=== PATIENT | male | born 1950 | race Caucasian/White ===

== ENCOUNTER → 2017-05-22 | Outpatient (CLI) | payer OTHER, MEDICARE ==
[~2017-05-22] MED LIST: ALBU18002 INH; ATOR-24 PO; DOXY50CA26 PO; ESCI1TAB10 PO; MONT1TAB3 PO; MULT-13 PO; MULT-513 PO; OXYC20TA50 PO; SYMIN160 INH; TADA20TA PO; TRIA3AER NAE; VENL150C56 PO
[2017-05-22 12:24] LABS: BASO % 0.7 %; BASO ABS # 0.04 K/uL (0-0.2); COMPLETE YES; HEMATOCRIT 39.1 % (42-52); IG% 0.2 %; LYMPH % 28.8 %; LYMPH ABS # 1.67 K/uL (1.2-3.4); MEAN CELL VOLUME 81.3 fL (80-100); MEAN CORPUSCULAR HEMOGLOBIN 24.3 pg (25-34); MEAN CORPUSCULAR HGB CONC 29.9 g/dl (32-36); MEAN PLATELET VOLUME 10.2 fL (7.4-10.4); MONO % 9.5 %; NEUT % 56.8 %; PLATELET COUNT 292 K/uL (130-400); RED BLOOD COUNT 4.81 M/uL (4.7-6.1); WHITE BLOOD COUNT 5.79 K/uL (4.8-10.8)
[2017-05-22 13:14] LABS: ALT/SGPT 47 U/L (12-78); AST/SGOT 34 U/L (15-37); BLOOD UREA NITROGEN 14 mg/dl (7-18); BUN/CREATININE RATIO 12.4 (10-20); CALCIUM 8.6 mg/dl (8.5-10.1); CARBON DIOXIDE 28 mmol/L (21-32); CHLORIDE 107 mmol/L (98-107); CHOLESTEROL 206 mg/dl (0-200); GLUCOSE 103 mg/dl (70-99); POTASSIUM 3.9 mmol/L (3.5-5.1); SODIUM 140 mmol/L (136-145)
[2017-05-22 13:37] LABS: ALKALINE PHOSPHATASE 86 U/L (45-117); HDL CHOLESTEROL 51 mg/dl; LDL CHOLESTEROL CALCULATED 109 mg/dl; THYROID STIMULATING HORMONE 0.912 uIu/ml (0.300-4.500); TRIGLYCERIDES 228 mg/dl (0-150); VERY LOW DENSITY LIPOPROT CALC 46 mg/dl
--- NOTE | 2017-06-16 10:36 | CODING QUERY MEDICAL NECESSITY ---
CQSUPPORTING DIAGNOSIS NEEDED A supporting diagnosis is required for the test/procedure performed on this patient in order for us to be reimbursed by the patient's insurance. Please provide a supporting diagnosis for the following test/procedure listed below next to the test name along with your signature. *If there is no additional diagnosis for this patient that would support the following test/procedure please document that below next to the test/procedure. Test(s)/Procedure(s) that require a supporting diagnosis: DOS 05/22/17 PROSTATE SPECIFIC THYROID TEST LIPID TEST Provider Signature: Date: Thank you Lexi Cruz Health Information Management Once completed, please kindly fax back to [phone] For questions please call [phone]
== END | disposition home or self-care (01) ==
LOC: C.LABPBG 10:46
PROVIDERS: ATTEND Internal Medicine
DX: Z72.0 Tobacco use (principal)

== ENCOUNTER → 2017-05-29 | Outpatient (CLI) | payer OTHER, MEDICARE ==
[2017-05-29 17:09] LABS: FERRITIN 7.7 ng/ml (8.0-388.0)
--- NOTE | 2017-06-16 10:45 | CODING QUERY MEDICAL NECESSITY ---
CQSUPPORTING DIAGNOSIS NEEDED A supporting diagnosis is required for the test/procedure performed on this patient in order for us to be reimbursed by the patient's insurance. Please provide a supporting diagnosis for the following test/procedure listed below next to the test name along with your signature. *If there is no additional diagnosis for this patient that would support the following test/procedure please document that below next to the test/procedure. Test(s)/Procedure(s) that require a supporting diagnosis: DOS 05/29/17 VITAMIN B12 TEST FOLIC ACID TEST Provider Signature: Date: Thank you Lexi Cruz Health Information Management Once completed, please kindly fax back to [phone] For questions please call [phone]
== END | disposition home or self-care (01) ==
LOC: C.LABPBG 11:39
PROVIDERS: ATTEND Internal Medicine
DX: D64.9 Anemia, unspecified (principal)

== ENCOUNTER → 2017-06-05 | Day surgery (SDC) | payer OTHER, MEDICARE ==
[2017-06-02 12:40] VITALS: Ht 172.7 cm; Wt 84.1 kg
[~2017-06-05] VITALS: Ht 172.7 cm; Wt 84.1 kg
[~2017-06-05] MED LIST changes: +ALBUTEROL HFA INHALER 8.5 GM INH ONE; -ESCI1TAB10 PO; +FENTANYL CITRATE INJ 50 MCG/1 ML 2 ML VIAL ONE; +LIDOCAINE HCL 2% 2 ML VIAL (20MG/ML) ONE; -MONT1TAB3 PO; -MULT-13 PO; -OXYC20TA50 PO; +PROPOFOL IV EMULSION 10 MG/ML 20 ML VIAL IV ONE; +SODIUM CHLORIDE 0.9% 500ML 500 ML IV ONE; -TADA20TA PO; -TRIA3AER NAE
--- NOTE | 2017-06-05 13:24 | Endo History and Physical ---
History & Physical Date of Service: Jun 05, 2017. Chief Complaint: anemia,diverticulosis Referring Physician: Dr. Pelon Santiago History of Present Illness anemia Past Surgical History Hx Cardiac Surgery: Yes (PERICARDIAL WINDOW SURGERY) Hx Internal Defibrillator: No Hx Pacemaker: No Hx Abdominal Surgery: Yes (HERNIA REPAIR) Hx of Implantable Prosthesis: No Hx Post-Op Nausea and Vomiting: No Hx Cancer Surgery: No Hx Thoracic Surgery: No Hx Orthopedic: Yes (RT TKA) Hx Urinary Tract Surgery: No Family History IBD Social History Smoking Status: Never Smoker Hx Substance Use: No Hx Alcohol Use: Yes (3-4 BEERS/DAY) Allergies Coded Allergies: No Known Allergies (Verified , 06/05/17) Current Medications Reported Home Medications Medications Dose Route/Sig Max Daily Dose Days Date Category Proair Respiclick (Albuterol Sulfate) 108 Mcg/Act Aer 2 Puffs INH Q4H PRN 06/02/17 Reported Doxycycline (Doxycycline (Monohydrate)) 50 Mg Cap 1 Cap PO AFTERNOON 06/02/17 Reported Effexor Extended Rel (Venlafaxine Hcl) 150 Mg Cap 150 Mg PO AFTERNOON 06/02/17 Reported Symbicort 160/4.5 Inhaler (Budesonide/Formoterol Fumarate) Aero 2 Puffs INH BID PRN 05/19/13 Reported Mvi With Minerals (Multivitamins/Minerals) Tab 1 Tab PO AFTERNOON 05/19/13 Reported Lipitor (Atorvastatin Calcium) 40 Mg Tab 40 Mg PO AFTERNOON 04/22/13 Reported Vital Signs Weight (Kilograms): 84.09 Height (Feet): 5 Height (Inches): 8 Date Time Temp Pulse Resp B/P (MAP) Pulse Ox O2 Delivery O2 Flow Rate FiO2 06/05/17 13:14 36.8 72 16 151/87 (108) 98 Room Air Physical Exam AAOx3 Nl s1s2 Lungs CTA Abd soft NT/ND + BS - CCE Assessment and Plan EGD and colonscopy today
--- NOTE | 2017-06-05 15:25 | Discharge Instructions ---
Endoscopy Patient Instructions Date / Procedure(s) Performed Jun 05, 2017. Colonoscopy, EGD Allergy Information Coded Allergies: No Known Allergies (Verified , 06/05/17) Discharge Date / Findings Jun 05, 2017. polyps- colon diverticulosis nl EGD/SB exam- bx Medication Instructions Restart Stopped Medication(s): Reported Home Medications Medications Dose Route/Sig Max Daily Dose Days Date Category Proair Respiclick (Albuterol Sulfate) 108 Mcg/Act Aer 2 Puffs INH Q4H PRN 06/02/17 Reported Doxycycline (Doxycycline (Monohydrate)) 50 Mg Cap 1 Cap PO AFTERNOON 06/02/17 Reported Effexor Extended Rel (Venlafaxine Hcl) 150 Mg Cap 150 Mg PO AFTERNOON 06/02/17 Reported Symbicort 160/4.5 Inhaler (Budesonide/Formoterol Fumarate) Aero 2 Puffs INH BID PRN 05/19/13 Reported Mvi With Minerals (Multivitamins/Minerals) Tab 1 Tab PO AFTERNOON 05/19/13 Reported Lipitor (Atorvastatin Calcium) 40 Mg Tab 40 Mg PO AFTERNOON 04/22/13 Reported Reported Home Medications Medications Dose Route/Sig Max Daily Dose Days Date Category Proair Respiclick (Albuterol Sulfate) 108 Mcg/Act Aer 2 Puffs INH Q4H PRN 06/02/17 Reported Doxycycline (Doxycycline (Monohydrate)) 50 Mg Cap 1 Cap PO AFTERNOON 06/02/17 Reported Effexor Extended Rel (Venlafaxine Hcl) 150 Mg Cap 150 Mg PO AFTERNOON 06/02/17 Reported Symbicort 160/4.5 Inhaler (Budesonide/Formoterol Fumarate) Aero 2 Puffs INH BID PRN 05/19/13 Reported Mvi With Minerals (Multivitamins/Minerals) Tab 1 Tab PO AFTERNOON 05/19/13 Reported Lipitor (Atorvastatin Calcium) 40 Mg Tab 40 Mg PO AFTERNOON 04/22/13 Reported Provider Instructions Activity Restrictions - No exercising or heavy lifting for 24 hours. - Do not drink alcohol the day of the procedure. - Do not drive a car or operate machinery until the day after the procedure. - Do not make any important decisions or sign important papers in 24 hours after the procedure. Following Day: - Return to full activity which may include returning to work/school. Diet Start your diet with liquids and light foods (jello, soup, juice, toast). Then eat your usual diet if not nauseated. Treatment For Common After Affects For mild abdominal pain, bloating, or excessive gas: - Rest - Eat lightly - Lie on right side Follow-Up Information Follow-up with Dr. Pelon Santiago as scheduled Anesthesia Information What You Should Know You have had a procedure that required some medicine to reduce anxiety and discomfort. This treatment is called moderate sedation. After receiving the treatment, you may be sleepy, but you will be able to breathe on your own. The effects of the treatment may last for several hours. Follow these instructions along with Activity/Diet recommendations noted above: * Do NOT do anything where dizziness or clumsiness would be dangerous. * Rest quietly at home today, then you can be up and about tomorrow. * Have a responsible person stay with you the rest of today. * You may have had an I.V. today. If so, you may take the dressing off later today. Recommendations Call your doctor if: * Trouble breathing * Continuous vomiting for more than 24 hours * Temperature above 101 degrees * Severe abdominal pain or bloating * Pain not relieved by pain medicine ordered * There is increased drainage or redness from any incision * A large amount of rectal bleeding greater than 2-3 tablespoons. (If you had a polyp/s removed or have hemorrhoids, a small amount of blood - from the rectum is to be expected.) * You have any unanswered questions or concerns. IN THE EVENT OF A SERIOUS EMERGENCY, GO TO THE NEAREST EMERGENCY ROOM Your discharge instructions were prepared by provider Elio Duffy. Patient Instructions Signature Page Alec Salmeron Patient (or Guardian) Signature/Date: I have read and understand the instructions given to me by my caregivers. Caregiver/RN/Doctor Signature/Date: The above-named patient and/or guardian has received patient instructions on this date. + Original Patient Signature Page (only) stays with chart. Please make copy for patient.
--- NOTE | 2017-06-05 15:30 | GI REPORT ---
Procedure Date: 06/05/2017 2:11 PM Procedure: Colonoscopy Indications: Iron deficiency anemia secondary to chronic blood loss Medicines: Propofol per Anesthesia Complications: No immediate complications. Estimated blood loss: Minimal. Estimated Blood Loss: Estimated blood loss was minimal. Procedure: Pre-Anesthesia Assessment: - Prior to the procedure, a History and Physical was performed, and patient medications and allergies were reviewed. The patient's tolerance of previous anesthesia was also reviewed. The risks and benefits of the procedure and the sedation options and risks were discussed with the patient. All questions were answered, and informed consent was obtained. Prior Anticoagulants: The patient has taken no previous anticoagulant or antiplatelet agents. ASA Grade Assessment: III - A patient with severe systemic disease. After reviewing the risks and benefits, the patient was deemed in satisfactory condition to undergo the procedure. After I obtained informed consent, the scope was passed under direct vision. Throughout the procedure, the patient's blood pressure, pulse, and oxygen saturations were monitored continuously. The scope was introduced through the anus and advanced to the terminal ileum, with identification of the appendiceal orifice and IC valve. The colonoscopy was performed without difficulty. The patient tolerated the procedure well. The quality of the bowel preparation was good. Findings: The perianal and digital rectal examinations were normal. Pertinent negatives include normal sphincter tone, no palpable rectal lesions and no anal lesion or abnormality was detected. Two sessile polyps were found in the rectum. The polyps were 3 mm in size. These polyps were removed with a cold biopsy forceps. Resection and retrieval were complete. Estimated blood loss was minimal. Verification of patient identification for the specimen was done by the physician and carpet cleaning technician using the patient's name and medical record number. Multiple small-mouthed diverticula were found in the sigmoid colon and in the descending colon. The exam was otherwise without abnormality. The terminal ileum appeared normal. Non-bleeding internal hemorrhoids were found during retroflexion. The hemorrhoids were mild. Impression: - Two 3 mm polyps in the rectum, removed with a cold biopsy forceps. Resected and retrieved. - Diverticulosis in the sigmoid colon and in the descending colon. - The examination was otherwise normal. - The examined portion of the ileum was normal. - Non-bleeding internal hemorrhoids. Recommendation: - Discharge patient to home (ambulatory). - Patient has a contact number available for emergencies. The signs and symptoms of potential delayed complications were discussed with the patient. Return to normal activities tomorrow. Written discharge instructions were provided to the patient. - Advance diet as tolerated. - Continue present medications. - Await pathology results. - Repeat colonoscopy for surveillance based on pathology results. - Return to referring physician as previously scheduled. MD Elio Martin MD 06/05/2017 3:29:40 PM This report has been signed electronically. Note Initiated On: 06/05/2017 2:11 PM I attest to the content of the Intraoperative Record and orders documented therein, exceptions below
--- NOTE | 2017-06-05 15:33 | GI REPORT ---
Procedure Date: 06/05/2017 2:12 PM Procedure: Upper GI endoscopy Indications: Iron deficiency anemia secondary to chronic blood loss Medicines: Propofol per Anesthesia Complications: No immediate complications. Estimated blood loss: Minimal. Estimated Blood Loss: Estimated blood loss was minimal. Estimated blood loss was minimal. Procedure: Pre-Anesthesia Assessment: - Prior to the procedure, a History and Physical was performed, and patient medications and allergies were reviewed. The patient's tolerance of previous anesthesia was also reviewed. The risks and benefits of the procedure and the sedation options and risks were discussed with the patient. All questions were answered, and informed consent was obtained. Prior Anticoagulants: The patient has taken no previous anticoagulant or antiplatelet agents. ASA Grade Assessment: III - A patient with severe systemic disease. After reviewing the risks and benefits, the patient was deemed in satisfactory condition to undergo the procedure. After obtaining informed consent, the endoscope was passed under direct vision. Throughout the procedure, the patient's blood pressure, pulse, and oxygen saturations were monitored continuously. The scope was introduced through the mouth, and advanced to the mid-jejunum. The upper GI endoscopy was accomplished without difficulty. The patient tolerated the procedure well. Findings: The examined esophagus was normal. A small hiatus hernia was found. The proximal extent of the gastric folds (end of tubular esophagus) was 38 cm from the incisors. The hiatal narrowing was 40 cm from the incisors. The Z-line was 38 cm from the incisors. The entire examined stomach was normal. The cardia and gastric fundus were normal on retroflexion. The examined duodenum was normal. Biopsies for histology were taken with a cold forceps for evaluation of celiac disease. Estimated blood loss was minimal. Verification of patient identification for the specimen was done by the physician and eeg technician using the patient's name and medical record number. The examined jejunum was normal. Localized mild inflammation characterized by erythema was found in the duodenal bulb. Impression: - Normal esophagus. - Small hiatus hernia. - Normal stomach. - Normal examined duodenum. Biopsied. - Normal examined jejunum. Recommendation: - Discharge patient to home (ambulatory). - Advance diet as tolerated. - Continue present medications. - Return to referring physician as previously scheduled. - Await pathology results. MD Elio Martin MD 06/05/2017 3:32:57 PM This report has been signed electronically. Note Initiated On: 06/05/2017 2:12 PM I attest to the content of the Intraoperative Record and orders documented therein, exceptions below
[2017-06-05 15:48] VITALS: BP 131/86; PULSE 71; O2SAT 95
--- NOTE | 2017-06-05 16:15 | Anesthesiology Progress Note ---
Anesthesia Post Op Note Date & Time Jun 05, 2017 at 16:15 Vital Signs Pain Intensity: 0 Vital Signs Past 12 Hours Date Time Temp Pulse Resp B/P (MAP) Pulse Ox O2 Delivery O2 Flow Rate FiO2 06/05/17 15:48 71 16 131/86 (101) 95 Room Air 06/05/17 15:33 90 16 125/91 (102) 96 Room Air 06/05/17 15:18 90 16 128/89 (102) 95 Room Air 06/05/17 13:14 36.8 72 16 151/87 (108) 98 Room Air Notes Mental Status: alert / awake / arousable, participated in evaluation Pt Amnestic to Procedure: Yes Nausea / Vomiting: adequately controlled Pain: adequately controlled Airway Patency, RR, SpO2: stable & adequate BP & HR: stable & adequate Hydration State: stable & adequate Anesthetic Complications: no major complications apparent
== END | disposition home or self-care (01) ==
LOC: C.GI 12:51
PROVIDERS: ATTEND Internal Medicine Gastroenterology
DX: D50.9 Iron deficiency anemia, unspecified (principal); K44.9 Diaphragmatic hernia without obstruction or gangrene; K62.1 Rectal polyp; K57.30 Diverticulosis of large intestine without perforation or abscess without bleeding; Z96.651 Presence of right artificial knee joint

== ENCOUNTER → 2017-06-22 | Outpatient (CLI) | payer OTHER, MEDICARE ==
[~2017-06-22] MED LIST changes: -ALBUTEROL HFA INHALER 8.5 GM INH ONE; -FENTANYL CITRATE INJ 50 MCG/1 ML 2 ML VIAL ONE; -LIDOCAINE HCL 2% 2 ML VIAL (20MG/ML) ONE; -PROPOFOL IV EMULSION 10 MG/ML 20 ML VIAL IV ONE; -SODIUM CHLORIDE 0.9% 500ML 500 ML IV ONE
[2017-06-22 17:36] LABS: BASO % 0.3 %; BASO ABS # 0.02 K/uL (0-0.2); COMPLETE YES; IG% 0.2 %; LYMPH % 24.2 %; LYMPH ABS # 1.57 K/uL (1.2-3.4); MEAN CELL VOLUME 79.6 fL (80-100); MEAN CORPUSCULAR HEMOGLOBIN 24.3 pg (25-34); MEAN CORPUSCULAR HGB CONC 30.5 g/dl (32-36); MEAN PLATELET VOLUME 10.6 fL (7.4-10.4); MONO % 8.8 %; NEUT % 62.5 %; PLATELET COUNT 252 K/uL (130-400); RED BLOOD COUNT 4.65 M/uL (4.7-6.1); WHITE BLOOD COUNT 6.49 K/uL (4.8-10.8)
== END | disposition home or self-care (01) ==
LOC: C.LABPBG 11:10
PROVIDERS: ATTEND Internal Medicine
DX: D64.9 Anemia, unspecified (principal)

== ENCOUNTER 2022-07-17 17:13 | Inpatient (IN) ==
[2022-07-17] MEDS ORDERED: SODIUM CHLORIDE 0.9% 250 ML IV PRN ×2 (17:40→23:19)
[2022-07-17] MEDS ORDERED: SODIUM CHLORIDE 0.9% 500 ML IV SCH (17:45)
--- NOTE | 2022-07-17 18:05 | Emergency Department Note ---
Impression & Plan Acute lower GI bleeding, Anemia, Elevated troponin I level ED Provider Note NAME: ANDREE DAWN AGE: 72 SEX: M : 1950 ARRIVES VIA: Walk-In INFORMANT: Patient, ED PROVIDER(S): Leo Luu DO CHIEF COMPLAINT: Generalized weakness HPI: The patient is a 72-year-old male who presented to the emergency department for an evaluation of generalized weakness. The patient's been having generalized weakness over the course the last 3 to 4 weeks. He was initially seen by his family doctor and had laboratory studies done. The patient's laboratory studies did not reveal any acute abnormality. He was asked to follow-up as an outpatient. The patient called his family doctor again recently because he was having worsening weakness and noticed some blood per rectum. The patient has a history of diverticulosis on a previous colonoscopy. The patient started noticing worsening bleeding per rectum. He has been noticing that he has been very weak and dizziness upon standing. The patient denies having any chest pain. He does have some shortness of breath with exertion. He denies having any abdominal pain. He denies having lower extremity swelling. He had outpatient labs today and was sent to the emergency department for further evaluation. ROS: See above HPI for pertinent positives & negatives. A total of 10 systems reviewed and were otherwise negative. PAST MEDICAL HISTORY: See Below PAST SURGICAL HISTORY: See Below FAMILY HISTORY: See Below SOCIAL HISTORY: See Below HOME MEDICATIONS: See Below ALLERGIES: See Below VITALS: See Below PHYSICAL EXAMINATION: GENERAL: Patient is awake alert in no acute distress patient is resting comfortably and showing no signs of anxiety EYES: The conjunctivae are clear. The pupils are round and reactive. EARS, NOSE, MOUTH AND THROAT: The nose is without any evidence of any deformity. Mucous membranes are moist. Tongue is midline. NECK: The neck is nontender and supple. RESPIRATORY: Normal respiratory effort is noted there is no evidence of wheezing rhonchi or rales CARDIOVASCULAR: Regular rate and rhythm noted there no murmurs rubs or gallops normal S1 normal S2. GASTROINTESTINAL: The abdomen was soft and nondistended. There is no tenderness guarding or rigidity. Rectal exam revealed gross blood. MUSCULOSKELETAL/EXTREMITIES: There is no evidence of gross deformity full range of motion is noted in the hips and shoulders. SKIN: Skin was warm and dry. Trace pedal edema was noted bilaterally. NEUROLOGIC: Patient is awake alert and oriented x3. MEDICAL DECISION MAKING: The patient is a 72-year-old male who presented to the emergency department for an evaluation of weakness. The patient was complaining of generalized weakness. He went to see his family doctor. He did have some outpatient laboratory studies drawn recently. The patient states he had repeat labs done today because he was still having similar symptoms and started noticing rectal bleeding. The patient was found to have very severe anemia. He was symptomatic with this anemia showing an abnormal EKG as well as a bump in his troponin. I do feel this is likely demand ischemia. I discussed the patient's laboratory and radiographic studies with him. [facility] I did consent the patient for blood transfusion. Transfusion was ordered. The patient was agreeable with the plan. Triage Nursing notes reviewed. Prior medical records reviewed Vital Signs: reviewed and remarkable for no significant abnormalities Differential diagnosis: Infection, dehydration, metabolic abnormality, hypo/hyperglycemia, electrolyte disturbance, anemia, hypoxia, cardiac sources, intracerebral event, toxicologic, neurologic, as well as other pathologies. ER treatment provided: See below Diagnostics interpreted by me: ECG: EKG was obtained in the emergency department. My interpretation is sinus tachycardia 102 bpm. There was no ectopy. Nonspecific ST segment depression was noted. This was compared to a tracing from April 22, 2013. The ST segment abnormalities are new compared to the previous tracing. Cardiac Monitoring: An order was placed for continuous cardiac monitoring. The monitor shows a rate of 78 bpm with sinus rhythm. Laboratory studies: As stated above and show below. Imaging studies: See below Consultation(s): I discussed this case with Dr. Vu who is [facility] ED COURSE: Procedures: none Critical Care: I have personally spent greater than 45 minutes of critical care time in the direct management of this patient. This includes bedside care, interpretation of diagnostic studies, and testing, discussion with consultants, patient, and family members, and other required patient management activities. This 45 minutes is in excess of all separately billable procedures. Past Med/Surg History Medical History (Updated 07/17/22 @ 22:08 by Leo Luu DO) Anxiety Asthma Borderline hypertension Chronic obstructive pulmonary disease Chronic rhinitis Chronic sinusitis Closed head injury Diverticulosis Encounter for pre-operative examination Eyebrow laceration Fall Hyperlipidemia Iron deficiency anemia Macular degeneration of both eyes Mild mitral valve prolapse Mitral valve prolapse Nocturnal hypoxemia Osteoarthritis Primary localized osteoarthrosis of shoulder region Right shoulder injury Sleep apnea Surgical History History of abdominal hernia History of cataract surgery RIGHT History of colonoscopy History of ERCP History of esophagogastroduodenoscopy (EGD) History of tonsillectomy and adenoidectomy Hx of vasectomy S/P pericardial window creation 8 YEARS AGO Total knee replacement status right knee 2016 Family History Brother Pancreatic cancer Myocardial infarction Mother Colostomy in place Stroke Father , AGE 90 MRSA infection Unknown Dyslipidemia Hypertension Denies family history of Ovarian cancer Breast cancer Colorectal cancer Social History Smoking Status: Never smoker Tobacco Type: Smokeless Tobacco (Dip or Chew) Age Started Using Tobacco: 16; Second Hand Exposure: No; Hx Alcohol Use: Yes Alcohol type: beer Hx Substance Use: No Preferred Language: Kiswahili Communication Ability: Effective Hearing Ability: Normal Precision Machinist Required: No Beliefs That Will Affect Care: None marital status: Current Living Situation: Spouse current occupational status: retired Feels Safe at Home: Yes Childhood Exposure to Second-Hand Smoke: Yes caffeine: Yes (coffee) during the past year weight has: remained stable Dental Care, Regularly: Yes Physical Activity Frequency: Does not Exercise Physical Activity Frequency Comment: due to physical condition Seatbelt Use: always Sunscreen Use: No Assistive Devices: Glasses Allergies Allergies Allergy/AdvReac Type Severity Reaction Status Date / Time No Known Allergies Allergy Verified 07/17/22 19:23 Home Meds Home Medications Medication Instructions Recorded Confirmed iron 18 mg tablet 18 mg PO QDL 03/14/19 07/17/22 multivitamin,tx-minerals 1 cap PO QDL 03/14/19 07/17/22 (Multi-Vitamin HP/Minerals capsule) vitamins A,C,T-wder-epmlsv 2,148 1 tab PO QDL 03/14/19 07/17/22 mcg-113 mg-45 mg-17.4 mg tablet (PreserVision AREDS) atorvastatin 40 mg tablet 40 mg PO QDL 07/17/22 07/17/22 venlafaxine 150 mg 150 mg PO QDL 07/17/22 07/17/22 capsule,extended release 24 hr Previous Rx's Medication Instructions Recorded inhalational spacing device #1 ea 06/17/21 (Aerochamber Plus Z Stat spacer) Symbicort 80 mcg-4.5 mcg/actuation 2 puff inhalation BID #10.2 grams 06/24/22 HFA aerosol inhaler (budesonide-formoterol) Results & Data (ED) Vital Signs Vital Signs - 24 hr 07/17/22 17:21 07/17/22 17:38 07/17/22 17:54 Temperature 37.1 C Temperature Source Temporal Artery Scan Pulse Rate 109 H 108 H 95 H Pulse Rate from SpO2 Sensor 96 H Pulse Rhythm Regular Respiratory Rate 18 21 Respiratory Effort / Characteristics Non-Labored Respiratory Depth Normal Blood Pressure 99/60 L 110/67 Blood Pressure Mean 73 81 Blood Pressure Position Pulse Oximetry 98 98 96 Oxygen Delivery Method Room Air Room Air Sepsis Recent Fever Within 48 Hours No Sepsis New/Unexplained Change in Mental Status No Sepsis Action Taken by Nursing No Action Required 07/17/22 18:29 07/17/22 18:00 07/17/22 18:00 Temperature Temperature Source Pulse Rate 95 H 104 H Pulse Rate from SpO2 Sensor 102 H Pulse Rhythm Regular Respiratory Rate 21 21 Respiratory Effort / Characteristics Respiratory Depth Blood Pressure 135/72 Blood Pressure Mean 93 Blood Pressure Position Pulse Oximetry 96 97 Oxygen Delivery Method Room Air Sepsis Recent Fever Within 48 Hours Sepsis New/Unexplained Change in Mental Status Sepsis Action Taken by Nursing 07/17/22 18:30 07/17/22 18:30 07/17/22 19:00 Temperature Temperature Source Pulse Rate 74 75 Pulse Rate from SpO2 Sensor 76 78 Pulse Rhythm Respiratory Rate 23 21 Respiratory Effort / Characteristics Respiratory Depth Blood Pressure 128/72 132/82 Blood Pressure Mean 90 98 Blood Pressure Position Pulse Oximetry 97 98 Oxygen Delivery Method Room Air Sepsis Recent Fever Within 48 Hours Sepsis New/Unexplained Change in Mental Status Sepsis Action Taken by Nursing 07/17/22 19:58 07/17/22 20:20 07/17/22 20:20 Temperature 36.8 C 36.8 C 36.8 C Temperature Source Oral Oral Oral Pulse Rate 76 74 74 Pulse Rate from SpO2 Sensor Pulse Rhythm Respiratory Rate 18 18 18 Respiratory Effort / Characteristics Respiratory Depth Blood Pressure 124/68 116/69 116/69 Blood Pressure Mean 86 84 84 Blood Pressure Position Semi-fowlers Semi-fowlers Pulse Oximetry 98 100 100 Oxygen Delivery Method Sepsis Recent Fever Within 48 Hours Sepsis New/Unexplained Change in Mental Status Sepsis Action Taken by Nursing 07/17/22 20:35 07/17/22 20:53 07/17/22 21:05 Temperature 36.8 C 37.0 C 36.9 C Temperature Source Oral Oral Pulse Rate 71 78 Pulse Rate from SpO2 Sensor Pulse Rhythm Respiratory Rate 18 18 Respiratory Effort / Characteristics Respiratory Depth Blood Pressure 124/75 111/67 Blood Pressure Mean 91 81 Blood Pressure Position Semi-fowlers Semi-fowlers Pulse Oximetry 98 98 Oxygen Delivery Method Sepsis Recent Fever Within 48 Hours Sepsis New/Unexplained Change in Mental Status Sepsis Action Taken by Prison Medications Current Medication List: was personally reviewed by me Laboratory Data Attestation: I reviewed the patient's lab results. Result diagrams: 07/17/22 17:45 07/17/22 17:45 Lab Results 07/17/22 07/17/22 07/17/22 Range/Units 17:45 17:45 17:45 WBC 7.21 (4.8-10.8) K/ul RBC 2.21 L (4.63-6.08) M/uL Hgb 6.2 L* (14.0-18.0) g/dl Hct 19.5 L* (40.1-51.0) % MCV 88.2 (80.0-100.0) fL MCH 28.1 (25.0-34.0) pg MCHC 31.8 L (32.0-36.0) g/dL RDW Std Deviation 53.5 H (36.4-46.3) fL RDW Coeff of Molly 16.8 H (11.5-14.5) % Plt Count 242 (130-400) K/uL MPV 10.6 (9.4-12.4) fL Immature Gran % (Auto) 0.4 % Neut % (Auto) 72.4 % Lymph % (Auto) 17.5 % [place] % (Auto) 7.1 % Eos % (Auto) 2.2 % Baso % (Auto) 0.4 % Neut # (Auto) 5.22 (1.4-6.5) K/uL Lymph # (Auto) 1.26 (1.2-3.4) K/uL [place] # (Auto) 0.51 (0.24-0.82) K/uL Eos # (Auto) 0.16 (0-0.50) K/uL Baso # (Auto) 0.03 (0-0.2) K/uL Immature Gran # (Auto) 0.03 H (0.00-0.02) K/uL Polychromasia 1+ Tear Drop Cells 1+ PT 11.2 (9.0-12.0) Seconds INR 1.1 (0.9-1.1) APTT 21.7 (21.0-31.0) Seconds PTT Ratio 0.8 Sodium (136-145) mmol/L Potassium (3.5-5.1) mmol/L Chloride (98-107) mmol/L Carbon Dioxide (21-32) mmol/L Anion Gap (3-11) BUN (6-23) mg/dl Creatinine (0.6-1.4) mg/dl Est Cr Clr Drug Dosing ml/min Est GFR ( Amer) ml/min Est GFR (Non-Af Amer) ml/min BUN/Creatinine Ratio (10-20) Glucose (70-99(Fasting)) mg/dl Calcium (8.5-10.1) mg/dl Magnesium (1.7-2.4) mg/dl Total Bilirubin (0.2-1.0) mg/dl AST (13-39) U/L ALT (7-52) U/L Alkaline Phosphatase (34-104) U/L Troponin I High Sens (0-20) pg/ml Total Protein (6.0-8.3) gm/dl Albumin (3.4-5.0) gm/dl Globulin (2.5-4.0) gm/dl Albumin/Globulin Ratio (0.9-2) TSH (0.300-4.500) uIu/ml SARS-CoV-2, RNA, NAAT (NEGATIVE) Blood Type A Negative Antibody Screen NEGATIVE Crossmatch See Detail 07/17/22 07/17/22 07/17/22 Range/Units 17:45 17:45 17:54 WBC (4.8-10.8) K/ul RBC (4.63-6.08) M/uL Hgb (14.0-18.0) g/dl Hct (40.1-51.0) % MCV (80.0-100.0) fL MCH (25.0-34.0) pg MCHC (32.0-36.0) g/dL RDW Std Deviation (36.4-46.3) fL RDW Coeff of Molly (11.5-14.5) % Plt Count (130-400) K/uL MPV (9.4-12.4) fL Immature Gran % (Auto) % Neut % (Auto) % Lymph % (Auto) % [place] % (Auto) % Eos % (Auto) % Baso % (Auto) % Neut # (Auto) (1.4-6.5) K/uL Lymph # (Auto) (1.2-3.4) K/uL [place] # (Auto) (0.24-0.82) K/uL Eos # (Auto) (0-0.50) K/uL Baso # (Auto) (0-0.2) K/uL Immature Gran # (Auto) (0.00-0.02) K/uL Polychromasia Tear Drop Cells PT (9.0-12.0) Seconds INR (0.9-1.1) APTT (21.0-31.0) Seconds PTT Ratio Sodium 138 (136-145) mmol/L Potassium 3.4 L (3.5-5.1) mmol/L Chloride 105 (98-107) mmol/L Carbon Dioxide 24 (21-32) mmol/L Anion Gap 9 (3-11) BUN 18 (6-23) mg/dl Creatinine 1.17 (0.6-1.4) mg/dl Est Cr Clr Drug Dosing 58.1 ml/min Est GFR ( Amer) 70.8 ml/min Est GFR (Non-Af Amer) 61.1 ml/min BUN/Creatinine Ratio 15.4 (10-20) Glucose 132 H (70-99(Fasting)) mg/dl Calcium 9.5 (8.5-10.1) mg/dl Magnesium 1.8 (1.7-2.4) mg/dl Total Bilirubin 0.5 (0.2-1.0) mg/dl AST 32 (13-39) U/L ALT 25 (7-52) U/L Alkaline Phosphatase 52 (34-104) U/L Troponin I High Sens 107.8 H* (0-20) pg/ml Total Protein 6.6 (6.0-8.3) gm/dl Albumin 4.3 (3.4-5.0) gm/dl Globulin 2.3 L (2.5-4.0) gm/dl Albumin/Globulin Ratio 1.9 (0.9-2) TSH 1.521 (0.300-4.500) uIu/ml SARS-CoV-2, RNA, NAAT NEGATIVE (NEGATIVE) Blood Type Antibody Screen Crossmatch Administered Medications Discontinued Medications Sodium Chloride (Nss) 500 mls @ 999 mls/hr IV .Q31M THU Stop: 07/17/22 18:15 Last Infusion: 07/17/22 18:33 Dose: 0 mls/hr Documented By: Admin: 07/17/22 18:02 Dose: 999 mls/hr Documented By: ED Imaging Data Radiologist's Impression: Chest X-Ray 07/17/22 17:40 XR chest 1V portable CLINICAL HISTORY: weakness TECHNIQUE: Single frontal radiograph of the chest was obtained. Comparison: Comparison is made to chest radiograph 01/18/2016 FINDINGS: No lines and tubes are seen. Cardiomegaly is noted. The lungs are clear. No evidence of pleural effusion or pneumothorax. IMPRESSION: No acute chest disease. ACT 112: Negative or not required by law. Electronically signed by: Tyson Hoffman M.D. 07/17/2022 6:34 PM Discharge Plan Visit Data Chief Complaint: Rectal Bleed Stated Complaint: REFERRED BY DOCTOR, LIGHTHEATED, LOW BLOOD, ED Provider: Leo Luu Discharge Problem: Acute lower GI bleeding, Anemia, Elevated troponin I level Patient Disposition: Being Evaluated by Hospitalist Forms Stand Alone Forms: My [facility] [employer] Prescriptions Prescriptions: No Action budesonide-formoterol [Symbicort] 80-4.5 mcg/actuation HFA aerosol inhaler 2 puff inhalation BID Qty: 10.2 3RF Rx Instructions: thru aerochamber/ [employer] (DME) Aerochamber Plus Z Stat Spacer See Rx Instructions .ROUTE .MEDSUPPLY Qty: 1 0RF Rx Instructions: As directed iron 18 mg Tablet 18 mg PO QDL Multi-Vitamin HP/Minerals Capsule 1 cap PO QDL PreserVision AREDS 7,160-113-100 [id number] Tablet 1 tab PO QDL atorvastatin 40 mg tablet 40 mg PO QDL venlafaxine 150 mg capsule,extended release 24hr 150 mg PO QDL Referrals Referrals: Pelon Santiago MD [Primary Care Provider] -
[2022-07-17 18:10] LABS: Hematocrit (blood only) 19.5 % (40.1-51.0); Hemoglobin 6.2 g/dl (14.0-18.0); Mean Corpuscular Hemoglobin 28.1 pg (25.0-34.0); Mean Corpuscular Hgb Conc 31.8 g/dL (32.0-36.0); Mean Corpuscular Volume 88.2 fL (80.0-100.0); Mean Platelet Volume 10.6 fL (9.4-12.4); Platelet Count 242 K/uL (130-400); RDW Coefficient of Variation 16.8 % (11.5-14.5); RDW Standard Deviation 53.5 fL (36.4-46.3); Red Blood Count 2.21 M/uL (4.63-6.08); White Blood Count 7.21 K/ul (4.8-10.8)
--- NOTE | 2022-07-17 18:14 | History & Physical Report ---
Date of Service July 17, 2022 Assessment & Plan (1) GIB (gastrointestinal bleeding): Plan: -Patient with a hemoglobin of 6.2 on admission. type and cross pending, Will start with 2 units of PRBCs -Will get an H&H after transfusion. H&H Q6H for the first 24 hours. -Patient complains of symptoms over weeks, unsure if a slow GIB at this time. -Patient denies any recent wt loss or night sweats but has iron deficiency with constipation and has been passing small amounts of stool. Colon cancer should remain on the differential. -Will make patient NPO and GI consulted -CBC, CMP in the AM. (2) Anxiety: Plan: -Continue home meds (3) Chronic obstructive pulmonary disease: Plan: -Continue home Symbicort (4) Hyperlipidemia: Plan: -Continue home statin (5) Troponin level elevated: Plan: -Elevated on time of admission at 107.8. -No CP but has had some exertional SOB. -EKG pending. -Will trend troponin @ 22:00 Plan Fluids: NSS Nutrition: NPO Code status: Conditional code DVT ppx: none GIB Consults: GI Dispo: med/surg with tele Thank you for allowing me to participate in the care of your patient. -Dr. Ivan Bailey PGY1 History of Present Illness Chief Complaint: GIB Primary Care Provider: Pelon Santiago MD Patient is a 72 y/o male with past medical history of HLD, Anxiety, and asthma that presents to the ED with c/o weakness, fatigue, pallor, and rectal bleeding. Patient states that he has been bleeding from his rectum for a couple of weeks. States that it has been bright red and maroon in color. Denies any black stools. States that he has also been having diarrhea and feeling constipated. Also states that his stool has been like "[place] kisses". Patient also states that his stool has been very foul smelling. He denies any CP, ab pain, or pain with a BM. States that he does have exertion SOB that has been going on for a long time. Patient has a h/o diverticulosis on previous colonoscopy. States that he is due for a colonoscopy and was supposed to have one in October. His PCP ordered labs today and instructed him to come to the ED. ED: tachycardic with soft BP 99/60, Hgb 6.2, Hct 19.5, normal PT/INR, unremarkable CMP, ferritin 7.1, HS Troponin 107.8, TSH normal, negative CXR, type and cross pending, will be given 2 units of PRBCs, EKG pending. Allergies Allergy/AdvReac Type Severity Reaction Status Date / Time No Known Allergies Allergy Verified 07/24/22 10:35 Home Medications Medication Instructions Recorded Confirmed Type iron 18 mg tablet 18 mg PO QDL 03/14/19 07/24/22 History multivitamin,tx-minerals 1 cap PO QDL 03/14/19 07/24/22 History (Multi-Vitamin HP/Minerals capsule) vitamins A,C,X-lohz-jrtixp 2,148 1 tab PO QDL 03/14/19 07/24/22 History mcg-113 mg-45 mg-17.4 mg tablet (PreserVision AREDS) inhalational spacing device #1 ea 06/17/21 07/22/22 Rx (Aerochamber Plus Z Stat spacer) Symbicort 80 mcg-4.5 mcg/actuation 2 puff inhalation BID #10.2 grams 06/24/22 07/24/22 Rx HFA aerosol inhaler (budesonide-formoterol) atorvastatin 40 mg tablet 40 mg PO QDL 07/17/22 07/24/22 History venlafaxine 150 mg 150 mg PO QDL 07/17/22 07/24/22 History capsule,extended release 24 hr pantoprazole 40 mg tablet,delayed 40 mg PO BID 10 days #60 tabs 07/19/22 07/24/22 Rx release (Protonix) Past Med/Surg History Medical History (Updated 07/21/22 @ 10:23 by Tatiana Ng RN) Anemia recently in hospital and Dr. Omer aware Anxiety Asthma Borderline hypertension Chronic obstructive pulmonary disease Chronic rhinitis Chronic sinusitis Closed head injury hx of rock hit head and need stitches Diverticulosis Eyebrow laceration repair Fall hx of a long time ago Hyperlipidemia Iron deficiency anemia Macular degeneration of both eyes Mitral valve prolapse folllow with dr oh Osteoarthritis Sleep apnea Surgical History (Updated 07/21/22 @ 10:21 by Tatiana Ng RN) History of abdominal hernia History of cataract surgery RIGHT/left History of colonoscopy History of ERCP History of esophagogastroduodenoscopy (EGD) History of tonsillectomy and adenoidectomy Hx of vasectomy S/P pericardial window creation 8 YEARS AGO Total knee replacement status right knee 2016 Family History Brother Pancreatic cancer Myocardial infarction Mother Colostomy in place Stroke Father , AGE 90 MRSA infection Unknown Dyslipidemia Hypertension Denies family history of Ovarian cancer Breast cancer Colorectal cancer Social History Smoking Status: Former smoker Tobacco Type: Smokeless Tobacco (Dip or Chew) Age Started Using Tobacco: 16; Second Hand Exposure: No; Hx Alcohol Use: Yes Alcohol type: beer Hx Substance Use: No Preferred Language: Romanian Communication Ability: Effective Hearing Ability: Normal Diamond Grinder Required: No Beliefs That Will Affect Care: None marital status: Current Living Situation: Spouse current occupational status: retired Feels Safe at Home: Yes Childhood Exposure to Second-Hand Smoke: Yes caffeine: Yes (coffee) during the past year weight has: remained stable Dental Care, Regularly: Yes Physical Activity Frequency: Does not Exercise Physical Activity Frequency Comment: due to physical condition Seatbelt Use: always Sunscreen Use: No Assistive Devices: None Review of Systems Review of Systems: Constitutional: denies fever, chills, fatigue HEENT: denies congestion, sore throat CV: denies chest pain, palpitations Resp: denies cough +SOB GI: denies abdominal pain, nausea, vomiting, +constipation and diarrhea with hematochezia : denies pain with urination, change in urinary frequency Neuro: denies new numbness, tingling, weakness Physical Exam Physical Exam: Constitutional: well-appearing, no acute distress HEENT: NCAT, no conjunctival injection CV: regular rhythm, no murmur appreciated, extremities well-perfused, no LE edema Resp: CTABL, no wheezes/rales/rhonchi appreciated, no increased work of breathing GI: soft, nondistended, nontender, BS normoactive MSK: no gross deformities appreciated Skin: warm, dry, no rash appreciated Neuro: alert, oriented, no focal neurologic deficit appreciated Results & Data Results & Data ([facility]) Vital Signs (Past 12 Hours) Vital Signs Temp Pulse Resp BP Pulse Ox O2 Del Method 07/17/22 17:54 95 H 21 110/67 96 07/17/22 17:38 108 H 98 Room Air 07/17/22 17:21 37.1 C 109 H 18 99/60 L 98 Room Air Supervising Physician Co-Signing Physician Notes Patient seen and examined at bedside. During face to face encounter, I obtained a history and physical examination. I reviewed above note and agree with it. I discussed plan of care with patient and Dr. Bailey. Patient admitted for GI bleed. will be NPO. will sundar monitor H and H. will transfuse 2 units of PRBC Resident Activity Tracking Resident Involvement: Resident Care Provided Care Provided: Adult Hospital Medicine
[2022-07-17 18:20] LABS: INR 1.1 (0.9-1.1); Partial Thromboplastin Ratio 0.8; Partial Thromboplastin Time 21.7 Seconds (21.0-31.0); Prothrombin Time 11.2 Seconds (9.0-12.0)
[2022-07-17 18:22] LABS: Albumin Globulin Ratio 1.9 (0.9-2); Albumin Level 4.3 gm/dl (3.4-5.0); BUN Creatinine Ratio 15.4 (10-20); Bilirubin,Total 0.5 mg/dl (0.2-1.0); Calcium 9.5 mg/dl (8.5-10.1); Creatinine Clr Calc Pharmacy 58.1 ml/min; Est GFR (African American) 70.8 ml/min; Est GFR (Non-African American) 61.1 ml/min; Globulin 2.3 gm/dl (2.5-4.0); Magnesium 1.8 mg/dl (1.7-2.4); Potassium 3.4 mmol/L (3.5-5.1); Total Protein 6.6 gm/dl (6.0-8.3)
[2022-07-17 18:29] LABS: Basophils # (auto) 0.03 K/uL (0-0.2); Basophils % (auto) 0.4 %; Eosinophils # (auto) 0.16 K/uL (0-0.50); Eosinophils % (auto) 2.2 %; Immature Granulocytes # (auto) 0.03 K/uL (0.00-0.02); Immature Granulocytes % (auto) 0.4 %; Lymphocytes # (auto) 1.26 K/uL (1.2-3.4); Lymphocytes % (auto) 17.5 %; Monocytes # (auto) 0.51 K/uL (0.24-0.82); Monocytes % (auto) 7.1 %; Neutrophils # (auto) 5.22 K/uL (1.4-6.5); Neutrophils % (auto) 72.4 %; Polychromasia 1+; Tear Drop Cells 1+
[2022-07-17 18:32] LABS: Troponin I High Sensitivity 107.8 pg/ml (0-20)
--- NOTE | 2022-07-17 18:35 | XRay Report ---
XR chest 1V portable CLINICAL HISTORY: weakness TECHNIQUE: Single frontal radiograph of the chest was obtained. Comparison: Comparison is made to chest radiograph 01/18/2016 FINDINGS: No lines and tubes are seen. Cardiomegaly is noted. The lungs are clear. No evidence of pleural effus ion or pneumothorax. IMPRESSION: No acute chest disease. ACT 112: Negative or not required by law. Electronically signed by: Tyson Hoffman M.D. 07/17/2022 6:34 PM
[2022-07-17] MEDS ORDERED: BUDESONIDE/FORMOTEROL FUMARATE 80/4.5 60 PUFFS/INHALER INH SCH (23:04)
[2022-07-17] MEDS ORDERED: PNEUMOCOCCAL POLYSACCHARIDES 25 MCG/0.5 ML VIAL/SYR IM ONE (23:36)
[2022-07-17] MEDS ORDERED: INFLUENZA VACCINE HIGH DOSE PF 65+ 0.7 ML SYR IM ONE (23:36)
[2022-07-17] MEDS: FLUTICASONE/VILANTEROL 100/25MCG 14 PUFFS/INHALER INH SCH (23:38)
[2022-07-18 00:17] LABS: Hematocrit (blood only) 20.1 % (40.1-51.0); Hemoglobin 6.6 g/dl (14.0-18.0)
[2022-07-18 03:56] LABS: Basophils # (auto) 0.04 K/uL (0-0.2); Basophils % (auto) 0.6 %; Eosinophils # (auto) 0.21 K/uL (0-0.50); Eosinophils % (auto) 3.3 %; Hematocrit (blood only) 22.3 % (40.1-51.0); Hemoglobin 7.1 g/dl (14.0-18.0); Immature Granulocytes # (auto) 0.02 K/uL (0.00-0.02); Immature Granulocytes % (auto) 0.3 %; Lymphocytes # (auto) 1.33 K/uL (1.2-3.4); Mean Corpuscular Hemoglobin 28.6 pg (25.0-34.0); Mean Corpuscular Hgb Conc 31.8 g/dL (32.0-36.0); Mean Corpuscular Volume 89.9 fL (80.0-100.0); Mean Platelet Volume 9.9 fL (9.4-12.4); Monocytes # (auto) 0.67 K/uL (0.24-0.82); Monocytes % (auto) 10.6 %; Neutrophils # (auto) 4.06 K/uL (1.4-6.5); Neutrophils % (auto) 64.2 %; Platelet Count 196 K/uL (130-400); RDW Coefficient of Variation 15.9 % (11.5-14.5); RDW Standard Deviation 52.6 fL (36.4-46.3); Red Blood Count 2.48 M/uL (4.63-6.08); White Blood Count 6.33 K/ul (4.8-10.8)
[2022-07-18 04:19] LABS: Albumin Globulin Ratio 1.7 (0.9-2); Albumin Level 3.6 gm/dl (3.4-5.0); BUN Creatinine Ratio 16.3 (10-20); Bilirubin,Total 0.5 mg/dl (0.2-1.0); Calcium 8.2 mg/dl (8.5-10.1); Creatinine Clr Calc Pharmacy 65.7 ml/min; Est GFR (African American) 81.6 ml/min; Est GFR (Non-African American) 70.4 ml/min; Globulin 2.1 gm/dl (2.5-4.0); Polychromasia 1+; Potassium 3.7 mmol/L (3.5-5.1); Total Protein 5.7 gm/dl (6.0-8.3)
--- NOTE | 2022-07-18 08:54 | Hospitalist Progress Note ---
Date of Service July 18, 2022 Assessment & Plan (1) GIB (gastrointestinal bleeding): Plan: -Patient with a hemoglobin of 6.2 on admission. Now s/p 3 unit trandsfusion and Hgb 8.5 -Patient complains of symptoms over weeks, and per patient has not had any further GI bleeding noted since admission. - GI evaluated and stated that patient has and endoscopies scheduled on 07/24/22 as an outpatient and if he is still here, they will prep him Thursday for the scopes to be done Thursday. - Continue Clear liquid diet - Continue to monitor H&H - Transfuse as necessary - Continue to monitor stool for evidence of active G bleeding - ok to continue home medications (2) Anxiety: Plan: -Continue home meds (3) Chronic obstructive pulmonary disease: Plan: -Continue home Symbicort (4) Hyperlipidemia: Plan: -Continue home statin (5) Troponin level elevated: Plan: -Elevated on time of admission at 107.8. -No CP but has had some exertional SOB. - EKG Revealed sinus Tachycardia, Possible left atrial enlargement, left ventricular hypertrophy with repolarization abnormality. When compared with EKG 04/22/2013 ventricular rate increased by 42 bpm, nonspecific change in ST segment in inferior leads, ST is not depressed in lateral leads, QT has lengthened. when compared with EKG in 2013. Patient has no CP or SOB and is saturating well on RA and the EKG changes are likely ischemic demand from ABLA and possible GI bleed. Admission and Anticipated Discharge Date Admission Date: July 17, 2022 Subjective Attending : Dr Vu This is a 72 year old male that was admitted with a possible GI bleed. He was complaining of maroon and bright red rectal bleeding and found to have a Hgb of 6.7 ( down from his normal of 12. ) Patient was transfused two units in the ER and Hgb only improved to 7.1 Patient tells me that he has not had any further rectal bleeding since a dmission. He has had a total of 3 units and currently his Hgb is 8.5. GI has evaluated patient and he has endoscopies already scheduled for 07/24/22 as an outpatient. If patient is still in the hospital, GI will plan for the endoscopies on Thursday and will prep patient on Thursday. Review of Systems Review of Systems: ROS negative unless stated in history Physical Exam Physical Exam: Constitutional: w ell-appearing, no acute distress, si tting up in bed HE ENT: NCAT, no conj unctival injection CV: regular rhyth m, no murmur appre ciated, extremitie s well-perfused, n o LE edema Resp: C TA bilaterally, no wheezes/rales/rho nchi appreciated, no increased work of breathing GI: s oft, nondistended, nontender, BS nor moactive MSK: no g ross deformities n oted Skin: warm, d ry, no rash apprec iated Neuro: alert , oriented, no foc al neurologic defi cit appreciated Results & Data Results & Data ([facility]) Vital Signs (Past 12 Hours) Vital Signs Temp Pulse Pulse Resp BP BP Pulse Ox 07/18/22 08:00 07/18/22 08:25 36.5 C 63 18 148/81 H 98 07/18/22 08:11 36.7 C 61 18 158/80 H 94 07/18/22 07:53 36.5 C 79 18 148/70 H 93 07/18/22 07:37 36.7 C 76 18 159/84 H 97 07/18/22 02:33 36.7 C 69 20 150/67 H 95 07/18/22 01:05 36.7 C 72 20 132/79 93 07/17/22 23:05 75 07/18/22 01:02 36.8 C 69 20 152/71 H 96 07/18/22 00:35 36.5 C 88 20 138/65 96 07/18/22 00:20 145/80 H 07/17/22 22:38 36.9 C 70 18 97 07/18/22 00:05 36.5 C 66 18 116/65 97 07/17/22 23:13 07/17/22 23:13 36.6 C 73 18 159/78 H 98 07/17/22 22:43 07/17/22 22:37 36.8 C 74 18 132/83 97 07/17/22 22:05 36.8 C 73 18 139/81 99 07/17/22 21:05 36.9 C 78 18 111/67 98 07/17/22 20:53 37.0 C O2 Del Method O2 Flow Rate 07/18/22 08:00 Room Air 07/18/22 08:25 07/18/22 08:11 0 07/18/22 07:53 0 07/18/22 07:37 Room Air 07/18/22 02:33 07/18/22 01:05 07/17/22 23:05 07/18/22 01:02 07/18/22 00:35 07/18/22 00:20 07/17/22 22:38 07/18/22 00:05 07/17/22 23:13 Room Air 07/17/22 23:13 Room Air 07/17/22 22:43 Room Air 07/17/22 22:37 07/17/22 22:05 07/17/22 21:05 07/17/22 20:53 Laboratory Results Laboratory Results - last 24 hr 07/17/22 07/17/22 07/17/22 17:45 17:45 17:45 WBC 7.21 RBC 2.21 L Hgb 6.2 L* Hct 19.5 L* MCV 88.2 MCH 28.1 MCHC 31.8 L RDW Std Deviation 53.5 H RDW Coeff of Molly 16.8 H Plt Count 242 MPV 10.6 Immature Gran % (Auto) 0.4 Neut % (Auto) 72.4 Lymph % (Auto) 17.5 Davis % (Auto) 7.1 Eos % (Auto) 2.2 Baso % (Auto) 0.4 Neut # (Auto) 5.22 Lymph # (Auto) 1.26 Davis # (Auto) 0.51 Eos # (Auto) 0.16 Baso # (Auto) 0.03 Immature Gran # (Auto) 0.03 H Polychromasia 1+ Tear Drop Cells 1+ PT 11.2 INR 1.1 APTT 21.7 PTT Ratio 0.8 Sodium Potassium Chloride Carbon Dioxide Anion Gap BUN Creatinine Est Cr Clr Drug Dosing Est GFR ( Amer) Est GFR (Non-Af Amer) BUN/Creatinine Ratio Glucose Calcium Magnesium Total Bilirubin AST ALT Alkaline Phosphatase Troponin I High Sens Total Protein Albumin Globulin Albumin/Globulin Ratio TSH Urine Color Urine Appearance Urine pH Ur Specific [place] Urine Protein Urine Glucose (UA) Urine Ketones Urine Blood Urine Nitrite Urine Bilirubin Urine Urobilinogen Ur Leukocyte Esterase SARS-CoV-2, RNA, NAAT Blood Type A Negative Blood Type Recheck Antibody Screen NEGATIVE Crossmatch See Detail 07/17/22 07/17/22 07/17/22 17:45 17:45 17:54 WBC RBC Hgb Hct MCV MCH MCHC RDW Std Deviation RDW Coeff of Molly Plt Count MPV Immature Gran % (Auto) Neut % (Auto) Lymph % (Auto) Davis % (Auto) Eos % (Auto) Baso % (Auto) Neut # (Auto) Lymph # (Auto) Davis # (Auto) Eos # (Auto) Baso # (Auto) Immature Gran # (Auto) Polychromasia Tear Drop Cells PT INR APTT PTT Ratio Sodium 138 Potassium 3.4 L Chloride 105 Carbon Dioxide 24 Anion Gap 9 BUN 18 Creatinine 1.17 Est Cr Clr Drug Dosing 58.1 Est GFR ( Amer) 70.8 Est GFR (Non-Af Amer) 61.1 BUN/Creatinine Ratio 15.4 Glucose 132 H Calcium 9.5 Magnesium 1.8 Total Bilirubin 0.5 AST 32 ALT 25 Alkaline Phosphatase 52 Troponin I High Sens 107.8 H* Total Protein 6.6 Albumin 4.3 Globulin 2.3 L Albumin/Globulin Ratio 1.9 TSH 1.521 Urine Color Urine Appearance Urine pH Ur Specific [place] Urine Protein Urine Glucose (UA) Urine Ketones Urine Blood Urine Nitrite Urine Bilirubin Urine Urobilinogen Ur Leukocyte Esterase SARS-CoV-2, RNA, NAAT NEGATIVE Blood Type Blood Type Recheck Antibody Screen Crossmatch 07/17/22 07/17/22 07/18/22 22:24 23:19 03:32 WBC 6.33 RBC 2.48 L Hgb 6.6 L* 7.1 L Hct 20.1 L* 22.3 L MCV 89.9 MCH 28.6 MCHC 31.8 L RDW Std Deviation 52.6 H RDW Coeff of Molly 15.9 H Plt Count 196 MPV 9.9 Immature Gran % (Auto) 0.3 Neut % (Auto) 64.2 Lymph % (Auto) 21.0 Davis % (Auto) 10.6 Eos % (Auto) 3.3 Baso % (Auto) 0.6 Neut # (Auto) 4.06 Lymph # (Auto) 1.33 Davis # (Auto) 0.67 Eos # (Auto) 0.21 Baso # (Auto) 0.04 Immature Gran # (Auto) 0.02 Polychromasia 1+ Tear Drop Cells PT INR APTT PTT Ratio Sodium Potassium Chloride Carbon Dioxide Anion Gap BUN Creatinine Est Cr Clr Drug Dosing Est GFR ( Amer) Est GFR (Non-Af Amer) BUN/Creatinine Ratio Glucose Calcium Magnesium Total Bilirubin AST ALT Alkaline Phosphatase Troponin I High Sens 103.7 H* Total Protein Albumin Globulin Albumin/Globulin Ratio TSH Urine Color Urine Appearance Urine pH Ur Specific [place] Urine Protein Urine Glucose (UA) Urine Ketones Urine Blood Urine Nitrite Urine Bilirubin Urine Urobilinogen Ur Leukocyte Esterase SARS-CoV-2, RNA, NAAT Blood Type Blood Type Recheck Antibody Screen Crossmatch 07/18/22 07/18/22 07/18/22 03:32 03:32 09:17 WBC RBC Hgb Hct MCV MCH MCHC RDW Std Deviation RDW Coeff of Molly Plt Count MPV Immature Gran % (Auto) Neut % (Auto) Lymph % (Auto) Davis % (Auto) Eos % (Auto) Baso % (Auto) Neut # (Auto) Lymph # (Auto) Davis # (Auto) Eos # (Auto) Baso # (Auto) Immature Gran # (Auto) Polychromasia Tear Drop Cells PT INR APTT PTT Ratio Sodium 138 Potassium 3.7 Chloride 109 H Carbon Dioxide 23 Anion Gap 6 BUN 17 Creatinine 1.04 Est Cr Clr Drug Dosing 65.7 Est GFR ( Amer) 81.6 Est GFR (Non-Af Amer) 70.4 BUN/Creatinine Ratio 16.3 Glucose 99 Calcium 8.2 L Magnesium Total Bilirubin 0.5 AST 27 ALT 21 Alkaline Phosphatase 44 Troponin I High Sens Total Protein 5.7 L Albumin 3.6 Globulin 2.1 L Albumin/Globulin Ratio 1.7 TSH Urine Color Yellow Urine Appearance Clear Urine pH 6.0 Ur Specific [place] 1.013 Urine Protein Negative Urine Glucose (UA) Negative Urine Ketones Negative Urine Blood Negative Urine Nitrite Negative Urine Bilirubin Negative Urine Urobilinogen Negative Ur Leukocyte Esterase Negative SARS-CoV-2, RNA, NAAT Blood Type Blood Type Recheck A Negative Antibody Screen Crossmatch 07/18/22 11:23 WBC RBC Hgb 8.5 L Hct 25.8 L MCV MCH MCHC RDW Std Deviation RDW Coeff of Molly Plt Count MPV Immature Gran % (Auto) Neut % (Auto) Lymph % (Auto) Davis % (Auto) Eos % (Auto) Baso % (Auto) Neut # (Auto) Lymph # (Auto) Davis # (Auto) Eos # (Auto) Baso # (Auto) Immature Gran # (Auto) Polychromasia Tear Drop Cells PT INR APTT PTT Ratio Sodium Potassium Chloride Carbon Dioxide Anion Gap BUN Creatinine Est Cr Clr Drug Dosing Est GFR ( Amer) Est GFR (Non-Af Amer) BUN/Creatinine Ratio Glucose Calcium Magnesium Total Bilirubin AST ALT Alkaline Phosphatase Troponin I High Sens Total Protein Albumin Globulin Albumin/Globulin Ratio TSH Urine Color Urine Appearance Urine pH Ur Specific [place] Urine Protein Urine Glucose (UA) Urine Ketones Urine Blood Urine Nitrite Urine Bilirubin Urine Urobilinogen Ur Leukocyte Esterase SARS-CoV-2, RNA, NAAT Blood Type Blood Type Recheck Antibody Screen Crossmatch PG Care Time/CCT Total # of Minutes Spent Total Time Spent with Patient: Total time spent is greater than 50% in coordination of care (as documented) at patient's floor/unit and/or counseling patient: Coding Level of Care Code 66446 Subseq Hosp Care Lvl 3 Diagnoses GIB (gastrointestinal bleeding) K92.2 Anxiety F41.9 Chronic obstructive pulmonary disease J44.9 Hyperlipidemia E78.5 Troponin level elevated R77.8
[2022-07-18 09:42] LABS: Appearance Urine Clear (Clear); Bilirubin Urine Negative (Negative); Blood Urine Negative (Negative); Color Urine Yellow; Glucose Urine UA Negative (Negative); Ketones Urine Negative (Negative); Leukocyte Esterase Urine Negative (Negative); Nitrite Urine Negative (Negative); Protein Urine Negative (Negative); Specific Gravity Urine 1.013 (1.000-1.030); Urobilinogen Urine Negative (Negative)
--- NOTE | 2022-07-18 09:43 | Gastrointestinal Consultation ---
Date of Consultation July 18, 2022 Assessment & Plan (1) Acute lower GI bleeding: (2) Anemia: (3) Acid reflux: Plan Discussed case with Dr. Omer who advisd on plan. - continue to monitor H/H. transfuse as needed. - start protonix 40mg IV bid. - I discussed with patient that we could pursue an egd/colonoscopy on Thursday to further evaluate the bleeding/anemia. He tells me that he does not wish to have this done as an inpatient but would be agreeable to having done as an outp atient. He tells me he does not plan to stay in the hospital over the weekend because he has to get his to an appointment next week. we will continue to follow and monitor should he change his mind. Supervising Physician Co-Signing Physician Notes I personally evaluated the patient and agree with the findings as documented by Exam: Constitutional: WD/WN, vitals as above General: EOM intact bilaterally Neck: normal visual inspection Respiratory: normal respiratory effort, lungs clear to auscultation Cardiovascular: RRR, no murmur, no edema Gastrointestinal: abdomennormal to inspection, nondistended, soft, nontender, no hepatosplenomegaly Musculoskeletal: no cyanosis, head normal to inspection Skin: no rashes, warm and dry Neurologic: moves all extremities Psychiatric: A and O x3, euthymic affect advance diet to clear liquids tonight, improving. if stable tomorrow can advance diet as tolerated, he is already scheduled for colonoscopy as outpt on 07/24 with me. if he is still inpatient on saturday 07/21 then will plan for egd and colonoscopy that day and would advise colonoscopy prep thursday night with golytely 4 L and clear liquid diet thursday. conitnue ppi bid. History of Present Illness Reason for Consultation: GIB Requesting Physician: Dr. Ivan Bailey Attending Physician: Jonnie Vu History of Present Illness Patient is a 72 year old male with history of hyperlipidemia, anxiety, asthma, aortic stenosis who presented to the ED yesterday with complaints of weakenss, fatigue, pallor, and rectal bleeding that has been ongoing for several weeks. He tells me that when he moves his bowels he will see the blood in the bowl as well as on toilet tissue. he states that it is a bright red blood but that stools can be maroon in color. He admits stools tend to fluctuate from hard to loose but he tells me that he moves his bowels 2-3 times every day. no melena. he tells me he has not had any further bleeding since he has been here. On admission he was found to have a hgb of 6.6. his hgb back in 06/10 was 13.1. he tells me that he has had issues with anemia for years and had his last colonoscopy and egd because of this. per nursing, patient is currently getting his 3rd unit of PRBC. rectal exam in ED revealed gross blood. he does admit to acid reflux. only uses rolaids as an outpatient that does help. no nsaid use. Patient denies any current issues with nausea, vomiting, dysphagia, abdominal pain, rectal pain, unintentional weight loss. Colonoscopy 2017 colon polyps, diverticulosis, and internal hemorrhoids. EGD 2017 small hiatal hernia. Allergies Allergy/AdvReac Type Severity Reaction Status Date / Time No Known Allergies Allergy Verified 07/17/22 19:23 Home Medications Medication Instructions Recorded Confirmed Type iron 18 mg tablet 18 mg PO QDL 03/14/19 07/17/22 History multivitamin,tx-minerals 1 cap PO QDL 03/14/19 07/17/22 History (Multi-Vitamin HP/Minerals capsule) vitamins A,C,I-vrti-wliwat 2,148 1 tab PO QDL 03/14/19 07/17/22 History mcg-113 mg-45 mg-17.4 mg tablet (PreserVision AREDS) inhalational spacing device #1 ea 06/17/21 06/10/22 Rx (Aerochamber Plus Z Stat spacer) Symbicort 80 mcg-4.5 mcg/actuation 2 puff inhalation BID #10.2 grams 06/24/22 07/17/22 Rx HFA aerosol inhaler (budesonide-formoterol) atorvastatin 40 mg tablet 40 mg PO QDL 07/17/22 07/17/22 History venlafaxine 150 mg 150 mg PO QDL 07/17/22 07/17/22 History capsule,extended release 24 hr Patient History Medical History (Updated 07/18/22 @ 09:52 by Avi White PA-C) Anxiety Asthma Borderline hypertension Chronic obstructive pulmonary disease Chronic rhinitis Chronic sinusitis Closed head injury Diverticulosis Encounter for pre-operative examination Eyebrow laceration Fall Hyperlipidemia Iron deficiency anemia Macular degeneration of both eyes Mild mitral valve prolapse Mitral valve prolapse Nocturnal hypoxemia Osteoarthritis Primary localized osteoarthrosis of shoulder region Right shoulder injury Sleep apnea Surgical History History of abdominal hernia History of cataract surgery RIGHT History of colonoscopy History of ERCP History of esophagogastroduodenoscopy (EGD) History of tonsillectomy and adenoidectomy Hx of vasectomy S/P pericardial window creation 8 YEARS AGO Total knee replacement status right knee 2016 Family History Brother Pancreatic cancer Myocardial infarction Mother Colostomy in place Stroke Father , AGE 90 MRSA infection Unknown Dyslipidemia Hypertension Denies family history of Ovarian cancer Breast cancer Colorectal cancer Social History Smoking Status: Former smoker Tobacco Type: Smokeless Tobacco (Dip or Chew) Age Started Using Tobacco: 16; Second Hand Exposure: No; Do You Dip or Chew Tobacco: No; Hx Alcohol Use: Yes Alcohol type: beer Hx Substance Use: No Preferred Language: Somali Communication Ability: Effective Hearing Ability: [place] Wellness Coordinator Required: No Beliefs That Will Affect Care: None marital status: Current Living Situation: Spouse current occupational status: retired Other Information That Helps Us Care for You: No Feels Safe at Home: Yes Safety Concerns: Feels Safe At This Time Childhood Exposure to Second-Hand Smoke: Yes caffeine: Yes (coffee) during the past year weight has: remained stable Dental Care, Regularly: Yes Physical Activity Frequency: Does not Exercise Physical Activity Frequency Comment: due to physical condition Seatbelt Use: always Sunscreen Use: No Assistive Devices: None Review of Systems Review of Systems: All systems reviewed & are unremarkable except as noted in HPI & below Physical Exam Constitutional: WD/WN, vitals as above Respiratory: normal respiratory effort, lungs clear to auscultation Cardiovascular: RRR, no murmur, no edema Gastrointestinal (Abdomen): normal bowel sounds, soft, nontender, no hepatosplenomegaly Skin: no rashes, warm and dry Psychiatric: Orientation: alert and oriented x 3 Affect: euthymic affect Results & Data ([facility]) Vital Signs (Past 12 Hours) Vital Signs Temp Pulse Pulse Resp BP BP Pulse Ox 07/18/22 08:00 07/18/22 08:25 36.5 C 63 18 148/81 H 98 07/18/22 08:11 36.7 C 61 18 158/80 H 94 07/18/22 07:53 36.5 C 79 18 148/70 H 93 07/18/22 07:37 36.7 C 76 18 159/84 H 97 07/18/22 02:33 36.7 C 69 20 150/67 H 95 07/18/22 01:05 36.7 C 72 20 132/79 93 07/17/22 23:05 75 07/18/22 01:02 36.8 C 69 20 152/71 H 96 07/18/22 00:35 36.5 C 88 20 138/65 96 07/18/22 00:20 145/80 H 07/17/22 22:38 36.9 C 70 18 97 07/18/22 00:05 36.5 C 66 18 116/65 97 07/17/22 23:13 07/17/22 23:13 36.6 C 73 18 159/78 H 98 07/17/22 22:43 07/17/22 22:37 36.8 C 74 18 132/83 97 07/17/22 22:05 36.8 C 73 18 139/81 99 O2 Del Method O2 Flow Rate 07/18/22 08:00 Room Air 07/18/22 08:25 07/18/22 08:11 0 07/18/22 07:53 0 07/18/22 07:37 Room Air 07/18/22 02:33 07/18/22 01:05 07/17/22 23:05 07/18/22 01:02 07/18/22 00:35 07/18/22 00:20 07/17/22 22:38 07/18/22 00:05 07/17/22 23:13 Room Air 07/17/22 23:13 Room Air 07/17/22 22:43 Room Air 07/17/22 22:37 07/17/22 22:05 PG Care Time/CCT Total # of Minutes Spent Total Time Spent with Patient: Total time spent is greater than 50% in coordination of care (as documented) at patient's floor/unit and/or counseling patient: Coding Level of Care Code 71287 Initial Inpt Care Lvl 3 Diagnoses Acute lower GI bleeding K92.2 Anemia D64.9 Anemia type: unspecified type Acid reflux K21.9 (1) Anemia Anemia type: unspecified type Qualified Code(s): D64.9 - Anemia, unspecified
[2022-07-18] MEDS: FLUTICASONE/VILANTEROL 100/25MCG 14 PUFFS/INHALER INH SCH (10:19)
[2022-07-18] MEDS: ATORVASTATIN 40 MG TAB PO SCH (10:23)
[2022-07-18] MEDS: VENLAFAXINE HCL XR 150 MG CAPXR PO SCH ×2 (10:23→15:23)
[2022-07-18] MEDS: PANTOprazole 40 MG in SYRINGE 0 ML IV SCH ×2 (10:35→20:20)
--- NOTE | 2022-07-18 10:41 | Electrocardiogram Report ---
Test Reason : Blood Pressure : / mmHG Vent. Rate : 102 BPM Atrial Rate : 102 BPM P-R Int : 158 ms QRS Dur : 100 ms QT Int : 388 ms P-R-T Axes : 053 018 052 degrees QTc Int : 505 ms Sinus tachycardia Possible Left atrial enlargement Left ventricular hypertrophy with repolarization abnormality Abnormal ECG When compared with ECG of 22-APR-2013 10:55, Vent. rate has increased BY 42 BPM Non-specific change in ST segment in Inferior leads ST now depressed in Lateral leads QT has lengthened Confirmed by Toby Nieto ([id number]) on 07/18/2022 10:40:47 AM Referred By: Pelon Santiago Confirmed By:Houston Nieto
[2022-07-18 11:44] LABS: Hematocrit (blood only) 25.8 % (40.1-51.0); Hemoglobin 8.5 g/dl (14.0-18.0)
[2022-07-18] MEDS ORDERED: VENLAFAXINE HCL XR 150 MG CAPXR PO SCH (16:05)
[2022-07-18 16:59] LABS: Hematocrit (blood only) 26.5 % (40.1-51.0); Hemoglobin 8.4 g/dl (14.0-18.0)
[2022-07-19 07:12] LABS: Basophils # (auto) 0.06 K/uL (0-0.2); Basophils % (auto) 0.8 %; Eosinophils # (auto) 0.27 K/uL (0-0.50); Eosinophils % (auto) 3.4 %; Hematocrit (blood only) 29.4 % (40.1-51.0); Hemoglobin 9.4 g/dl (14.0-18.0); Immature Granulocytes # (auto) 0.03 K/uL (0.00-0.02); Immature Granulocytes % (auto) 0.4 %; Lymphocytes % (auto) 16.3 %; Mean Corpuscular Hemoglobin 28.5 pg (25.0-34.0); Mean Corpuscular Volume 89.1 fL (80.0-100.0); Monocytes # (auto) 0.87 K/uL (0.24-0.82); Monocytes % (auto) 10.9 %; Neutrophils # (auto) 5.44 K/uL (1.4-6.5); Neutrophils % (auto) 68.2 %; Platelet Count 196 K/uL (130-400); RDW Coefficient of Variation 15.5 % (11.5-14.5); RDW Standard Deviation 50.5 fL (36.4-46.3); White Blood Count 7.97 K/ul (4.8-10.8)
[2022-07-19 07:41] LABS: Albumin Globulin Ratio 1.9 (0.9-2); Albumin Level 4.1 gm/dl (3.4-5.0); BUN Creatinine Ratio 9.6 (10-20); Bilirubin,Total 0.7 mg/dl (0.2-1.0); Calcium 8.7 mg/dl (8.5-10.1); Creatinine Clr Calc Pharmacy 72.6 ml/min; Est GFR (African American) 92.2 ml/min; Est GFR (Non-African American) 79.6 ml/min; Globulin 2.2 gm/dl (2.5-4.0); Potassium 3.9 mmol/L (3.5-5.1); Total Protein 6.3 gm/dl (6.0-8.3)
--- NOTE | 2022-07-19 07:46 | Hospitalist Progress Note ---
Date of Service July 19, 2022 Assessment & Plan (1) GIB (gastrointestinal bleeding): Plan: -Patient with a hemoglobin of 6.2 on admission. Now s/p 3 unit transfusions and Hgb 9.4 -Patient complains of symptoms over weeks, and per patient has not had any further GI bleeding noted since admission. - GI evaluated and stated that patient has and endoscopies scheduled on 07/24/22 as an outpatient and if he is still here, they will prep him Thursday for the scopes to be done Thursday. - Hgb improving and ok to advance diet today - Continue to monitor H&H - Transfuse as necessary - Continue to monitor stool for evidence of active G bleeding - Continue IV PPI - ok to continue home medications (2) ABLA (acute blood loss anemia): Plan: See above (3) Anxiety: Plan: -Continue home meds (4) Chronic obstructive pulmonary disease: Plan: -Continue home Symbicort (5) Hyperlipidemia: Plan: -Continue home statin (6) Troponin level elevated: Plan: -Elevated on time of admission at 107.8, and then improved the following day to 103.7 -No CP but has had some exertional SOB. - EKG Revealed sinus Tachycardia, Possible left atrial enlargement, left ventricular hypertrophy with repolarization abnormality. When compared with EKG 04/22/2013 ventricular rate increased by 42 bpm, nonspecific change in ST segment in inferior leads, ST is not depressed in lateral leads, QT has lengthened. when compared with EKG in 2013. Patient has no CP or SOB and is saturating well on RA and the EKG changes are likely ischemic demand from ABLA and possible GI bleed. Admission and Anticipated Discharge Date Admission Date: July 17, 2022 Subjective Attending : Dr Vu This is a 72 year old male that was admitted with a possible GI bleed. He was complaining of maroon and bright red rectal bleeding and found to have a Hgb of 6.7 ( down from his normal of 12. ) Patient was transfused two units in the ER and Hgb only improved to 7.1 Patient tells me that he has not had any further rectal bleeding since adm ission. He has had a total of 3 units and currently his Hgb is 9.5 GI has evaluated patient and he has endoscopies already scheduled for 07/24/22 as an outpatient. If patient is still in the hospital, GI will plan for the endoscopies on Thursday and will prep patient on Thursday. Review of Systems Review of Systems: ROS negative unless stated in history Physical Exam Physical Exam: Constitutional: w ell-appearing, no acute distress, si tting up in bed HE ENT: NCAT, no conj unctival injection CV: regular rhyth m, no murmur appre ciated, extremitie s well-perfused, n o LE edema Resp: C TA bilaterally, no wheezes/rales/rho nchi appreciated, no increased work of breathing GI: s oft, nondistended, nontender, BS nor moactive MSK: no g ross deformities n oted Skin: warm, d ry, no rash apprec iated Neuro: alert , oriented, no foc al neurologic defi cit appreciated Results & Data Results & Data ([facility]) Vital Signs (Past 12 Hours) Vital Signs Temp Pulse Pulse Resp BP Pulse Ox O2 Del Method 07/19/22 07:24 36.5 C 62 18 162/86 H 97 Room Air 07/19/22 04:02 36.4 C L 63 18 138/76 96 Room Air 07/18/22 22:18 67 07/18/22 23:35 36.7 C 82 20 160/87 H 97 Room Air PG Care Time/CCT Total # of Minutes Spent Total Time Spent with Patient: Total time spent is greater than 50% in coordination of care (as documented) at patient's floor/unit and/or counseling patient: Coding Diagnoses GIB (gastrointestinal bleeding) K92.2 ABLA (acute blood loss anemia) D62 Anxiety F41.9 Chronic obstructive pulmonary disease J44.9 Hyperlipidemia E78.5 Troponin level elevated R77.8
[2022-07-19] MEDS: ATORVASTATIN 40 MG TAB PO SCH (08:05)
[2022-07-19] MEDS: PANTOprazole 40 MG in SYRINGE 0 ML IV SCH (08:05)
[2022-07-19] MEDS: FLUTICASONE/VILANTEROL 100/25MCG 14 PUFFS/INHALER INH SCH (08:06)
[2022-07-19] MEDS: VENLAFAXINE HCL XR 150 MG CAPXR PO SCH (09:54)
--- NOTE | 2022-07-19 10:54 | Discharge Summary ---
Date of Service July 19, 2022 Admission HPI Per Admitting Provider Patient is a 72 y/o male with past medical history of HLD, Anxiety, and asthma that presents to the ED with c/o weakness, fatigue, pallor, and rectal bleeding. Patient states that he has been bleeding from his rectum for a couple of weeks. States that it has been bright red and maroon in color. Denies any black stools. States that he has also been having diarrhea and feeling constipated. Also states that his stool has been like "Eveline kisses". Patient also states that his stool has been very foul smelling. He denies any CP, abdominal pain, or pain with a BM. States that he does have exertion SOB that has been going on for a long time. Patient has a h/o diverticulosis on previous colonoscopy (2016). States that he is due for a colonoscopy and was supposed to have one in October. His PCP ordered labs and instructed him to come to the ED for a low Hgb. Patient was found to have a low Hgb of 6.6 and was transfused 3 units. His Hgb improved to 9.4 and has remained stable since transfusion and he has had no further rectal bleeding since admission. GI evaluated patient and stated that he has endoscopies scheduled as an outpatient for 07/24/22. GI stated they would do the scopes if he was still here on Thursday. Patient does not wish to stay in the hospital over the weekend and wishes to be discharged home and is willing to have the scopes done as an outpatient on the . Patient tells me that he already has his colon prep at home. Patient has not had any arrhythmias while in the hospital. He has sinus rhythm in 90s with occasional PAC and PVC. Patient states he feels well today and has no CP, Abdominal pain, N/V or any further rectal bleeding. Admission Exam Per Admitting Provider Constitutional: well-appearing, no acute distress, sitting up in bed HEENT: NCAT, no conjunctival injection CV: regular rhyth m, no murmur appreciated, extremities well-perfused, no LE edema Resp: CTA bilaterally, no wheezes/rales/rhonchi appreciated, no increased work of breathing GI: soft, nondistended, nontender, BS normoactive MSK: no gross deformities noted Skin: warm, dry, no rash appreciated Neuro: alert, oriented, no focal neurologic deficit appreciated Principal Diagnosis Acute Blood Loss Anemia with suspected GI bleed Discharge Exam Constitutional: well-appearing, no acute distress, sitting up in bed HEENT: NCAT, no conjunctival injection CV: regular rhythm, no murmur appreciated, extremities well-perfused, no LE edema Resp: CTA bilaterally, no wheezes/rales/rhonchi appreciated, no increased work of breathing GI: soft, nondistended, nontender, BS normoactive MSK: no gross deformities noted Skin: warm, dry, no rash appreciated Neuro: alert, oriented, no focal neurologic deficit appreciated Discharge Data Allergies Allergy/AdvReac Type Severity Reaction Status Date / Time No Known Allergies Allergy Verified 07/24/22 10:35 Consultations 07/17/22 17:53 ED Decision to Admit Stat 07/17/22 23:04 Consult Gastroenterology Routine Procedures Performed Transfusion of 3 units PRBC IV PPI BID Ordered Studies CXR 07/17/22 Hospital Course (1) GIB (gastrointestinal bleeding): -Patient with a hemoglobin of 6.2 on admission. Now s/p 3 unit transfusions and Hgb 9.4 -Patient has not had any further GI bleeding noted since admission. - GI evaluated and stated that patient has and endoscopies scheduled on 07/24/22 as an outpatient and if he is still here, they will prep him Thursday for the scopes to be done Thursday. Patient does not want to stay here until Thursday. - Patient is willing to have the endoscopies as outpatient on 07/24/22 and are already scheduled with GI as outpatient - Hgb improving - Tolerated a normal breakfast and to have lunch later - will change IV PPI to oral at discharge - ok to continue home medications (2) ABLA (acute blood loss anemia): See above (3) Anxiety: -Continue home meds (4) Chronic obstructive pulmonary disease: -Continue home Symbicort (5) Hyperlipidemia: -Continue home statin (6) Troponin level elevated: -Elevated on time of admission at 107.8, and then improved the following day to 103.7 -No CP but has had some exertional SOB. - EKG Revealed sinus Tachycardia, Possible left atrial enlargement, left ventricular hypertrophy with repolarization abnormality. When compared with EKG 04/22/2013 ventricular rate increased by 42 bpm, nonspecific change in ST segment in inferior leads, ST is not depressed in lateral leads, QT has lengthened. when compared with EKG in 2013. Patient has no CP or SOB and is saturating well on RA and the EKG changes are likely ischemic demand from ABLA and possible GI bleed. Total Time Total Time Spent Total Time Spent (In Minutes): 40 Discharge Plan Discharge Items Patient Disposition: Home - Self-Care Reason For Visit: GIB Discharge Diagnosis: Acute Blood Loss Anemia secondary to GI bleed Condition on Discharge: Good Activity: Resume your previous activity Weightbearing: Full weightbearing Non-emergency contact: Primary Care Provider Call non-emergency contact if: you have any medication questions and your symptoms worsen Follow-up/Referrals: Pelon Santiago MD [Primary Care Provider] - 07/28/22 11:00 am Diet: Regular Addtl Attending Provider Instructions: You were admitted with a low blood count and were transfused with blood. Your blood count improved and you had a formed brown bowel movement with no further bleeding in the hospital. GI evaluated you and has a scope already scheduled for you on 07/24/22. If you should have any further bleeding, any pain, chest pain or shortness of breath you should contact your primary care physician Dr Santiago or go to the nearest emergency department. You have an order for a CBC on Thursday and should report to [facility] to have the lab work drawn on Thursday07/21/22. You will be given a Rx for Pantoprazole 40mg one pill 2 x per day. This was started by GI while you were in the hospital. Pending Studies at Discharge: No Stand-Alone Forms: My [facility] Medications and DC Order Prescriptions: New pantoprazole [Protonix] 40 mg tablet,delayed release (DR/EC) 40 mg PO BID 10 Days Qty: 60 0RF Continued budesonide-formoterol [Symbicort] 80-4.5 mcg/actuation HFA aerosol inhaler 2 puff inhalation BID Qty: 10.2 3RF Rx Instructions: thru aerochamber/ [employer] (DME) Aerochamber Plus Z Stat Spacer See Rx Instructions .ROUTE .MEDSUPPLY Qty: 1 0RF Rx Instructions: As directed iron 18 mg Tablet 18 mg PO QDL Multi-Vitamin HP/Minerals Capsule 1 cap PO QDL PreserVision AREDS [id number] Tablet 1 tab PO QDL atorvastatin 40 mg tablet 40 mg PO QDL venlafaxine 150 mg capsule,extended release 24hr 150 mg PO QDL Discharge Orders: Discharge Order (Routine); Ordered 07/19/22 Ordered By: Carmela Schmidt Admission Data Admit Date/Time: 07/17/22 19:08 Attending Provider: Jonnie Vu Admit Provider: Ivan Bailey Primary Care Provider: Pelon Santiago Other Providers: Jonnie Vu ; Guicho Cueto ; Enrike Bear ; Katherine Lewis ; Niki Vernon ; Anais Biggs ; Monique Forman ; Myles Omer ; Nisa Mota ; Babar Ford ; Talon Rai ; Lady Mireles ; Alec Lyn ; Mini Floyd ; Annie Barney ; Shana Chavez ; Geni Buitrago ; Sonny Arrieta ; Avi White ; Sloan Kincaid ; Venessa Novak ; Tamara Collins Jr Other Interventions: Discharge Summary Assessment (RN) Last Done: 07/19/22 12:58 Supervising Physician Co-Signing Physician Notes Patient seen and examined at bedside. During face to face encounter, I obtained a brief history and physical exam. I reviewed above note and agree with it. I discussed hospital stay and discharge plan with patient and MARII Schmidt. Patient was admitted with GI bleed. Bleeding has ceased and patient is planned to have outpatient endoscopies. Coding Level of Care Code D/C DAY MANAGEMENT >30 MINS Diagnoses GIB (gastrointestinal bleeding) K92.2 ABLA (acute blood loss anemia) D62 Anxiety F41.9 Chronic obstructive pulmonary disease J44.9 Hyperlipidemia E78.5 Troponin level elevated R77.8 Time Spent (min) 40
[2022-07-19] MEDS ORDERED: CEROVITE ADV FORMULA TAB PO SCH (11:30)
[2022-07-19] MEDS ORDERED: ATORVASTATIN 40 MG TAB PO SCH (11:30)
--- NOTE | 2022-07-27 20:25 | Billing Data ---
Date of Service July 17, 2022 Coding Level of Care Code 01609 Initial Inpt Care Lvl 3
== END 2022-07-19 13:31 | disposition home or self-care (01) | DRG 378 ==
LOC: ED 17:13 → 2N 19:08
DX: H35.30 Unspecified macular degeneration; J44.9 Chronic obstructive pulmonary disease, unspecified; I24.8 Other forms of acute ischemic heart disease; E78.5 Hyperlipidemia, unspecified; Z87.891 Personal history of nicotine dependence; D50.9 Iron deficiency anemia, unspecified; K21.9 Gastro-esophageal reflux disease without esophagitis; Z79.899 Other long term (current) drug therapy; R19.7 Diarrhea, unspecified; D62 Acute posthemorrhagic anemia; F41.9 Anxiety disorder, unspecified; I95.1 Orthostatic hypotension; Z83.438 Family history of other disorder of lipoprotein metabolism and other lipidemia; K92.1 Melena

== ENCOUNTER 2022-07-29 15:38 | Inpatient (IN) ==
[~2022-07-29 15:38] MED LIST changes: -ALBU18002 INH; -ATOR-24 PO; -DOXY50CA26 PO; +INFLUENZA VACCINE HIGH DOSE PF 65+ 0.7 ML SYR IM ONE; -MULT-513 PO; -SYMIN160 INH; -VENL150C56 PO
[2022-07-29 16:34] LABS: Hematocrit (blood only) 23.2 % (40.1-51.0); Mean Corpuscular Hemoglobin 26.2 pg (25.0-34.0); Mean Corpuscular Hgb Conc 30.2 g/dL (32.0-36.0); Mean Corpuscular Volume 86.9 fL (80.0-100.0); Mean Platelet Volume 10.9 fL (9.4-12.4); Platelet Count 286 K/uL (130-400); RDW Coefficient of Variation 16.9 % (11.5-14.5); RDW Standard Deviation 53.8 fL (36.4-46.3); Red Blood Count 2.67 M/uL (4.63-6.08); White Blood Count 7.41 K/ul (4.8-10.8)
[2022-07-29 16:49] LABS: Partial Thromboplastin Ratio 0.8; Partial Thromboplastin Time 23.1 Seconds (21.0-31.0); Prothrombin Time 10.9 Seconds (9.0-12.0)
[2022-07-29 16:57] LABS: Albumin Globulin Ratio 1.7 (0.9-2); BUN Creatinine Ratio 13.2 (10-20); Bilirubin,Total 0.3 mg/dl (0.2-1.0); Calcium 8.9 mg/dl (8.5-10.1); Creatinine Clr Calc Pharmacy 60.9 ml/min; Globulin 2.3 gm/dl (2.5-4.0); Potassium 4.1 mmol/L (3.5-5.1); Total Protein 6.3 gm/dl (6.0-8.3)
[2022-07-29] MEDS ORDERED: SODIUM CHLORIDE 0.9% 250 ML IV PRN (17:01)
--- NOTE | 2022-07-29 17:26 | History & Physical Report ---
Date of Service July 29, 2022 History of Present Illness Chief Complaint: Rectal Bleeding Primary Care Provider: Pelon Santiago MD Alec is a 72 year old male with a PMH significant for Iron deficiency an emia, asthma, COPD, ERA, hyperlipidemia, HTN, GERD, Aortic stenosis, anxiety, and recent GI bleed who presented to the [facility] ED on 07/29/22 with a chief complaint of rectal bleeding. Per chart review, the patient was just admitted to [facility] from 07/17/22-07/19/22 for hematochezia and was evaluated by GI. The patient remained stable and elected to have an outpatient colonoscopy. He underwent outpatient colonoscopy on 07/24, it revealed revealed a 5mm polyp in the sigmoid colon, 3mm polyp in the ascending colon, non-bleeding internal hemorrhoids, multiple small and large mouthed diverticula in the sigmoid colon, and multiple medium-sized angiectasias with stigmata of recent bleeding in the cecum. The angioectasias were controlled using argon plasma. Today, the patient reported that he had one small bloody bowel movement yesterday, but had a large bloody bowel movement earlier today. He has been experiencing lightheadedness and dizziness during this time. In the ED the patient was found to be afebrile, hemodynamically stable, stable on RA, and tachycardic in the low 100's. Labs were remarkable for a Hgb of 7.0, down from 8.3 on 07/25 and 7.8 on 07/28, stable renal function, stable electrolytes, and LFT's WNL. In the ED the patient was ordered Allergies Allergy/AdvReac Type Severity Reaction Status Date / Time No Known Allergies Allergy Verified 07/29/22 17:27 Home Medications Medication Instructions Recorded Confirmed Type iron 18 mg tablet 18 mg PO QDL 03/14/19 07/24/22 History multivitamin,tx-minerals 1 cap PO QDL 03/14/19 07/24/22 History (Multi-Vitamin HP/Minerals capsule) vitamins A,C,I-usse-tcgkkk 2,148 1 tab PO QDL 03/14/19 07/24/22 History mcg-113 mg-45 mg-17.4 mg tablet (PreserVision AREDS) inhalational spacing device #1 ea 06/17/21 07/22/22 Rx (Aerochamber Plus Z Stat spacer) Symbicort 80 mcg-4.5 mcg/actuation 2 puff inhalation BID #10.2 grams 06/24/22 07/24/22 Rx HFA aerosol inhaler (budesonide-formoterol) atorvastatin 40 mg tablet 40 mg PO QDL 07/17/22 07/24/22 History venlafaxine 150 mg 150 mg PO QDL 07/17/22 07/24/22 History capsule,extended release 24 hr pantoprazole 40 mg tablet,delayed 40 mg PO BID 07/29/22 07/29/22 History release Past Med/Surg History Medical History (Updated 07/21/22 @ 10:23 by Tatiana Ng RN) Anemia recently in hospital and Dr. Omer aware Anxiety Asthma Borderline hypertension Chronic obstructive pulmonary disease Chronic rhinitis Chronic sinusitis Closed head injury hx of rock hit head and need stitches Diverticulosis Eyebrow laceration repair Fall hx of a long time ago Hyperlipidemia Iron deficiency anemia Macular degeneration of both eyes Mitral valve prolapse folllow with dr oh Osteoarthritis Sleep apnea Surgical History (Updated 07/21/22 @ 10:21 by Tatiana Ng RN) History of abdominal hernia History of cataract surgery RIGHT/left History of colonoscopy History of ERCP History of esophagogastroduodenoscopy (EGD) History of tonsillectomy and adenoidectomy Hx of vasectomy S/P pericardial window creation 8 YEARS AGO Total knee replacement status right knee 2016 Family History Brother Pancreatic cancer Myocardial infarction Mother Colostomy in place Stroke Father , AGE 90 MRSA infection Unknown Dyslipidemia Hypertension Denies family history of Ovarian cancer Breast cancer Colorectal cancer Social History Smoking Status: Never smoker Tobacco Type: Smokeless Tobacco (Dip or Chew) Age Started Using Tobacco: 16; Second Hand Exposure: No; Hx Alcohol Use: Yes Alcohol type: beer Hx Substance Use: No Preferred Language: [place] Citizen Communication Ability: Effective Hearing Ability: Normal Manual Writer Required: No Beliefs That Will Affect Care: None marital status: Current Living Situation: Spouse current occupational status: retired Feels Safe at Home: Yes Childhood Exposure to Second-Hand Smoke: Yes caffeine: Yes (coffee) during the past year weight has: remained stable Dental Care, Regularly: Yes Physical Activity Frequency: Does not Exercise Physical Activity Frequency Comment: due to physical condition Seatbelt Use: always Sunscreen Use: No Assistive Devices: None Results & Data Results & Data ([facility]) Vital Signs (Past 12 Hours) Vital Signs Temp Pulse Resp BP Pulse Ox O2 Del Method 07/29/22 16:05 36.7 C 103 H 18 117/63 95 Room Air PG Care Time/CCT Total # of Minutes Spent Total Time Spent with Patient: Total time spent is greater than 50% in coordination of care (as documented) at patient's floor/unit and/or counseling patient: Coding
[2022-07-29] MEDS ORDERED: OPTIRAY 320 500ml IV ONE (18:00)
--- NOTE | 2022-07-29 18:03 | Emergency Department Note ---
History of Present Illness General Chief complaint: Rectal Bleed Stated complaint: RECTAL BLEED,SOB Time Seen by Provider: 07/29/22 17:00 History of Present Illness Provider Complaint: + gross hematochezia Onset (ago): 1 day(s) Pain Consistency: + constant Current Pain Intensity: 0 Relieved By: + none Exacerbated By: + bowel movement Context: + history of GI bleed; no hemorrhoids, no rectal trauma, no alcohol abuse, no known esophageal varices or no anticoagulant use Associated symptoms: no abdominal pain, no nausea, no vomiting, no fever, no chills or no headaches Home Medications Medication Instructions Recorded Confirmed Type iron 18 mg tablet 18 mg PO QDL 03/14/19 07/29/22 History multivitamin,tx-minerals 1 cap PO QDL 03/14/19 07/29/22 History (Multi-Vitamin HP/Minerals capsule) vitamins A,C,M-tyza-wyklzw 2,148 1 tab PO QDL 03/14/19 07/29/22 History mcg-113 mg-45 mg-17.4 mg tablet (PreserVision AREDS) inhalational spacing device #1 ea 06/17/21 07/22/22 Rx (Aerochamber Plus Z Stat spacer) Symbicort 80 mcg-4.5 mcg/actuation 2 puff inhalation BID #10.2 grams 06/24/22 07/29/22 Rx HFA aerosol inhaler (budesonide-formoterol) atorvastatin 40 mg tablet 40 mg PO QDL 07/17/22 07/29/22 History venlafaxine 150 mg 150 mg PO QDL 07/17/22 07/29/22 History capsule,extended release 24 hr pantoprazole 40 mg tablet,delayed 40 mg PO BID 07/29/22 07/29/22 History release Allergies Allergy/AdvReac Type Severity Reaction Status Date / Time No Known Allergies Allergy Verified 07/29/22 17:27 Past Med/Surg History Medical History Anemia recently in hospital and Dr. Omer aware Anxiety Asthma Borderline hypertension Chronic obstructive pulmonary disease Chronic rhinitis Chronic sinusitis Closed head injury hx of rock hit head and need stitches Diverticulosis Eyebrow laceration repair Fall hx of a long time ago Hyperlipidemia Iron deficiency anemia Macular degeneration of both eyes Mitral valve prolapse folllow with dr oh Osteoarthritis Sleep apnea Surgical History History of abdominal hernia History of cataract surgery RIGHT/left History of colonoscopy History of ERCP History of esophagogastroduodenoscopy (EGD) History of tonsillectomy and adenoidectomy Hx of vasectomy S/P pericardial window creation 8 YEARS AGO Total knee replacement status right knee 2016 Family History Brother Pancreatic cancer Myocardial infarction Mother Colostomy in place Stroke Father , AGE 90 MRSA infection Unknown Dyslipidemia Hypertension Denies family history of Ovarian cancer Breast cancer Colorectal cancer Social History Smoking Status: Never smoker Tobacco Type: Smokeless Tobacco (Dip or Chew) Age Started Using Tobacco: 16; Second Hand Exposure: No; Hx Alcohol Use: Yes Alcohol type: beer Hx Substance Use: No Preferred Language: Bruneian Communication Ability: Effective Hearing Ability: Normal Technical Consultant Required: No Beliefs That Will Affect Care: None marital status: Current Living Situation: Spouse current occupational status: retired Feels Safe at Home: Yes Childhood Exposure to Second-Hand Smoke: Yes caffeine: Yes (coffee) during the past year weight has: remained stable Dental Care, Regularly: Yes Physical Activity Frequency: Does not Exercise Physical Activity Frequency Comment: due to physical condition Seatbelt Use: always Sunscreen Use: No Assistive Devices: None Review of Systems A total of 10 systems reviewed and were otherwise negative Physical Exam Vital Signs: Vital Signs - 24 hr 07/29/22 16:05 07/29/22 18:58 07/29/22 19:15 Temperature 36.7 C 37 C 37 C Temperature Source Temporal Artery Sc an Oral Oral Pulse Rate 103 H 73 71 Pulse Rhythm Regular Regular Regular Pulse Strength Normal Normal Respiratory Rate 18 16 15 Respiratory Effort / Characteristics Non-Labored Sponta neous Respiratory Depth Normal Respiratory Patter n Regular Blood Pressure 117/63 150/72 H 132/77 Blood Pressure Theresa n 81 98 95 Blood Pressure Pos ition Sitting Lying Lying Pulse Oximetry 95 98 99 Oxygen Delivery Me thod Room Air Sepsis Recent Feve r Within 48 Hours No Sepsis New/Unexpla ined Change in Men chanelle Status No Sepsis Action Take n by Nursing No Action Required 07/29/22 19:16 07/29/22 19:28 07/29/22 19:16 Temperature 36.9 C 36.9 C Temperature Source Oral Oral Pulse Rate 77 72 Pulse Rhythm Regular Pulse Strength Normal Respiratory Rate 15 15 Respiratory Effort / Characteristics Respiratory Depth Respiratory Patter n Blood Pressure 109/84 140/80 Blood Pressure Theresa n 92 100 Blood Pressure Pos ition Lying Pulse Oximetry 100 98 99 Oxygen Delivery Me thod Room Air Sepsis Recent Feve r Within 48 Hours Sepsis New/Unexpla ined Change in Men chanelle Status Sepsis Action Take n by Nursing Physical Exam: Physical Exam GENERAL: He is oriented to person, place, and time. He appears well-developed and well-nourished. He does not appear distressed. HENT: Exam performed. - Head: Normocephalic and atraumatic. - Right Ear: External ear normal. No mastoid tenderness. - Left Ear: External ear normal. No mastoid tenderness. - Mouth/Throat: The oropharynx is clear and moist. No trismus in the jaw. No dental abscesses or uvula swelling. No oropharyngeal exudate or tonsillar abscesses. EYES: Conjunctivae and EOM are normal. Pupils are equal, round, and reactive to light. Right eye exhibits no discharge. Left eye exhibits no discharge. No scleral icterus. NECK: Normal range of motion. Neck supple. No JVD present. No spinous process tenderness present. No carotid bruit present. No rigidity. No tracheal deviation and normal range of motion present. No Brudzinski's sign and no Kernig's sign noted. CV: Tachycardic rate, regular rhythm, normal heart sounds and intact distal pulses. There is no peripheral edema. Palpable radial pulses bue. PULM/CHEST: Effort normal and breath sounds normal. No respiratory distress. No stridor. He has no wheezes. He has no rales. - Chest Wall: He exhibits no tenderness. ABD: The abdomen is soft. Bowel sounds are normal. He has no distension. No mass is present. There is no tenderness. There is no rebound, no guarding, no Carolina's sign and no tenderness at McBurney's point. Rovsig negative. Rectal: Bright red blood per rectum. MUSC/SKEL: Normal range of motion. There is no peripheral edema, tenderness or deformity. LYMPH: No cervical adenopathy. NEURO: He is alert and oriented to person, place, and time. He has normal strength. No cranial nerve deficit or sensory deficit. Coordination and gait normal. GCS eye subscore is 4. GCS verbal subscore is 5. GCS motor subscore is 6. Cerebellar tests wnl. SKIN: Patient pale. Course Course 1700: The patient was evaluated in room C9. A complete history and physical exam was performed Administered Medications Discontinued Medications Ioversol (Optiray 320 500ml) 124 ml IV ONCE ONE Stop: 07/29/22 18:01 Last Admin: 07/29/22 18: Dose: 124 ml Documented By: POWER Medical Decision Making Laboratory Data Result diagrams: 07/29/22 16:13 07/29/22 16:13 Lab Results 07/29/22 07/29/22 07/29/22 Range/Units 16:13 16:13 16:13 WBC 7.41 (4.8-10.8) K/ul RBC 2.67 L (4.63-6.08) M/uL Hgb 7.0 L (14.0-18.0) g/dl Hct 23.2 L (40.1-51.0) % MCV 86.9 (80.0-100.0) fL MCH 26.2 (25.0-34.0) pg MCHC 30.2 L (32.0-36.0) g/dL RDW Std Deviation 53.8 H (36.4-46.3) fL RDW Coeff of Molly 16.9 H (11.5-14.5) % Plt Count 286 (130-400) K/uL MPV 10.9 (9.4-12.4) fL PT 10.9 (9.0-12.0) Seconds INR 1.0 (0.9-1.1) APTT 23.1 (21.0-31.0) Seconds PTT Ratio 0.8 Sodium (136-145) mmol/L Potassium (3.5-5.1) mmol/L Chloride (98-107) mmol/L Carbon Dioxide (21-32) mmol/L Anion Gap (3-11) BUN (6-23) mg/dl Creatinine (0.6-1.4) mg/dl Est Cr Clr Drug Dosing ml/min Est GFR ( Amer) ml/min Est GFR (Non-Af Amer) ml/min BUN/Creatinine Ratio (10-20) Glucose (70-99(Fasting)) mg/dl Calcium (8.5-10.1) mg/dl Total Bilirubin (0.2-1.0) mg/dl AST (13-39) U/L ALT (7-52) U/L Alkaline Phosphatase (34-104) U/L Total Protein (6.0-8.3) gm/dl Albumin (3.4-5.0) gm/dl Globulin (2.5-4.0) gm/dl Albumin/Globulin Ratio (0.9-2) SARS-CoV-2, RNA, NAAT (NEGATIVE) Blood Type A Negative Antibody Screen NEGATIVE Crossmatch See Detail 07/29/22 07/29/22 Range/Units 16:13 17:30 WBC (4.8-10.8) K/ul RBC (4.63-6.08) M/uL Hgb (14.0-18.0) g/dl Hct (40.1-51.0) % MCV (80.0-100.0) fL MCH (25.0-34.0) pg MCHC (32.0-36.0) g/dL RDW Std Deviation (36.4-46.3) fL RDW Coeff of Molly (11.5-14.5) % Plt Count (130-400) K/uL MPV (9.4-12.4) fL PT (9.0-12.0) Seconds INR (0.9-1.1) APTT (21.0-31.0) Seconds PTT Ratio Sodium 140 (136-145) mmol/L Potassium 4.1 (3.5-5.1) mmol/L Chloride 108 H (98-107) mmol/L Carbon Dioxide 27 (21-32) mmol/L Anion Gap 5 (3-11) BUN 15 (6-23) mg/dl Creatinine 1.14 (0.6-1.4) mg/dl Est Cr Clr Drug Dosing 60.9 ml/min Est GFR ( Amer) 73.0 ml/min Est GFR (Non-Af Amer) 63.0 ml/min BUN/Creatinine Ratio 13.2 (10-20) Glucose 134 H (70-99(Fasting)) mg/dl Calcium 8.9 (8.5-10.1) mg/dl Total Bilirubin 0.3 (0.2-1.0) mg/dl AST 20 (13-39) U/L ALT 18 (7-52) U/L Alkaline Phosphatase 54 (34-104) U/L Total Protein 6.3 (6.0-8.3) gm/dl Albumin 4.0 (3.4-5.0) gm/dl Globulin 2.3 L (2.5-4.0) gm/dl Albumin/Globulin Ratio 1.7 (0.9-2) SARS-CoV-2, RNA, NAAT NEGATIVE (NEGATIVE) Blood Type Antibody Screen Crossmatch MDM Narrative Cardiac monitoring: An order was placed for continuous cardiac monitoring. The monitor shows a rate of 100 with sinus rhythm Patient was seen during a time of extreme volume and extreme acuity in the emergency department. Nursing triage protocols were initiated and labs were drawn by protocol in the triage area. EMR reviewed. Patient had a hemoglobin of 7.8 yesterday and 8.34 days ago. Today in the emergency department his hemoglobin was 7. Patient be transfused 1 unit packed red blood cells and [facility] Garcia will be notified. Impression & Plan Hematochezia, Anemia Critical Care Time Critical Care Time: Yes Total Critical Care Time: 47 I have personally spent greater than 47 minutes of critical care time in the direct management of this patient. This includes bedside care, interpretation of diagnostic studies, and testing, discussion with consultants, patient, and family members, and other required patient management activities. This 47 minutes is in excess of all separately billable procedures. Discharge Plan Visit Data Chief Complaint: Rectal Bleed Stated Complaint: RECTAL BLEED,SOB ED Provider: Pascual Padilla Discharge Problem: Hematochezia, Anemia Patient Disposition: Admitted As Inpatient Forms Stand Alone Forms: My [facility] Prescriptions Prescriptions: No Action budesonide-formoterol [Symbicort] 80-4.5 mcg/actuation HFA aerosol inhaler 2 puff inhalation BID Qty: 10.2 3RF Rx Instructions: thru aerochamber/ [employer] (DME) Aerochamber Plus Z Stat Spacer See Rx Instructions .ROUTE .MEDSUPPLY Qty: 1 0RF Rx Instructions: As directed iron 18 mg Tablet 18 mg PO QDL Multi-Vitamin HP/Minerals Capsule 1 cap PO QDL PreserVision AREDS 7,160-113-100 [id number] Tablet 1 tab PO QDL atorvastatin 40 mg tablet 40 mg PO QDL venlafaxine 150 mg capsule,extended release 24hr 150 mg PO QDL pantoprazole 40 mg tablet,delayed release (DR/EC) 40 mg PO BID Referrals Referrals: Pelon Santiago MD [Primary Care Provider] -
--- NOTE | 2022-07-29 18:08 | History & Physical Report ---
Date of Service July 29, 2022 Assessment & Plan (1) GIB (gastrointestinal bleeding): Plan: Alec is a 72-year-old male with a past medical history of smokeless tobacco use, GI bleed, anemia, iron deficiency, asthma, COPD, hyperlipidemia, sleep apnea who underwent a colonoscopy 07/24/2022 for hematochezia, was found to have a 5 mm polyp/3 mm polyp/nonbleeding hemorrhoids/multiple colonic angioectasias treated with APC who presents with a GI bleed and anemia. Symptomatic anemia 2/2 recurrent lower GI bleed Hemoglobin drop at last 7.9 --> 7.0 Patient is symptomatic, lightheaded, pale, short of breath. Mild tachycardia approximately 100 bpm at assessment Suspect 7.0 underestimates blood loss pending reconstitution given symptoms 1 unit of blood transfusing for symptomatic anemia, 1 unit on hold, hemoglobin trended every 6 hours CTA with reconstruction with no active extra physician/bleeding appreciated GI consulted. CTA as noted. anticipate prep tomorrow for upper/lower endoscopy. Follow overnight and transfuse as needed. N.p.o. overnight pending stability, clears tomorrow. Discussed potential for AVM bleeding. Colonoscopy 07/24/22: 5 mm sigmoid polyp, removed with cold snare. 1 3 mm polyp in ascending colon, removed with cold snare. Nonbleeding internal hemorrhoids. Diverticulosis in the sigmoid colon, descending, and transverse colon. Multiple recently bleeding colonic angioectasias treated with APC, suspect AVMs and diverticulosis as source of GI bleeding. Iron deficiency, with GI bleed as above - Ferritin 7.1 on 07/17/2022. On med review patient has not received any Venofer Defer Venofer today given blood transfusion. If no additional blood required tomorrow would give 300 mg dose daily, and repeat daily up to a max of 1 g. Continue oral iron Aortic sclerosis TTE 11/2019: Normal biventricular systolic function. Moderate concentric LVH. Mild mitral prolapse. Trace aortic regurgitation. EF 65-70%. GERD Continue PPI twice daily. GI bleed suspected lower, unlikely epigastric. GTT deferred Asthma/COPD overlap Continue Symbicort/formulary equivalent Albuterol as needed if wheezing Hyperlipidemia Atorvastatin 40 mg continued, can hold while n.p.o. Anxiety Continue venlafaxine 150 mg p.o., hold while n.p.o. DVT prophylaxis: SCDs, pharmacal prophylaxis deferred in the setting of acute bleeding CODE STATUS: Diet: N.p.o. pending stability, IV FM anticipate bowel prep tomorrow Disposition: PCU (2) Hyperlipidemia: (3) Iron deficiency anemia: (4) Mitral valve prolapse: (5) Sleep apnea: (6) Smokeless tobacco use: (7) Aortic stenosis: (8) Anxiety: (9) Acute lower GI bleeding: (10) Anemia: (11) Acid reflux: History of Present Illness Primary Care Provider: Pelon Santiago MD Alec is a 72-year-old male with a past medical history of smokeless tobacco use, GI bleed, anemia, iron deficiency, asthma, COPD, hyperlipidemia, sleep apnea who underwent a colonoscopy 07/24/2022 for hematochezia, was found to have a 5 mm polyp/3 mm polyp/nonbleeding hemorrhoids/multiple colonic angioectasias treated with APC who presents with a GI bleed and anemia. Alec is seen at the bedside with his . He is in no acute distress, although mildly tachycardic and appears pale. He reports that he had a colonoscopy for bright red blood per rectum on the . He has continued to have small amounts of blood in his stool which did not resolve following his colonoscopy and AVM cautery, however last night rather than just a small flecks of blood he filled the commode with thick blood and also developed lightheadedness, dizziness, and a feeling of faintness. He has not had any chest pain or chest pressure. He endorses shortness of breath at baseline for which he takes an inhaler, does not feel her shortness of breath has changed significantly and has not noticed any wheezing but notes he does become more short of breath and fatigued easily with exertion. He is not on room air. He uses smokeless tobacco, has not had any in a few day and declines nicotine replacement. He is a occasional social drinker with no alcohol use. Denies any recreational drug use. Did take medications this morning, is not on any aspirin or anticoagulant medications. No nausea/vomiting. No melena. Denies abdominal pain/epigastric pain. Medical History: Reviewed Medications: Reviewed Surgical History: Reviewed Allergies: Reviewed Social History: Reviewed, smokeless tobacco use and rare social alcohol use Code Status: Full code Allergies Allergy/AdvReac Type Severity Reaction Status Date / Time No Known Allergies Allergy Verified 07/29/22 17:27 Home Medications Medication Instructions Recorded Confirmed Type iron 18 mg tablet 18 mg PO QDL 03/14/19 07/29/22 History multivitamin,tx-minerals 1 cap PO QDL 03/14/19 07/29/22 History (Multi-Vitamin HP/Minerals capsule) vitamins A,C,Q-crmi-qihnmh 2,148 1 tab PO QDL 03/14/19 07/29/22 History mcg-113 mg-45 mg-17.4 mg tablet (PreserVision AREDS) inhalational spacing device #1 ea 06/17/21 07/22/22 Rx (Aerochamber Plus Z Stat spacer) Symbicort 80 mcg-4.5 mcg/actuation 2 puff inhalation BID #10.2 grams 06/24/22 07/29/22 Rx HFA aerosol inhaler (budesonide-formoterol) atorvastatin 40 mg tablet 40 mg PO QDL 07/17/22 07/29/22 History venlafaxine 150 mg 150 mg PO QDL 07/17/22 07/29/22 History capsule,extended release 24 hr pantoprazole 40 mg tablet,delayed 40 mg PO BID 07/29/22 07/29/22 History release Past Med/Surg History Medical History Anemia recently in hospital and Dr. Omer aware Anxiety Asthma Borderline hypertension Chronic obstructive pulmonary disease Chronic rhinitis Chronic sinusitis Closed head injury hx of rock hit head and need stitches Diverticulosis Eyebrow laceration repair Fall hx of a long time ago Hyperlipidemia Iron deficiency anemia Macular degeneration of both eyes Mitral valve prolapse folllow with dr ho Osteoarthritis Sleep apnea Surgical History History of abdominal hernia History of cataract surgery RIGHT/left History of colonoscopy History of ERCP History of esophagogastroduodenoscopy (EGD) History of tonsillectomy and adenoidectomy Hx of vasectomy S/P pericardial window creation 8 YEARS AGO Total knee replacement status right knee 2016 Family History Brother Pancreatic cancer Myocardial infarction Mother Colostomy in place Stroke Father , AGE 90 MRSA infection Unknown Dyslipidemia Hypertension Denies family history of Ovarian cancer Breast cancer Colorectal cancer Social History Smoking Status: Never smoker Tobacco Type: Smokeless Tobacco (Dip or Chew) Age Started Using Tobacco: 16; Second Hand Exposure: No; Hx Alcohol Use: Yes Alcohol type: beer Hx Substance Use: No Preferred Language: Tamaz[place] Communication Ability: Effective Hearing Ability: Normal Transcribing Operator Head Required: No Beliefs That Will Affect Care: None marital status: Current Living Situation: Spouse current occupational status: retired Feels Safe at Home: Yes Childhood Exposure to Second-Hand Smoke: Yes caffeine: Yes (coffee) during the past year weight has: remained stable Dental Care, Regularly: Yes Physical Activity Frequency: Does not Exercise Physical Activity Frequency Comment: due to physical condition Seatbelt Use: always Sunscreen Use: No Assistive Devices: None Review of Systems Review of Systems: All systems reviewed & are unremarkable except as noted in HPI & below Physical Exam Physical Exam: General: A&Ox3. NAD. Cooperative. HEENT: Atraumatic, normocephalic. Vision and hearing grossly intact. Pallor is present. MM tacky Pulm: CTAB A&P. -wheezes, -rales, -rhonchi. Symmetrical chest rise. No increased work of breathing. No respiratory distress. Cardiac: Regular, tachycardic, systolic murmur. Radial pulses intact and symmetrical. Abdominal: Nontender, nondistended, soft. BS present. Extremities: Warm, dry. Moves all extremities equally. Sensation intact in hands and feet without asymmetry. Results & Data Results & Data ([facility]) Vital Signs (Past 12 Hours) Vital Signs Temp Pulse Resp BP Pulse Ox O2 Del Method 07/29/22 16:05 36.7 C 103 H 18 117/63 95 Room Air PG Care Time/CCT Total # of Minutes Spent Total Time Spent with Patient: Total time spent is greater than 50% in coordination of care (as documented) at patient's floor/unit and/or counseling patient: Coding Level of Care Code 10869 Initial Inpt Care Lvl 3 Diagnoses GIB (gastrointestinal bleeding) K92.2 Hyperlipidemia E78.5 Iron deficiency anemia D50.9 Mitral valve prolapse I34.1 Sleep apnea G47.30 Smokeless tobacco use Z72.0 Aortic stenosis I35.0 Anxiety F41.9 Acute lower GI bleeding K92.2 Anemia D64.9 Anemia type: unspecified type Acid reflux K21.9 (1) Anemia Anemia type: unspecified type Qualified Code(s): D64.9 - Anemia, unspecified
--- NOTE | 2022-07-29 18:49 | CT Scan Report ---
CT angio abdomen pelvis w con CLINICAL HISTORY: GIB, w/ reconstruction if able TECHNIQUE: Multidetector row helical CT of the abdomen and pelvis was performed, following intravenou s administration of iodinated contrast. No oral contrast was administered. Automated dose lowering te chniques and/or adjustment according to patient size were utilized for this exam. Coronal and sagitta l reformations were obtained. MIP and 3D volume rendered reconstructions were obtained. CT DOSE: 681.68 mGy.cm Comparison: None available at the time of this dictation. FINDINGS: Lower chest: Bibasilar atelectasis versus scarring is seen. Liver: Unremarkable. No focal lesions are seen. Gallbladder and biliary tree: No calcified gallstones. Normal caliber wall. No intra- or extrahepatic biliary ductal dilation. Pancreas: Fatty replacement of the pancreas is seen. Spleen: Unremarkable. Adrenals: Unremarkable. Kidneys and ureters: Bilateral renal cysts are seen. Bladder: Diffuse homogeneous wall thickening is seen. Reproductive organs: 11 mm hypodensity is noted in the prostate. Bowel: Diverticulosis is seen without evidence of diverticulitis. The appendix is normal. A hiatal he rnia is seen. Lymph nodes Retroperitoneal: Unremarkable. Pelvic: Unremarkable. Mesenteric: Unremarkable. Peritoneum: Normal. Abdominal wall: Unremarkable. Bones: Degenerative changes in the visualized spine. CT angiogram: The abdominal aortic contours appear intact without evidence of aneurysmal dilatation a nd/or dissection. There is evidence of scattered atherosclerotic calcifications of the abdominal aor ta and its major branches. The origins of the celiac axis, superior mesenteric, inferior mesenteric and bilateral renal arteries are patent. IMPRESSION: 1. No acute abnormalities and in particular no evidence of active extravasation in this patient with history of GI bleed. 2. Irregularity in the prostate, correlation with PSA is recommended. ACT 112: Negative or not required by law. Electronically signed by: Tyson Hoffman M.D. 07/29/2022 6:46 PM
[2022-07-29] MEDS: LACTATED RINGER'S 1,000 ML IV SCH (22:25)
[2022-07-29] MEDS: PANTOprazole 40 MG in SYRINGE 0 ML IV SCH (22:36)
[2022-07-29 23:28] LABS: Hematocrit (blood only) 23.5 % (40.1-51.0); Hemoglobin 7.4 g/dl (14.0-18.0)
[2022-07-30 01:26] LABS: Hematocrit (blood only) 22.1 % (40.1-51.0)
[2022-07-30] MEDS: VENLAFAXINE HCL XR 150 MG CAPXR PO SCH ×2 (02:25→12:23)
[2022-07-30 06:24] LABS: Hematocrit (blood only) 21.9 % (40.1-51.0); Hemoglobin 6.9 g/dl (14.0-18.0); Mean Corpuscular Hemoglobin 26.4 pg (25.0-34.0); Mean Corpuscular Hgb Conc 31.5 g/dL (32.0-36.0); Mean Corpuscular Volume 83.9 fL (80.0-100.0); Mean Platelet Volume 10.5 fL (9.4-12.4); Platelet Count 226 K/uL (130-400); RDW Coefficient of Variation 18.6 % (11.5-14.5); RDW Standard Deviation 56.9 fL (36.4-46.3); Red Blood Count 2.61 M/uL (4.63-6.08); White Blood Count 6.66 K/ul (4.8-10.8)
[2022-07-30 06:25] LABS: Basophils # (auto) 0.06 K/uL (0-0.2); Basophils % (auto) 0.9 %; Eosinophils # (auto) 0.22 K/uL (0-0.50); Eosinophils % (auto) 3.3 %; Hypochromasia Present; Immature Granulocytes # (auto) 0.02 K/uL (0.00-0.02); Immature Granulocytes % (auto) 0.3 %; Lymphocytes # (auto) 1.21 K/uL (1.2-3.4); Lymphocytes % (auto) 18.2 %; Monocytes # (auto) 0.76 K/uL (0.24-0.82); Monocytes % (auto) 11.4 %; Neutrophils # (auto) 4.39 K/uL (1.4-6.5); Neutrophils % (auto) 65.9 %
[2022-07-30 06:35] LABS: BUN Creatinine Ratio 15.1 (10-20); Calcium 8.2 mg/dl (8.5-10.1); Creatinine Clr Calc Pharmacy 64.6 ml/min; Est GFR (African American) 79.7 ml/min; Est GFR (Non-African American) 68.8 ml/min; Potassium 4.1 mmol/L (3.5-5.1)
[2022-07-30] MEDS: LACTATED RINGER'S 1,000 ML IV SCH (08:37)
[2022-07-30] MEDS: PANTOprazole 40 MG in SYRINGE 0 ML IV SCH ×2 (08:38→20:46)
[2022-07-30] MEDS ORDERED: SODIUM CHLORIDE 0.9% 250 ML IV PRN (10:12)
[2022-07-30 10:13] LABS: Hematocrit (blood only) 22.5 % (40.1-51.0); Hemoglobin 6.9 g/dl (14.0-18.0)
--- NOTE | 2022-07-30 11:32 | Gastrointestinal Consultation ---
Date of Consultation July 30, 2022 Assessment & Plan (1) Hematochezia: (2) Acute lower GI bleeding: Plan Patient is a 72 y.o. male admitted with recurrent LGIB and symptomatic anemia with known AVM requiring APC one week ago. -Clear liquid diet. -Golytely bowel prep this evening. -NPO except meds after MN. -Continue Pantoprazole 40 mg BID. -Transfuse to hgb ~8. -EGD/colonoscopy with Dr. Omer tomorrow 07/31/22. -Further reccs pending results of testing. Thank you for allowing us to participate in the care of this patient. If you have any questions or concerns, please do not hesitate to contact me. History of Present Illness Reason for Consultation: Recurrent GIB Requesting Physician: Dr. Rodriguez Attending Physician: Fabien Rodriguez MD History of Present Illness Patient is a 72 y.o. male with a history of aortic stenosis, mitral regurgitation, MVP, asthma, anxiety, COPD, and HLD admitted 07/17/22 with lower GI bleeding. He did undergo a diagnostic colonoscopy by Dr. Omer at that time which revealed colon polyps, hemorrhoids and AVM treated with APC as suspected source of GIB. He was discharged home and per doing well until yesterday. He developed a sudden onset bright red rectal bleeding yesterday with passage of clots. He reports he was also having dizziness upon standing, ARANGO, increased weakness and fatigue. No chest pain or palpitations. He returned to the ER due to these symptoms and was found to be profoundly anemic with H&H of 7.8/25.0. The hemoglobin did drop overnight to 6.9. CTA abdomen unremarkable. He is currently being transfused with 3 units of PRBCs. Has been placed on clear liquid diet and Pantoprazole 40 mg BID. Allergies Allergy/AdvReac Type Severity Reaction Status Date / Time No Known Allergies Allergy Verified 07/29/22 17:27 Home Medications Medication Instructions Recorded Confirmed Type iron 18 mg tablet 18 mg PO QDL 03/14/19 07/29/22 History multivitamin,tx-minerals 1 cap PO QDL 03/14/19 07/29/22 History (Multi-Vitamin HP/Minerals capsule) vitamins A,C,A-skpk-iigvgf 2,148 1 tab PO QDL 03/14/19 07/29/22 History mcg-113 mg-45 mg-17.4 mg tablet (PreserVision AREDS) inhalational spacing device #1 ea 06/17/21 07/22/22 Rx (Aerochamber Plus Z Stat spacer) Symbicort 80 mcg-4.5 mcg/actuation 2 puff inhalation BID #10.2 grams 06/24/22 07/29/22 Rx HFA aerosol inhaler (budesonide-formoterol) atorvastatin 40 mg tablet 40 mg PO QDL 07/17/22 07/29/22 History venlafaxine 150 mg 150 mg PO QDL 07/17/22 07/29/22 History capsule,extended release 24 hr pantoprazole 40 mg tablet,delayed 40 mg PO BID 07/29/22 07/29/22 History release Patient History Medical History Anemia recently in hospital and Dr. Omer aware Anxiety Asthma Borderline hypertension Chronic obstructive pulmonary disease Chronic rhinitis Chronic sinusitis Closed head injury hx of rock hit head and need stitches Diverticulosis Eyebrow laceration repair Fall hx of a long time ago Hyperlipidemia Iron deficiency anemia Macular degeneration of both eyes Mitral valve prolapse folllow with dr oh Osteoarthritis Sleep apnea Surgical History History of abdominal hernia History of cataract surgery RIGHT/left History of colonoscopy History of ERCP History of esophagogastroduodenoscopy (EGD) History of tonsillectomy and adenoidectomy Hx of vasectomy S/P pericardial window creation 8 YEARS AGO Total knee replacement status right knee 2016 Family History Brother Pancreatic cancer Myocardial infarction Mother Colostomy in place Stroke Father , AGE 90 MRSA infection Unknown Dyslipidemia Hypertension Denies family history of Ovarian cancer Breast cancer Colorectal cancer Social History Smoking Status: Never smoker Tobacco Type: Smokeless Tobacco (Dip or Chew) Age Started Using Tobacco: 16; Second Hand Exposure: No; Do You Dip or Chew Tobacco: No; Tobacco Cessation Education Requested by Patient: No Hx Alcohol Use: Yes Alcohol type: beer Hx Substance Use: No Preferred Language: Italian Communication Ability: Effective Hearing Ability: Normal Laborer [place] Required: No Beliefs That Will Affect Care: None marital status: Current Living Situation: Spouse current occupational status: retired Other Information That Helps Us Care for You: No Feels Safe at Home: Yes Safety Concerns: Feels Safe At This Time Childhood Exposure to Second-Hand Smoke: Yes caffeine: Yes (coffee) during the past year weight has: remained stable Dental Care, Regularly: Yes Physical Activity Frequency: Does not Exercise Physical Activity Frequency Comment: due to physical condition Seatbelt Use: always Sunscreen Use: No Assistive Devices: Hearing Aid - Bilateral Review of Systems Constitutional: as per Subjective / HPI Respiratory: as per Subjective / HPI Cardiovascular: as per Subjective / HPI Gastrointestinal: as per Subjective / HPI Physical Exam Constitutional: WD/WN, vitals as above Eyes: EOM intact bilaterally Neck: normal visual inspection Respiratory: normal respiratory effort, lungs clear to auscultation Cardiovascular: Rate/Rhythm: regular rhythm and + tachycardic Gastrointestinal (Abdomen): Inspection/Auscultation: + abdomen distended and + hyperactive bowel sounds Percussion/Palpation: abdomen soft; abdomen nontender Musculoskeletal: Extremities: no lower extremity abnormal to inspection Skin: + pallor warm and dry Psychiatric: A+Ox3, euthymic affect Results & Data ([facility]) Vital Signs (Past 12 Hours) Vital Signs Temp Pulse Pulse Resp BP BP Pulse Ox 07/30/22 11:16 36.9 C 69 18 131/78 97 07/30/22 11:01 36.7 C 74 18 145/81 H 96 07/30/22 10:43 36.6 C 71 18 171/80 H 97 07/30/22 07:41 36.7 C 97 H 19 144/77 H 93 07/30/22 03:41 36.9 C 70 18 119/72 96 07/29/22 23:47 36.8 C 71 18 116/73 98 O2 Del Method 07/30/22 11:16 07/30/22 11:01 07/30/22 10:43 07/30/22 07:41 Room Air 07/30/22 03:41 Room Air 07/29/22 23:47 Room Air Diagnostic Findings Laboratory Results WBC 6.66 K/ul (4.8-10.8) 07/30/22 05:43 RBC 2.61 M/uL (4.63-6.08) L 07/30/22 05:43 Hgb 6.9 g/dl (14.0-18.0) L* 07/30/22 09:18 Hct 22.5 % (40.1-51.0) L 07/30/22 09:18 MCV 83.9 fL (80.0-100.0) 07/30/22 05:43 MCH 26.4 pg (25.0-34.0) 07/30/22 05:43 MCHC 31.5 g/dL (32.0-36.0) L 07/30/22 05:43 RDW Std Deviation 56.9 fL (36.4-46.3) H 07/30/22 05:43 RDW Coeff of Molly 18.6 % (11.5-14.5) H 07/30/22 05:43 Plt Count 226 K/uL (130-400) 07/30/22 05:43 MPV 10.5 fL (9.4-12.4) 07/30/22 05:43 Immature Gran % (Auto) 0.3 % 07/30/22 05:43 Neut % (Auto) 65.9 % 07/30/22 05:43 Lymph % (Auto) 18.2 % 07/30/22 05:43 Reeves % (Auto) 11.4 % 07/30/22 05:43 Eos % (Auto) 3.3 % 07/30/22 05:43 Baso % (Auto) 0.9 % 07/30/22 05:43 Neut # (Auto) 4.39 K/uL (1.4-6.5) 07/30/22 05:43 Lymph # (Auto) 1.21 K/uL (1.2-3.4) 07/30/22 05:43 Reeves # (Auto) 0.76 K/uL (0.24-0.82) 07/30/22 05:43 Eos # (Auto) 0.22 K/uL (0-0.50) 07/30/22 05:43 Baso # (Auto) 0.06 K/uL (0-0.2) 07/30/22 05:43 Immature Gran # (Auto) 0.02 K/uL (0.00-0.02) 07/30/22 05:43 Hypochromasia Present 07/30/22 05:43 PT 10.9 Seconds (9.0-12.0) 07/29/22 16:13 INR 1.0 (0.9-1.1) 07/29/22 16:13 APTT 23.1 Seconds (21.0-31.0) 07/29/22 16:13 PTT Ratio 0.8 07/29/22 16:13 Sodium 139 mmol/L (136-145) 07/30/22 05:43 Potassium 4.1 mmol/L (3.5-5.1) 07/30/22 05:43 Chloride 109 mmol/L (98-107) H 07/30/22 05:43 Carbon Dioxide 26 mmol/L (21-32) 07/30/22 05:43 Anion Gap 4 (3-11) 07/30/22 05:43 BUN 16 mg/dl (6-23) 07/30/22 05:43 Creatinine 1.06 mg/dl (0.6-1.4) 07/30/22 05:43 Est Cr Clr Drug Dosing 64.6 ml/min 07/30/22 05:43 Est GFR ( Amer) 79.7 ml/min 07/30/22 05:43 Est GFR (Non-Af Amer) 68.8 ml/min 07/30/22 05:43 BUN/Creatinine Ratio 15.1 (10-20) 07/30/22 05:43 Glucose 100 mg/dl (70-99(Fasting)) H 07/30/22 05:43 Calcium 8.2 mg/dl (8.5-10.1) L 07/30/22 05:43 Total Bilirubin 0.3 mg/dl (0.2-1.0) 07/29/22 16:13 AST 20 U/L (13-39) 07/29/22 16:13 ALT 18 U/L (7-52) 07/29/22 16:13 Alkaline Phosphatase 54 U/L (34-104) 07/29/22 16:13 Total Protein 6.3 gm/dl (6.0-8.3) 07/29/22 16:13 Albumin 4.0 gm/dl (3.4-5.0) 07/29/22 16:13 Globulin 2.3 gm/dl (2.5-4.0) L 07/29/22 16:13 Albumin/Globulin Ratio 1.7 (0.9-2) 07/29/22 16:13 SARS-CoV-2, RNA, NAAT NEGATIVE (NEGATIVE) 07/29/22 17:30 Blood Type A Negative 07/29/22 16:13 Antibody Screen NEGATIVE 07/29/22 16:13 Crossmatch See Detail 07/29/22 16:13 Impressions Abdomen/Pelvis CTA 07/29/22 17:29 CT angio abdomen pelvis w con CLINICAL HISTORY: GIB, w/ reconstruction if able TECHNIQUE: Multidetector row helical CT of the abdomen and pelvis was performed, following intravenous administration of iodinated contrast. No oral contrast was administered. Automated dose lowering techniques and/or adjustment according to patient size were utilized for this exam. Coronal and sagittal reformations were obtained. MIP and 3D volume rendered reconstructions were obtained. CT DOSE: 681.68 mGy.cm Comparison: None available at the time of this dictation. FINDINGS: Lower chest: Bibasilar atelectasis versus scarring is seen. Liver: Unremarkable. No focal lesions are seen. Gallbladder and biliary tree: No calcified gallstones. Normal caliber wall. No intra- or extrahepatic biliary ductal dilation. Pancreas: Fatty replacement of the pancreas is seen. Spleen: Unremarkable. Adrenals: Unremarkable. Kidneys and ureters: Bilateral renal cysts are seen. Bladder: Diffuse homogeneous wall thickening is seen. Reproductive organs: 11 mm hypodensity is noted in the prostate. Bowel: Diverticulosis is seen without evidence of diverticulitis. The appendix is normal. A hiatal hernia is seen. Lymph nodes Retroperitoneal: Unremarkable. Pelvic: Unremarkable. Mesenteric: Unremarkable. Peritoneum: Normal. Abdominal wall: Unremarkable. Bones: Degenerative changes in the visualized spine. CT angiogram: The abdominal aortic contours appear intact without evidence of aneurysmal dilatation and/or dissection. There is evidence of scattered atherosclerotic calcifications of the abdominal aorta and its major branches. The origins of the celiac axis, superior mesenteric, inferior mesenteric and bilateral renal arteries are patent. IMPRESSION: 1. No acute abnormalities and in particular no evidence of active extravasation in this patient with history of GI bleed. 2. Irregularity in the prostate, correlation with PSA is recommended. ACT 112: Negative or not required by law. Electronically signed by: Tyson Hoffman M.D. 07/29/2022 6:46 PM PG Care Time/CCT Total # of Minutes Spent Total Time Spent with Patient: Total time spent is greater than 50% in coordination of care (as documented) at patient's floor/unit and/or counseling patient: Coding Level of Care Code 60589 Initial Inpt Care Lvl 3 Diagnoses Hematochezia K92.1 Acute lower GI bleeding K92.2
--- NOTE | 2022-07-30 12:43 | Electrocardiogram Report ---
Test Reason : Blood Pressure : / mmHG Vent. Rate : 103 BPM Atrial Rate : 103 BPM P-R Int : 144 ms QRS Dur : 082 ms QT Int : 350 ms P-R-T Axes : 043 026 078 degrees QTc Int : 458 ms Sinus tachycardia Left ventricular hypertrophy with repolarization abnormality Abnormal ECG When compared with ECG of 17-JUL-2022 17:38, No significant change was found Confirmed by Audie Mixon ([id number]) on 07/30/2022 12:43:12 PM Referred By: REFERRED SELF Confirmed By:Audie Mixon
[2022-07-30] MEDS ORDERED: IRON SUCROSE 200 MG in 0.9 % SODIUM CHLORIDE 100 ML IV ONE (13:00)
--- NOTE | 2022-07-30 13:40 | Hospitalist Progress Note ---
Date of Service July 30, 2022 Assessment & Plan (1) Iron deficiency anemia: Plan: Parenteral iron while hospitalized. Oral iron will continue at discharge (2) Mitral valve prolapse: Plan: Aware. Continue current medical management. Not an acute issue (3) Smokeless tobacco use: Plan: Tobacco cessation recommended (4) Aortic stenosis: Plan: Aware. Not an acute issue. Highly unlikely that this is causing any hemolysis (5) Anxiety: Plan: Stable with medication management (6) Acute lower GI bleeding: Plan: Gastroenterology consultation appreciated. He underwent colonoscopy earlier this month with laser treatment of AVMs and polypectomy. He will undergo EGD and colonoscopy again tomorrow, July 31 (7) Acid reflux: Plan: Continue current therapy (8) ABLA (acute blood loss anemia): Plan: We will transfuse as needed to keep hemoglobin greater than 8. Hemoglobin this morning was 6.9. He is receiving 2 units of packed red blood cells today and will follow serial H&H. Plan Anticipate eventual discharge to home when bleeding stops and hemoglobin stabilizes Admission and Anticipated Discharge Date Admission Date: July 29, 2022 Subjective Alert and oriented. Family is at the bedside. Hemoglobin dropped to 6.9 and blood transfusion has been ordered. He has been seen by gastroenterology and he will undergo upper and lower endoscopy again tomorrow, July 31. Previous colonoscopy done on July 24 this year revealed AVMs and he underwent laser treatment at that time. He also underwent polypectomy. Review of Systems Review of Systems: Constitutional-no fever or chills ENT-no blurred vision, no double vision, no epistaxis, no sore throat Respiratory-no cough, no wheezing, no shortness of breath Cardiac-no palpitations, no chest pain, no syncope GI-no nausea, vomiting, diarrhea. Hematochezia noted -no urinary retention, no urinary incontinence, no dysuria, no hematuria Musculoskeletal-no joint pain, no muscle tenderness Skin-no bruising, no rashes, no pruritus. Pallor noted Neuro-no isolated weakness, no paresthesia, no weakness Psych-no depression, no anxiety Physical Exam Physical Exam: General-alert and oriented x3, no fevers, no chills HEENT-head atraumatic and normocephalic, pupils equal and reactive to light, extraocular muscles intact Neck-no lymphadenopathy or thyromegaly, trachea midline Chest-clear to auscultation percussion. No rales wheezing or rhonchi Cardiac-regular rate and rhythm, normal S1 and S2, no murmurs Abdomen-normal bowel sounds, nontender, no hepatosplenomegaly Extremities-no cyanosis, clubbing, or edema Neuro-cranial nerves II through XII intact, motor and sensory function within normal limits, strength symmetrical , no focal deficits Psych-normal affect, normal mood Skinpallor noted Results & Data Results & Data ([facility]) Vital Signs (Past 12 Hours) Vital Signs Temp Pulse Pulse Resp BP BP Pulse Ox 07/30/22 12:46 36.9 C 82 18 158/80 H 97 07/30/22 11:46 36.8 C 87 20 143/78 H 98 07/30/22 11:16 36.9 C 69 18 131/78 97 07/30/22 11:01 36.7 C 74 18 145/81 H 96 07/30/22 10:43 36.6 C 71 18 171/80 H 97 07/30/22 07:41 36.7 C 97 H 19 144/77 H 93 07/30/22 03:41 36.9 C 70 18 119/72 96 O2 Del Method 07/30/22 12:46 07/30/22 11:46 07/30/22 11:16 07/30/22 11:01 07/30/22 10:43 07/30/22 07:41 Room Air 07/30/22 03:41 Room Air Laboratory Results 07/30/22 09:18 07/30/22 05:43 PG Care Time/CCT Total # of Minutes Spent Total Time Spent with Patient: Total time spent is greater than 50% in coordination of care (as documented) at patient's floor/unit and/or counseling patient: Coding Level of Care Code 11778 Subseq Hosp Care Lvl 3 Diagnoses Iron deficiency anemia D50.9 Mitral valve prolapse I34.1 Smokeless tobacco use Z72.0 Aortic stenosis I35.0 Anxiety F41.9 Acute lower GI bleeding K92.2 Acid reflux K21.9 ABLA (acute blood loss anemia) D62
[2022-07-30] MEDS ORDERED: LAVAGE SOLUTION 4000ML PO SCH (18:00)
[2022-07-30 19:26] LABS: Hematocrit (blood only) 28.1 % (40.1-51.0)
[2022-07-30] MEDS: ZOLPIDEM TARTRATE 5 MG TAB PO SCH (21:05)
[2022-07-31 06:07] LABS: Basophils # (auto) 0.04 K/uL (0-0.2); Basophils % (auto) 0.6 %; Eosinophils # (auto) 0.27 K/uL (0-0.50); Eosinophils % (auto) 4.1 %; Hemoglobin 8.5 g/dl (14.0-18.0); Immature Granulocytes # (auto) 0.03 K/uL (0.00-0.02); Immature Granulocytes % (auto) 0.5 %; Lymphocytes # (auto) 0.94 K/uL (1.2-3.4); Lymphocytes % (auto) 14.2 %; Mean Corpuscular Hemoglobin 26.9 pg (25.0-34.0); Mean Corpuscular Hgb Conc 32.7 g/dL (32.0-36.0); Mean Corpuscular Volume 82.3 fL (80.0-100.0); Mean Platelet Volume 10.2 fL (9.4-12.4); Monocytes # (auto) 0.76 K/uL (0.24-0.82); Monocytes % (auto) 11.5 %; Neutrophils # (auto) 4.56 K/uL (1.4-6.5); Neutrophils % (auto) 69.1 %; Platelet Count 230 K/uL (130-400); RDW Coefficient of Variation 17.9 % (11.5-14.5); RDW Standard Deviation 53.9 fL (36.4-46.3); Red Blood Count 3.16 M/uL (4.63-6.08)
[2022-07-31 06:46] LABS: BUN Creatinine Ratio 10.6 (10-20); Calcium 8.4 mg/dl (8.5-10.1); Creatinine Clr Calc Pharmacy 67.1 ml/min; Est GFR (African American) 81.6 ml/min; Est GFR (Non-African American) 70.4 ml/min; Potassium 3.7 mmol/L (3.5-5.1)
[2022-07-31] MEDS: FLUTICASONE/VILANTEROL 100/25MCG 14 PUFFS/INHALER INH SCH (08:35)
[2022-07-31] MEDS: PANTOprazole 40 MG in SYRINGE 0 ML IV SCH ×2 (08:35→20:58)
--- NOTE | 2022-07-31 09:54 | History & Physical Bridge Note ---
Date of Service July 31, 2022 History & Physical Bridge Note I have examined the patient, reviewed the History & Physical and in the interval since the performance of the History & Physical I have noted the following changes of clinical significance: Patient completed 3/4 of Golytely solution. Passing clear stools. No abdominal pain. Endorses some rectal bleeding this morning. Hemoglobin did drop from 9.0 to 8.5. PE:A&Ox3. RRR. Lungs CTA bilaterally. Abdomen distended. Hyperactive bowel sounds. Nontender. A/P: Patient admitted with rectal bleeding and known colonic AVM s/p APC with acute blood loss anemia. -NPO. -Proceed with EGD and colonoscopy by Dr. Omer today. -Continue Pantoprazole 40 mg BID. -Further reccs pending results of testing.
[2022-07-31] MEDS ORDERED: IRON SUCROSE 200 MG in 0.9 % SODIUM CHLORIDE 100 ML IV ONE (10:15)
[2022-07-31] MEDS: SODIUM CHLORIDE 0.9% 1000ML 1,000 ML IV SCH (10:27)
[2022-07-31] MEDS: VENLAFAXINE HCL XR 150 MG CAPXR PO SCH (12:45)
[2022-07-31] MEDS ORDERED: PROPOFOL IV EMULSION 10 MG/ML 20 ML VIAL IV ONE ×2 (13:54→15:28)
[2022-07-31] MEDS ORDERED: LIDOCAINE 2% MPF LOCAL 5 ML VIAL INFIL ONE (13:54)
--- NOTE | 2022-07-31 14:26 | Hospitalist Progress Note ---
Date of Service July 31, 2022 Assessment & Plan (1) Iron deficiency anemia: Plan: Parenteral iron daily for 3 days while hospitalized. Oral iron will continue at discharge (2) Mitral valve prolapse: Plan: Aware. Continue current medical management. Not an acute issue (3) Smokeless tobacco use: Plan: Tobacco cessation recommended (4) Aortic stenosis: Plan: Aware. Not an acute issue. Highly unlikely that this is causing any hemolysis (5) Anxiety: Plan: Stable with medication management (6) Acute lower GI bleeding: Plan: Gastroenterology consultation appreciated. He underwent colonoscopy earlier this month with laser treatment of AVMs and polypectomy. He will undergo EGD and colonoscopy again later today , July 31 (7) Acid reflux: Plan: Continue current therapy (8) ABLA (acute blood loss anemia): Plan: We will transfuse as needed to keep hemoglobin greater than 8. He has required transfusion this admission. Serial lab studies. (9) Insomnia: Plan: Much improved with Ambien 5 mg at bedtime Plan Anticipate eventual discharge to home when bleeding stops and hemoglobin stabilizes Admission and Anticipated Discharge Date Admission Date: July 29, 2022 Subjective The patient slept well with Ambien last night and is somewhat lethargic this morning but oriented. Hemoglobin improved to 9.0 after 2 units of packed red blood cells that is down slightly to 8.5. We will follow. Continue parenteral iron replacement. He will undergo endoscopy later today, July 31 Review of Systems Review of Systems: Constitutional-no fever or chills ENT-no blurred vision, no double vision, no epistaxis, no sore throat Respiratory-no cough, no wheezing, no shortness of breath Cardiac-no palpitations, no chest pain, no syncope GI-no nausea, vomiting, diarrhea. Hematochezia noted -no urinary retention, no urinary incontinence, no dysuria, no hematuria Musculoskeletal-no joint pain, no muscle tenderness Skin-no bruising, no rashes, no pruritus. Pallor noted Neuro-no isolated weakness, no paresthesia, no weakness Psych-no depression, no anxiety Physical Exam Physical Exam: General-alert and oriented x3, no fevers, no chills HEENT-head atraumatic and normocephalic, pupils equal and reactive to light, extraocular muscles intact Neck-no lymphadenopathy or thyromegaly, trachea midline Chest-clear to auscultation percussion. No rales wheezing or rhonchi Cardiac-regular rate and rhythm, normal S1 and S2, no murmurs Abdomen-normal bowel sounds, nontender, no hepatosplenomegaly Extremities-no cyanosis, clubbing, or edema Neuro-cranial nerves II through XII intact, motor and sensory function within normal limits, strength symmetrical , no focal deficits Psych-normal affect, normal mood Skinpallor noted Results & Data Results & Data ([facility]) Vital Signs (Past 12 Hours) Vital Signs Temp Pulse Resp BP Pulse Ox O2 Del Method 07/31/22 14:03 36.9 C 66 16 136/86 96 Room Air 07/31/22 11:38 37.1 C 70 20 179/70 H 97 Room Air 07/31/22 07:35 36.7 C 84 20 161/72 H 94 Room Air Laboratory Results 07/31/22 05:48 07/31/22 05:48 PG Care Time/CCT Total # of Minutes Spent Total Time Spent with Patient: Total time spent is greater than 50% in coordination of care (as documented) at patient's floor/unit and/or counseling patient: Coding Level of Care Code 89610 Subseq Hosp Care Lvl 3 Diagnoses Iron deficiency anemia D50.9 Mitral valve prolapse I34.1 Smokeless tobacco use Z72.0 Aortic stenosis I35.0 Anxiety F41.9 Acute lower GI bleeding K92.2 Acid reflux K21.9 ABLA (acute blood loss anemia) D62 Insomnia G47.00
--- NOTE | 2022-07-31 14:39 | Anesthesiology Consultation ---
Date of Service July 31, 2022 Assessment & Plan (1) Encounter for pre-operative examination: History Surgery Operation Date: 07/31/22 17:00 Proposed Procedures p Colonoscopy EGD Dr. Negra Omer MD Height/Weight Height: 5 ft 8 in Weight: 87.815 kg Allergies Allergy/AdvReac Type Severity Reaction Status Date / Time No Known Allergies Allergy Verified 07/31/22 14:10 Medications Home Medications Medication Instructions Recorded Confirmed Last Taken iron 18 mg tablet 18 mg PO QDL 03/14/19 07/29/22 07/22/22 multivitamin,tx-minerals 1 cap PO QDL 03/14/19 07/29/22 07/22/22 (Multi-Vitamin HP/Minerals capsule) vitamins A,C,S-vkjy-zqoyuw 2,148 1 tab PO QDL 03/14/19 07/29/22 07/22/22 mcg-113 mg-45 mg-17.4 mg tablet (PreserVision AREDS) inhalational spacing device #1 ea 06/17/21 07/22/22 Unknown (Aerochamber Plus Z Stat spacer) Symbicort 80 mcg-4.5 mcg/actuation 2 puff inhalation BID #10.2 grams 06/24/22 07/29/22 07/23/22 HFA aerosol inhaler (budesonide-formoterol) atorvastatin 40 mg tablet 40 mg PO QDL 07/17/22 07/29/22 07/22/22 venlafaxine 150 mg 150 mg PO QDL 07/17/22 07/29/22 07/16/22 capsule,extended release 24 hr pantoprazole 40 mg tablet,delayed 40 mg PO BID 07/29/22 07/29/22 Unknown release Active Medications Generic Name Dose Route Start Last Admin Trade Name Freq PRN Reason Stop Dose Admin Fluticasone/Vilanterol 1 puffs 07/31/22 09:00 07/31/22 08:35 Fluticasone/Vilanterol 100/25mcg 14 Puffs/Inhaler INH 08/30/22 08:59 1 puffs DAILY THU Administration Protocol Pantoprazole Sodium 40 mg/ 10 mls @ 5 mls/min 07/29/22 21:44 07/31/22 08:35 Syringe IV 08/28/22 21:43 5 mls/min BID THU Administration Sodium Chloride 1,000 mls @ 80 mls/hr 07/31/22 10:00 07/31/22 10:27 Nss 1000ml IV 08/30/22 09:59 80 mls/hr .[id number] THU Administration Venlafaxine HCl 150 mg 07/30/22 00:20 07/31/22 12:45 Venlafaxine Hcl Xr 150 Mg Capxr PO 08/29/22 00:19 150 mg QDL THU Administration Zolpidem Tartrate 5 mg 07/30/22 21:00 07/30/22 21:05 Zolpidem Tartrate 5 Mg Tab PO 08/29/22 20:59 5 mg HS THU Administration NPO Date Last Intake of Fluids: 07/30/22 Time Last Intake of Fluids: 19:00 Date Last Intake of Solids: 07/30/22 Time Last Intake of Solids: 19:00 Past Medical History Medical History Anemia recently in hospital and Dr. Omer aware Anxiety Asthma Borderline hypertension Chronic obstructive pulmonary disease Chronic rhinitis Chronic sinusitis Closed head injury hx of rock hit head and need stitches Diverticulosis Eyebrow laceration repair Fall hx of a long time ago Hyperlipidemia Iron deficiency anemia Macular degeneration of both eyes Mitral valve prolapse folllow with dr oh Osteoarthritis Sleep apnea Past Family History Family History Brother Pancreatic cancer Myocardial infarction Mother Colostomy in place Stroke Father , AGE 90 MRSA infection Unknown Dyslipidemia Hypertension Denies family history of Ovarian cancer Breast cancer Colorectal cancer Past Surgical History Surgical History History of abdominal hernia History of cataract surgery RIGHT/left History of colonoscopy History of ERCP History of esophagogastroduodenoscopy (EGD) History of tonsillectomy and adenoidectomy Hx of vasectomy S/P pericardial window creation 8 YEARS AGO Total knee replacement status right knee 2016 Social History Smoking Status: Never smoker tobacco type: e-cigarettes Do You Dip or Chew Tobacco: No Hx Alcohol Use: Yes Alcohol type: beer alcohol intake frequency: a few times a month Hx Substance Use: No substance use type: does not use Physical Exam Vital Signs Last Vital Signs Temp 36.9 C 07/31/22 14:03 Pulse 66 07/31/22 14:03 Resp 16 07/31/22 14:03 BP 136/86 07/31/22 14:03 Pulse Ox 96 07/31/22 14:03 O2 Del Method 07/31/22 14:03 Testing Laboratory Results 07/31/22 05:48 07/31/22 05:48 PT 10.9 Seconds (9.0-12.0) 07/29/22 16:13 INR 1.0 (0.9-1.1) 07/29/22 16:13 APTT 23.1 Seconds (21.0-31.0) 07/29/22 16:13 Blood Type A Negative 07/29/22 16:13 Antibody Screen NEGATIVE 07/29/22 16:13
--- NOTE | 2022-07-31 15:42 | GI REPORT ---
Patient Name: Alec Salmeron Procedure Date: 07/31/2022 2:31 PM Date of : 1950 Admit Type: Inpatient Age: 72 Gender: Male Attending MD: Myles Omer MD, Procedure: Upper GI endoscopy Providers: Myles Omer MD Referring MD: Fabien Rodriguez Indications: Hematochezia Medicines: Monitored Anesthesia Care Complications: No immediate complications. Estimated blood loss: None. Estimated Blood Loss: Estimated blood loss: none. Procedure: Pre-Anesthesia Assessment: - Prior Anticoagulants: The patient has taken no anticoagulant or antiplatelet agents. - ASA Grade Assessment: II - A patient with mild systemic disease. After obtaining informed consent, the endoscope was passed under direct vision. Throughout the procedure, the patient's blood pressure, pulse, and oxygen saturations were monitored continuously. The Colonoscope was introduced through the mouth, and advanced to the second part of duodenum. The upper GI endoscopy was accomplished without difficulty. The patient tolerated the procedure well. Findings: The examined esophagus was normal. The entire examined stomach was normal. The duodenal bulb and second portion of the duodenum were normal. Impression: - Normal esophagus. - Normal stomach. - Normal duodenal bulb and second portion of the duodenum. - No specimens collected. Recommendation: - [facility] patient [facility] care. - Resume previous diet today. Myles Omer MD 07/31/2022 3:42:36 PM This report has been signed electronically. Note Initiated On: 07/31/2022 2:31 PM Number of Addenda: 0 I attest to the content of the Intraoperative Record and orders documented therein, exceptions below {[id number]}
--- NOTE | 2022-07-31 15:45 | GI REPORT ---
Patient Name: Alec Salmeron Procedure Date: 07/31/2022 2:30 PM Date of : 1950 Admit Type: Inpatient Age: 72 Gender: Male Attending MD: Myles Omer MD, Procedure: Colonoscopy Providers: Myles Omer MD Referring MD: Fabien Rodriguez Indications: Hematochezia Medicines: Monitored Anesthesia Care Complications: No immediate complications. Estimated blood loss: None. Estimated Blood Loss: Estimated blood loss: none. Procedure: Pre-Anesthesia Assessment: - Prior Anticoagulants: The patient has taken no anticoagulant or antiplatelet agents. - ASA Grade Assessment: II - A patient with mild systemic disease. After I obtained informed consent, the scope was passed under direct vision. Throughout the procedure, the patient's blood pressure, pulse, and oxygen saturations were monitored continuously. The Colonoscope was introduced through the anus and advanced to the cecum, identified by appendiceal orifice and ileocecal valve. The colonoscopy was performed without difficulty. The patient tolerated the procedure well. The quality of the bowel preparation was adequate to identify polyps greater than 5 mm in size. Findings: Multiple small and large-mouthed diverticula were found in the sigmoid colon and descending colon. Non-bleeding internal hemorrhoids were found. The hemorrhoids were small. A few small localized angioectasias with stigmata of recent bleeding were found in the cecum. Coagulation for hemostasis using argon plasma at 2 liters/minute and 20 garza was successful. To prevent bleeding post-intervention, one hemostatic clip was successfully placed. Clip foot piece assembler: Kriyari. There was no bleeding at the end of the procedure. No active bleeding was noted in the cecum or the rest of the colon. Impression: - Diverticulosis in the sigmoid colon and in the descending colon. - Non-bleeding internal hemorrhoids. - A few recently bleeding colonic angioectasias. Treated with argon plasma coagulation (APC). Clip was placed. Clip foot piece assembler: Kriyari. - No specimens collected. Recommendation: - Return patient to [facility] for [facility] care. - Advance diet as tolerated today. Myles Omer MD 07/31/2022 3:45:15 PM This report has been signed electronically. Note Initiated On: 07/31/2022 2:30 PM Number of Addenda: 0 I attest to the content of the Intraoperative Record and orders documented therein, exceptions below {[id number]}
--- NOTE | 2022-07-31 15:55 | Anesthesiology Progress Note ---
Date of Service July 31, 2022 Anesthesia Post Procedure Vital Signs Vital Signs: Temp Pulse Pulse Pulse Resp BP BP 07/31/22 15:50 65 16 140/77 07/31/22 15:36 36.9 C 86 16 119/93 07/31/22 14:03 36.9 C 66 16 136/86 07/31/22 11:38 37.1 C 70 20 179/70 H 07/31/22 07:35 36.7 C 84 20 161/72 H 07/31/22 02:19 36.6 C 84 18 152/79 H 07/30/22 23:06 36.9 C 73 18 151/68 H 07/30/22 20:16 36.3 C L 68 20 163/94 H 07/30/22 18:23 75 07/30/22 18:22 36.9 C 105 H 20 143/65 H 07/30/22 18:21 36.9 C 72 20 135/64 07/30/22 17:21 36.9 C 75 18 147/68 H 07/30/22 16:21 36.9 C 74 18 145/79 H Pulse Ox O2 Del Method 07/31/22 15:50 94 Room Air 07/31/22 15:36 97 Room Air 07/31/22 14:03 96 Room Air 07/31/22 11:38 97 Room Air 07/31/22 07:35 94 Room Air 07/31/22 02:19 92 Room Air 07/30/22 23:06 92 Room Air 07/30/22 20:16 99 Room Air 07/30/22 18:23 07/30/22 18:22 96 07/30/22 18:21 97 07/30/22 17:21 96 07/30/22 16:21 95 Transfer of Care Handoff Completed per policy Notes Mental Status: alert / awake / arousable and participated in evaluation Patient Amnestic to Procedure: Yes Nausea / Vomiting: adequately controlled Pain: adequately controlled Airway Patency, RR, SpO2: stable & adequate BP & HR: stable & adequate Hydration State: stable & adequate Anesthetic Complications: no major complications apparent and Pt Satisfied with anesthetic care
[2022-07-31 18:07] LABS: Hematocrit (blood only) 28.2 % (40.1-51.0); Hemoglobin 8.9 g/dl (14.0-18.0)
[2022-07-31] MEDS: ZOLPIDEM TARTRATE 5 MG TAB PO SCH (20:57)
[2022-08-01] MEDS: SODIUM CHLORIDE 0.9% 1000ML 1,000 ML IV SCH (05:21)
[2022-08-01 06:30] LABS: Basophils # (auto) 0.05 K/uL (0-0.2); Basophils % (auto) 0.8 %; Eosinophils # (auto) 0.33 K/uL (0-0.50); Hematocrit (blood only) 27.4 % (40.1-51.0); Hemoglobin 8.9 g/dl (14.0-18.0); Immature Granulocytes # (auto) 0.02 K/uL (0.00-0.02); Immature Granulocytes % (auto) 0.3 %; Lymphocytes # (auto) 0.93 K/uL (1.2-3.4); Lymphocytes % (auto) 14.2 %; Mean Corpuscular Hemoglobin 27.2 pg (25.0-34.0); Mean Corpuscular Hgb Conc 32.5 g/dL (32.0-36.0); Mean Corpuscular Volume 83.8 fL (80.0-100.0); Mean Platelet Volume 10.5 fL (9.4-12.4); Monocytes # (auto) 0.82 K/uL (0.24-0.82); Monocytes % (auto) 12.5 %; Neutrophils # (auto) 4.41 K/uL (1.4-6.5); Neutrophils % (auto) 67.2 %; Platelet Count 242 K/uL (130-400); RDW Coefficient of Variation 18.2 % (11.5-14.5); RDW Standard Deviation 55.4 fL (36.4-46.3); Red Blood Count 3.27 M/uL (4.63-6.08); White Blood Count 6.56 K/ul (4.8-10.8)
[2022-08-01 06:45] LABS: BUN Creatinine Ratio 7.8 (10-20); Calcium 8.4 mg/dl (8.5-10.1); Creatinine Clr Calc Pharmacy 67.1 ml/min; Est GFR (African American) 83.5 ml/min; Est GFR (Non-African American) 72.1 ml/min; Potassium 3.6 mmol/L (3.5-5.1)
[2022-08-01] MEDS: PANTOprazole 40 MG in SYRINGE 0 ML IV SCH (08:55)
[2022-08-01] MEDS: FLUTICASONE/VILANTEROL 100/25MCG 14 PUFFS/INHALER INH SCH (08:55)
[2022-08-01] MEDS ORDERED: IRON SUCROSE 200 MG in 0.9 % SODIUM CHLORIDE 100 ML IV ONE (09:00)
--- NOTE | 2022-08-01 09:14 | Cardiology Consultation ---
Date of Consultation August 01, 2022 Assessment & Plan (1) Aortic valve sclerosis: (2) Mitral regurgitation: Plan 1. Aortic sclerosis: He continues to have aortic sclerosis without stenosis. We will need to watch this over the long run but it is unlikely to change rapidly. Echocardiograms every several years would probably be sufficient. 2. Mitral regurgitation: He has moderate mitral regurgitation, the degree is not much different than several years ago. He does not have symptoms related to it. There is no indication for further evaluation or treatment at this time. This should also be followed with echocardiograms, perhaps every several years. History of Present Illness Reason for Consultation: Valvular heart disease Attending Physician: Fabien Rodriguez MD History of Present Illness This is a 72-year-old male with a history of hypertension, tobacco use, obstructive sleep apnea and valvular heart disease. By echocardiography November 23, 2019 he had normal biventricular systolic function with moderate concentric left ventricular hypertrophy, trace aortic regurgitation and mild mitral valve prolapse with moderate mitral regurgitation. Normal estimated right heart pressures and mild left atrial dilatation. I believe this is the last echocardiogram that he has had prior to this visit. He also has a history of GI bleed with iron deficiency anemia and is being evaluated by GI for that. We are consulted for evaluation of his valvular heart disease. He does not complain of any cardiovascular symptoms. He has no dyspnea on exertion, orthopnea or PND, no peripheral edema and no palpitations, lightheadedness or dizziness. No exertional chest discomfort. Allergies Allergy/AdvReac Type Severity Reaction Status Date / Time No Known Allergies Allergy Verified 07/31/22 14:10 Home Medications Medication Instructions Recorded Confirmed Type multivitamin,tx-minerals 1 cap PO QDL 03/14/19 07/29/22 History (Multi-Vitamin HP/Minerals capsule) vitamins A,C,G-knsx-reskci 2,148 1 tab PO QDL 03/14/19 07/29/22 History mcg-113 mg-45 mg-17.4 mg tablet (PreserVision AREDS) inhalational spacing device #1 ea 06/17/21 07/22/22 Rx (Aerochamber Plus Z Stat spacer) Symbicort 80 mcg-4.5 mcg/actuation 2 puff inhalation BID #10.2 grams 06/24/22 07/29/22 Rx HFA aerosol inhaler (budesonide-formoterol) atorvastatin 40 mg tablet 40 mg PO QDL 07/17/22 07/29/22 History venlafaxine 150 mg 150 mg PO QDL 07/17/22 07/29/22 History capsule,extended release 24 hr pantoprazole 40 mg tablet,delayed 40 mg PO BID 07/29/22 07/29/22 History release ferrous sulfate 325 mg (65 mg 325 mg PO BID #60 tabs 08/01/22 Rx iron) tablet,delayed release Patient History Medical History Anemia recently in hospital and Dr. Omer aware Anxiety Asthma Borderline hypertension Chronic obstructive pulmonary disease Chronic rhinitis Chronic sinusitis Closed head injury hx of rock hit head and need stitches Diverticulosis Eyebrow laceration repair Fall hx of a long time ago Hyperlipidemia Iron deficiency anemia Macular degeneration of both eyes Mitral valve prolapse folllow with dr oh Osteoarthritis Sleep apnea Surgical History History of abdominal hernia History of cataract surgery RIGHT/left History of colonoscopy History of ERCP History of esophagogastroduodenoscopy (EGD) History of tonsillectomy and adenoidectomy Hx of vasectomy S/P pericardial window creation 8 YEARS AGO Total knee replacement status right knee 2016 Family History Brother Pancreatic cancer Myocardial infarction Mother Colostomy in place Stroke Father , AGE 90 MRSA infection Unknown Dyslipidemia Hypertension Denies family history of Ovarian cancer Breast cancer Colorectal cancer Social History Smoking Status: Never smoker Tobacco Type: Smokeless Tobacco (Dip or Chew) Age Started Using Tobacco: 16; Second Hand Exposure: No; Hx Alcohol Use: Yes Alcohol type: beer Hx Substance Use: No Preferred Language: Belarusian Communication Ability: Effective Hearing Ability: Normal Florist Designer Required: No Beliefs That Will Affect Care: None marital status: Current Living Situation: Spouse current occupational status: retired Feels Safe at Home: Yes Childhood Exposure to Second-Hand Smoke: Yes caffeine: Yes (coffee) during the past year weight has: remained stable Dental Care, Regularly: Yes Physical Activity Frequency: Does not Exercise Physical Activity Frequency Comment: due to physical condition Seatbelt Use: always Sunscreen Use: No Assistive Devices: Cane and CPAP Review of Systems Review of Systems: All systems reviewed & are unremarkable except as noted in HPI & below Physical Exam Physical Exam: Constitutional: Alert, cooperative and in no distress. HEENT: Unremarkable Neck: No jugular venous distention, carotid pulses are normal and equal bilaterally without bruits. Pulmonary: Clear to auscultation bilaterally. Cardiac: Regular rhythm with no murmur, gallop or rub. Abdomen: Soft, nontender with normal bowel sounds. Extremities: No edema. Distal pulses intact. Neurologic: No focal findings. Gait is steady. Skin: No rash, ecchymoses or petechiae. Results & Data ([facility]) Vital Signs (Past 12 Hours) Vital Signs Temp Pulse Pulse Resp BP Pulse Ox O2 Del Method 08/01/22 03:41 36.8 C 90 18 158/75 H 92 Room Air 08/01/22 00:04 77 07/31/22 23:07 36.8 C 90 16 131/79 93 Room Air Laboratory Results CBC 07/31/22 08/01/22 Range/Units 17:51 05:39 WBC 6.56 (4.8-10.8) K/ul RBC 3.27 L (4.63-6.08) M/uL Hgb 8.9 L 8.9 L (14.0-18.0) g/dl Hct 28.2 L 27.4 L (40.1-51.0) % Plt Count 242 (130-400) K/uL Neut # (Auto) 4.41 (1.4-6.5) K/uL Lymph # (Auto) 0.93 L (1.2-3.4) K/uL [place] # (Auto) 0.82 (0.24-0.82) K/uL Eos # (Auto) 0.33 (0-0.50) K/uL Baso # (Auto) 0.05 (0-0.2) K/uL Comprehensive Metabolic Panel 08/01/22 Range/Units 05:39 Sodium 140 (136-145) mmol/L Potassium 3.6 (3.5-5.1) mmol/L Chloride 110 H (98-107) mmol/L Carbon Dioxide 24 (21-32) mmol/L BUN 8 (6-23) mg/dl Creatinine 1.02 (0.6-1.4) mg/dl Glucose 91 (70-99(Fasting)) mg/dl Calcium 8.4 L (8.5-10.1) mg/dl Intake and Output 07/31/22 08/01/22 08/01/22 22:59 06:59 14:59 Intake Total 1050 / 1560 400 / 1560 Output Total 950 / 950 Balance 1050 / 610 -550 / 610 Intake: IV 1000 / 1110 Sodium Chloride 0.9% 1000ML 1, 1000 / 1000 000 ml @ 80 mls/hr IV .[id number] Rx#:[id number] Oral 50 / 450 400 / 450 Output: Urine 950 / 950 # Bowel Movements 0 / 0 Other: Weight 84.187 kg Weight Measurement Method Standing Scale Diagnostic Findings An echocardiogram today based on my review (it is not formally read as yet) shows aortic sclerosis without stenosis and some mitral regurgitation, good left ventricular function. PG Care Time/CCT Total # of Minutes Spent Total Time Spent with Patient: Total time spent is greater than 50% in coordination of care (as documented) at patient's floor/unit and/or counseling patient: Coding Level of Care Code 76120 Initial Inpt Care Lvl 3 Diagnoses Aortic valve sclerosis I35.8 Mitral regurgitation I34.0
--- NOTE | 2022-08-01 11:49 | Discharge Summary ---
Date of Service August 01, 2022 Admission HPI Per Admitting Provider Alec is a 72-year-old male with a past medical history of smokeless tobacco use, GI bleed, anemia, iron deficiency, asthma, COPD, hyperlipidemia, sleep apnea who underwent a colonoscopy 07/24/2022 for hematochezia, was found to have a 5 mm polyp/3 mm polyp/nonbleeding hemorrhoids/multiple colonic angioectasias treated with APC who presents with a GI bleed and anemia. Alec is seen at the bedside with his . He is in no acute distress, although mildly tachycardic and appears pale. He reports that he had a colonoscopy for bright red blood per rectum on the . He has continued to have small amounts of blood in his stool which did not resolve following his colonoscopy and AVM cautery, however last night rather than just a small flecks of blood he filled the commode with thick blood and also developed lightheadedness, dizziness, and a feeling of faintness. He has not had any chest pain or chest pressure. He endorses shortness of breath at baseline for which he takes an inhaler, does not feel her shortness of breath has changed significantly and has not noticed any wheezing but notes he does become more short of breath and fatigued easily with exertion. He is not on room air. He uses smokeless tobacco, has not had any in a few day and declines nicotine replacement. He is a occasional social drinker with no alcohol use. Denies any recreational drug use. Did take medications this morning, is not on any aspirin or anticoagulant medications. No nausea/vomiting. No melena. Denies abdominal pain/epigastric pain. Medical History: Reviewed Medications: Reviewed Surgical History: Reviewed Allergies: Reviewed Social History: Reviewed, smokeless tobacco use and rare social alcohol use Code Status: Full code Principal Diagnosis Recurrent lower GI bleeding, angiodysplasia of the right colon, acute blood loss anemia, iron deficiency anemia, insomnia Discharge Exam General-alert and oriented x3, no fevers, no chills HEENT-head atraumatic and normocephalic, pupils equal and reactive to light, extraocular muscles intact Neck-no lymphadenopathy or thyromegaly, trachea midline Chest-clear to auscultation percussion. No rales wheezing or rhonchi Cardiac-regular rate and rhythm, normal S1 and S2, no murmurs Abdomen-normal bowel sounds, nontender, no hepatosplenomegaly Extremities-no cyanosis, clubbing, or edema Neuro-cranial nerves II through XII intact, motor and sensory function within normal limits, strength symmetrical , no focal deficits Psych-normal affect, normal mood Skinpallor noted Discharge Data Allergies Allergy/AdvReac Type Severity Reaction Status Date / Time No Known Allergies Allergy Verified 07/31/22 14:10 Consultations 07/29/22 17:16 ED Decision to Admit Stat 07/30/22 09:50 Consult Gastroenterology Routine 07/31/22 16:23 Consult Cardiology Stat Procedures Performed Operation Date: 07/31/22 17:00 Actual Procedures s Esophagogastroduodenoscopy - Myles Omer MD p Colonoscopy Hemostasis - Myles Omer MD Ordered Studies 07/29/22 17:29 CTA abdomen pelvis w con [CT angio abdomen pelvis w con] Stat Hospital Course (1) Iron deficiency anemia: Parenteral iron daily for 3 days while hospitalized. Oral iron will continue at discharge (2) Mitral valve prolapse: Aware. Continue current medical management. Not an acute issue (3) Smokeless tobacco use: Tobacco cessation recommended (4) Aortic stenosis: Aware. Not an acute issue. Highly unlikely that this is causing any hemolysis (5) Anxiety: Stable with medication management (6) Acute lower GI bleeding: Gastroenterology consultation appreciated. He underwent colonoscopy earlier this month with laser treatment of AVMs and polypectomy. He underwent EGD and colonoscopy again on July 31. EGD was normal. Colonoscopy revealed angiodysplasia in the cecal area which was lasered treated and clipped. Hemoglobin is now stable. He is not having any more lower GI bleeding. Diet has been advanced. (7) Acid reflux: Continue current therapy (8) ABLA (acute blood loss anemia): Will transfuse as needed to keep hemoglobin greater than 8. He has required transfusion this admission. Serial lab studies. Hemoglobin is now stable (9) Insomnia: Much improved with Ambien 5 mg at bedtime. He states he will not need Ambien at home Plan Discharge to home today, August 01 Total Time Total Time Spent Total Time Spent (In Minutes): 35 minutes Discharge Plan Discharge Items Patient Disposition: Home - Self-Care Reason For Visit: SX ANEMIA 2/2 ACUTE GIB, TACHYCARDIA Discharge Diagnosis: Recurrent lower GI bleeding, acute blood loss anemia, iron deficiency, insomnia, angiodysplasia of the cecum Activity: Resume your previous activity Non-emergency contact: Primary Care Provider Call non-emergency contact if: you have any medication questions and your symptoms worsen Follow-up/Referrals: Pelon Santiago MD [Primary Care Provider] - Diet: Heart Healthy Addtl Attending Provider Instructions: All medications remain the same. Take oral iron supplements, ferrous sulfate 325 mg twice a day Pending Studies at Discharge: No Stand-Alone Forms: [facility], Smoking Cessation Medications and DC Order Prescriptions: New ferrous sulfate 325 mg (65 mg iron) tablet,delayed release (DR/EC) 325 mg PO BID Qty: 60 0RF Continued budesonide-formoterol [Symbicort] 80-4.5 mcg/actuation HFA aerosol inhaler 2 puff inhalation BID Qty: 10.2 3RF Rx Instructions: thru aerochamber/ [employer] (DME) Aerochamber Plus Z Stat Spacer See Rx Instructions .ROUTE .MEDSUPPLY Qty: 1 0RF Rx Instructions: As directed Multi-Vitamin HP/Minerals Capsule 1 cap PO QDL PreserVision AREDS 7,160-113-100 [id number] Tablet 1 tab PO QDL atorvastatin 40 mg tablet 40 mg PO QDL venlafaxine 150 mg capsule,extended release 24hr 150 mg PO QDL pantoprazole 40 mg tablet,delayed release (DR/EC) 40 mg PO BID Discontinued iron 18 mg Tablet 18 mg PO QDL Discharge Orders: Discharge Order (Routine); Ordered 08/01/22 Ordered By: Fabien Rodriguez Admission Data Admit Date/Time: 07/29/22 19:01 Attending Provider: Fabien Rordiguez Admit Provider: Pelon Villalta Primary Care Provider: Pelon Santiago Other Providers: Pelon Villalta ; Guicho Cueto ; Enrike Bear ; Katherine Lewis ; Niki Vernon ; Anais Biggs ; Monique Forman ; Myles Omer ; Nisa Mota ; Babar Ford ; Talon Rai ; Lady Mireles ; Alec Lyn ; Mini Floyd ; Annie Barney ; Shana Chavez ; Geni Buitrago ; Sonny Arrieta ; Avi White ; Sloan Kincaid ; Venessa Novak ; Tamara Collins Jr ; Leo Bashir Other Interventions: Discharge Summary Assessment (RN) Last Done: 07/31/22 15:50 Coding Level of Care Code D/C DAY MANAGEMENT >30 MINS Diagnoses Iron deficiency anemia D50.9 Mitral valve prolapse I34.1 Smokeless tobacco use Z72.0 Aortic stenosis I35.0 Anxiety F41.9 Acute lower GI bleeding K92.2 Acid reflux K21.9 ABLA (acute blood loss anemia) D62 Insomnia G47.00
[2022-08-01] MEDS: VENLAFAXINE HCL XR 150 MG CAPXR PO SCH (12:36)
== END 2022-08-01 17:55 | disposition home or self-care (01) | DRG 378 ==
LOC: ED 15:38 → SUATTDRO 19:01 → 4W 19:01
DX: G47.00 Insomnia, unspecified; Z79.51 Long term (current) use of inhaled steroids; E78.5 Hyperlipidemia, unspecified; K57.31 Diverticulosis of large intestine without perforation or abscess with bleeding; K21.9 Gastro-esophageal reflux disease without esophagitis; Z20.822 Contact with and (suspected) exposure to COVID-19; K64.9 Unspecified hemorrhoids; Z79.899 Other long term (current) drug therapy; K55.21 Angiodysplasia of colon with hemorrhage; Z72.0 Tobacco use; J44.9 Chronic obstructive pulmonary disease, unspecified; D50.9 Iron deficiency anemia, unspecified; D62 Acute posthemorrhagic anemia; G47.30 Sleep apnea, unspecified; F41.9 Anxiety disorder, unspecified; Z23 Encounter for immunization; Z86.010 Personal history of colon polyps; I08.0 Rheumatic disorders of both mitral and aortic valves

== ENCOUNTER 2022-11-04 15:27 | Inpatient (IN) ==
[2022-11-04 16:18] LABS: Hematocrit (blood only) 23.9 % (42.0-52.0); Hemoglobin 6.9 g/dl (14.0-18.0); Mean Corpuscular Hemoglobin 23.2 pg (25.0-34.0); Mean Corpuscular Hgb Conc 28.9 g/dL (32.0-36.0); Mean Corpuscular Volume 80.5 fL (80.0-100.0); Mean Platelet Volume 10.5 fL (9.4-12.4); Platelet Count 256 K/uL (130-400); RDW Coefficient of Variation 21.7 % (11.5-14.5); RDW Standard Deviation 62.3 fL (36.4-46.3); Red Blood Count 2.97 M/uL (4.70-6.10); White Blood Count 8.19 K/ul (4.8-10.8)
[2022-11-04 16:26] LABS: Albumin Globulin Ratio 1.7 (0.9-2); Albumin Level 4.1 gm/dl (3.4-5.0); BUN Creatinine Ratio 18.3 (10-20); Bilirubin,Total 0.3 mg/dl (0.2-1.0); Calcium 9.2 mg/dl (8.5-10.1); Creatinine Clr Calc Pharmacy 54.5 ml/min; Est GFR (African American) 77.1 ml/min; Est GFR (Non-African American) 66.5 ml/min; Globulin 2.4 gm/dl (2.5-4.0); Potassium 3.8 mmol/L (3.5-5.1); Total Protein 6.5 gm/dl (6.0-8.3)
[2022-11-04 16:32] LABS: Troponin I High Sensitivity 35.8 pg/ml (0-20)
[2022-11-04 16:48] LABS: Anisocytosis Present; Basophils # (auto) 0.05 K/uL (0-0.2); Basophils % (auto) 0.6 %; Eosinophils % (auto) 2.4 %; Hypochromasia Present; Immature Granulocytes # (auto) 0.02 K/uL (0.01-0.20); Immature Granulocytes % (auto) 0.2 %; Lymphocytes # (auto) 1.35 K/uL (1.2-3.4); Lymphocytes % (auto) 16.5 %; Monocytes # (auto) 0.85 K/uL (0.11-0.59); Monocytes % (auto) 10.4 %; Neutrophils # (auto) 5.72 K/uL (1.40-6.50); Neutrophils % (auto) 69.9 %; Polychromasia 1+
[2022-11-04] MEDS ORDERED: SODIUM CHLORIDE 0.9% 250 ML IV PRN (16:51)
--- NOTE | 2022-11-04 16:56 | Emergency Department Note ---
Impression & Plan Acute lower gastrointestinal bleeding, Anemia ED Provider Note INFORMANT: Patient ED PROVIDER(S): Sarath Blakely DO CHIEF COMPLAINT: Lower GI bleed PLAN: Disposition: Home Outpatient prescription management: none Discussion with: I spoke with the hospitalist, who will see the patient for admission/observation and further evaluation and consultation. MEDICAL DECISION MAKING: This is a 72-year-old male who presents to the ED with a chief complaint of rectal bleeding. The patient states that he went to [facility] recently and swallowed a video pill showing that he had an active lower intestinal bleed in the lower quadrant on the right. The patient had blood work this morning showing his hemoglobin was 6.9. He was sent to the ED for admission and further evaluation by Dr. Omer's office. He states that he has some weakness and shortness of breath with exertion. The patient has no other specific complaints at this time. The patient's exam was unremarkable. His vital signs are stable. His hemoglobin this evening is also 6.9. Baseline hemoglobin is around 9 or 10. The patient's chemistry panel did not show any electrolyte abnormality or kidney dysfunction. The patient was typed and crossed for 2 units. An order for transfusion of 1 unit has been made. The patient did sign a consent form for blood transfusion. He will be seen by the hospitalist who I spoke with. Triage Nursing notes reviewed. Vital Signs: reviewed Prior /Outside records reviewed: none Differential diagnosis: Lower GI bleed, anemia, weakness, other. Diagnostics, as interpreted by me: 12 lead ECG: Normal sinus rhythm 76. No ST elevation. No PVCs. Normal QTc. Cardiac Monitoring ordered: none Medical decision rules: none Imaging studies: none Procedures: none. Critical care: I have personally spent 30 minutes of critical care time in the direct management of this patient. This includes bedside care, interpretation of diagnostic studies, and testing, discussion with consultants, patient, and family members, and other required patient management activities. This 30 mi nutes is in excess of all separately billable procedures. HPI: See MDM above. PAST MEDICAL HISTORY: See Below PAST SURGICAL HISTORY: See Below SOCIAL HISTORY: See Below HOME MEDICATIONS: See Below ALLERGIES: See Below VITALS: See Below PHYSICAL EXAMINATION: See MDM for positive findings otherwise unremarkable. CONSTITUTIONAL/VITAL SIGNS: Reviewed GENERAL:done as appropriate INTEGUMENTARY: done as appropriate HEAD: done as appropriate EYES: done as appropriate RESPIRATORY: done as appropriate CARDIOVASCULAR:done as appropriate GI/ABDOMEN:done as appropriate EXTREMITIES: done as appropriate NEUROLOGICAL: done as appropriate PSYCHIATRIC:done as appropriate MUSCULOSKELETAL:done as appropriate TRIAGE NURSING DOCUMENTATION REVIEWED. Past Med/Surg History Medical History Anemia recently in hospital and Dr. Omer aware Anxiety Asthma Borderline hypertension Chronic obstructive pulmonary disease Chronic rhinitis Chronic sinusitis Closed head injury hx of rock hit head and need stitches Diverticulosis Elevated troponin I level Eyebrow laceration repair Fall hx of a long time ago Hyperlipidemia Iron deficiency anemia Macular degeneration of both eyes Mitral valve prolapse folllow with dr oh Osteoarthritis Sleep apnea Troponin level elevated Surgical History History of abdominal hernia History of cataract surgery RIGHT/left History of colonoscopy History of ERCP History of esophagogastroduodenoscopy (EGD) History of tonsillectomy and adenoidectomy Hx of vasectomy S/P pericardial window creation 8 YEARS AGO Total knee replacement status right knee 2016 Family History Brother Pancreatic cancer Myocardial infarction Mother Colostomy in place Stroke Father , AGE 90 MRSA infection Unknown Dyslipidemia Hypertension Denies family history of Ovarian cancer Breast cancer Colorectal cancer Social History Smoking Status: Former smoker Tobacco Type: Cigarettes Age Started Using Tobacco: 16; Second Hand Exposure: No; Hx Alcohol Use: Yes Alcohol type: beer Hx Substance Use: No Preferred Language: Sami Communication Ability: Effective Hearing Ability: Normal Hog Buyer Required: No Beliefs That Will Affect Care: None marital status: Current Living Situation: Spouse current occupational status: retired Feels Safe at Home: Yes Childhood Exposure to Second-Hand Smoke: Yes caffeine: Yes (coffee) during the past year weight has: remained stable Dental Care, Regularly: Yes Physical Activity Frequency: Does not Exercise Physical Activity Frequency Comment: due to physical condition Seatbelt Use: always Sunscreen Use: No Assistive Devices: Cane and CPAP Allergies Allergies Allergy/AdvReac Type Severity Reaction Status Date / Time No Known Allergies Allergy Verified 11/04/22 16:21 Home Meds Home Medications Medication Instructions Recorded Confirmed multivitamin,tx-minerals 1 cap PO QDL 03/14/19 11/04/22 (Multi-Vitamin HP/Minerals capsule) vitamins A,C,Q-fhbi-viilww 2,148 1 tab PO QDL 03/14/19 11/04/22 mcg-113 mg-45 mg-17.4 mg tablet (PreserVision AREDS) atorvastatin 40 mg tablet 40 mg PO QDL 07/17/22 11/04/22 venlafaxine 150 mg 150 mg PO QDL 07/17/22 11/04/22 capsule,extended release 24 hr ferrous sulfate 325 mg (65 mg 325 mg PO QDL 11/04/22 11/04/22 iron) tablet,delayed release Previous Rx's Medication Instructions Recorded inhalational spacing device #1 ea 06/17/21 (Aerochamber Plus Z Stat spacer) Symbicort 80 mcg-4.5 mcg/actuation 2 puff inhalation BID #10.2 grams 06/24/22 HFA aerosol inhaler (budesonide-formoterol) Results & Data (ED) Vital Signs Vital Signs - 24 hr 11/04/22 15:30 11/04/22 15:51 11/04/22 15:45 Temperature 36.6 C Temperature Source Temporal Artery Scan Pulse Rate 76 73 73 Respiratory Rate 18 20 Respiratory Effort / Characteristics Non-Labored Spontaneous Respiratory Depth Normal Respiratory Pattern Regular Blood Pressure 149/71 H Blood Pressure Mean 97 Blood Pressure Position Sitting Pulse Oximetry 98 96 Oxygen Delivery Method Room Air Room Air Sepsis Recent Fever Within 48 Hours No Sepsis New/Unexplained Change in Mental Status N/A Sepsis Action Taken by Nursing No Action Required Laboratory Data 11/04/22 15:42 11/04/22 15:42 Lab Results 11/04/22 11/04/22 11/04/22 Range/Units 15:42 15:42 15:42 WBC 8.19 (4.8-10.8) K/ul RBC 2.97 L (4.70-6.10) M/uL Hgb 6.9 L* (14.0-18.0) g/dl Hct 23.9 L (42.0-52.0) % MCV 80.5 (80.0-100.0) fL MCH 23.2 L (25.0-34.0) pg MCHC 28.9 L (32.0-36.0) g/dL RDW Std Deviation 62.3 H (36.4-46.3) fL RDW Coeff of Molly 21.7 H (11.5-14.5) % Plt Count 256 (130-400) K/uL MPV 10.5 (9.4-12.4) fL Immature Gran % (Auto) 0.2 % Neut % (Auto) 69.9 % Lymph % (Auto) 16.5 % Crosby % (Auto) 10.4 % Eos % (Auto) 2.4 % Baso % (Auto) 0.6 % Neut # (Auto) 5.72 (1.40-6.50) K/uL Lymph # (Auto) 1.35 (1.2-3.4) K/uL Crosby # (Auto) 0.85 H (0.11-0.59) K/uL Eos # (Auto) 0.20 (0-0.50) K/uL Baso # (Auto) 0.05 (0-0.2) K/uL Immature Gran # (Auto) 0.02 (0.01-0.20) K/uL Polychromasia 1+ Hypochromasia Present Anisocytosis Present Sodium 140 (136-145) mmol/L Potassium 3.8 (3.5-5.1) mmol/L Chloride 108 H (98-107) mmol/L Carbon Dioxide 28 (21-32) mmol/L Anion Gap 4 (3-11) BUN 20 (6-23) mg/dl Creatinine 1.09 (0.6-1.4) mg/dl Est Cr Clr Drug Dosing 54.5 ml/min Est GFR ( Amer) 77.1 ml/min Est GFR (Non-Af Amer) 66.5 ml/min BUN/Creatinine Ratio 18.3 (10-20) Glucose 107 H (70-99(Fasting)) mg/dl Calcium 9.2 (8.5-10.1) mg/dl Total Bilirubin 0.3 (0.2-1.0) mg/dl AST 17 (13-39) U/L ALT 12 (7-52) U/L Alkaline Phosphatase 69 (34-104) U/L Troponin I High Sens 35.8 H (0-20) pg/ml Total Protein 6.5 (6.0-8.3) gm/dl Albumin 4.1 (3.4-5.0) gm/dl Globulin 2.4 L (2.5-4.0) gm/dl Albumin/Globulin Ratio 1.7 (0.9-2) Lipase 29 (11-82) U/L Blood Type A Negative Antibody Screen NEGATIVE Discharge Plan Visit Data Chief Complaint: Chest Pain Stated Complaint: REF BY DOC, CHEST PAIN ED Provider: Sarath Blakely Discharge Problem: Acute lower gastrointestinal bleeding, Anemia Patient Disposition: Admitted As Inpatient Forms Stand Alone Forms: [facility], Virtual Emergency Department, Important Visit Information Prescriptions Prescriptions: No Action budesonide-formoterol [Symbicort] 80-4.5 mcg/actuation HFA aerosol inhaler 2 puff inhalation BID Qty: 10.2 3RF Rx Instructions: thru aerochamber/ [employer] (DME) Aerochamber Plus Z Stat Spacer See Rx Instructions .ROUTE .MEDSUPPLY Qty: 1 0RF Rx Instructions: As directed Multi-Vitamin HP/Minerals Capsule 1 cap PO QDL PreserVision AREDS 7,160-113-100 [id number] Tablet 1 tab PO QDL atorvastatin 40 mg tablet 40 mg PO QDL venlafaxine 150 mg capsule,extended release 24hr 150 mg PO QDL ferrous sulfate 325 mg (65 mg iron) tablet,delayed release (DR/EC) 325 mg PO QDL Referrals Referrals: Pelon Santiago MD [Primary Care Provider] -
--- NOTE | 2022-11-04 17:06 | History & Physical Report ---
Date of Service November 04, 2022 Assessment & Plan (1) Acute lower gastrointestinal bleeding: Plan: History of multiple GI bleeds in the past, most recently in July 2022 during which she had colonoscopy with laser treatment of AVMs and polypectomy, as well as cecal angiodysplasia that was laser treated and clipped. Patient underwent video capsule endoscopy, and was contacted by GI office today to make him aware that he is having lower GI bleeding according to the study. Lab work was ordered which showed a hemoglobin of 6.9, and patient was advised to come to the ER for further evaluation. Gastroenterology consulted and appreciate recommendations, case discussed with Dr. Bear. MiraLAX prep overnight and n.p.o. after prep, for colonoscopy tomorrow. Telemetry for cardiac monitoring in the setting of acute GI bleed. (2) ABLA (acute blood loss anemia): Plan: Hemoglobin 6.9 on outpatient labs, confirmed today in the ER. Has a history of iron deficiency anemia and last admission received Venofer IV x3 days, and has been on iron supplements since that time. MCV of 80.5 today. Patient will receive 1 unit of packed red blood cells for now with repeat hemoglobin following, as well as repeat hemoglobin in the morning. Care of acute lower GI bleeding as described above. (3) Chronic obstructive pulmonary disease: Plan: Former smoker, history of COPD per chart review, as well as pneumoconiosis, follows with [facility]. Patient is not on oxygen at home and is not requiring oxygen at time of admission. Continue home Symbicort. Patient is not endorsing shortness of breath and is saturating normally on room air. (4) Pneumoconiosis: Plan: See above Plan Holding DVT chemoprophylaxis in the setting of acute lower GI bleeding. Clear liquid diet for now for colonoscopy prep, n.p.o. thereafter. Telemetry for cardiac monitoring in the setting of acute anemia requiring transfusion. Patient is full code. History of Present Illness Chief Complaint: Hemoglobin 6.9, lower GI bleeding Primary Care Provider: Pelon Santiago MD 72-year-old male past medical history significant for previous lower GI bleed most recently in July, followed by [facility] presented to the ER at the advisement of the outpatient gastroenterology office due to lower GI bleeding noted on video capsule endoscopy, with outpatient labs showing a hemoglobin of 6.9. Patient himself notes that he has been feeling more weak and tired lately, will intermittently have some chest discomfort and shortness of breath, but never lasts for more than a few minutes. In the ER patient was noted to be hemodynamically stable with a heart rate of 73 , saturating well on room air. Repeat CBC showed hemoglobin of 6.9 with MCV of 80.5, CMP normal, high-sensitivity troponin of 35.8, COVID-negative. Hospitalist service was consulted for acute blood loss anemia with acute lower GI bleed. Allergies Allergy/AdvReac Type Severity Reaction Status Date / Time No Known Allergies Allergy Verified 11/04/22 16:21 Home Medications Medication Instructions Recorded Confirmed Type multivitamin,tx-minerals 1 cap PO QDL 03/14/19 11/04/22 History (Multi-Vitamin HP/Minerals capsule) vitamins A,C,V-pvob-brdcio 2,148 1 tab PO QDL 03/14/19 11/04/22 History mcg-113 mg-45 mg-17.4 mg tablet (PreserVision AREDS) inhalational spacing device #1 ea 06/17/21 09/12/22 Rx (Aerochamber Plus Z Stat spacer) Symbicort 80 mcg-4.5 mcg/actuation 2 puff inhalation BID #10.2 grams 06/24/22 11/04/22 Rx HFA aerosol inhaler (budesonide-formoterol) atorvastatin 40 mg tablet 40 mg PO QDL 07/17/22 11/04/22 History venlafaxine 150 mg 150 mg PO QDL 07/17/22 11/04/22 History capsule,extended release 24 hr ferrous sulfate 325 mg (65 mg 325 mg PO QDL 11/04/22 11/04/22 History iron) tablet,delayed release Past Med/Surg History Medical History Anemia recently in hospital and Dr. Omer aware Anxiety Asthma Borderline hypertension Chronic obstructive pulmonary disease Chronic rhinitis Chronic sinusitis Closed head injury hx of rock hit head and need stitches Diverticulosis Elevated troponin I level Eyebrow laceration repair Fall hx of a long time ago Hyperlipidemia Iron deficiency anemia Macular degeneration of both eyes Mitral valve prolapse folllow with dr oh Osteoarthritis Sleep apnea Troponin level elevated Surgical History History of abdominal hernia History of cataract surgery RIGHT/left History of colonoscopy History of ERCP History of esophagogastroduodenoscopy (EGD) History of tonsillectomy and adenoidectomy Hx of vasectomy S/P pericardial window creation 8 YEARS AGO Total knee replacement status right knee 2016 Family History Brother Pancreatic cancer Myocardial infarction Mother Colostomy in place Stroke Father , AGE 90 MRSA infection Unknown Dyslipidemia Hypertension Denies family history of Ovarian cancer Breast cancer Colorectal cancer Social History Smoking Status: Former smoker Tobacco Type: Cigarettes Age Started Using Tobacco: 16; Second Hand Exposure: No; Hx Alcohol Use: Yes Alcohol type: beer Hx Substance Use: No Preferred Language: Romanian Communication Ability: Effective Hearing Ability: Normal Senior Developer Required: No Beliefs That Will Affect Care: None marital status: Current Living Situation: Spouse current occupational status: retired Feels Safe at Home: Yes Childhood Exposure to Second-Hand Smoke: Yes caffeine: Yes (coffee) during the past year weight has: remained stable Dental Care, Regularly: Yes Physical Activity Frequency: Does not Exercise Physical Activity Frequency Comment: due to physical condition Seatbelt Use: always Sunscreen Use: No Assistive Devices: Cane and CPAP Review of Systems Review of Systems: All systems reviewed & are unremarkable except as noted in HPI & below Physical Exam Constitutional: WD/WN, vitals as above Respiratory: normal respiratory effort, lungs clear to auscultation Cardiovascular: RRR, no murmur, no edema Gastrointestinal (Abdomen): normal bowel sounds, soft, nontender, no hepatosplenomegaly Skin: no rashes, warm and dry Psychiatric: A+Ox3, euthymic affect Results & Data Results & Data ([facility]) Vital Signs (Past 12 Hours) Vital Signs Temp Pulse Resp BP Pulse Ox O2 Del Method 11/04/22 15:45 73 20 96 Room Air 11/04/22 15:51 73 11/04/22 15:30 36.6 C 76 18 149/71 H 98 Room Air PG Care Time/CCT Total # of Minutes Spent Total Time Spent with Patient: Total time spent is greater than 50% in coordination of care (as documented) at patient's floor/unit and/or counseling patient: Coding Level of Care Code 57194 INT INP/OBS CARE MIN Diagnoses Acute lower gastrointestinal bleeding K92.2 ABLA (acute blood loss anemia) D62 Chronic obstructive pulmonary disease J44.9 Pneumoconiosis J64
--- NOTE | 2022-11-04 17:13 | Electrocardiogram Report ---
Test Reason : Blood Pressure : / mmHG Vent. Rate : 076 BPM Atrial Rate : 076 BPM P-R Int : 158 ms QRS Dur : 096 ms QT Int : 386 ms P-R-T Axes : 036 026 042 degrees QTc Int : 434 ms Sinus rhythm with marked sinus arrhythmia Left ventricular hypertrophy with repolarization abnormality Abnormal ECG When compared with ECG of 29-JUL-2022 16:16, No significant change was found Confirmed by Toby Nieto ([id number]) on 11/04/2022 5:13:14 PM Referred By: Confirmed By:Houston Nieto
[2022-11-04] MEDS: POLYETHYLENE (MIRALAX) 17 GM PACK PO SCH (19:07)
[2022-11-05 00:32] LABS: Hematocrit (blood only) 25.1 % (42.0-52.0); Hemoglobin 7.6 g/dl (14.0-18.0)
[2022-11-05] MEDS: POLYETHYLENE (MIRALAX) 17 GM PACK PO SCH (03:07)
[2022-11-05 06:34] LABS: Basophils # (auto) 0.06 K/uL (0-0.2); Basophils % (auto) 0.7 %; Eosinophils # (auto) 0.38 K/uL (0-0.50); Eosinophils % (auto) 4.6 %; Hematocrit (blood only) 27.6 % (42.0-52.0); Hemoglobin 8.4 g/dl (14.0-18.0); Immature Granulocytes # (auto) 0.05 K/uL (0.01-0.20); Immature Granulocytes % (auto) 0.6 %; Lymphocytes # (auto) 1.29 K/uL (1.2-3.4); Lymphocytes % (auto) 15.6 %; Mean Corpuscular Hemoglobin 24.4 pg (25.0-34.0); Mean Corpuscular Hgb Conc 30.4 g/dL (32.0-36.0); Mean Corpuscular Volume 80.2 fL (80.0-100.0); Mean Platelet Volume 10.4 fL (9.4-12.4); Monocytes # (auto) 0.94 K/uL (0.11-0.59); Monocytes % (auto) 11.3 %; Neutrophils # (auto) 5.57 K/uL (1.40-6.50); Neutrophils % (auto) 67.2 %; Platelet Count 253 K/uL (130-400); RDW Coefficient of Variation 21.8 % (11.5-14.5); RDW Standard Deviation 61.6 fL (36.4-46.3); Red Blood Count 3.44 M/uL (4.70-6.10); White Blood Count 8.29 K/ul (4.8-10.8)
[2022-11-05 06:50] LABS: Albumin Globulin Ratio 1.6 (0.9-2); Albumin Level 4.1 gm/dl (3.4-5.0); Bilirubin,Total 0.7 mg/dl (0.2-1.0); Creatinine Clr Calc Pharmacy 72.3 ml/min; Est GFR (African American) 93.4 ml/min; Est GFR (Non-African American) 80.6 ml/min; Globulin 2.5 gm/dl (2.5-4.0); Total Protein 6.6 gm/dl (6.0-8.3)
[2022-11-05 06:54] LABS: Anisocytosis Present; Hypochromasia Present; Polychromasia 1+
[2022-11-05] MEDS: FLUTICASONE/VILANTEROL 100/25MCG 14 PUFFS/INHALER INH SCH (08:05)
[2022-11-05] MEDS: SODIUM CHLORIDE 0.9% 1000ML 1,000 ML IV SCH ×2 (08:36→22:30)
[2022-11-05 09:11] LABS: Ferritin 10.3 ng/ml (8-388)
--- NOTE | 2022-11-05 10:12 | Gastrointestinal Consultation ---
Date of Consultation November 05, 2022 Assessment & Plan (1) Anemia: H/H lower than baseline at 6.9/23.9 with VCE findings of right sided colon AVMs. Patient has received 2 units PRBCs and current H/H is 8.4/27.6. He has completed a bowel prep and has been NPO. -Keep NPO -Proceed with colonoscopy today (11/05/22) Supervising Physician Co-Signing Physician Notes Agree with MARTINA Smith as above Abd: Soft, NT, ND, +BS Continue current therapy and supportive care Proceed with colonoscopy now History of Present Illness Reason for Consultation: BRBPR Attending Physician: Fabien Rodriguez MD History of Present Illness Patient is a 72 yo male with PMH AVMs, Aortic stenosis, tobacco use, mitral regurgitation, anemia, GERD, HTN, JAVI, anxiety, COPD, HLD, OA, & ERA. He has a PMH significant for lower GI bleeding and had a colonoscopy in July 2022 that indicated diverticulosis, hemorrhoids, & AVMs in the right colon that were treated with APC. He recently underwent a video capsule endoscopy at [facility] that indicated multiple AVMs in the cecum & ascending colon. Dr. Omer had checked this patient's H/H has an outpatient and the patient was referred to the ED when his hemoglobin was noted to be 6.9. He notes feeling weaker lately, havi ng darker stools, and experiencing chest pain & ARANGO. He was transfused 2 units of PRBCs and H/H this AM is now 8.4/27.6. He has completed a bowel prep overnight and notes clear stools. He notes some dark stool overnight. He denies abdominal pain at present. His BUN/Cr are within normal limits. No recent GI imaging with exception of VCE. He denies any acute complaints today and is ready to proceed with a colonoscopy today. He is NPO. He denies pertinent family history. Allergies Allergy/AdvReac Type Severity Reaction Status Date / Time No Known Allergies Allergy Verified 11/04/22 16:21 Home Medications Medication Instructions Recorded Confirmed Type multivitamin,tx-minerals 1 cap PO QDL 03/14/19 11/04/22 History (Multi-Vitamin HP/Minerals capsule) vitamins A,C,M-brfg-btmhrb 2,148 1 tab PO QDL 03/14/19 11/04/22 History mcg-113 mg-45 mg-17.4 mg tablet (PreserVision AREDS) inhalational spacing device #1 ea 06/17/21 09/12/22 Rx (Aerochamber Plus Z Stat spacer) Symbicort 80 mcg-4.5 mcg/actuation 2 puff inhalation BID #10.2 grams 06/24/22 11/04/22 Rx HFA aerosol inhaler (budesonide-formoterol) atorvastatin 40 mg tablet 40 mg PO QDL 07/17/22 11/04/22 History venlafaxine 150 mg 150 mg PO QDL 07/17/22 11/04/22 History capsule,extended release 24 hr ferrous sulfate 325 mg (65 mg 325 mg PO QDL 11/04/22 11/04/22 History iron) tablet,delayed release Patient History Medical History Anemia recently in hospital and Dr. Omer aware Anxiety Asthma Borderline hypertension Chronic obstructive pulmonary disease Chronic rhinitis Chronic sinusitis Closed head injury hx of rock hit head and need stitches Diverticulosis Elevated troponin I level Eyebrow laceration repair Fall hx of a long time ago Hyperlipidemia Iron deficiency anemia Macular degeneration of both eyes Mitral valve prolapse folllow with dr oh Osteoarthritis Sleep apnea Troponin level elevated Surgical History History of abdominal hernia History of cataract surgery RIGHT/left History of colonoscopy History of ERCP History of esophagogastroduodenoscopy (EGD) History of tonsillectomy and adenoidectomy Hx of vasectomy S/P pericardial window creation 8 YEARS AGO Total knee replacement status right knee 2016 Family History Brother Pancreatic cancer Myocardial infarction Mother Colostomy in place Stroke Father , AGE 90 MRSA infection Unknown Dyslipidemia Hypertension Denies family history of Ovarian cancer Breast cancer Colorectal cancer Social History Smoking Status: Never smoker Tobacco Type: Cigarettes Age Started Using Tobacco: 16; Second Hand Exposure: No; Hx Alcohol Use: No Hx Substance Use: No Preferred Language: Danish Communication Ability: Effective Hearing Ability: Normal Cradle Placer Required: No Beliefs That Will Affect Care: None marital status: Current Living Situation: Spouse current occupational status: retired Other Information That Helps Us Care for You: No Feels Safe at Home: Yes Safety Concerns: Feels Safe At This Time Childhood Exposure to Second-Hand Smoke: Yes caffeine: Yes (coffee) during the past year weight has: remained stable Dental Care, Regularly: Yes Physical Activity Frequency: Does not Exercise Physical Activity Frequency Comment: due to physical condition Seatbelt Use: always Sunscreen Use: No Assistive Devices: Cane Review of Systems Constitutional: no fever and no chills Respiratory: no cough and no dyspnea Cardiovascular: no chest pain Gastrointestinal: + melena; no abdominal pain and no change in bowel habits Musculoskeletal: no problem reported Neurologic: no problem reported Physical Exam Constitutional: well developed Respiratory: normal respiratory effort Cardiovascular: Rate/Rhythm: regular rate Gastrointestinal (Abdomen): normal bowel sounds, soft, nontender, no hepatosplenomegaly Musculoskeletal: Head/Neck/Chest: normocephalic Psychiatric: Orientation: alert and oriented x 3 Results & Data ([facility]) Vital Signs (Past 12 Hours) Vital Signs Temp Pulse Pulse Resp BP BP Pulse Ox 11/05/22 07:52 93 H 11/05/22 07:01 36.8 C 76 19 152/91 H 97 11/05/22 03:11 36.6 C 90 18 154/79 H 97 11/04/22 22:51 36.7 C 65 18 146/78 H 98 11/04/22 22:25 36.6 C 66 16 150/77 H 99 O2 Del Method 11/05/22 07:52 11/05/22 07:01 Room Air 11/05/22 03:11 Room Air 11/04/22 22:51 Room Air 11/04/22 22:25 PG Care Time/CCT Total # of Minutes Spent Total Time Spent with Patient: Total time spent is greater than 50% in coordination of care (as documented) at patient's floor/unit and/or counseling patient: Coding Level of Care Code INP/OBS CONSULT LVL 4, 60 MIN Diagnoses Anemia D64.9
[2022-11-05] MEDS ORDERED: IRON SUCROSE 200 MG in 0.9 % SODIUM CHLORIDE 100 ML IV ONE (13:00)
--- NOTE | 2022-11-05 14:17 | Hospitalist Progress Note ---
Date of Service November 05, 2022 Assessment & Plan (1) Acute lower gastrointestinal bleeding: Plan: History of multiple GI bleeds in the past, most recently in July 2022 during which she had colonoscopy with laser treatment of AVMs and polypectomy, as well as cecal angiodysplasia that was laser treated and clipped. Patient underwent video capsule endoscopy, and was contacted by GI office the day of admission to make him aware that he is having lower GI bleeding according to the study. Lab work was ordered which showed a hemoglobin of 6.9, and patient was advised to come to the ER for further evaluation. Gastroenterology consulted and appreciate recommendations. Colonoscopy planned for later today, November 05. (2) ABLA (acute blood loss anemia): Plan: Improved after transfusion. No overt hematochezia. Serial labs ordered. (3) Chronic obstructive pulmonary disease: Plan: Former smoke. Currently stable COPD. Continue current treatment plan. (4) Pneumoconiosis: Plan: history of. Stable (5) Iron deficiency: Plan: Parenteral iron replacement ordered, day 1 of 3. Continue oral iron supplementation at discharge Plan Anticipate eventual discharge to home once stable. Admission and Anticipated Discharge Date Admission Date: November 04, 2022 Subjective Alert and oriented. No acute distress. Iron levels are low again and supplemental parenteral iron ordered. GI consultation noted. He will undergo colonoscopy later today, November 05. Hemoglobin improved to 8.4 after transfusion. Serial labs ordered Review of Systems Review of Systems: Constitutional-no fever or chills ENT-no blurred vision, no double vision, no epistaxis, no sore throat Respiratory-no cough, no wheezing, no shortness of breath Cardiac-no palpitations, no chest pain, no syncope GI-no nausea, vomiting, diarrhea, melena, hematochezia -no urinary retention, no urinary incontinence, no dysuria, no hematuria Musculoskeletal-no joint pain, no muscle tenderness Skin-no bruising, no rashes, no pruritus Neuro-no isolated weakness, no paresthesia, no weakness Psych-no depression, no anxiety Physical Exam Physical Exam: General-alert and oriented x3, no fevers, no chills HEENT-head atraumatic and normocephalic, pupils equal and reactive to light, extraocular muscles intact Neck-no lymphadenopathy or thyromegaly, trachea midline Chest-clear to auscultation percussion. No rales wheezing or rhonchi Cardiac-regular rate and rhythm, normal S1 and S2 Abdomen-normal bowel sounds, nontender, no hepatosplenomegaly Extremities-no cyanosis, clubbing, or edema Neuro-cranial nerves II through XII intact, motor and sensory function within normal limits, strength symmetrical, no focal deficits Psych-normal affect, normal mood Results & Data Results & Data ([facility]) Vital Signs (Past 12 Hours) Vital Signs Temp Pulse Pulse Resp BP Pulse Ox O2 Del Method 11/05/22 11:09 36.2 C L 70 19 147/80 H 99 Room Air 11/05/22 07:52 93 H 11/05/22 07:01 36.8 C 76 19 152/91 H 97 Room Air 11/05/22 03:11 36.6 C 90 18 154/79 H 97 Room Air Laboratory Results 11/05/22 06:04 11/05/22 06:04 PG Care Time/CCT Total # of Minutes Spent Total Time Spent with Patient: Total time spent is greater than 50% in coordination of care (as documented) at patient's floor/unit and/or counseling patient: Coding Level of Care Code 99331 SUB INP/OBS CARE 3/50MIN Diagnoses Acute lower gastrointestinal bleeding K92.2 ABLA (acute blood loss anemia) D62 Chronic obstructive pulmonary disease J44.9 Pneumoconiosis J64 Iron deficiency E61.1
[2022-11-05] MEDS ORDERED: MIDAZOLAM HCL 1 MG/ML 2ML VIAL ONE (15:11)
[2022-11-05] MEDS ORDERED: fentaNYL citrate 100 MCG/2 ML VIAL ONE (15:11)
[2022-11-05] MEDS ORDERED: PROPOFOL IV EMULSION 10 MG/ML 20 ML VIAL IV ONE (15:11)
--- NOTE | 2022-11-05 15:12 | Anesthesiology Consultation ---
Date of Service November 05, 2022 Assessment & Plan Chart Review Chart Review: Acceptable Risk for Surgery Consults Requested none ASA ASA3 Proposed Anesthesia Anesthesia Type: MAC Risk / Benefits Reviewed With: PT / POA / Parent / Guardian, Accepts Plan and Informed Consent Obtained History Surgery Operation Date: 11/04/22 16:30 Proposed Procedures p Colonoscopy Dr. Chema Rodríguez Case, DO Operation Date: 11/05/22 16:45 Proposed Procedures p Colonoscopy Dr. Chema Rodríguez Case, DO Height/Weight Height: 5 ft 7 in Weight: 84.3 kg Allergies Allergy/AdvReac Type Severity Reaction Status Date / Time No Known Allergies Allergy Verified 11/04/22 16:21 Medications Home Medications Medication Instructions Recorded Confirmed Last Taken multivitamin,tx-minerals 1 cap PO QDL 03/14/19 11/04/22 11/04/22 (Multi-Vitamin HP/Minerals capsule) vitamins A,C,Q-tunm-ukcaai 2,148 1 tab PO QDL 03/14/19 11/04/22 11/04/22 mcg-113 mg-45 mg-17.4 mg tablet (PreserVision AREDS) inhalational spacing device #1 ea 06/17/21 09/12/22 Unknown (Aerochamber Plus Z Stat spacer) Symbicort 80 mcg-4.5 mcg/actuation 2 puff inhalation BID #10.2 grams 06/24/22 11/04/22 11/04/22 08:00 HFA aerosol inhaler (budesonide-formoterol) atorvastatin 40 mg tablet 40 mg PO QDL 07/17/22 11/04/22 11/04/22 venlafaxine 150 mg 150 mg PO QDL 07/17/22 11/04/22 11/04/22 capsule,extended release 24 hr ferrous sulfate 325 mg (65 mg 325 mg PO QDL 11/04/22 11/04/22 11/04/22 iron) tablet,delayed release Active Medications Generic Name Dose Route Start Last Admin Trade Name Freq PRN Reason Stop Dose Admin Fluticasone/Vilanterol 1 puffs 11/05/22 09:00 11/05/22 08:05 Fluticasone/Vilanterol 100/25mcg 14 Puffs/Inhaler INH 12/05/22 08:59 1 puffs DAILY THU Administration Sodium Chloride 1,000 mls @ 80 mls/hr 11/05/22 08:30 11/05/22 08:36 Nss 1000ml IV 12/05/22 08:29 80 mls/hr .[id number] THU Administration NPO Date Last Intake of Fluids: 11/05/22 Time Last Intake of Fluids: 05:00 Date Last Intake of Solids: 11/04/22 Time Last Intake of Solids: 17:30 Past Medical History Medical History Anemia recently in hospital and Dr. Omer aware Anxiety Asthma Borderline hypertension Chronic obstructive pulmonary disease Chronic rhinitis Chronic sinusitis Closed head injury hx of rock hit head and need stitches Diverticulosis Elevated troponin I level Eyebrow laceration repair Fall hx of a long time ago Hyperlipidemia Iron deficiency anemia Macular degeneration of both eyes Mitral valve prolapse folllow with dr oh Osteoarthritis Sleep apnea Troponin level elevated Exercise / Class Metabolic Activity II 4-5 Yardwork/Stairs/Walk up hill Past Family History Family History Brother Pancreatic cancer Myocardial infarction Mother Colostomy in place Stroke Father , AGE 90 MRSA infection Unknown Dyslipidemia Hypertension Denies family history of Ovarian cancer Breast cancer Colorectal cancer Past Surgical History Surgical History History of abdominal hernia History of cataract surgery RIGHT/left History of colonoscopy History of ERCP History of esophagogastroduodenoscopy (EGD) History of tonsillectomy and adenoidectomy Hx of vasectomy S/P pericardial window creation 8 YEARS AGO Total knee replacement status right knee 2016 Past Anesthesia History No Hx of Anesthesia Complications History of PONV No Hx of PONV Social History Smoking Status: Never smoker tobacco type: e-cigarettes Hx Alcohol Use: No Alcohol type: beer alcohol intake frequency: a few times a month Hx Substance Use: No substance use type: does not use Physical Exam Vital Signs Last Vital Signs Temp 36.9 C 11/05/22 14:53 Pulse 67 11/05/22 14:53 Resp 16 11/05/22 14:53 BP 141/82 H 11/05/22 14:53 Pulse Ox 97 11/05/22 14:53 O2 Del Method Room Air 02/22/23 14:53 ENMT Mouth: + poor dentition and + chipped teeth Mallampati Class: II Respiratory Auscultation: lungs clear to auscultation bilaterally Cardiovascular Rate/Rhythm: regular rate and regular rhythm Testing Laboratory Results 11/05/22 06:04 11/05/22 06:04 Blood Type A Negative 11/04/22 15:42 Antibody Screen NEGATIVE 11/04/22 15:42
[2022-11-05] MEDS ORDERED: EPINEPHrine INJ 1 MG/ML AMP ONE (15:39)
--- NOTE | 2022-11-05 16:25 | GI REPORT ---
Patient Name: Alec Salmeron Procedure Date: 11/05/2022 2:52 PM Date of : 1950 Admit Type: Inpatient Age: 72 Gender: Male Attending MD: Enrike Bear DO, Procedure: Colonoscopy Providers: Enrike Bear DO Referring MD: Fabien Rodriguez Indications: Hematochezia, Abnormal video capsule endoscopy Medicines: Monitored Anesthesia Care Complications: No immediate complications. Estimated Blood Loss: Estimated blood loss: none. Procedure: Pre-Anesthesia Assessment: - Prior to the procedure, a History and Physical was performed, and patient medications and allergies were reviewed. The patient's tolerance of previous anesthesia was also reviewed. The risks and benefits of the procedure and the sedation options and risks were discussed with the patient. All questions were answered, and informed consent was obtained. Prior Anticoagulants: The patient has taken no anticoagulant or antiplatelet agents. ASA Grade Assessment: III - A patient with severe systemic disease. After reviewing the risks and benefits, the patient was deemed in satisfactory condition to undergo the procedure. After I obtained informed consent, the scope was passed under direct vision. Throughout the procedure, the patient's blood pressure, pulse, and oxygen saturations were monitored continuously. The scope was introduced through the anus and advanced to the cecum, identified by appendiceal orifice and ileocecal valve. The colonoscopy was performed without difficulty. The patient tolerated the procedure well. The quality of the bowel preparation was good. The terminal ileum, ileocecal valve, appendiceal orifice, and rectum were photographed. Findings: The perianal and digital rectal examinations were normal. A single small angioectasia with bleeding was found in the cecum. Area was unsuccessfully injected with 8 mL of a 0.1 mg/mL solution of epinephrine for hemostasis. Fulguration to ablate the lesion by bipolar probe was unsuccessful. To stop active bleeding, one hemostatic clip was successfully placed (MR conditional). Clip cloth beamer: Instant AV. There was no bleeding at the end of the procedure. Multiple small-mouthed diverticula were found in the sigmoid colon. Non-bleeding internal hemorrhoids were found during retroflexion. The hemorrhoids were small. Impression: - A single bleeding colonic angioectasia. Treatment not successful. Treatment not successful. Treated with bipolar cautery. Clip (MR conditional) was placed. Clip cloth beamer: Instant AV. - Diverticulosis in the sigmoid colon. - Non-bleeding internal hemorrhoids. - No specimens collected. Recommendation: - Return patient to [facility] for [facility] care. - Clear liquid diet. - Continue present medications. Enrike Bear, DO 11/05/2022 4:24:56 PM This report has been signed electronically. Note Initiated On: 11/05/2022 2:52 PM Number of Addenda: 0 I attest to the content of the Intraoperative Record and orders documented therein, exceptions below {[id number]}
[2022-11-05 17:39] LABS: Hematocrit (blood only) 28.2 % (42.0-52.0); Hemoglobin 8.4 g/dl (14.0-18.0)
[2022-11-05] MEDS ORDERED: MELATONIN 3 MG TAB PO PRN (20:21)
[2022-11-06 07:27] LABS: Basophils # (auto) 0.04 K/uL (0-0.2); Basophils % (auto) 0.4 %; Hematocrit (blood only) 28.1 % (42.0-52.0); Hemoglobin 8.4 g/dl (14.0-18.0); Immature Granulocytes # (auto) 0.05 K/uL (0.01-0.20); Immature Granulocytes % (auto) 0.5 %; Lymphocytes # (auto) 1.12 K/uL (1.2-3.4); Lymphocytes % (auto) 11.4 %; Mean Corpuscular Hemoglobin 24.2 pg (25.0-34.0); Mean Corpuscular Hgb Conc 29.9 g/dL (32.0-36.0); Mean Platelet Volume 10.4 fL (9.4-12.4); Monocytes # (auto) 0.83 K/uL (0.11-0.59); Monocytes % (auto) 8.4 %; Neutrophils % (auto) 77.3 %; Platelet Count 242 K/uL (130-400); RDW Coefficient of Variation 22.5 % (11.5-14.5); RDW Standard Deviation 64.9 fL (36.4-46.3); Red Blood Count 3.47 M/uL (4.70-6.10); White Blood Count 9.84 K/ul (4.8-10.8)
[2022-11-06 07:49] LABS: BUN Creatinine Ratio 9.7 (10-20); Calcium 8.8 mg/dl (8.5-10.1); Creatinine Clr Calc Pharmacy 72.6 ml/min; Est GFR (African American) 93.4 ml/min; Est GFR (Non-African American) 80.6 ml/min; Potassium 3.7 mmol/L (3.5-5.1)
[2022-11-06 08:05] LABS: Anisocytosis Present; Polychromasia 1+
[2022-11-06] MEDS: FLUTICASONE/VILANTEROL 100/25MCG 14 PUFFS/INHALER INH SCH (08:20)
[2022-11-06] MEDS ORDERED: IRON SUCROSE 200 MG in 0.9 % SODIUM CHLORIDE 100 ML IV ONE (08:40)
--- NOTE | 2022-11-06 12:42 | Discharge Summary ---
Date of Service November 06, 2022 Admission HPI Per Admitting Provider 72-year-old male past medical history significant for previous lower GI bleed most recently in July, followed by [facility] presented to the ER at the advisement of the outpatient gastroenterology office due to lower GI bleeding noted on video capsule endoscopy, with outpatient labs showing a hemoglobin of 6.9. Patient himself notes that he has been feeling more weak and tired lately, will intermittently have some chest discomfort and shortness of breath, but never lasts for more than a few minutes. In the ER patient was noted to be hemodynamically stable with a heart rate of 73, saturating well on room air. Repeat CBC showed hemoglobin of 6.9 with MCV of 80.5, CMP normal, high-sensitivity troponin of 35.8, COVID-negative. Hospitalist service was consulted for acute blood loss anemia with acute lower GI bleed. 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 No rales wheezing or rhonchi Cardiac-regular rate and rhythm, normal S1 and S2 Abdomen-normal bowel sounds, nontender, no hepatosplenomegaly Extremities-no cyanosis, clubbing, or edema Neuro-cranial nerves II through XII intact, motor and sensory function within normal limits, strength symmetrical, no focal deficits Psych-normal affect, normal mood Discharge Data Allergies Allergy/AdvReac Type Severity Reaction Status Date / Time No Known Allergies Allergy Verified 11/04/22 16:21 Consultations 11/04/22 16:47 ED Decision to Admit Stat 11/04/22 16:59 Consult Gastroenterology Routine Procedures Performed Operation Date: 11/04/22 16:30 <No data on this case meets the specified criteria> Operation Date: 11/05/22 16:45 Actual Procedures p Colonoscopy Hemostasis - Enrike Rodríguez Case, DO Hospital Course (1) Acute lower gastrointestinal bleeding: Colonoscopy completed November 05. Recurrent bleeding from superficial angiodysplasia noted in the cecum area. This was clipped. Hemoglobin is now stable. Diet has been advanced. He is anxious to go home. (2) ABLA (acute blood loss anemia): Improved after transfusion. No overt hematochezia. Serial labs ordered. Hemoglobin now stable (3) Chronic obstructive pulmonary disease: Former smoker. Currently stable COPD. Continue current treatment plan. (4) Pneumoconiosis: history of. Stable (5) Iron deficiency: Parenteral iron replacement ordered. Continue oral iron supplementation at discharge (6) Demand ischemia: Mild troponin elevation. No acute coronary syndrome Plan discharge to home todayNovember 06 Total Time Total Time Spent Total Time Spent (In Minutes): 35 minutes Discharge Plan Discharge Items Patient Disposition: Home - Self-Care Reason For Visit: ACUTE LOWER GI BLEEDING, ANEMIA Discharge Diagnosis: Lower GI bleed from cecal angiodysplasia, iron deficiency, acute blood loss anemia, elevated troponin without acute coronary syndrome Activity: Resume your previous activity Non-emergency contact: Primary Care Provider Call non-emergency contact if: you have any medication questions Follow-up/Referrals: Pelon Santiago MD [Primary Care Provider] - Diet: Heart Healthy Addtl Attending Provider Instructions: Continue iron replacement therapy indefinitely Pending Studies at Discharge: No Stand-Alone Forms: My [employer], Smoking Cessation Medications and DC Order Prescriptions: Continued budesonide-formoterol [Symbicort] 80-4.5 mcg/actuation HFA aerosol inhaler 2 puff inhalation BID Qty: 10.2 3RF Rx Instructions: thru aerochamber/ [employer] (DME) Aerochamber Plus Z Stat Spacer See Rx Instructions .ROUTE .MEDSUPPLY Qty: 1 0RF Rx Instructions: As directed Multi-Vitamin HP/Minerals Capsule 1 cap PO QDL PreserVision AREDS 7,160-113-100 [id number] Tablet 1 tab PO QDL atorvastatin 40 mg tablet 40 mg PO QDL venlafaxine 150 mg capsule,extended release 24hr 150 mg PO QDL ferrous sulfate 325 mg (65 mg iron) tablet,delayed release (DR/EC) 325 mg PO BID Qty: 60 0RF Discharge Orders: Discharge Order (Routine); Ordered 11/06/22 Ordered By: Fabien Rodriguez Admission Data Admit Date/Time: 11/04/22 16:59 Attending Provider: Jennifer,Fabien R. Admit Provider: Delia Nice Primary Care Provider: Pelon Santiago Other Providers: Enrike Bear ; Delia Nice Other Interventions: Discharge Summary Assessment (RN) Last Done: 11/05/22 16:14 Coding Level of Care Code HOSP INP/OBS DISCH >30 MIN Diagnoses Acute lower gastrointestinal bleeding K92.2 ABLA (acute blood loss anemia) D62 Chronic obstructive pulmonary disease J44.9 Pneumoconiosis J64 Iron deficiency E61.1 Demand ischemia I24.8
--- NOTE | 2022-11-10 09:12 | Anesthesiology Progress Note ---
Date of Service November 05, 2022 Anesthesia Post Procedure Pain Intensity Chest: Pain Intensity: 5 Transfer of Care Handoff Completed per policy Notes Mental Status: alert / awake / arousable and participated in evaluation Nausea / Vomiting: adequately controlled Pain: adequately controlled Airway Patency, RR, SpO2: stable & adequate BP & HR: stable & adequate Hydration State: stable & adequate Anesthetic Complications: no major complications apparent and Pt Satisfied with anesthetic care
== END 2022-11-06 13:29 | disposition home or self-care (01) | DRG 378 ==
LOC: ED 15:27 → 2S 16:59 → SUATTDRO 16:59 → 2S 19:18

== ENCOUNTER 2023-06-19 21:11 | Inpatient (IN) ==
[2023-06-19] MEDS ORDERED: SODIUM CHLORIDE 0.9% 1,000 ML IV ONE ×2 (21:45→22:58)
[2023-06-19 22:04] LABS: Basophils # (auto) 0.03 K/uL (0.00-0.20); Basophils % (auto) 0.2 %; Hematocrit (blood only) 42.1 % (42.0-52.0); Hemoglobin 14.1 g/dl (14.0-18.0); Immature Granulocytes # (auto) 0.05 K/uL (0.01-0.20); Immature Granulocytes % (auto) 0.3 %; Lymphocytes # (auto) 0.87 K/uL (1.20-3.40); Lymphocytes % (auto) 4.7 %; Mean Corpuscular Hemoglobin 30.3 pg (25.0-34.0); Mean Corpuscular Hgb Conc 33.5 g/dL (32.0-36.0); Mean Corpuscular Volume 90.3 fL (80.0-100.0); Mean Platelet Volume 10.8 fL (9.4-12.4); Monocytes # (auto) 1.13 K/uL (0.11-0.59); Monocytes % (auto) 6.2 %; Neutrophils # (auto) 16.24 K/uL (1.40-6.50); Neutrophils % (auto) 88.6 %; Platelet Count 222 K/uL (130-400); RDW Coefficient of Variation 14.7 % (11.5-14.5); RDW Standard Deviation 49.2 fL (36.4-46.3); Red Blood Count 4.66 M/uL (4.70-6.10); White Blood Count 18.32 K/ul (4.8-10.8)
[2023-06-19 22:18] LABS: Base Excess VBG -3.4 mEq/L; HCO3 VBG 21 mmol/L; Oxygen Saturation VBG 88.9 %; PCO2 VBG 37 mmHg (38-50); PO2 VBG 59 mmHg; pH VBG 7.37 (7.36-7.41)
[2023-06-19 22:23] LABS: Albumin Level 4.7 gm/dl (3.4-5.0); Bilirubin Direct 0.8 mg/dl (0-0.2); Bilirubin,Total 2.2 mg/dl (0.2-1.0); Calcium 9.7 mg/dl (8.6-10.3); Creatinine Clr Calc Pharmacy 30.7 ml/min; Est GFR (African American) 31.2 ml/min; Est GFR (Non-African American) 26.9 ml/min; Magnesium 2.1 mg/dl (1.7-2.4); Potassium 4.7 mmol/L (3.5-5.1); Total Protein 8.1 gm/dl (6.0-8.3)
[2023-06-19 22:29] LABS: Troponin I High Sensitivity 18.7 pg/ml (0-20)
[2023-06-19 22:34] LABS: INR 1.1 (0.9-1.1); Prothrombin Time 11.6 Seconds (9.0-12.0)
--- NOTE | 2023-06-19 22:47 | XRay Report ---
SINGLE VIEW CHEST CLINICAL HISTORY: Sepsis. FINDINGS: An AP, portable, upright chest radiograph is compared to study dated 08/12/2022. Correlatio n is made with PET/CT dated 05/20/2023. The heart is enlarged. The pulmonary vasculature is noncongeste d. Calcific granulomas are unchanged. There are low lung volumes with bibasilar atelectasis. No airsp codey consolidation or large pleural effusion is identified. No pneumothorax is seen. The skeletal stru ctures are osteopenic. The bony thorax is grossly intact. IMPRESSION: Cardiomegaly with no acute cardiopulmonary abnormality identified. ACT 112: Negative or not required by law. Electronically signed by: Ivan Gillespie M.D. 06/19/2023 10:46 PM
[2023-06-19] MEDS ORDERED: VANCOMYCIN CONSULT ACTIVE PRN (22:57)
[2023-06-19] MEDS ORDERED: AZITHROMYCIN 500 MG in DEXTROSE 5% 250 ML IV STA (22:57)
[2023-06-19] MEDS ORDERED: CEFEPIME 2,000 MG/20 ML VIAL IV STA (22:57)
[2023-06-19] MEDS ORDERED: VANCOMYCIN HCL 2,250 MG in SODIUM CHLORIDE 0.9% 500 ML IV ONE (22:57)
[2023-06-19] MEDS ORDERED: SODIUM CHLORIDE 0.9% 500 ML IV ONE (22:58)
[2023-06-19 23:07] LABS: Adenovirus PCR Not Detected (NotDetected); Bordetella parapertussis PCR Not Detected (NotDetected); Bordetella pertussis PCR Not Detected (NotDetected); Chlamydia pneumoniae PCR Not Detected (NotDetected); Coronavirus 229E PCR Not Detected (NotDetected); Coronavirus CoV-2 (COVID19)PCR Not Detected (NotDetected); Coronavirus HKU1 PCR Not Detected (NotDetected); Coronavirus NL63 PCR Not Detected (NotDetected); Coronavirus OC43PCR Not Detected (NotDetected); Human Metapneumovirus PCR Not Detected (NotDetected); Influenza A PCR Not Detected (NotDetected); Influenza B PCR Not Detected (NotDetected); Mycoplasma pneumoniae PCR Not Detected (NotDetected); Parainfluenza Virus 1 PCR Not Detected (NotDetected); Parainfluenza Virus 2 PCR Not Detected (NotDetected); Parainfluenza Virus 3 PCR Not Detected (NotDetected); Parainfluenza Virus 4 PCR Not Detected (NotDetected); Respiratory Syncytial VirusPCR Not Detected (NotDetected); Rhinovirus/Enterovirus PCR Not Detected (NotDetected)
[2023-06-19] MEDS ORDERED: methylPREDNISolone 125 MG/2 ML VIAL IV STA (23:21)
--- NOTE | 2023-06-19 23:21 | Emergency Department Note ---
Impression & Plan Sepsis, Acute dyspnea, Leukocytosis, Elevated lactic acid level, Elevated procalcitonin, Perforated appendix, SBO (small bowel obstruction), Bilateral pulmonary embolism ED Provider Note HISTORY OF PRESENT ILLNESS: Patient is a 73-year-old male presenting with shortness of breath and confusion. helps provide history, given patient's confusion. Reports that the patient has been very short of breath over the last 2 to 3 days. Reports that he has been doing nothing but laying in bed and sleeping for 3 days. He has had a nonproductive cough. No reported fevers at home. He has not been on any steroids or antibiotics recently. He does not wear any supplemental oxygen at baseline. He is also complaining of some generalized abdominal pain. No reported sick contact exposures. Denies any nausea or vomiting ROS: as above PHYSICAL EXAM: Constitutional: Patient appears in no acute distress. Patient is ill-appearing HENT: Head: Normocephalic and atraumatic. Eyes: EOMI, PERRL Mouth/Throat: Mucous membranes moist. Neck: Trachea midline. Neck supple. Cardiovascular: Tachycardic with regular rhythm. No murmurs, rubs or gallops. Intact distal pulses. Pulmonary/Chest: Patient is tachypneic. Expiratory wheezes bilaterally. Patient is conversationally dyspneic Abdominal: Abdomen is firm and distended. Diffusely tender to palpation Musculoskeletal: No edema, tenderness or deformity noted. Skin: Warm and dry. No rash, erythema, pallor or cyanosis Neurological: Alert to self. CN II-XII grossly intact, moving all extremities equally and fully. MDM: - Vitals signs showed tachycardia and tachypnea - History obtained via patient's , given patient's confusion. Patient presents with shortness of breath and confusion. Patient reportedly has been very short of breath over the last 2 to 3 days. reports the patient has been doing nothing but sleeping for the last 3 days. He has had a nonproductive cough. No reported fevers at home. He has not been on any steroids or antibiotics recently. Does not wear any supplemental oxygen. Complaining of some generalized abdominal pain. Denies any nausea or vomiting. - Chronic conditions affecting care: COPD; HLD; aortic stenosis - Differential diagnoses include, but are not limited to: viral syndrome; CHF exacerbation; ACS; pneumonia; pulmonary embolism; pulmonary edema - Order placed for continuous cardiac monitoring. At this time, monitor showed rate of 113 bpm with normal sinus rhythm, per my interpretation. - External medical records reviewed. - EKG reviewed by myself showed normal sinus rhythm. Rate tachycardic at 119 bpm. QTc 478. No acute ischemic changes - Laboratory workup interpreted by myself showed leukocytosis (WBC 18.32) with left shift; hyponatremia (Na 132); elevated lactate (2.9); XAVIER (Cr 2.29 - baseline around 1.0); elevated anion gap (13 - likely from elevated lactate); normal troponin; elevated procalcitonin (48.04) - Biofire negative - CXR negative for pneumonia, per my interpretation - Blood cultures obtained - Patient only given 2L NS for sepsis instead of the 2181 mL per ideal body weight, secondary to increased work of breathing/CHF and new oxygen requirement after initial fluid resuscitation - Started empirically on IV vancomycin and cefepime. Added azithromycin for pulmonary coverage. - Patient given xopenex inhaler and IV solumedrol for wheezing. - CT abdomen/pelvis wo contrast showed perforated appendicitis with periappendiceal abscess. Also noted to have a high-grade small bowel obstruction - NG tube ordered and placed. - CT PE showed bilateral lower lobe subsegmental PEs. - Discussed case with SARITA Hurley with general surgery. - IV zosyn added to antibiotic regimen. - Heparin bolus and drip ordered for PEs. - Discussion was had with family welfare social work professor about patient's case and need for admission - Hospitalist consulted for admission - [facility] I provided 91 minutes of critical care time to this patient's care outside of billable procedures. ASSESSMENT AND PLAN: Diagnosis: Sepsis; leukocytosis; dyspnea; XAVIER; elevated lactic acid; elevated procalcitonin; perforated appendicitis; high-grade small bowel obstruction; bilateral pulmonary emboli Plan: Admit Past Med/Surg History Medical History (Updated 06/20/23 @ 01:06 by Laura Ochoa MD) Anemia recently in hospital and Dr. Omer aware Anxiety Aortic stenosis Asthma Borderline hypertension Chronic obstructive pulmonary disease Chronic rhinitis Chronic sinusitis Closed head injury hx of rock hit head and need stitches Diverticulosis Elevated troponin I level Eyebrow laceration repair Fall hx of a long time ago Hyperlipidemia Iron deficiency Iron deficiency anemia Macular degeneration of both eyes Mitral valve prolapse folllow with dr oh Osteoarthritis Pneumoconiosis Sleep apnea Troponin level elevated Surgical History (Updated 05/14/23 @ 08:19 by Hailey Walker RN) History of abdominal hernia History of cataract surgery RIGHT/left History of colonoscopy History of ERCP History of esophagogastroduodenoscopy (EGD) History of prostate biopsy (04/22/23) History of tonsillectomy and adenoidectomy Hx of vasectomy S/P pericardial window creation 8 YEARS AGO 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 Brother No problems noted. Son No problems noted. Daughter No problems noted. Denies family history of Ovarian cancer Breast cancer Colorectal cancer Social History (Updated 05/14/23 @ 08:25 by Hailey Walker RN) Smoking Status: Former smoker Tobacco Type: Cigarettes and Smokeless Tobacco (Dip or Chew) Age Started Using Tobacco: 16; Age Quit Using Tobacco: 26; Second Hand Exposure: No; Do You Dip or Chew Tobacco: Yes (current); Hx Alcohol Use: Yes Alcohol type: beer Hx Substance Use: No Preferred Language: Welsh Communication Ability: Effective Communication Ability Comment: HARD OF HEARING Visual Impairment: No Limitations Hearing Ability: Use of Hearing Aid Hand Laster Required: No Beliefs That Will Affect Care: None marital status: Current Living Situation: Spouse current occupational status: retired current occupation: [employer] How many Children do You have: 2 Feels Safe at Home: Yes Childhood Exposure to Second-Hand Smoke: Yes Diet: regular caffeine: Yes (coffee) during the past year weight has: remained stable Dental Care, Regularly: No Physical Activity Frequency: Does not Exercise Physical Activity Frequency Comment: due to physical condition Seatbelt Use: always Sunscreen Use: No Assistive Devices: Hearing Aid - Bilateral Allergies Allergies Allergy/AdvReac Type Severity Reaction Status Date / Time No Known Allergies Allergy Verified 06/18/23 09:30 Home Meds Home Medications Medication Instructions Recorded Confirmed multivitamin,tx-minerals 1 cap PO QDL 03/14/19 06/18/23 (Multi-Vitamin HP/Minerals capsule) vitamins A,C,[id number] 2,148 1 tab PO QDL 03/14/19 06/18/23 mcg-113 mg-45 mg-17.4 mg tablet (PreserVision AREDS) magnesium oxide 400 mg PO DAILY 12/09/22 06/18/23 Previous Rx's Medication Instructions Recorded inhalational spacing device #1 ea 06/17/21 (Aerochamber Plus Z Stat spacer) Symbicort 80 mcg-4.5 mcg/actuation 2 puff inhalation BID #10.2 grams 06/24/22 HFA aerosol inhaler (budesonide-formoterol) ferrous sulfate 325 mg (65 mg 325 mg PO BID #60 tabs 11/06/22 iron) tablet,delayed release atorvastatin 40 mg tablet See Rx Instructions .Route 01/05/23 .COMPLEX #90 tabs venlafaxine 150 mg 150 mg PO DAILY #90 caps 03/26/23 capsule,extended release 24 hr tamsulosin 0.4 mg capsule (Flomax) 0.4 mg PO DAILY #90 caps 05/28/23 lorazepam 1 mg tablet 1 mg PO ONCE #2 tabs 06/18/23 oxycodone-acetaminophen 7.5 mg-325 1 tab PO ONCE #2 tabs 06/18/23 mg tablet (Percocet) Results & Data (ED) Vital Signs Vital Signs - 24 hr 06/19/23 21:15 06/19/23 21:24 06/19/23 21:34 Temperature 36.5 C Temperature Source Temporal Artery Scan Pulse Rate 125 H 119 H Pulse Rate from SpO2 Sensor Respiratory Rate 32 H Respiratory Effort / Characteristics Labored Respiratory Pattern Tachypnea Blood Pressure 131/84 Blood Pressure Mean 99 Pulse Oximetry 93 90 Oxygen Delivery Method Room Air Nasal Cannula Oxygen Flow Rate 0 Sepsis Recent Fever Within 48 Hours No Sepsis New/Unexplained Change in Mental Status N/A Sepsis Action Taken by Nursing Physician Notified Oxygen Flow Rate - Titration 2 Pulse Oximetry Post Tiitration 92 06/19/23 21:44 06/19/23 21:25 06/19/23 21:30 Temperature Temperature Source Pulse Rate 117 H Pulse Rate from SpO2 Sensor 117 H Respiratory Rate 38 H Respiratory Effort / Characteristics Respiratory Pattern Blood Pressure 125/95 Blood Pressure Mean 103 Pulse Oximetry 92 92 Oxygen Delivery Method Nasal Cannula Nasal Cannula Oxygen Flow Rate 2 2 Sepsis Recent Fever Within 48 Hours Sepsis New/Unexplained Change in Mental Status Sepsis Action Taken by Nursing Oxygen Flow Rate - Titration Pulse Oximetry Post Tiitration 06/19/23 21:30 06/19/23 21:40 06/19/23 21:50 Temperature Temperature Source Pulse Rate 118 H 116 H 115 H Pulse Rate from SpO2 Sensor 119 H 116 H 117 H Respiratory Rate 42 H 24 29 H Respiratory Effort / Characteristics Respiratory Pattern Blood Pressure Blood Pressure Mean Pulse Oximetry 92 92 92 Oxygen Delivery Method Oxygen Flow Rate Sepsis Recent Fever Within 48 Hours Sepsis New/Unexplained Change in Mental Status Sepsis Action Taken by Nursing Oxygen Flow Rate - Titration Pulse Oximetry Post Tiitration 06/19/23 22:00 06/19/23 22:10 06/19/23 22:16 Temperature Temperature Source Pulse Rate 113 H 111 H 113 H Pulse Rate from SpO2 Sensor 113 H 111 H 114 H Respiratory Rate 33 H 37 H 41 H Respiratory Effort / Characteristics Respiratory Pattern Blood Pressure Blood Pressure Mean Pulse Oximetry 92 92 91 Oxygen Delivery Method Oxygen Flow Rate Sepsis Recent Fever Within 48 Hours Sepsis New/Unexplained Change in Mental Status Sepsis Action Taken by Nursing Oxygen Flow Rate - Titration Pulse Oximetry Post Tiitration 06/19/23 22:16 06/19/23 22:20 06/19/23 22:30 Temperature Temperature Source Pulse Rate 112 H Pulse Rate from SpO2 Sensor 112 H Respiratory Rate 33 H Respiratory Effort / Characteristics Respiratory Pattern Blood Pressure 143/98 H 124/95 Blood Pressure Mean 103 103 Pulse Oximetry 93 Oxygen Delivery Method Oxygen Flow Rate Sepsis Recent Fever Within 48 Hours Sepsis New/Unexplained Change in Mental Status Sepsis Action Taken by Nursing Oxygen Flow Rate - Titration Pulse Oximetry Post Tiitration 06/19/23 22:30 06/19/23 22:40 06/19/23 22:50 Temperature Temperature Source Pulse Rate 110 H 114 H 112 H Pulse Rate from SpO2 Sensor 110 H 115 H 112 H Respiratory Rate 36 H 36 H 35 H Respiratory Effort / Characteristics Respiratory Pattern Blood Pressure Blood Pressure Mean Pulse Oximetry 94 92 92 Oxygen Delivery Method Oxygen Flow Rate Sepsis Recent Fever Within 48 Hours Sepsis New/Unexplained Change in Mental Status Sepsis Action Taken by Nursing Oxygen Flow Rate - Titration Pulse Oximetry Post Tiitration 06/19/23 23:00 06/19/23 23:00 06/19/23 23:10 Temperature Temperature Source Pulse Rate 116 H 112 H Pulse Rate from SpO2 Sensor 115 H 112 H Respiratory Rate 37 H 35 H Respiratory Effort / Characteristics Respiratory Pattern Blood Pressure 125/93 Blood Pressure Mean 104 Pulse Oximetry 92 92 Oxygen Delivery Method Oxygen Flow Rate Sepsis Recent Fever Within 48 Hours Sepsis New/Unexplained Change in Mental Status Sepsis Action Taken by Nursing Oxygen Flow Rate - Titration Pulse Oximetry Post Tiitration 06/19/23 23:20 06/19/23 23:30 06/19/23 23:30 Temperature Temperature Source Pulse Rate 113 H 112 H Pulse Rate from SpO2 Sensor 114 H 112 H Respiratory Rate 30 H 38 H Respiratory Effort / Characteristics Respiratory Pattern Blood Pressure 127/97 Blood Pressure Mean 110 Pulse Oximetry 91 91 Oxygen Delivery Method Oxygen Flow Rate Sepsis Recent Fever Within 48 Hours Sepsis New/Unexplained Change in Mental Status Sepsis Action Taken by Nursing Oxygen Flow Rate - Titration Pulse Oximetry Post Tiitration Laboratory Data 06/19/23 21:30 06/19/23 21:30 Lab Results 06/19/23 06/19/23 06/19/23 Range/Units 21:30 21:30 21:30 WBC 18.32 H (4.8-10.8) K/ul RBC 4.66 L (4.70-6.10) M/uL Hgb 14.1 (14.0-18.0) g/dl Hct 42.1 (42.0-52.0) % MCV 90.3 (80.0-100.0) fL MCH 30.3 (25.0-34.0) pg MCHC 33.5 (32.0-36.0) g/dL RDW Std Deviation 49.2 H (36.4-46.3) fL RDW Coeff of Molly 14.7 H (11.5-14.5) % Plt Count 222 (130-400) K/uL MPV 10.8 (9.4-12.4) fL Immature Gran % (Auto) 0.3 % Neut % (Auto) 88.6 % Lymph % (Auto) 4.7 % Yancey % (Auto) 6.2 % Eos % (Auto) 0.0 % Baso % (Auto) 0.2 % Neut # (Auto) 16.24 H (1.40-6.50) K/uL Lymph # (Auto) 0.87 L (1.20-3.40) K/uL Yancey # (Auto) 1.13 H (0.11-0.59) K/uL Eos # (Auto) 0.00 (0.00-0.50) K/uL Baso # (Auto) 0.03 (0.00-0.20) K/uL Immature Gran # (Auto) 0.05 (0.01-0.20) K/uL PT 11.6 (9.0-12.0) Seconds INR 1.1 (0.9-1.1) VBG pH (7.36-7.41) VBG pCO2 (38-50) mmHg VBG pO2 mmHg VBG HCO3 mmol/L VBG O2 Saturation % VBG Base Excess mEq/L Sodium 132 L (136-145) mmol/L Potassium 4.7 (3.5-5.1) mmol/L Chloride 99 (98-107) mmol/L Carbon Dioxide 20 L (21-32) mmol/L Anion Gap 13 H (3-11) BUN 32 H (6-23) mg/dl Creatinine 2.29 H (0.6-1.4) mg/dl Est Cr Clr Drug Dosing 30.7 ml/min Est GFR ( Amer) 31.2 ml/min Est GFR (Non-Af Amer) 26.9 ml/min BUN/Creatinine Ratio 14.0 (10-20) Glucose 147 H (70-99(Fasting)) mg/dl Lactate (0.4-2.0) mmol/L Calcium 9.7 (8.6-10.3) mg/dl Magnesium 2.1 (1.7-2.4) mg/dl Total Bilirubin 2.2 H (0.2-1.0) mg/dl Direct Bilirubin 0.8 H (0-0.2) mg/dl AST 33 (13-39) U/L ALT 34 (7-52) U/L Alkaline Phosphatase 84 (34-104) U/L Troponin I High Sens 18.7 (0-20) pg/ml B-Natriuretic Peptide (0-100) pg/ml Total Protein 8.1 (6.0-8.3) gm/dl Albumin 4.7 (3.4-5.0) gm/dl Procalcitonin (0-0.5) ng/ml Adenovirus (PCR) (NotDetected) B. pertussis DNA (PCR) (NotDetected) B.parapertussis DNA PCR (NotDetected) C. pneumoniae DNA (PCR) (NotDetected) Coronavirus OC43 (PCR) (NotDetected) Coronavirus HKU1 (PCR) (NotDetected) Coronavirus 229E (PCR) (NotDetected) SARS-CoV-2 (PCR) (NotDetected) Coronavirus NL63 (PCR) (NotDetected) Human Metapneumovir PCR (NotDetected) Influenza Type A (PCR) (NotDetected) Influenza Type B (PCR) (NotDetected) M. pneumoniae (PCR) (NotDetected) Parainfluenza 1 (PCR) (NotDetected) Parainfluenza 2 (PCR) (NotDetected) Parainfluenza 3 (PCR) (NotDetected) Parainfluenza 4 (PCR) (NotDetected) RSV (PCR) (NotDetected) Entero/Rhino (PCR) (NotDetected) 06/19/23 06/19/23 06/19/23 Range/Units 21:30 21:58 22:02 WBC (4.8-10.8) K/ul RBC (4.70-6.10) M/uL Hgb (14.0-18.0) g/dl Hct (42.0-52.0) % MCV (80.0-100.0) fL MCH (25.0-34.0) pg MCHC (32.0-36.0) g/dL RDW Std Deviation (36.4-46.3) fL RDW Coeff of Molly (11.5-14.5) % Plt Count (130-400) K/uL MPV (9.4-12.4) fL Immature Gran % (Auto) % Neut % (Auto) % Lymph % (Auto) % Yancey % (Auto) % Eos % (Auto) % Baso % (Auto) % Neut # (Auto) (1.40-6.50) K/uL Lymph # (Auto) (1.20-3.40) K/uL Yancey # (Auto) (0.11-0.59) K/uL Eos # (Auto) (0.00-0.50) K/uL Baso # (Auto) (0.00-0.20) K/uL Immature Gran # (Auto) (0.01-0.20) K/uL PT (9.0-12.0) Seconds INR (0.9-1.1) VBG pH (7.36-7.41) VBG pCO2 (38-50) mmHg VBG pO2 mmHg VBG HCO3 mmol/L VBG O2 Saturation % VBG Base Excess mEq/L Sodium (136-145) mmol/L Potassium (3.5-5.1) mmol/L Chloride (98-107) mmol/L Carbon Dioxide (21-32) mmol/L Anion Gap (3-11) BUN (6-23) mg/dl Creatinine (0.6-1.4) mg/dl Est Cr Clr Drug Dosing ml/min Est GFR ( Amer) ml/min Est GFR (Non-Af Amer) ml/min BUN/Creatinine Ratio (10-20) Glucose (70-99(Fasting)) mg/dl Lactate 2.9 H* (0.4-2.0) mmol/L Calcium (8.6-10.3) mg/dl Magnesium (1.7-2.4) mg/dl Total Bilirubin (0.2-1.0) mg/dl Direct Bilirubin (0-0.2) mg/dl AST (13-39) U/L ALT (7-52) U/L Alkaline Phosphatase (34-104) U/L Troponin I High Sens (0-20) pg/ml B-Natriuretic Peptide (0-100) pg/ml Total Protein (6.0-8.3) gm/dl Albumin (3.4-5.0) gm/dl Procalcitonin 48.04 H (0-0.5) ng/ml Adenovirus (PCR) Not Detected (NotDetected) B. pertussis DNA (PCR) Not Detected (NotDetected) B.parapertussis DNA PCR Not Detected (NotDetected) C. pneumoniae DNA (PCR) Not Detected (NotDetected) Coronavirus OC43 (PCR) Not Detected (NotDetected) Coronavirus HKU1 (PCR) Not Detected (NotDetected) Coronavirus 229E (PCR) Not Detected (NotDetected) SARS-CoV-2 (PCR) Not Detected (NotDetected) Coronavirus NL63 (PCR) Not Detected (NotDetected) Human Metapneumovir PCR Not Detected (NotDetected) Influenza Type A (PCR) Not Detected (NotDetected) Influenza Type B (PCR) Not Detected (NotDetected) M. pneumoniae (PCR) Not Detected (NotDetected) Parainfluenza 1 (PCR) Not Detected (NotDetected) Parainfluenza 2 (PCR) Not Detected (NotDetected) Parainfluenza 3 (PCR) Not Detected (NotDetected) Parainfluenza 4 (PCR) Not Detected (NotDetected) RSV (PCR) Not Detected (NotDetected) Entero/Rhino (PCR) Not Detected (NotDetected) 06/19/23 06/19/23 06/19/23 Range/Units 22:05 23:55 23:55 WBC (4.8-10.8) K/ul RBC (4.70-6.10) M/uL Hgb (14.0-18.0) g/dl Hct (42.0-52.0) % MCV (80.0-100.0) fL MCH (25.0-34.0) pg MCHC (32.0-36.0) g/dL RDW Std Deviation (36.4-46.3) fL RDW Coeff of Molly (11.5-14.5) % Plt Count (130-400) K/uL MPV (9.4-12.4) fL Immature Gran % (Auto) % Neut % (Auto) % Lymph % (Auto) % Yancey % (Auto) % Eos % (Auto) % Baso % (Auto) % Neut # (Auto) (1.40-6.50) K/uL Lymph # (Auto) (1.20-3.40) K/uL Yancey # (Auto) (0.11-0.59) K/uL Eos # (Auto) (0.00-0.50) K/uL Baso # (Auto) (0.00-0.20) K/uL Immature Gran # (Auto) (0.01-0.20) K/uL PT (9.0-12.0) Seconds INR (0.9-1.1) VBG pH 7.37 (7.36-7.41) VBG pCO2 37 L (38-50) mmHg VBG pO2 59 mmHg VBG HCO3 21 mmol/L VBG O2 Saturation 88.9 % VBG Base Excess -3.4 mEq/L Sodium (136-145) mmol/L Potassium (3.5-5.1) mmol/L Chloride (98-107) mmol/L Carbon Dioxide (21-32) mmol/L Anion Gap (3-11) BUN (6-23) mg/dl Creatinine (0.6-1.4) mg/dl Est Cr Clr Drug Dosing ml/min Est GFR ( Amer) ml/min Est GFR (Non-Af Amer) ml/min BUN/Creatinine Ratio (10-20) Glucose (70-99(Fasting)) mg/dl Lactate 2.2 H* (0.4-2.0) mmol/L Calcium (8.6-10.3) mg/dl Magnesium (1.7-2.4) mg/dl Total Bilirubin (0.2-1.0) mg/dl Direct Bilirubin (0-0.2) mg/dl AST (13-39) U/L ALT (7-52) U/L Alkaline Phosphatase (34-104) U/L Troponin I High Sens (0-20) pg/ml B-Natriuretic Peptide 79 (0-100) pg/ml Total Protein (6.0-8.3) gm/dl Albumin (3.4-5.0) gm/dl Procalcitonin (0-0.5) ng/ml Adenovirus (PCR) (NotDetected) B. pertussis DNA (PCR) (NotDetected) B.parapertussis DNA PCR (NotDetected) C. pneumoniae DNA (PCR) (NotDetected) Coronavirus OC43 (PCR) (NotDetected) Coronavirus HKU1 (PCR) (NotDetected) Coronavirus 229E (PCR) (NotDetected) SARS-CoV-2 (PCR) (NotDetected) Coronavirus NL63 (PCR) (NotDetected) Human Metapneumovir PCR (NotDetected) Influenza Type A (PCR) (NotDetected) Influenza Type B (PCR) (NotDetected) M. pneumoniae (PCR) (NotDetected) Parainfluenza 1 (PCR) (NotDetected) Parainfluenza 2 (PCR) (NotDetected) Parainfluenza 3 (PCR) (NotDetected) Parainfluenza 4 (PCR) (NotDetected) RSV (PCR) (NotDetected) Entero/Rhino (PCR) (NotDetected) Administered Medications Discontinued Medications Sodium Chloride (Nss) 1,000 mls @ 999 mls/hr IV .Q1H1M ONE Stop: 06/19/23 22:45 Last Infusion: 06/19/23 23:00 Dose: 0 mls/hr Documented By: Admin: 06/19/23 21:55 Dose: 999 mls/hr Documented By: JAMIL Vancomycin HCl 2,250 mg/ (Sodium Chloride) 545 mls @ 200 mls/hr IV NOW ONE Stop: 06/20/23 01:40 Last Admin: 06/19/23 23:55 Dose: 200 mls/hr Documented By: JOSUE Cefepime HCl (Maxipime) 2,000 mg in 20 mls @ 5 mls/min IV NOW STA; Protocol Stop: 06/19/23 23:00 Last Admin: 06/19/23 23:10 Dose: 5 mls/min Documented By: JOSUE Azithromycin 500 mg/ Dextrose 255 mls @ 127.5 mls/hr IV NOW STA Stop: 06/20/23 00:56 Last Admin: 06/19/23 23:55 Dose: 127.5 mls/hr Documented By: JOSUE Sodium Chloride (Nss) 1,000 mls @ 999 mls/hr IV .Q1H1M ONE Stop: 06/19/23 23:58 Last Admin: 06/19/23 23:10 Dose: 999 mls/hr Documented By: JOSUE Sodium Chloride (Nss) 500 mls @ 999 mls/hr IV .Q31M ONE Stop: 06/19/23 23:28 Last Admin: 06/20/23 00:25 Dose: Not Given Documented By: JOSUE Ioversol (Optiray 320 500ml) 114 ml IV ONCE ONE Stop: 06/20/23 00:37 Last Admin: 06/20/23 00:36 Dose: 114 ml Documented By: SHAHEEN Ipratropium Montrose (Ipratropium [place] Neb Soln 0.02% 2.5 Ml Vial) 0.5 mg INH ONE STA Stop: 06/19/23 23:46 Last Admin: 06/20/23 00:53 Dose: Not Given Documented By: ACC Levalbuterol HCl (Levalbuterol Hcl 0.63 Mg/3 Ml Neb) 0.63 mg NEB NOW STA Stop: 06/19/23 23:46 Last Admin: 06/20/23 00:54 Dose: Not Given Documented By: ACC Methylprednisolone (Methylprednisolone 125 Mg/2 Ml Vial) 125 mg IV NOW STA Stop: 06/19/23 23:22 Last Admin: 06/19/23 23:45 Dose: 125 mg Documented By: JOSUE Miscellaneous (Xopenex/Atrovent 0.63mg/0.5mg Neb Combo) 1 each NEB NOW STA; Protocol Stop: 06/19/23 23:45 Last Admin: 06/19/23 23:55 Dose: 1 each Documented By: OJSUE Imaging Data Radiologist's Impression: Chest X-Ray 06/19/23 21:44 SINGLE VIEW CHEST CLINICAL HISTORY: Sepsis. FINDINGS: An AP, portable, upright chest radiograph is compared to study dated 08/12/2022. Correlation is made with PET/CT dated 05/20/2023. The heart is enlarged. The pulmonary vasculature is noncongested. Calcific granulomas are unchanged. There are low lung volumes with bibasilar atelectasis. No airspace consolidation or large pleural effusion is identified. No pneumothorax is seen. The skeletal structures are osteopenic. The bony thorax is grossly intact. IMPRESSION: Cardiomegaly with no acute cardiopulmonary abnormality identified. ACT 112: Negative or not required by law. Electronically signed by: Ivan Gillespie M.D. 06/19/2023 10:46 PM Abdomen/Pelvis CT 06/19/23 22:58 CR Exam(s): CT ABDOMEN + PELVIS Without Contrast EXAM: CT Abdomen and Pelvis Without Intravenous Contrast CLINICAL HISTORY: Reason for exam: abdominal distension. TECHNIQUE: Axial computed tomography images of the abdomen and pelvis without intravenous contrast. CTDI is 26.13 mGy and DLP is 1340.22 mGy-cm. Automated exposure control was utilized for the study. A dose lowering technique was utilized adhering to the principles of ALARA. COMPARISON: No relevant prior studies available. FINDINGS: Lung bases: Bibasilar dependent atelectasis. Heart: Cardiomegaly. ABDOMEN: Liver: Fatty infiltration of liver. Gallbladder and bile ducts: Unremarkable. No calcified stones. No ductal dilation. Pancreas: Unremarkable. No ductal dilation. Spleen: Unremarkable. No splenomegaly. Adrenals: Unremarkable. No mass. Kidneys and ureters: 1.6 cm hypodensity upper pole left kidney. No obstructing stones. No hydronephrosis. Stomach and bowel: High-grade small bowel obstruction with a transition between dilated and nondilated loops of small bowel within the right lower quadrant. Significant amount of inflammatory change associated with the above-mentioned inflamed appendix. Diverticulosis without evidence of diverticulitis. There are several tiny locules of extraluminal gas particularly within the right upper quadrant. PELVIS: Appendix: Inflammatory changes about the thick-walled appendix in the right lower quadrant consistent with acute appendicitis. No periappendiceal fluid collections. Bladder: Unremarkable. No stones. Reproductive: Unremarkable as visualized. ABDOMEN and PELVIS: Intraperitoneal space: See above. Bones/joints: No acute fracture. No dislocation. Soft tissues: Unremarkable. Vasculature: Unremarkable. No abdominal aortic aneurysm. Lymph nodes: Unremarkable. No enlarged lymph nodes. IMPRESSION: 1. Perforated appendicitis without periappendiceal abscess. There is a lot of reactive inflammatory fluid within the pelvis and adjacent to the appendix. 2. Diverticulosis without evidence of diverticulitis 3. High-grade small bowel obstruction. Communications: Call Doctor Pneumoperitoneum, new or unexpected Call Doctor Appendicitis Electronically signed by: Khai Brown MD 06/20/23 00:55 AM Chest CTA 06/19/23 23:45 CR Exam(s): CTA CHEST IV Amt: 114ML OF OPTIRAY 320 EXAM: CT Angiography Chest With Intravenous Contrast CLINICAL HISTORY: Reason for exam: PE. TECHNIQUE: Axial computed tomographic angiography images of the chest with intravenous contrast. CTDI is 52.16 mGy and DLP is 823.04 mGy-cm. Automated exposure control was utilized for the study. A dose lowering technique was utilized adhering to the principles of ALARA. 2D MIP reconstructed images were created and reviewed. COMPARISON: No relevant prior studies available. FINDINGS: Pulmonary arteries: Exam limited secondary to patient respiratory motion despite this limitation there are filling defects within several bilateral lower lobe pulmonary arteries consistent with pulmonary emboli within same. Linear atelectasis in the lung bases bilaterally. Aorta: No acute findings. No thoracic aortic aneurysm. Lungs: See above. Pleural space: Unremarkable. No significant effusion. No pneumothorax. Heart: Unremarkable. No cardiomegaly. No significant pericardial effusion. No evidence of RV dysfunction. Bones/joints: No acute fracture. No dislocation. Soft tissues: Unremarkable. Lymph nodes: Unremarkable. No enlarged lymph nodes. Intraperitoneal space: Tiny locule of extraluminal gas which is better evaluated on the dedicated CT of the abdomen pelvis. IMPRESSION: 1. Limited exam 2. Bilateral lower lobe subsegmental pulmonary emboli 3. Extraluminal gas seen within the upper abdomen better evaluated on dedicated CT of the abdomen and pelvis Communications: Call Doctor Pulmonary Embolism Electronically signed by: Khai Brown MD 06/20/23 01:03 AM Discharge Plan Visit Data Chief Complaint: Shortness of Breath/Dyspnea Stated Complaint: SOB, CHEST PAIN ED Provider: Laura Ochoa Discharge Problem: Sepsis, Acute dyspnea, Leukocytosis, Elevated lactic acid level, Elevated procalcitonin, Perforated appendix, SBO (small bowel obstruction), Bilateral pulmonary embolism Forms Stand Alone Forms: [facility] Prescriptions Prescriptions: No Action lorazepam 1 mg tablet 1 mg PO ONCE Qty: 2 0RF Rx Instructions: Take one pill one hour prior to procedure. Bring the second pill to the procedure Initial prescription. oxycodone-acetaminophen [Percocet] 7.5-325 mg tablet 1 tab PO ONCE Qty: 2 0RF Rx Instructions: One pill one hour prior to procedure. Bring the second pill to procedure. Initial prescription. budesonide-formoterol [Symbicort] 80-4.5 mcg/actuation HFA aerosol inhaler 2 puff inhalation BID Qty: 10.2 3RF Rx Instructions: thru aerochamber/ [employer] atorvastatin 40 mg tablet See Rx Instructions .ROUTE .COMPLEX Qty: 90 3RF Dose Instruction: Take 1 tablet by mouth once daily Rx Instructions: Take 1 tablet by mouth once daily venlafaxine 150 mg capsule,extended release 24hr 150 mg PO DAILY Qty: 90 1RF tamsulosin [Flomax] 0.4 mg capsule 0.4 mg PO DAILY Qty: 90 3RF (DME) Aerochamber Plus Z Stat Spacer See Rx Instructions .ROUTE .MEDSUPPLY Qty: 1 0RF Rx Instructions: As directed magnesium oxide 400 mg magnesium capsule 400 mg PO DAILY Multi-Vitamin HP/Minerals Capsule 1 cap PO QDL PreserVision AREDS [id number] Tablet 1 tab PO QDL ferrous sulfate 325 mg (65 mg iron) tablet,delayed release (DR/EC) 325 mg PO BID Qty: 60 0RF Referrals Referrals: Michael Poon MD [Primary Care Provider] -
[2023-06-19] MEDS ORDERED: IPRATROPIUM BROMIDE NEB SOLN 0.02% 2.5 ML VIAL INH SCH ×2 (23:30→23:45)
[2023-06-19] MEDS ORDERED: LEVALBUTEROL HCL 0.63 MG/3 ML NEB NEB SCH ×2 (23:30→23:45)
[2023-06-19] MEDS ORDERED: XOPENEX/ATROVENT 0.63mg/0.5MG NEB COMBO NEB STA (23:44)
[2023-06-19] MEDS ORDERED: LEVALBUTEROL HCL 0.63 MG/3 ML NEB NEB STA (23:45)
[2023-06-19] MEDS ORDERED: IPRATROPIUM BROMIDE NEB SOLN 0.02% 2.5 ML VIAL INH STA (23:45)
[2023-06-20] MEDS ORDERED: OPTIRAY 320 500ml IV ONE (00:36)
--- NOTE | 2023-06-20 00:56 | CT Scan Report ---
Exam(s): CT ABDOMEN + PELVIS Without Contrast EXAM: CT Abdomen and Pelvis Without Intravenous Contrast CLINICAL HISTORY: Reason for exam: abdominal distension. TECHNIQUE: Axial computed tomography images of the abdomen and pelvis without intravenous contrast. CTDI is 26.13 mGy and DLP is 1340.22 mGy-cm. Automated exposure control was utilized for the study. A dose lowering technique was utilized adhering to the principles of ALARA. COMPARISON: No relevant prior studies available. FINDINGS: Lung bases: Bibasilar dependent atelectasis. Heart: Cardiomegaly. ABDOMEN: Liver: Fatty infiltration of liver. Gallbladder and bile ducts: Unremarkable. No calcified stones. No ductal dilation. Pancreas: Unremarkable. No ductal dilation. Spleen: Unremarkable. No splenomegaly. Adrenals: Unremarkable. No mass. Kidneys and ureters: 1.6 cm hypodensity upper pole left kidney. No obstructing stones. No hydronephrosis. Stomach and bowel: High-grade small bowel obstruction with a transition between dilated and nondilated loops of small bowel within the right lower quadrant. Significant amount of inflammatory change associated with the above-mentioned inflamed appendix. Diverticulosis without evidence of diverticulitis. There are several tiny locules of extraluminal gas particularly within the right upper quadrant. PELVIS: Appendix: Inflammatory changes about the thick-walled appendix in the right lower quadrant consistent with acute appendicitis. No periappendiceal fluid collections. Bladder: Unremarkable. No stones. Reproductive: Unremarkable as visualized. ABDOMEN and PELVIS: Intraperitoneal space: See above. Bones/joints: No acute fracture. No dislocation. Soft tissues: Unremarkable. Vasculature: Unremarkable. No abdominal aortic aneurysm. Lymph nodes: Unremarkable. No enlarged lymph nodes. IMPRESSION: 1. Perforated appendicitis without periappendiceal abscess. There is a lot of reactive inflammatory fluid within the pelvis and adjacent to the appendix. 2. Diverticulosis without evidence of diverticulitis 3. High-grade small bowel obstruction. Communications: Call Doctor Pneumoperitoneum, new or unexpected Call Doctor Appendicitis Electronically signed by: Khai Brown MD 06/20/23 00:55 AM
[2023-06-20] MEDS ORDERED: XOPENEX/ATROVENT 0.63mg/0.5MG NEB COMBO NEB SCH (01:00)
[2023-06-20] MEDS ORDERED: LEVALBUTEROL HCL 0.63 MG/3 ML NEB NEB SCH (01:00)
[2023-06-20] MEDS ORDERED: IPRATROPIUM BROMIDE NEB SOLN 0.02% 2.5 ML VIAL INH SCH (01:00)
[2023-06-20] MEDS ORDERED: PIPERACILLIN/TAZOBACTAM 4.5 GM/100 ML BAG IV ONE (01:02)
--- NOTE | 2023-06-20 01:05 | CT Scan Report ---
Exam(s): CTA CHEST IV Amt: 114ML OF OPTIRAY 320 EXAM: CT Angiography Chest With Intravenous Contrast CLINICAL HISTORY: Reason for exam: PE. TECHNIQUE: Axial computed tomographic angiography images of the chest with intravenous contrast. CTDI is 52.16 mGy and DLP is 823.04 mGy-cm. Automated exposure control was utilized for the study. A dose lowering technique was utilized adhering to the principles of ALARA. 2D MIP reconstructed images were created and reviewed. COMPARISON: No relevant prior studies available. FINDINGS: Pulmonary arteries: Exam limited secondary to patient respiratory motion despite this limitation there are filling defects within several bilateral lower lobe pulmonary arteries consistent with pulmonary emboli within same. Linear atelectasis in the lung bases bilaterally. Aorta: No acute findings. No thoracic aortic aneurysm. Lungs: See above. Pleural space: Unremarkable. No significant effusion. No pneumothorax. Heart: Unremarkable. No cardiomegaly. No significant pericardial effusion. No evidence of RV dysfunction. Bones/joints: No acute fracture. No dislocation. Soft tissues: Unremarkable. Lymph nodes: Unremarkable. No enlarged lymph nodes. Intraperitoneal space: Tiny locule of extraluminal gas which is better evaluated on the dedicated CT of the abdomen pelvis. IMPRESSION: 1. Limited exam 2. Bilateral lower lobe subsegmental pulmonary emboli 3. Extraluminal gas seen within the upper abdomen better evaluated on dedicated CT of the abdomen and pelvis Communications: Call Doctor Pulmonary Embolism Electronically signed by: Khai Brown MD 06/20/23 01:03 AM
[2023-06-20] MEDS ORDERED: Heparin IV Adult Wt-Based Standard WITH Bolus Protocol IV STA (01:45)
[2023-06-20] MEDS ORDERED: HEPARIN SODIUM/DEXTROSE 25,000 UNITS/500 ML BAG IV SCH ×2 (02:00→03:44)
[2023-06-20] MEDS ORDERED: HEPARIN SOD (PORCINE) 1000 UNIT/ML IV ONE (02:00)
--- NOTE | 2023-06-20 02:00 | History & Physical Report ---
Date of Service June 20, 2023 Assessment & Plan (1) Perforated appendix: Plan: 73yo male presenting with acute respiratory distress, sepsis with tachycardia, tachypnea, leukocytosis with WBC=18.32, elevated procalcitonin at 48. Blood pressure has been stable. Abdomen is rigid and distended with tenderness in the RLQ. Lactate has improved slightly from 2.9 --> 2.2 CT as above with acute perforated appendix -Admit to MICU -Keep NPO -Patient has received 2L NSS bolus thus far - additional 500mL of LR ordered to complete sepsis protocol 30mL/kg initial resuscitation then continue LR at 125mL/hr -Zosyn 4.5gm IV q 8 hours -General Surgery team aware and is following with us (2) SBO (small bowel obstruction): Plan: As above, patient noted to have high grade SBO. NGT placed in ER with return of bilious fluid -Maintain NGT to LIWS -NPO -Zofran PRN nausea -Morphine PRN pain -General Surgery assistance appreciated (3) Bilateral pulmonary embolism: Plan: Patient with bilateral subsegmental PEs - provoked in setting of known prostate CA. Blood pressure is stable. -Heparin gtt initiated in ER - rectal exam performed by General Surgery - Heme NEG -Supplemental O2 as needed (4) Prostate cancer: Plan: Patient with known prostate cancer. He is following with Radiation Oncology and is to begin treatment soon -Continue home Flomax (5) Hyperlipidemia: Plan: Chronic. Stable -Continue home Atorvastatin (6) Chronic obstructive pulmonary disease: Plan: Patient with diffuse wheezing and respiratory distress. Improved with placement of NGT and removal of 1+ canisters of bilious fluid. BioFire panel is NEGATIVE. -DuoNeb scheduled q 4 hours -Albuterol q 2 hours PRN -Continue Budesonide/Formoterol F/E/N - LR at 125mL/hr, monitor electroltye and replete as needed, NPO for now Ppx - On heparin gtt for PE, Protonix 40mg IV daily Code - Full per discussion with patient and Dispo - Admit to MICU History of Present Illness Chief Complaint: shortness of breath Primary Care Provider: Michael Poon MD Alec Salmeron is a 73yo male with history of prostate cancer, HLP, COPD (FEV1=74% per PFTs 06/2012) presenting with abdominal pain, SOB. reports that patient has been listless and lethargic for the last three days. He has also had progressively worsening respiratory status with cough, wheeze and shortness of breath. He has also had episodic RLQ abdominal pain for the last 3 days. Patient has occasional chest tightness but denies chest pain, palpitations, fever, chills, nausea, vomiting or diarrhea. He does have some constipation currently and has not been eating or drinking much for the last several days. No urinary complaints. No rash. No additional complaints at this time. In the ER patient in respiratory distress. CT imaging as below confirmed presence of acute perforated appendicitis, high grade SBO as well as bilateral lower lobe subsegmental PEs. NGT was placed with copious amount of bilious fluid promptly returned Patient was evaluated by General Surgery ER Course: Azithromycin Vancomycin Solumedrol 125mg IV NSS x 2L Cefepime 2gm Allergies Allergy/AdvReac Type Severity Reaction Status Date / Time No Known Allergies Allergy Verified 06/18/23 09:30 Home Medications Medication Instructions Recorded Confirmed Type multivitamin,tx-minerals 1 cap PO QDL 03/14/19 06/18/23 History (Multi-Vitamin HP/Minerals capsule) vitamins A,C,V-roml-hebagw 2,148 1 tab PO QDL 03/14/19 06/18/23 History mcg-113 mg-45 mg-17.4 mg tablet (PreserVision AREDS) inhalational spacing device #1 ea 06/17/21 06/18/23 Rx (Aerochamber Plus Z Stat spacer) Symbicort 80 mcg-4.5 mcg/actuation 2 puff inhalation BID #10.2 grams 06/24/22 06/18/23 Rx HFA aerosol inhaler (budesonide-formoterol) ferrous sulfate 325 mg (65 mg 325 mg PO BID #60 tabs 11/06/22 06/18/23 Rx iron) tablet,delayed release magnesium oxide 400 mg PO DAILY 12/09/22 06/18/23 History atorvastatin 40 mg tablet See Rx Instructions .Route 01/05/23 06/18/23 Rx .COMPLEX #90 tabs venlafaxine 150 mg 150 mg PO DAILY #90 caps 03/26/23 06/18/23 Rx capsule,extended release 24 hr tamsulosin 0.4 mg capsule (Flomax) 0.4 mg PO DAILY #90 caps 05/28/23 06/18/23 Rx lorazepam 1 mg tablet 1 mg PO ONCE #2 tabs 06/18/23 06/18/23 Rx oxycodone-acetaminophen 7.5 mg-325 1 tab PO ONCE #2 tabs 06/18/23 06/18/23 Rx mg tablet (Percocet) Past Med/Surg History Medical History (Updated 06/20/23 @ 02:40 by Marisela Baer DO) Anemia recently in hospital and Dr. Omer aware Anxiety Asthma Borderline hypertension Chronic obstructive pulmonary disease Chronic sinusitis Closed head injury hx of rock hit head and need stitches Diverticulosis Elevated troponin I level Fall hx of a long time ago Hyperlipidemia Iron deficiency Macular degeneration of both eyes Mitral valve prolapse folllow with dr oh Osteoarthritis Pneumoconiosis Sleep apnea Troponin level elevated Surgical History History of abdominal hernia History of cataract surgery RIGHT/left History of colonoscopy History of ERCP History of esophagogastroduodenoscopy (EGD) History of prostate biopsy (04/22/23) History of tonsillectomy and adenoidectomy Hx of vasectomy S/P pericardial window creation 8 YEARS AGO Total knee replacement status (2016) right knee Family History Brother Cancer Mother Colostomy in place Stroke Father , AGE 90 MRSA infection Sister No problems noted. Brother No problems noted. Son No problems noted. Daughter No problems noted. 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 Titles Required: No Beliefs That Will Affect Care: None marital status: Current Living Situation: Spouse current occupational status: retired current occupation: [employer] How many Children do You have: 2 Feels Safe at Home: Yes Childhood Exposure to Second-Hand Smoke: Yes Diet: regular caffeine: Yes (coffee) during the past year weight has: remained stable Dental Care, Regularly: No Physical Activity Frequency: Does not Exercise Physical Activity Frequency Comment: due to physical condition Seatbelt Use: always Sunscreen Use: No Assistive Devices: Hearing Aid - Bilateral Review of Systems Review of Systems: All systems reviewed & are unremarkable except as noted in HPI & below Physical Exam Physical Exam: General: patient acutely ill in appearance, respiratory distress with audible wheezing, coarse breath sounds and accessory muscle use, patient diaphoretic Skin: warm,diaphoretic, no rash HEENT: NC/AT, PERRL, EOMI, anicteric sclera, conjunctiva without injection, external ear normal to inspection and nontender, nares patent, moist mucus membranes, dentition intact, no oropharyngeal lesions, neck supple, trachea mi dline, no LAD, no thyromegaly, no JVD Heart: +S1/S2, regular, tachycardic, no m/r/g Lungs: respiratory distress with accessory muscle use, audible wheezing, coarse breath sounds bilaterally Abd: diminished bowel sounds, abdomen rigid and distended, tympanic to percussion, tenderness in RLQ Ext: warm, 2+ pulses in UE/LE bilaterally, no clubbing/cyanosis or edema Neuro: nonfocal, patient AA&O x 4, speech intact, no facial droop, moving all extremities on command with equal strength 5/5 Results & Data Results & Data Vital Signs (Past 12 Hours) Vital Signs Temp Pulse Resp BP Pulse Ox O2 Del Method O2 Flow Rate 06/19/23 23:30 112 H 38 H 91 06/19/23 23:30 127/97 06/19/23 23:20 113 H 30 H 91 06/19/23 23:10 112 H 35 H 92 06/19/23 23:00 116 H 37 H 92 06/19/23 23:00 125/93 06/19/23 22:50 112 H 35 H 92 06/19/23 22:40 114 H 36 H 92 06/19/23 22:30 110 H 36 H 94 06/19/23 22:30 124/95 06/19/23 22:20 112 H 33 H 93 06/19/23 22:16 143/98 H 06/19/23 22:16 113 H 41 H 91 06/19/23 22:10 111 H 37 H 92 06/19/23 22:00 113 H 33 H 92 06/19/23 21:50 115 H 29 H 92 06/19/23 21:40 116 H 24 92 06/19/23 21:30 118 H 42 H 92 06/19/23 21:30 125/95 06/19/23 21:25 117 H 38 H 92 Nasal Cannula 2 06/19/23 21:44 92 Nasal Cannula 2 06/19/23 21:34 90 Nasal Cannula 0 06/19/23 21:24 119 H 06/19/23 21:15 36.5 C 125 H 32 H 131/84 93 Room Air Laboratory Results Laboratory Results WBC 18.32 K/ul (4.8-10.8) H 06/19/23 21:30 RBC 4.66 M/uL (4.70-6.10) L 06/19/23 21:30 Hgb 14.1 g/dl (14.0-18.0) 06/19/23 21:30 Hct 42.1 % (42.0-52.0) 06/19/23 21:30 MCV 90.3 fL (80.0-100.0) 06/19/23 21:30 MCH 30.3 pg (25.0-34.0) 06/19/23 21:30 MCHC 33.5 g/dL (32.0-36.0) 06/19/23 21:30 RDW Std Deviation 49.2 fL (36.4-46.3) H 06/19/23 21:30 RDW Coeff of Molly 14.7 % (11.5-14.5) H 06/19/23 21:30 Plt Count 222 K/uL (130-400) 06/19/23 21:30 MPV 10.8 fL (9.4-12.4) 06/19/23 21:30 Immature Gran % (Auto) 0.3 % 06/19/23 21:30 Neut % (Auto) 88.6 % 06/19/23 21:30 Lymph % (Auto) 4.7 % 06/19/23 21:30 [place] % (Auto) 6.2 % 06/19/23 21:30 Eos % (Auto) 0.0 % 06/19/23 21:30 Baso % (Auto) 0.2 % 06/19/23 21:30 Neut # (Auto) 16.24 K/uL (1.40-6.50) H 06/19/23 21:30 Lymph # (Auto) 0.87 K/uL (1.20-3.40) L 06/19/23 21:30 [place] # (Auto) 1.13 K/uL (0.11-0.59) H 06/19/23 21:30 Eos # (Auto) 0.00 K/uL (0.00-0.50) 06/19/23 21:30 Baso # (Auto) 0.03 K/uL (0.00-0.20) 06/19/23 21:30 Immature Gran # (Auto) 0.05 K/uL (0.01-0.20) 06/19/23 21:30 PT 11.6 Seconds (9.0-12.0) 06/19/23 21:30 INR 1.1 (0.9-1.1) 06/19/23 21:30 VBG pH 7.37 (7.36-7.41) 06/19/23 22:05 VBG pCO2 37 mmHg (38-50) L 06/19/23 22:05 VBG pO2 59 mmHg 06/19/23 22:05 VBG HCO3 21 mmol/L 06/19/23 22:05 VBG O2 Saturation 88.9 % 06/19/23 22:05 VBG Base Excess -3.4 mEq/L 06/19/23 22:05 Sodium 132 mmol/L (136-145) L 06/19/23 21:30 Potassium 4.7 mmol/L (3.5-5.1) 06/19/23 21:30 Chloride 99 mmol/L (98-107) 06/19/23 21:30 Carbon Dioxide 20 mmol/L (21-32) L 06/19/23 21:30 Anion Gap 13 (3-11) H 06/19/23 21:30 BUN 32 mg/dl (6-23) H 06/19/23 21:30 Creatinine 2.29 mg/dl (0.6-1.4) H 06/19/23 21:30 Est Cr Clr Drug Dosing 30.7 ml/min 06/19/23 21:30 Est GFR ( Amer) 31.2 ml/min 06/19/23 21:30 Est GFR (Non-Af Amer) 26.9 ml/min 06/19/23 21:30 BUN/Creatinine Ratio 14.0 (10-20) 06/19/23 21:30 Glucose 147 mg/dl (70-99(Fasting)) H 06/19/23 21:30 Lactate 2.2 mmol/L (0.4-2.0) H* 06/19/23 23:55 Calcium 9.7 mg/dl (8.6-10.3) 06/19/23 21:30 Magnesium 2.1 mg/dl (1.7-2.4) 06/19/23 21:30 Total Bilirubin 2.2 mg/dl (0.2-1.0) H 06/19/23 21:30 Direct Bilirubin 0.8 mg/dl (0-0.2) H 06/19/23 21:30 AST 33 U/L (13-39) 06/19/23 21:30 ALT 34 U/L (7-52) 06/19/23 21:30 Alkaline Phosphatase 84 U/L (34-104) 06/19/23 21:30 Troponin I High Sens 18.7 pg/ml (0-20) 06/19/23 21:30 B-Natriuretic Peptide 79 pg/ml (0-100) 06/19/23 23:55 Total Protein 8.1 gm/dl (6.0-8.3) 06/19/23 21:30 Albumin 4.7 gm/dl (3.4-5.0) 06/19/23 21:30 Procalcitonin 48.04 ng/ml (0-0.5) H 06/19/23 21:30 Adenovirus (PCR) Not Detected (NotDetected) 06/19/23 21:58 B. pertussis DNA (PCR) Not Detected (NotDetected) 06/19/23 21:58 B.parapertussis DNA PCR Not Detected (NotDetected) 06/19/23 21:58 C. pneumoniae DNA (PCR) Not Detected (NotDetected) 06/19/23 21:58 Coronavirus OC43 (PCR) Not Detected (NotDetected) 06/19/23 21:58 Coronavirus HKU1 (PCR) Not Detected (NotDetected) 06/19/23 21:58 Coronavirus 229E (PCR) Not Detected (NotDetected) 06/19/23 21:58 SARS-CoV-2 (PCR) Not Detected (NotDetected) 06/19/23 21:58 Coronavirus NL63 (PCR) Not Detected (NotDetected) 06/19/23 21:58 Human Metapneumovir PCR Not Detected (NotDetected) 06/19/23 21:58 Influenza Type A (PCR) Not Detected (NotDetected) 06/19/23 21:58 Influenza Type B (PCR) Not Detected (NotDetected) 06/19/23 21:58 M. pneumoniae (PCR) Not Detected (NotDetected) 06/19/23 21:58 Parainfluenza 1 (PCR) Not Detected (NotDetected) 06/19/23 21:58 Parainfluenza 2 (PCR) Not Detected (NotDetected) 06/19/23 21:58 Parainfluenza 3 (PCR) Not Detected (NotDetected) 06/19/23 21:58 Parainfluenza 4 (PCR) Not Detected (NotDetected) 06/19/23 21:58 RSV (PCR) Not Detected (NotDetected) 06/19/23 21:58 Entero/Rhino (PCR) Not Detected (NotDetected) 06/19/23 21:58 Impressions Chest X-Ray 06/19/23 21:44 SINGLE VIEW CHEST CLINICAL HISTORY: Sepsis. FINDINGS: An AP, portable, upright chest radiograph is compared to study dated 08/12/2022. Correlation is made with PET/CT dated 05/20/2023. The heart is enlarged. The pulmonary vasculature is noncongested. Calcific granulomas are unchanged. There are low lung volumes with bibasilar atelectasis. No airspace consolidation or large pleural effusion is identified. No pneumothorax is seen. The skeletal structures are osteopenic. The bony thorax is grossly intact. IMPRESSION: Cardiomegaly with no acute cardiopulmonary abnormality identified. ACT 112: Negative or not required by law. Electronically signed by: Ivan Gillespie M.D. 06/19/2023 10:46 PM Abdomen/Pelvis CT 06/19/23 22:58 CR Exam(s): CT ABDOMEN + PELVIS Without Contrast EXAM: CT Abdomen and Pelvis Without Intravenous Contrast CLINICAL HISTORY: Reason for exam: abdominal distension. TECHNIQUE: Axial computed tomography images of the abdomen and pelvis without intravenous contrast. CTDI is 26.13 mGy and DLP is 1340.22 mGy-cm. Automated exposure control was utilized for the study. A dose lowering technique was utilized adhering to the principles of ALARA. COMPARISON: No relevant prior studies available. FINDINGS: Lung bases: Bibasilar dependent atelectasis. Heart: Cardiomegaly. ABDOMEN: Liver: Fatty infiltration of liver. Gallbladder and bile ducts: Unremarkable. No calcified stones. No ductal dilation. Pancreas: Unremarkable. No ductal dilation. Spleen: Unremarkable. No splenomegaly. Adrenals: Unremarkable. No mass. Kidneys and ureters: 1.6 cm hypodensity upper pole left kidney. No obstructing stones. No hydronephrosis. Stomach and bowel: High-grade small bowel obstruction with a transition between dilated and nondilated loops of small bowel within the right lower quadrant. Significant amount of inflammatory change associated with the above-mentioned inflamed appendix. Diverticulosis without evidence of diverticulitis. There are several tiny locules of extraluminal gas particularly within the right upper quadrant. PELVIS: Appendix: Inflammatory changes about the thick-walled appendix in the right lower quadrant consistent with acute appendicitis. No periappendiceal fluid collections. Bladder: Unremarkable. No stones. Reproductive: Unremarkable as visualized. ABDOMEN and PELVIS: Intraperitoneal space: See above. Bones/joints: No acute fracture. No dislocation. Soft tissues: Unremarkable. Vasculature: Unremarkable. No abdominal aortic aneurysm. Lymph nodes: Unremarkable. No enlarged lymph nodes. IMPRESSION: 1. Perforated appendicitis without periappendiceal abscess. There is a lot of reactive inflammatory fluid within the pelvis and adjacent to the appendix. 2. Diverticulosis without evidence of diverticulitis 3. High-grade small bowel obstruction. Communications: Call Doctor Pneumoperitoneum, new or unexpected Call Doctor Appendicitis Electronically signed by: Khai Brown MD 06/20/23 00:55 AM Chest CTA 06/19/23 23:45 CR Exam(s): CTA CHEST IV Amt: 114ML OF OPTIRAY 320 EXAM: CT Angiography Chest With Intravenous Contrast CLINICAL HISTORY: Reason for exam: PE. TECHNIQUE: Axial computed tomographic angiography images of the chest with intravenous contrast. CTDI is 52.16 mGy and DLP is 823.04 mGy-cm. Automated exposure control was utilized for the study. A dose lowering technique was utilized adhering to the principles of ALARA. 2D MIP reconstructed images were created and reviewed. COMPARISON: No relevant prior studies available. FINDINGS: Pulmonary arteries: Exam limited secondary to patient respiratory motion despite this limitation there are filling defects within several bilateral lower lobe pulmonary arteries consistent with pulmonary emboli within same. Linear atelectasis in the lung bases bilaterally. Aorta: No acute findings. No thoracic aortic aneurysm. Lungs: See above. Pleural space: Unremarkable. No significant effusion. No pneumothorax. Heart: Unremarkable. No cardiomegaly. No significant pericardial effusion. No evidence of RV dysfunction. Bones/joints: No acute fracture. No dislocation. Soft tissues: Unremarkable. Lymph nodes: Unremarkable. No enlarged lymph nodes. Intraperitoneal space: Tiny locule of extraluminal gas which is better evaluated on the dedicated CT of the abdomen pelvis. IMPRESSION: 1. Limited exam 2. Bilateral lower lobe subsegmental pulmonary emboli 3. Extraluminal gas seen within the upper abdomen better evaluated on dedicated CT of the abdomen and pelvis Communications: Call Doctor Pulmonary Embolism Electronically signed by: Khai Brown MD 06/20/23 01:03 AM ECG Additional Comments: EKG - per my interpretation - study shows ST at 119bpm, normal axis, WA=582, QRs=88, GGj=092, no acute ischemic changes KUB - per my interpretation - tip of NGT below diaphragm. May be used for purpose of suction. Distended loops of bowel noted c/w patient's known SBO. Code Status & VTE Plan VTE Prophylaxis Plan VTE Prophylaxis will be ordered: Yes PG Care Time/CCT Total # of Minutes Spent Total Time Spent with Patient: Total time spent is greater than 50% in coordination of care (as documented) at patient's floor/unit and/or counseling patient: Coding Level of Care Code 22634 INT INP/OBS CARE 3/75MIN Diagnoses Perforated appendix K35.32 SBO (small bowel obstruction) K56.609 Bilateral pulmonary embolism I26.99 Prostate cancer C61 Hyperlipidemia E78.5 Chronic obstructive pulmonary disease J44.9
--- NOTE | 2023-06-20 02:06 | Surgery Consultation ---
Date of Consultation June 20, 2023 Assessment & Plan (1) Perforated appendix: I discussed with the treating emergency room physician the patient is being admitted on the hospitalist service. From a surgical perspective we recommend proceeding as follows: The patient is noted to have bilateral pulmonary emboli.: The patient is going to be anticoagulated with intravenous heparin. As noted rectal examination was performed which was noted to be heme negative. I have discussed with the patient and his that pulmonary blood can be life-threatening and require anticoagulation. I informed them that we will monitor the patient's blood counts and intervene as needed if there is suspicion that patient may develop a GI bleed. Concerning the patient's small bowel obstruction: N.p.o. status will be implemented NG tube will be inserted Serial abdominal imaging will be pursued Concerning the perforated appendix: Analgesics we provided Antiemetics to be provided N.p.o. status we will implement as noted above Intravenous fluids to be provided for hydration Antibiotics to be providedZosyn has been ordered which should continue Due to the patient's pulmonary emboli we will attempt supportive care for his perforated appendix as noted above until his respiratory status can be stabilized further. Concerning underlying sepsis: Antibiotics will be provided as noted above Intravenous fluids to be provided as noted above Serial labs are to be followed I discussed with the admitting service and due to the patient's respiratory status and underlying sepsis we feel the patient would best be served with admission into the intensive care unit. The ICU staff/provider has been notified and will assist with the patient's care. The above was discussed with my attending physician, Dr. Rodriguez I had a lengthy discussion with the patient's who is present at bedside. I have outlined the above plan with her indicating that the patient has more than 1 potentially life-threatening problem at this time. I discussed with her that we need to anticoagulate the patient secondary to his pulmonary emboli as noted above which will necessitate delaying his surgery. Did discuss with her that we will continue to treat with antibiotics and intravenous fluids due to his perforated appendix with timing of potential surgery to be determined based on his clinical response to the above. I also discussed with the patient's the patient's wishes concerning resusc itative measures. They have indicated that if his respiratory status would deteriorate endotracheal intubation/mechanical ventilation is an excepted modality to use in his care. Additional recommendations will be made based on his clinical course as it unfolds. Addendum: Patient revisited at bedside this morning. I discussed with nurse attending the patient in the ICU. Patient's respiratory status has improved and patient appears somewhat more comfortable. They do note the patient had a Stearns catheter placed with some difficulty and patient now has subsequent hematuria but his catheter is patent. NG tube remains in place but output is not as high as what was noted in the emergency department. No fevers noted. I discussed with the patient who notes he continues to have abdominal discomfort similar to what was noted in the emergency department. He does feel as though his breathing has improved. For the present time we will continue care as noted above including anticoagulation for pulmonary emboli, n.p.o. status/NG tube for underlying small bowel obstruction, intravenous fluids and antibiotics for perforated appendicitis/sepsis. In addition, due to the patient's hematuria the nurses have noted they have been able to flush and irrigate the catheter which should continue as needed. We will check a.m. labs when available. Family has been updated at bedside. Addendum: (7:30 am) Called by radiology--they are not convinced not that pt. has PE and feels previous findings may be motion artifact. Due to this heparin has been stopped. Dr. Espinal to evaluate the pt. for possible surgical intervention today which may consist of abdominal washout/drain placement. Due to previous hx. of pericardial effusion, will get a 2-D echo (cardiopulmonary notified). (2) SBO (small bowel obstruction): (3) Bilateral pulmonary embolism: History of Present Illness Reason for Consultation: Perforated appendix Attending Physician: I have seen and examined this patient. The patient says he feels a little better than he did when he first arrived. His family was at the bedside to offer critical information along with the patient. He has SOB at baseline and appears to work to breath to some degree at baseline. They admit that this seemed worse than his baseline when he arrived but appears closer to his baseline now. He has a h/o COPD for which he does not use his prescribed medication and does not see a intelligence support officer. He also has been diagnosed with black lung. There is evidence of atherosclerotic disease involving the cardiac arteries on a recent PET image for which the family says he has an appointment to see cardiology at the end of this month. Upon querying the patient regarding symptoms, he admits to me having chest pains and chest pain with exertion quite often at home. For this reason, a cardiology consult has been called for recommendations. Heparin has been discontinued at 0730 this am due to further review by radiology revealing no suspicion for PEs. History of Present Illness This is a 73-year-old male who presented to the emergency department secondary to not feeling well for several days. Patient notes for at least 2 to 3 days he has had worsening shortness of breath. (He does note that he is somewhat short of breath at baseline but feels as though his breathing has deteriorated somewhat in the a forementioned timeframe). In addition, the patient notes that he has had on and off abdominal pain for approximately 2 days. He notes the pain is nonradiating is located primarily in the right lower quadrant. He has not had any nausea or vomiting. He does report having a small bowel movement within the past 24 hours. With his bowel movement he has not had any melena, bright blood per rectum, or hematochezia. He denies any fevers, shakes, or chills. Patient notes that concerning abdominal surgeries he has had a left inguinal herniorrhaphy he estimates at least 30 years ago. Patient does note that when he is feeling well he does various tasks around his house and is typically not sedentary. He also denies any recent travel. 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 It was noted that the patient did undergo treatment for this condition and he has not had any recurrent GI bleed since treatment of this condition. Since arrival to the emergency department patient has had labs and imaging which I independently reviewed. Chest x-ray showed cardiomegaly but did not appear to be any evidence of pneumonia. CT scan of the abdomen and pelvis showed the patient had inflammatory changes surrounding the appendix which appeared to be thick walled. This was felt to represent acute appendicitis. There is no periappendiceal abscess but the interpreting radiologist did feel that the appendix was perforated. Inflammatory fluid within the pelvis adjacent to the appendix was noted. Several tiny locules of extraluminal gas was noted in the right upper quadrant. In addition, the patient was noted to have a high-grade small bowel obstruction with a transition point noted in the right lower quadrant. The patient also underwent a CT scan of the chest that showed bilateral lower lobe subsegmental pulmonary emboli. Labs include a CBC her white blood cell count was elevated 18.3. Hemoglobin, hematocrit, platelet count were normal. Coagulation studies were noted to be within normal range. Chemistry profile showed sodium was 132 with a normal potassium. BUN and creatinine were 32 and 2.2. (Patient's creatinine typically runs within the normal range). Lactic acid level is elevated at 2.2. Procalcitonin was elevated at 48.04. A bio fire was sent and was negative for all etiologies tested. At the time of my interview the patient appeared somewhat uncomfortable and dyspneic. Allergies Allergy/AdvReac Type Severity Reaction Status Date / Time No Known Allergies Allergy Verified 06/18/23 09:30 Home Medications Medication Instructions Recorded Confirmed Type multivitamin,tx-minerals 1 cap PO QDL 03/14/19 06/18/23 History (Multi-Vitamin HP/Minerals capsule) vitamins A,C,S-wffl-kglccc 2,148 1 tab PO QDL 03/14/19 06/18/23 History mcg-113 mg-45 mg-17.4 mg tablet (PreserVision AREDS) inhalational spacing device #1 ea 06/17/21 06/18/23 Rx (Aerochamber Plus Z Stat spacer) Symbicort 80 mcg-4.5 mcg/actuation 2 puff inhalation BID #10.2 grams 06/24/22 06/18/23 Rx HFA aerosol inhaler (budesonide-formoterol) ferrous sulfate 325 mg (65 mg 325 mg PO BID #60 tabs 11/06/22 06/18/23 Rx iron) tablet,delayed release magnesium oxide 400 mg PO DAILY 12/09/22 06/18/23 History atorvastatin 40 mg tablet See Rx Instructions .Route 01/05/23 06/18/23 Rx .COMPLEX #90 tabs venlafaxine 150 mg 150 mg PO DAILY #90 caps 03/26/23 06/18/23 Rx capsule,extended release 24 hr tamsulosin 0.4 mg capsule (Flomax) 0.4 mg PO DAILY #90 caps 05/28/23 06/18/23 Rx lorazepam 1 mg tablet 1 mg PO ONCE #2 tabs 06/18/23 06/18/23 Rx oxycodone-acetaminophen 7.5 mg-325 1 tab PO ONCE #2 tabs 06/18/23 06/18/23 Rx mg tablet (Percocet) Patient History Medical History (Updated 06/20/23 @ 06:13 by BHAVESH Yeboah) Anemia recently in hospital and Dr. Omer aware Anxiety Asthma Borderline hypertension Chronic obstructive pulmonary disease Chronic sinusitis Closed head injury hx of rock hit head and need stitches Diverticulosis Elevated troponin I level Fall hx of a long time ago Hyperlipidemia Iron deficiency Macular degeneration of both eyes Mitral valve prolapse folllow with dr oh Osteoarthritis Pneumoconiosis Sleep apnea Troponin level elevated Surgical History History of abdominal hernia History of cataract surgery RIGHT/left History of colonoscopy History of ERCP History of esophagogastroduodenoscopy (EGD) History of prostate biopsy (04/22/23) History of tonsillectomy and adenoidectomy Hx of vasectomy S/P pericardial window creation 8 YEARS AGO 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 Brother No problems noted. Son No problems noted. Daughter No problems noted. Denies family history of Ovarian cancer Breast cancer Colorectal cancer Social History Smoking Status: Former smoker Tobacco Type: Smokeless Tobacco (Dip or Chew) Age Started Using Tobacco: 16; Age Quit Using Tobacco: 26; Second Hand Exposure: No; Do You Dip or Chew Tobacco: Yes; Hx Alcohol Use: Yes Alcohol type: beer Hx Substance Use: No Preferred Language: Mauritian Communication Ability: Effective Communication Ability Comment: HARD OF HEARING Visual Impairment: No Limitations Hearing Ability: Use of Hearing Aid Mortgage Collector Required: No Beliefs That Will Affect Care: None marital status: Current Living Situation: Family current occupational status: 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 How many Children do You have: 2 Feels Safe at Home: Yes Childhood Exposure to Second-Hand Smoke: Yes Diet: regular caffeine: Yes (coffee) during the past year weight has: remained stable Dental Care, Regularly: No Physical Activity Frequency: Does not Exercise Physical Activity Frequency Comment: due to physical condition Seatbelt Use: always Sunscreen Use: No Assistive Devices: Cane Review of Systems Constitutional: no fever Ear, Nose, Mouth, Throat: no hearing loss Respiratory: + cough and + dyspnea Cardiovascular: no chest pain Gastrointestinal: + abdominal pain; no nausea and no vomiting Genitourinary: no dysuria Musculoskeletal: no back pain Integumentary: no rash Neurologic: no localized weakness Physical Exam Physical Exam: With the nurse oil spreader operator present a rectal examination was performed. Patient had normal sphincter tone. I did not appreciate any masses. Hemoccult was noted to be negative Constitutional: well developed and + ill appearing Eyes: no conjunctival abnormality ENMT: Ears: no hearing impairment and no external ear abnormality Mouth: no oropharynx abnormality Neck: trachea midline Respiratory: + respiratory distress, + labored breathing and + uses accessory muscles Patient has audible wheezing which is also noted with auscultation. Cardiovascular: Rate/Rhythm: regular rate, regular rhythm and + tachycardic Vessels: dorsalis pedis pulses present Gastrointestinal (Abdomen): Patient's abdomen is distended and tympanic to percussion. I do not appreciate any rebound tenderness but the patient did have significant tenderness with palpation which appear to be greatest in the right lower quadrant. Musculoskeletal: No calf tenderness. Feet are warm and well-perfused with palpable dorsalis pedal pulses. Skin: no rashes Neurologic: moves all extremities Patient is able to follow simple commands and move all 4 extremities any noted focal deficit Psychiatric: A+Ox3, euthymic affect Results & Data Vital Signs (Past 12 Hours) Vital Signs Temp Pulse Resp BP Pulse Ox O2 Del Method O2 Flow Rate 06/19/23 23:30 112 H 38 H 91 06/19/23 23:30 127/97 06/19/23 23:20 113 H 30 H 91 06/19/23 23:10 112 H 35 H 92 06/19/23 23:00 116 H 37 H 92 06/19/23 23:00 125/93 06/19/23 22:50 112 H 35 H 92 06/19/23 22:40 114 H 36 H 92 06/19/23 22:30 110 H 36 H 94 06/19/23 22:30 124/95 06/19/23 22:20 112 H 33 H 93 06/19/23 22:16 143/98 H 06/19/23 22:16 113 H 41 H 91 06/19/23 22:10 111 H 37 H 92 06/19/23 22:00 113 H 33 H 92 06/19/23 21:50 115 H 29 H 92 06/19/23 21:40 116 H 24 92 06/19/23 21:30 118 H 42 H 92 06/19/23 21:30 125/95 06/19/23 21:25 117 H 38 H 92 Nasal Cannula 2 06/19/23 21:44 92 Nasal Cannula 2 06/19/23 21:34 90 Nasal Cannula 0 06/19/23 21:24 119 H 06/19/23 21:15 36.5 C 125 H 32 H 131/84 93 Room Air PG Care Time/CCT Total # of Minutes Spent Total Time Spent with Patient: Total time spent is greater than 50% in coordination of care (as documented) at patient's floor/unit and/or counseling patient: Coding Level of Care Code 44417 INT INP/OBS CARE 375MIN Diagnoses Perforated appendix K35.32 SBO (small bowel obstruction) K56.609 Bilateral pulmonary embolism I26.99
[2023-06-20] MEDS ORDERED: LACTATED RINGER'S 500 ML IV ONE (02:32)
[2023-06-20] MEDS ORDERED: MoRPHine SULFATE 4 MG/ML 1 ML CARP\\VIAL IV PRN (03:44)
[2023-06-20] MEDS ORDERED: LACTATED RINGER'S 1,000 ML IV SCH (03:44)
[2023-06-20] MEDS ORDERED: ONDANSETRON INJ 2 MG/ML 2 ML VIAL IV PRN (03:44)
[2023-06-20] MEDS ORDERED: ALBUTEROL 0.083% NEBU SOLN 3 ML VIAL NEB PRN (03:44)
--- NOTE | 2023-06-20 05:59 | Critical Care Consultation ---
Date of Consultation June 20, 2023 Assessment & Plan (1) Sepsis: Impression: 73-year-old male with recent diagnosis of prostate cancer now presents to the ICU with perforated appendix, sepsis, small bowel obstruction, and bilateral subsegmental pulmonary embolisms with associated hypoxia. Neuro - Encephalopathy (mild)patient's reports that he is mildly confused this evening. Likely this is related to sepsis/hypoxia. Continue to monitor closely for now and consider additional imaging if needed. Cardiac - Currently stable with mild sinus tachycardia with a rate in the low 100s. Suspect this is due to underlying pulmonary embolisms. Otherwise hemodynamically stable and continue to monitor on telemetry. HLDcontinue statin Respiratory - Acute hypoxic respiratory failurepatient with history of COPD (is apparently noncompliant with home nebs), now presents with wheezing and tachypnea with hypoxia requiring 6 L nasal cannula -Hypoxia likely multifactoral as patient does have bilateral subsegmental PEs and is currently undergoing treatment with heparin drip. Also has significant abdominal distention given small bowel obstruction -Continue with supplemental oxygen support and consider BiPAP if needed. Continuous monitoring on pulse ox -No hypercapnia on ABG however patient does have wheezing and starting on scheduled DuoNeb, LABA, and IV Solu-Medrol GI - Small bowel obstructioncurrently undergoing decompression with NG tube and bowel rest. Remains NPO. Surgery following Perforated appendixsurgery team aware and currently undergoing medical management with broad-spectrum antibiotics. We will follow surgical recommendations RENAL/LYTES - AKIno prior history of renal disease with creatinine 2.29 with prior baseline of 1.14 -Suspect this is prerenal given sepsis/likely dehydration with a small bowel obstruction -Continue with IV fluid resuscitation, maps have remained greater than 65 -Avoid nephrotoxins renally dose medication -Monitor with routine BMPs - Prostate hyperplasiarecently diagnosed with prostate cancer. Stearns inserted for strict I's and O's although patient does have some hematuria following Stearns insertion which was likely somewhat traumatic. We will continue to monitor closely and consider urology consultation if this does not clear soon ENDO - No history of diabetes or thyroid disease, ICU hyperglycemic protocol HEME - H&H stable, monitor routine CBC ID - Sepsislikely intra-abdominal source given perforated appendix. Currently afebrile although he did have significantly elevated Pro-Misael of 45 and leukocytosis -Bio fire negative -Blood cultures pending -Continue with Zosyn LINES/IV ACCESS - Peripheral IVs DVT PROPHYLAXIS - SCDs, heparin drip Thank you for allowing us to participate in the care of this patient. Please refer to my attending physician's documentation for any further recommendations. (2) Hematuria: (3) Perforated appendix: (4) Chronic obstructive pulmonary disease: (5) Acute hypoxic respiratory failure: (6) Pulmonary embolism: (7) Prostate cancer: (8) Hyperlipidemia: History of Present Illness Attending Physician: Marisela Baer DO History of Present Illness Patient is a 73-year-old male with past medical history COPD, HLD, GI bleed (s/p embolism of AVM's), and recent diagnosis of prostate cancer 05/06 who presented to the emergency department earlier this evening with 2 days of ongoing abdominal pain and distention with associated shortness of breath. Patient was hypoxic and tachypneic on arrival, and was noted to have semifirm distended abdomen. Patient reported that he was having right lower quadrant abdominal pain over the past few days which started to feel better earlier today. CT abdomen and pelvis showed evidence of perforated appendicitis, high-grade SBO, and CTA chest revealed bilateral lower lobe subsegmental PEs. General surgery was consulted and recommended medical management regarding the appendicitis for now until respiratory status is stabilized regarding PE use. Patient was placed on heparin drip and he has been started on broad-spectrum antibiotics with Zosyn. Patient is now being transferred to the ICU for further management at this time. On arrival to the ICU, patient does appear to be somewhat confused which was confirmed with his and appears to started tonight. She also states that he is hard of hearing which may be contributing. Patient does however deny any headache, dizziness, changes in vision, cough or sore throat, nausea or vomiting, chest pain or palpitations, swelling in hands and feet. Patient does report wheezing and shortness of breath along with abdominal pain with palpation generalized. He also does report difficulty urinating over the past few months. According to the patient's , he has yet to start radiation treatment for prostate cancer due to recent GI bleed in which he had to have multiple AVMs embolized. Allergies Allergy/AdvReac Type Severity Reaction Status Date / Time No Known Allergies Allergy Verified 06/18/23 09:30 Home Medications Medication Instructions Recorded Confirmed Type multivitamin,tx-minerals 1 cap PO QDL 03/14/19 06/18/23 History (Multi-Vitamin HP/Minerals capsule) vitamins A,C,M-uwxa-tqqyin 2,148 1 tab PO QDL 03/14/19 06/18/23 History mcg-113 mg-45 mg-17.4 mg tablet (PreserVision AREDS) inhalational spacing device #1 ea 06/17/21 06/18/23 Rx (Aerochamber Plus Z Stat spacer) Symbicort 80 mcg-4.5 mcg/actuation 2 puff inhalation BID #10.2 grams 06/24/22 06/18/23 Rx HFA aerosol inhaler (budesonide-formoterol) ferrous sulfate 325 mg (65 mg 325 mg PO BID #60 tabs 11/06/22 06/18/23 Rx iron) tablet,delayed release magnesium oxide 400 mg PO DAILY 12/09/22 06/18/23 History atorvastatin 40 mg tablet See Rx Instructions .Route 01/05/23 06/18/23 Rx .COMPLEX #90 tabs venlafaxine 150 mg 150 mg PO DAILY #90 caps 03/26/23 06/18/23 Rx capsule,extended release 24 hr tamsulosin 0.4 mg capsule (Flomax) 0.4 mg PO DAILY #90 caps 05/28/23 06/18/23 Rx lorazepam 1 mg tablet 1 mg PO ONCE #2 tabs 06/18/23 06/18/23 Rx oxycodone-acetaminophen 7.5 mg-325 1 tab PO ONCE #2 tabs 06/18/23 06/18/23 Rx mg tablet (Percocet) Patient History Medical History (Updated 06/20/23 @ 06:13 by BHAVESH Yeboah) Anemia recently in hospital and Dr. Omer aware Anxiety Asthma Borderline hypertension Chronic obstructive pulmonary disease Chronic sinusitis Closed head injury hx of rock hit head and need stitches Diverticulosis Elevated troponin I level Fall hx of a long time ago Hyperlipidemia Iron deficiency Macular degeneration of both eyes Mitral valve prolapse folllow with dr oh Osteoarthritis Pneumoconiosis Sleep apnea Troponin level elevated Surgical History History of abdominal hernia History of cataract surgery RIGHT/left History of colonoscopy History of ERCP History of esophagogastroduodenoscopy (EGD) History of prostate biopsy (04/22/23) History of tonsillectomy and adenoidectomy Hx of vasectomy S/P pericardial window creation 8 YEARS AGO Total knee replacement status (2016) right knee Family History Brother Cancer Mother Colostomy in place Stroke Father , AGE 90 MRSA infection Sister No problems noted. Brother No problems noted. Son No problems noted. Daughter No problems noted. Denies family history of Ovarian cancer Breast cancer Colorectal cancer Social History Smoking Status: Former smoker Tobacco Type: Smokeless Tobacco (Dip or Chew) Age Started Using Tobacco: 16; Age Quit Using Tobacco: 26; Second Hand Exposure: No; Do You Dip or Chew Tobacco: Yes; Hx Alcohol Use: Yes Alcohol type: beer Hx Substance Use: No Preferred Language: Czech Communication Ability: Effective Communication Ability Comment: HARD OF HEARING Visual Impairment: No Limitations Hearing Ability: Use of Hearing Aid Facilitator Required: No Beliefs That Will Affect Care: None marital status: Current Living Situation: Family current occupational status: retired current occupation: [employer] How many Children do You have: 2 Feels Safe at Home: Yes Childhood Exposure to Second-Hand Smoke: Yes Diet: regular caffeine: Yes (coffee) during the past year weight has: remained stable Dental Care, Regularly: No Physical Activity Frequency: Does not Exercise Physical Activity Frequency Comment: due to physical condition Seatbelt Use: always Sunscreen Use: No Assistive Devices: Cane Review of Systems Review of Systems: All systems reviewed & are unremarkable except as noted in HPI & below Physical Exam Constitutional: cooperative and comfortable; no acute distress Eyes: PERRL, conjunctivae normal, anicteric sclerae ENMT: external ear and nose normal, oropharynx normal Neck: trachea midline, no thyromegaly Respiratory: Tachypneic, no use of accessory muscles, wheezing auscultated bilaterally, no crackles or rhonchi. Symmetrical chest wall movement Cardiovascular: Rate/Rhythm: + tachycardic Heart Sounds: normal S1 and normal S2 Extremities: no edema Gastrointestinal (Abdomen): Abdomen on semifirm, distended, mildly tender with palpation generalized NG tube to low intermittent suction with bile in canister Musculoskeletal: no cyanosis or clubbing, extremities motor strength 5/5 Skin: no rashes, warm and dry Neurologic: PERRL, EOMI, accommodation nl, no face palsy, no dysarthria Psychiatric: Orientation: oriented to person and oriented to place Genitourinary: Indwelling Stearns catheter present with hematuria Results & Data Results & Data Vital Signs (Past 12 Hours) Vital Signs Temp Pulse Resp BP Pulse Ox O2 Del Method O2 Flow Rate 06/20/23 05:01 152/95 H 06/20/23 05:01 37.3 C 109 H 29 H 91 06/20/23 05:00 37.2 C 115 H 35 H 93 06/20/23 04:30 37.7 C H 108 H 34 H 91 06/20/23 04:08 37.7 C H 109 H 33 H 94 06/20/23 02:40 108 H 32 H 95 06/20/23 02:30 109 H 31 H 94 06/20/23 02:20 111 H 32 H 91 06/20/23 02:10 110 H 28 H 94 06/20/23 02:00 116 H 33 H 94 06/20/23 01:50 109 H 32 H 95 06/20/23 01:40 114 H 27 H 06/20/23 01:39 112 H 33 H 96 06/20/23 01:39 130/89 06/20/23 01:33 113 H 34 H 94 06/20/23 01:20 115 H 31 H 06/20/23 01:10 116 H 33 H 93 06/20/23 01:01 117 H 33 H 93 06/20/23 01:01 136/108 H 06/20/23 01:00 115 H 32 H 92 06/20/23 00:50 113 H 32 H 93 06/20/23 00:42 119 H 34 H 91 06/20/23 00:42 138/102 H 06/20/23 00:40 121 H 24 06/20/23 00:20 115 H 35 H 93 06/20/23 00:10 113 H 35 H 97 06/20/23 00:00 96 Nasal Cannula 6 06/19/23 23:50 90 06/19/23 23:45 93 06/20/23 02:45 Nasal Cannula 06/19/23 23:30 112 H 38 H 91 06/19/23 23:30 127/97 06/19/23 23:20 113 H 30 H 91 06/19/23 23:10 112 H 35 H 92 06/19/23 23:00 116 H 37 H 92 06/19/23 23:00 125/93 06/19/23 22:50 112 H 35 H 92 06/19/23 22:40 114 H 36 H 92 06/19/23 22:30 110 H 36 H 94 06/19/23 22:30 124/95 06/19/23 22:20 112 H 33 H 93 06/19/23 22:16 143/98 H 06/19/23 22:16 113 H 41 H 91 06/19/23 22:10 111 H 37 H 92 06/19/23 22:00 113 H 33 H 92 06/19/23 21:50 115 H 29 H 92 06/19/23 21:40 116 H 24 92 06/19/23 21:30 118 H 42 H 92 06/19/23 21:30 125/95 06/19/23 21:25 117 H 38 H 92 Nasal Cannula 2 06/19/23 21:44 92 Nasal Cannula 2 06/19/23 21:34 90 Nasal Cannula 0 06/19/23 21:24 119 H 06/19/23 21:15 36.5 C 125 H 32 H 131/84 93 Room Air Coding Level of Care Code 03580 IN/OBS CONSULT LVL 3,45M Diagnoses Sepsis A41.9 Hematuria R31.9 Perforated appendix K35.32 Chronic obstructive pulmonary disease J44.9 Acute hypoxic respiratory failure J96.01 Pulmonary embolism I26.99 Prostate cancer C61 Hyperlipidemia E78.5 Time Spent (min) 50
--- NOTE | 2023-06-20 06:36 | Ultrasound Report ---
ULTRASOUND BILATERAL LOWER EXTREMITY VENOUS CLINICAL HISTORY: Pulmonary embolus. COMPARISON STUDY: No priors. TECHNIQUE: Portable real-time, grayscale, and color Doppler sonography of the deep veins of the right and left lower extremity was performed from the inguinal crease to the calf. Compression and augment ation were utilized. FINDINGS: There is no sonographic evidence of deep venous thrombosis identified in the right or left lower extremity. The common femoral, superficial femoral, and popliteal veins are patent and normally compressible bilaterally. The greater saphenous vein and the profunda femoris vein at the junction w ith the common femoral vein are clear in both legs. The visualized calf veins are patent bilaterally. IMPRESSION: There is no sonographic evidence of deep venous thrombosis identified in the right or lef t lower extremity. ACT 112: Negative or not required by law. Electronically signed by: Ivan Gillespie M.D. 06/20/2023 6:33 AM
--- NOTE | 2023-06-20 07:19 | XRay Report ---
KUB CLINICAL HISTORY: Small bowel obstruction. FINDINGS: AP, portable, supine abdominal radiograph is compared to study performed earlier the same d ate 06/20/2023 and correlated with abdominal CT dated 06/19/2023. The tip of an enteric tube projects o tigre the stomach. There is gaseous distention of the small bowel loops which measure up to 5 cm. This indicates persistent obstruction. Tiny foci of intraperitoneal free air seen by CT are not appreciate d on x-ray. The bladder is filled with excreted IV contrast. Surgical clips project over the right ab domen. The skeletal structures are osteopenic and appear intact. There is lumbosacral spondylosis. IMPRESSION: 1. Persistent high-grade small bowel obstruction. 2. Tiny foci of intraperitoneal free air seen by CT are not appreciated on x-ray. Electronically signed by: Ivan Gillespie M.D. 06/20/2023 7:17 AM
--- NOTE | 2023-06-20 07:20 | XRay Report ---
KUB CLINICAL HISTORY: Enteric tube placement. Small bowel obstruction. FINDINGS: AP, portable, supine view of the lower chest and upper abdomen is correlated with abdominal CT dated 06/19/2023. An enteric tube is in place. The tip projects below the diaphragm over the gastr ic fundus. There is gaseous distention of the small bowel loops which measure up to 5 cm. This indica nilda persistent obstruction. Tiny foci of intraperitoneal free air seen by CT are not appreciated on x -ray. Surgical clips project over the right upper abdomen. The skeletal structures are osteopenic and appear intact. There is lumbosacral spondylosis. The heart is enlarged. Bibasilar opacities likely r epresent atelectasis and pleural effusions. IMPRESSION: 1. An enteric tube has been placed as above. 2. Persistent small bowel obstruction. Electronically signed by: Ivan Gillespie M.D. 06/20/2023 7:19 AM
[2023-06-20] MEDS: ALBUT/IPRATROP 3MG/0.5MG NEB 3 ML VIAL NEB SCH ×6 (07:25→23:55)
[2023-06-20] MEDS ORDERED: methylPREDNISolone 80 MG in SYRINGE 0 ML IV SCH (08:00)
--- NOTE | 2023-06-20 08:30 | Critical Care Progress Note ---
Date of Service June 20, 2023 Assessment & Plan (1) Sepsis: (2) Hematuria: (3) Perforated appendix: (4) Chronic obstructive pulmonary disease: (5) Acute hypoxic respiratory failure: (6) Pulmonary embolism: (7) Prostate cancer: (8) Hyperlipidemia: Plan Impression: 73-year-old male with recent diagnosis of prostate cancer now presents to the ICU with perforated appendix, sepsis, small bowel obstruction, and bilateral subsegmental pulmonary embolisms with associated hypoxia. Neuro - Encephalopathy (mild)resolved Likely from underlying sepsis Cardiac - 2D echo 07/29/2022: EF 60-65%, moderate MR, severe LA enlargement, grade 1 diastolic dysfunction HLDcontinue statin Respiratory - Acute hypoxic respiratory failurepatient with history of asthma (is apparently noncompliant with home nebs) -Active wheezing on presentation -Hypoxia likely multifactoral with has significant abdominal distention given small bowel obstruction -Continue with supplemental oxygen support -Continue with LABA/ICS GI - Small bowel obstruction currently undergoing decompression with NG tube and bowel rest. Remains NPO. Surgery following Pain control Perforated appendix Surgery on board RENAL/LYTES - -- XAVIER no prior history of renal disease with creatinine 2.29 with prior baseline of 1.14 -Likely from sepsis and decreased volume -Avoid nephrotoxic medication -Monitor BUNs/creatinine - -- Hematuria Likely from traumatic in the perception of the Stearns Heparin drip also played a part, heparin drip has been discontinued since There are clots in the catheter. Urology has been consulted ENDO - No history of diabetes or thyroid disease, ICU hyperglycemic protocol HEME - Monitor H&H ID - Sepsislikely intra-abdominal source given perforated appendix. -Bio fire negative, procalcitonin 48 -Blood cultures pending -Continue with Zosyn, DC vancomycin --Prophylaxis VTE: IPC GI: None Lines: Peripheral Diet: N.p.o. Plan: In/out: +1.5 L, urine output 1 L DC vancomycin. CTA chest did not show any clear pulmonary emboli it was most likely motion jerome fact. Doppler bilateral lower extremity negative. Unlikely for patient to have PE We will discontinue heparin drip Urology has been consulted for persistent hematuria and clot Decrease Solu-Medrol to 40 mg daily Case discussed with urology and surgery I have personally spent 38 minutes of critical care time in the direct management of this patient. This is a life/limb threatening event. This includes time spent evaluating patient, direct bedside care, chart review, placing orders, interpretation of diagnostic studies, discussion with consultants, patient, and family members, as well as other required patient management activities. This time is exclusive of all separately billable procedures, and teaching time and separate from and in addition to any other critical care service time. Please note the above document was generated using voice recognition software. It may contain grammatical, syntax or spelling errors. Admission and Anticipated Discharge Date Admission Date: June 20, 2023 Subjective Patient seen and examined at bedside. No acute distress. He was on 5 L saturating 92%. Does comment waning of abdominal discomfort. No flatulence for couple of days. Heparin drip has been on hold Denies any nausea or vomiting No chest pain No shortness of breath right now Review of Systems Review of Systems: All systems reviewed & are unremarkable except as noted in Subjective Physical Exam Physical Exam: Constitutional: No acute distress HEENT: EOMI, PERRLA Respiratory system: Dereased air entry bilaterally, no wheeze, no rhonchi, positive crackles bilateral lower lobes CVS: S1-S2 positive, no murmurs or gallops Abdomen: Soft, nontender, nondistended, positive bowel sounds x4 Extremities: +2 pulses bilaterally radialis/ dorsalis pedis, no cyanosis, no edema Neuro: Awake alert oriented x3 Psych: Normal mood and affect G/U: Positive Stearns Skin: no rashes, warm and dry Lymphatic: no cervical or axillary lymphadenopathy Results & Data Results & Data Vital Signs (Past 12 Hours) Vital Signs Temp Pulse Pulse Resp BP BP Pulse Ox 06/20/23 07:52 108 H 22 94 06/20/23 06:00 37.7 C H 31 H 133/99 91 06/20/23 05:00 37.7 C H 30 H 128/90 91 06/20/23 06:30 37.7 C H 105 H 31 H 91 06/20/23 06:00 36.0 C L 107 H 32 H 90 06/20/23 06:00 133/99 06/20/23 05:30 37.7 C H 106 H 30 H 91 06/20/23 05:30 128/90 06/20/23 02:50 06/20/23 05:01 152/95 H 06/20/23 05:01 37.3 C 109 H 29 H 91 06/20/23 05:00 37.2 C 115 H 35 H 93 06/20/23 04:30 37.7 C H 108 H 34 H 91 06/20/23 04:08 37.7 C H 109 H 33 H 94 06/20/23 04:00 37.3 C 29 H 130/90 93 06/20/23 03:20 06/20/23 03:44 107 H 06/20/23 03:20 37.3 C 29 H 137/106 H 93 06/20/23 02:40 108 H 32 H 95 06/20/23 02:30 109 H 31 H 94 06/20/23 02:20 111 H 32 H 91 06/20/23 02:10 110 H 28 H 94 06/20/23 02:00 116 H 33 H 94 06/20/23 01:50 109 H 32 H 95 06/20/23 01:40 114 H 27 H 06/20/23 01:39 112 H 33 H 96 06/20/23 01:39 130/89 06/20/23 01:33 113 H 34 H 94 06/20/23 01:20 115 H 31 H 06/20/23 01:10 116 H 33 H 93 06/20/23 01:01 117 H 33 H 93 06/20/23 01:01 136/108 H 06/20/23 01:00 115 H 32 H 92 06/20/23 00:50 113 H 32 H 93 06/20/23 00:42 119 H 34 H 91 06/20/23 00:42 138/102 H 06/20/23 00:40 121 H 24 06/20/23 00:20 115 H 35 H 93 06/20/23 00:10 113 H 35 H 97 06/20/23 00:00 96 06/19/23 23:50 90 06/19/23 23:45 93 06/20/23 02:45 06/19/23 23:30 112 H 38 H 91 06/19/23 23:30 127/97 06/19/23 23:20 113 H 30 H 91 06/19/23 23:10 112 H 35 H 92 06/19/23 23:00 116 H 37 H 92 06/19/23 23:00 125/93 06/19/23 22:50 112 H 35 H 92 06/19/23 22:40 114 H 36 H 92 06/19/23 22:30 110 H 36 H 94 06/19/23 22:30 124/95 06/19/23 22:20 112 H 33 H 93 06/19/23 22:16 143/98 H 06/19/23 22:16 113 H 41 H 91 06/19/23 22:10 111 H 37 H 92 06/19/23 22:00 113 H 33 H 92 06/19/23 21:50 115 H 29 H 92 06/19/23 21:40 116 H 24 92 06/19/23 21:30 118 H 42 H 92 06/19/23 21:30 125/95 06/19/23 21:25 117 H 38 H 92 06/19/23 21:44 92 06/19/23 21:34 90 06/19/23 21:24 119 H 06/19/23 21:15 36.5 C 125 H 32 H 131/84 93 O2 Del Method O2 Flow Rate 06/20/23 07:52 Nasal Cannula 6 06/20/23 06:00 High Flow Nasal Cannula 6 06/20/23 05:00 High Flow Nasal Cannula 6 06/20/23 06:30 06/20/23 06:00 06/20/23 06:00 06/20/23 05:30 06/20/23 05:30 06/20/23 02:50 Nasal Cannula 6 06/20/23 05:01 06/20/23 05:01 06/20/23 05:00 06/20/23 04:30 06/20/23 04:08 06/20/23 04:00 High Flow Nasal Cannula 6 06/20/23 03:20 High Flow Nasal Cannula 6 06/20/23 03:44 06/20/23 03:20 High Flow Nasal Cannula 6 06/20/23 02:40 06/20/23 02:30 06/20/23 02:20 06/20/23 02:10 06/20/23 02:00 06/20/23 01:50 06/20/23 01:40 06/20/23 01:39 06/20/23 01:39 06/20/23 01:33 06/20/23 01:20 06/20/23 01:10 06/20/23 01:01 06/20/23 01:01 06/20/23 01:00 06/20/23 00:50 06/20/23 00:42 06/20/23 00:42 06/20/23 00:40 06/20/23 00:20 06/20/23 00:10 06/20/23 00:00 Nasal Cannula 6 06/19/23 23:50 06/19/23 23:45 06/20/23 02:45 Nasal Cannula 06/19/23 23:30 06/19/23 23:30 06/19/23 23:20 06/19/23 23:10 06/19/23 23:00 06/19/23 23:00 06/19/23 22:50 06/19/23 22:40 06/19/23 22:30 06/19/23 22:30 06/19/23 22:20 06/19/23 22:16 06/19/23 22:16 06/19/23 22:10 06/19/23 22:00 06/19/23 21:50 06/19/23 21:40 06/19/23 21:30 06/19/23 21:30 06/19/23 21:25 Nasal Cannula 2 06/19/23 21:44 Nasal Cannula 2 06/19/23 21:34 Nasal Cannula 0 06/19/23 21:24 06/19/23 21:15 Room Air Laboratory Results 06/19/23 21:30 06/19/23 21:30 Coding Level of Care Code 99164 CRITICAL CARE 1ST 30-74M Diagnoses Sepsis A41.9 Hematuria R31.9 Perforated appendix K35.32 Chronic obstructive pulmonary disease J44.9 Acute hypoxic respiratory failure J96.01 Pulmonary embolism I26.99 Prostate cancer C61 Hyperlipidemia E78.5
[2023-06-20 08:49] LABS: Basophils # (auto) 0.03 K/uL (0.00-0.20); Basophils % (auto) 0.2 %; Hemoglobin 12.3 g/dl (14.0-18.0); Immature Granulocytes # (auto) 0.03 K/uL (0.01-0.20); Immature Granulocytes % (auto) 0.2 %; Lymphocytes # (auto) 0.86 K/uL (1.20-3.40); Lymphocytes % (auto) 5.2 %; Mean Corpuscular Hemoglobin 30.3 pg (25.0-34.0); Mean Corpuscular Hgb Conc 33.2 g/dL (32.0-36.0); Mean Corpuscular Volume 91.1 fL (80.0-100.0); Mean Platelet Volume 10.6 fL (9.4-12.4); Monocytes # (auto) 0.75 K/uL (0.11-0.59); Monocytes % (auto) 4.6 %; Neutrophils # (auto) 14.78 K/uL (1.40-6.50); Neutrophils % (auto) 89.8 %; Platelet Count 195 K/uL (130-400); RDW Coefficient of Variation 14.8 % (11.5-14.5); RDW Standard Deviation 49.9 fL (36.4-46.3); Red Blood Count 4.06 M/uL (4.70-6.10); White Blood Count 16.45 K/ul (4.8-10.8)
[2023-06-20] MEDS: ICU Protocol for HYPERglycemia SCH ×4 (08:52→23:07)
[2023-06-20] MEDS: VENLAFAXINE HCL XR 150 MG CAPXR PO SCH (08:53)
[2023-06-20] MEDS: ATORVASTATIN 40 MG TAB PO SCH (08:53)
[2023-06-20] MEDS: TAMSULOSIN HCL 0.4 MG CAP PO SCH (08:53)
[2023-06-20] MEDS ORDERED: FLUTICASONE/VILANTEROL 100/25MCG 14 PUFFS/INHALER INH SCH (09:00)
[2023-06-20 09:02] LABS: Albumin Globulin Ratio 1.3 (0.9-2); Albumin Level 3.9 gm/dl (3.4-5.0); BUN Creatinine Ratio 20.7 (10-20); Bilirubin,Total 1.5 mg/dl (0.2-1.0); Calcium 8.3 mg/dl (8.6-10.3); Creatinine Clr Calc Pharmacy 37.9 ml/min; Est GFR (African American) 39.6 ml/min; Est GFR (Non-African American) 34.2 ml/min; Globulin 3.1 gm/dl (2.5-4.0); Magnesium 2.2 mg/dl (1.7-2.4); Phosphorus 2.9 mg/dl (2.5-4.9); Potassium 4.5 mmol/L (3.5-5.1)
[2023-06-20 09:29] LABS: Partial Thromboplastin Ratio 2.3
[2023-06-20] MEDS: MoRPHine SULFATE 2 MG/ML CARP IV PRN (09:32)
[2023-06-20 09:39] LABS: Partial Thromboplastin Time 63.9 Seconds (21.0-31.0)
--- NOTE | 2023-06-20 10:00 | Urology Consultation ---
Date of Consultation June 20, 2023 Assessment & Plan (1) Gross hematuria: Plan 73-year-old male with a history of prostate cancer who is currently admitted to the ICU due to sepsis and a perforated appendix. Stearns catheter was placed last night he developed gross hematuria. Procedure: This was deemed emergent so consent was waived as the patient was in acute retention. I attempted to irrigate through the 16 Fijian temperature sensing Stearns but was unable to get any fluid through so I opted to deflate the balloon and remove the catheter. Patient was prepped and draped in a sterile fashion and I attempted to advance a 24 Fijian three-way hematuria catheter and met significant resistance at the level of the prostate. I suspect his Stearns catheter balloon had been inflated in the prostate before. I removed the catheter. I advanced a 5 Fijian open-ended catheter and was able to get this into the bladder with return of urine. A Super Stiff wire was advanced through the catheter and then removed. I then attempted to sequentially place a 24, 22 and 20 Fijian catheter over the wire but met resistance at the prostate. Unclear if he has a stricture or if this is a false passage. I then opted to dilate him with S dilators from 8-20 Fijian without difficulty. I then again attempted to place a 20 Fijian, 18 Fijian and 16 Fijian catheter without success. At this point I was concerned that I would need to take him to the OR so I removed the Super Stiff wire. The wire had coiled somewhat and was difficult to remove and on further inspection I suspect this may have been why I could not get a catheter over it. I then simply attempted to place a 14 Fijian coud catheter without a wire and was able to get into the bladder. I irrigated this and there was minor urine. The balloon was inflated with 10 cc of sterile water and again irrigated without significant clot. I sent this to gravity drainage. Monitor output via catheter right now. If bleeding was mainly from the prostate, this will likely tamponade off with the catheter and the fact that he is off his heparin drip now. If he does go to the OR with general surgery and there is any issues with the catheter I certainly could come in and perform a cystoscopy and try to get a bigger catheter in place. Maintain Stearns catheter. Do not remove. We will monitor urine output. It sounds as if general surgery may be taking him if there is any concern I can come in intraoperatively and evaluate further. Urology to follow Greater than 75 minutes was spent providing care to this patient Update: Went back and saw patient and catheter was draining thin red urine with no clots. Does not need any further intervention at this time. History of Present Illness Attending Physician: Ysabel Green MD History of Present Illness 73-year-old male who is known to the urologic service as he follows with Dr. Poon and has a history of prostate cancer. He presented to the hospital last night with tachypnea and tachycardia and a leukocytosis of 18. A CT scan was performed which showed perforated appendicitis with a periappendiceal abscess. CT scan of the chest initially called PEs and he was started on a heparin drip but this was addended and reported no PE and heparin drip was stopped. He had a catheter placed in the emergency department. He was noted to have gross hematuria today and urology was consulted. It sounds as if the catheter was somewhat difficult to place. Allergies Allergy/AdvReac Type Severity Reaction Status Date / Time No Known Allergies Allergy Verified 06/20/23 09:31 Home Medications Medication Instructions Recorded Confirmed Type multivitamin,tx-minerals 1 cap PO QDL 03/14/19 06/20/23 History (Multi-Vitamin HP/Minerals capsule) vitamins A,C,G-ujkm-nrsxrm 2,148 1 tab PO QDL 03/14/19 06/20/23 History mcg-113 mg-45 mg-17.4 mg tablet (PreserVision AREDS) inhalational spacing device #1 ea 06/17/21 06/18/23 Rx (Aerochamber Plus Z Stat spacer) Symbicort 80 mcg-4.5 mcg/actuation 2 puff inhalation BID #10.2 grams 06/24/22 06/20/23 Rx HFA aerosol inhaler (budesonide-formoterol) magnesium oxide 400 mg PO DAILY 12/09/22 06/20/23 History venlafaxine 150 mg 150 mg PO DAILY #90 caps 03/26/23 06/20/23 Rx capsule,extended release 24 hr atorvastatin 40 mg tablet 40 mg PO HS 06/20/23 06/20/23 History ferrous sulfate 325 mg (65 mg 325 mg PO QAM 06/20/23 06/20/23 History iron) tablet,delayed release Patient History Medical History Anemia recently in hospital and Dr. Omer aware Anxiety Asthma Borderline hypertension Chronic obstructive pulmonary disease Chronic sinusitis Closed head injury hx of rock hit head and need stitches Diverticulosis Elevated troponin I level Fall hx of a long time ago Hyperlipidemia Iron deficiency Macular degeneration of both eyes Mitral valve prolapse folllow with dr oh Osteoarthritis Pneumoconiosis Sleep apnea Troponin level elevated Surgical History History of abdominal hernia History of cataract surgery RIGHT/left History of colonoscopy History of ERCP History of esophagogastroduodenoscopy (EGD) History of prostate biopsy (04/22/23) History of tonsillectomy and adenoidectomy Hx of vasectomy S/P pericardial window creation 8 YEARS AGO 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 Brother No problems noted. Son No problems noted. Daughter No problems noted. Denies family history of Ovarian cancer Breast cancer Colorectal cancer Social History Smoking Status: Former smoker Tobacco Type: Smokeless Tobacco (Dip or Chew) Age Started Using Tobacco: 16; Age Quit Using Tobacco: 26; Second Hand Exposure: No; Do You Dip or Chew Tobacco: Yes; Hx Alcohol Use: Yes Alcohol type: beer Hx Substance Use: No Preferred Language: Divehi Communication Ability: Effective Communication Ability Comment: HARD OF HEARING Visual Impairment: No Limitations Hearing Ability: Use of Hearing Aid Foam Rubber Mixer Required: No Beliefs That Will Affect Care: None marital status: Current Living Situation: Family current occupational status: retired 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 How many Children do You have: 2 Feels Safe at Home: Yes Childhood Exposure to Second-Hand Smoke: Yes Diet: regular caffeine: Yes (coffee) during the past year weight has: remained stable Dental Care, Regularly: No Physical Activity Frequency: Does not Exercise Physical Activity Frequency Comment: due to physical condition Seatbelt Use: always Sunscreen Use: No Assistive Devices: Cane Review of Systems Review of Systems: 14 point review of systems negative outside of what is listed above in HPI Physical Exam Physical Exam: General: Alert and oriented, no acute distress HEENT: Normocephalic, mucous membranes moist Pulmonary: Nonlabored respirations Abdomen: Nondistended : Circumcised phallus with orthotopic meatus Extremities: Moves all 4 spontaneously Neuro: No gross deficits Skin: Warm, dry, no rashes noted Results & Data Vital Signs (Past 12 Hours) Vital Signs Temp Pulse Pulse Resp BP BP Pulse Ox 06/20/23 09:00 37.5 C 106 H 29 H 91 06/20/23 09:00 127/89 06/20/23 08:30 132/81 06/20/23 08:30 37.7 C H 106 H 30 H 88 L 06/20/23 08:00 37.7 C H 106 H 30 H 91 06/20/23 08:00 122/96 06/20/23 07:01 179/122 H 06/20/23 07:00 37.7 C H 110 H 28 H 89 L 06/20/23 08:00 113 H 06/20/23 07:52 108 H 22 94 06/20/23 07:48 06/20/23 06:00 37.7 C H 31 H 133/99 91 06/20/23 05:00 37.7 C H 30 H 128/90 91 06/20/23 06:30 37.7 C H 105 H 31 H 91 06/20/23 06:00 36.0 C L 107 H 32 H 90 06/20/23 06:00 133/99 06/20/23 05:30 37.7 C H 106 H 30 H 91 06/20/23 05:30 128/90 06/20/23 02:50 06/20/23 05:01 152/95 H 06/20/23 05:01 37.3 C 109 H 29 H 91 06/20/23 05:00 37.2 C 115 H 35 H 93 06/20/23 04:30 37.7 C H 108 H 34 H 91 06/20/23 04:08 37.7 C H 109 H 33 H 94 06/20/23 04:00 37.3 C 29 H 130/90 93 06/20/23 03:20 06/20/23 03:44 107 H 06/20/23 03:20 37.3 C 29 H 137/106 H 93 06/20/23 02:40 108 H 32 H 95 06/20/23 02:30 109 H 31 H 94 06/20/23 02:20 111 H 32 H 91 06/20/23 02:10 110 H 28 H 94 06/20/23 02:00 116 H 33 H 94 06/20/23 01:50 109 H 32 H 95 06/20/23 01:40 114 H 27 H 06/20/23 01:39 112 H 33 H 96 06/20/23 01:39 130/89 06/20/23 01:33 113 H 34 H 94 06/20/23 01:20 115 H 31 H 06/20/23 01:10 116 H 33 H 93 06/20/23 01:01 117 H 33 H 93 06/20/23 01:01 136/108 H 06/20/23 01:00 115 H 32 H 92 06/20/23 00:50 113 H 32 H 93 06/20/23 00:42 119 H 34 H 91 06/20/23 00:42 138/102 H 06/20/23 00:40 121 H 24 06/20/23 00:20 115 H 35 H 93 06/20/23 00:10 113 H 35 H 97 06/20/23 00:00 96 06/19/23 23:50 90 06/19/23 23:45 93 06/20/23 02:45 06/19/23 23:30 112 H 38 H 91 06/19/23 23:30 127/97 06/19/23 23:20 113 H 30 H 91 06/19/23 23:10 112 H 35 H 92 06/19/23 23:00 116 H 37 H 92 06/19/23 23:00 125/93 06/19/23 22:50 112 H 35 H 92 06/19/23 22:40 114 H 36 H 92 06/19/23 22:30 110 H 36 H 94 06/19/23 22:30 124/95 06/19/23 22:20 112 H 33 H 93 06/19/23 22:16 143/98 H 06/19/23 22:16 113 H 41 H 91 06/19/23 22:10 111 H 37 H 92 O2 Del Method O2 Flow Rate 06/20/23 09:00 06/20/23 09:00 06/20/23 08:30 06/20/23 08:30 06/20/23 08:00 06/20/23 08:00 06/20/23 07:01 06/20/23 07:00 06/20/23 08:00 06/20/23 07:52 Nasal Cannula 6 06/20/23 07:48 Oxymask 5 06/20/23 06:00 High Flow Nasal Cannula 6 06/20/23 05:00 High Flow Nasal Cannula 6 06/20/23 06:30 06/20/23 06:00 06/20/23 06:00 06/20/23 05:30 06/20/23 05:30 06/20/23 02:50 Nasal Cannula 6 06/20/23 05:01 06/20/23 05:01 06/20/23 05:00 06/20/23 04:30 06/20/23 04:08 06/20/23 04:00 High Flow Nasal Cannula 6 06/20/23 03:20 High Flow Nasal Cannula 6 06/20/23 03:44 06/20/23 03:20 High Flow Nasal Cannula 6 06/20/23 02:40 06/20/23 02:30 06/20/23 02:20 06/20/23 02:10 06/20/23 02:00 06/20/23 01:50 06/20/23 01:40 06/20/23 01:39 06/20/23 01:39 06/20/23 01:33 06/20/23 01:20 06/20/23 01:10 06/20/23 01:01 06/20/23 01:01 06/20/23 01:00 06/20/23 00:50 06/20/23 00:42 06/20/23 00:42 06/20/23 00:40 06/20/23 00:20 06/20/23 00:10 06/20/23 00:00 Nasal Cannula 6 06/19/23 23:50 06/19/23 23:45 06/20/23 02:45 Nasal Cannula 06/19/23 23:30 06/19/23 23:30 06/19/23 23:20 06/19/23 23:10 06/19/23 23:00 06/19/23 23:00 06/19/23 22:50 06/19/23 22:40 06/19/23 22:30 06/19/23 22:30 06/19/23 22:20 06/19/23 22:16 06/19/23 22:16 06/19/23 22:10 PG Care Time/CCT Total # of Minutes Spent Total Time Spent with Patient: Total time spent is greater than 50% in coordination of care (as documented) at patient's floor/unit and/or counseling patient: Coding Level of Care Code 14995 INT INP/OBS CARE 3/75MIN Diagnoses Gross hematuria R31.0
--- NOTE | 2023-06-20 10:15 | Cardiology Consultation ---
Date of Consultation June 20, 2023 Assessment & Plan (1) Coronary artery calcification: -noted on a recent PET scan. -the patient has never experienced exertional angina pectoris. -EKG shows no acute changes. -echocardiogram shows normal left ventricular systolic function without w all motion abnormalities. -high sensitivity troponin is normal in the face of a severe illness. -BNP is normal. -favorable cardiac status. (2) Mitral valve prolapse: -posterior mitral leaflet prolapse. -mild mitral regurgitation. -stable compared with a study done in July 2022. (3) Preop cardiovascular exam: -acceptable cardiac risk for surgery if necessary. History of Present Illness Attending Physician: Ysabel Green MD History of Present Illness Mr. Salmeron is a 73 year old male admitted yesterday with respiratory distress, a perforated appendix, small bowel obstruction. This consultation was ordered to assist in his cardiac management. Patient was in his usual state of health until approximately 3 days prior to presentation. According to his , he was weak and lethargic complaining of intermittent right lower quadrant pain. Because of progressive symptoms, he presented to the emergency room for further care. Initial interpretation of the chest abdominal CT scan suggested a perforated appendix, small-bowel obstruction, and bilateral lower lobe pulmonary emboli. He was started on intravenous heparin, however, this can was reread by Dr. Javid manzanares this morning. He felt there was no evidence of pulmonary emboli and the heparin drip was discontinued. The patient was scheduled to meet with Dr. Stone for consultation later this month. As part of his workup for newly diagnosed prostate carcinoma, the patient had a PET scan performed on May 20. This noted evidence of moderate to severe coronary calcifications. The patient has never experienced exertional angina pectoris. He did note a chest pain syndrome associated with frequent coughing. Currently, patient is resting in bed in no acute distress. Past medical and surgical history 1. Hypertension 2. Hypercholesterolemia 3. Mitral valve prolapse 4. Moderate mitral regurgitation 5. Mild LVH 6. COPD 7. Obstructive sleep apnea 8. Prostate carcinoma 9. Diverticulosis 10. DJD 11. History pericardial window 12. Tonsillectomy 13. Abdominal hernia repair 14. Bilateral intra-ocular lens implants 15. 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 Allergies Allergy/AdvReac Type Severity Reaction Status Date / Time No Known Allergies Allergy Verified 06/20/23 09:31 Home Medications Medication Instructions Recorded Confirmed Type multivitamin,tx-minerals 1 cap PO QDL 03/14/19 06/20/23 History (Multi-Vitamin HP/Minerals capsule) vitamins A,C,E-watm-vyigbr 2,148 1 tab PO QDL 03/14/19 06/20/23 History mcg-113 mg-45 mg-17.4 mg tablet (PreserVision AREDS) inhalational spacing device #1 ea 06/17/21 06/18/23 Rx (Aerochamber Plus Z Stat spacer) Symbicort 80 mcg-4.5 mcg/actuation 2 puff inhalation BID #10.2 grams 06/24/22 06/20/23 Rx HFA aerosol inhaler (budesonide-formoterol) magnesium oxide 400 mg PO DAILY 12/09/22 06/20/23 History venlafaxine 150 mg 150 mg PO DAILY #90 caps 03/26/23 06/20/23 Rx capsule,extended release 24 hr atorvastatin 40 mg tablet 40 mg PO HS 06/20/23 06/20/23 History ferrous sulfate 325 mg (65 mg 325 mg PO QAM 06/20/23 06/20/23 History iron) tablet,delayed release Patient History Medical History (Updated 06/20/23 @ 10:15 by Leo Bashir MD) Anemia recently in hospital and Dr. Omer aware Anxiety Asthma Borderline hypertension Chronic obstructive pulmonary disease Chronic sinusitis Closed head injury hx of rock hit head and need stitches Diverticulosis Elevated troponin I level Fall hx of a long time ago Hyperlipidemia Iron deficiency Macular degeneration of both eyes Mitral valve prolapse folllow with dr oh Osteoarthritis Pneumoconiosis Sleep apnea Troponin level elevated Surgical History History of abdominal hernia History of cataract surgery RIGHT/left History of colonoscopy History of ERCP History of esophagogastroduodenoscopy (EGD) History of prostate biopsy (04/22/23) History of tonsillectomy and adenoidectomy Hx of vasectomy S/P pericardial window creation 8 YEARS AGO 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 Brother No problems noted. Son No problems noted. Daughter No problems noted. Denies family history of Ovarian cancer Breast cancer Colorectal cancer Social History Smoking Status: Former smoker Tobacco Type: Smokeless Tobacco (Dip or Chew) Age Started Using Tobacco: 16; Age Quit Using Tobacco: 26; Second Hand Exposure: No; Do You Dip or Chew Tobacco: Yes; Hx Alcohol Use: Yes Alcohol type: beer Hx Substance Use: No Preferred Language: Dutch Communication Ability: Effective Communication Ability Comment: HARD OF HEARING Visual Impairment: No Limitations Hearing Ability: Use of Hearing Aid Manager Transportation Required: No Beliefs That Will Affect Care: None marital status: Current Living Situation: Family current occupational status: retired current occupation: [employer] How many Children do You have: 2 Feels Safe at Home: Yes Childhood Exposure to Second-Hand Smoke: Yes Diet: regular caffeine: Yes (coffee) during the past year weight has: remained stable Dental Care, Regularly: No Physical Activity Frequency: Does not Exercise Physical Activity Frequency Comment: due to physical condition Seatbelt Use: always Sunscreen Use: No Assistive Devices: Cane Physical Exam Physical Exam: In general is well-developed well-nourished white male in no acute distress. HEENT exam is negative. Neck is supple with full carotid upstrokes. No obvious bruits. Jugular venous pressure is difficult to assess. Cardiovascular exam reveals a regular rhythm with distant heart sounds. No obvious murmurs. No S3. Lungs are clear anteriorly. Abdomen is firm. Extremities reveal intact radial artery pulses bilaterally. There is no peripheral edema. Results & Data Vital Signs (Past 12 Hours) Vital Signs Temp Pulse Pulse Resp BP BP Pulse Ox 06/20/23 09:00 37.5 C 106 H 29 H 91 06/20/23 09:00 127/89 06/20/23 08:30 132/81 06/20/23 08:30 37.7 C H 106 H 30 H 88 L 06/20/23 08:00 37.7 C H 106 H 30 H 91 06/20/23 08:00 122/96 06/20/23 07:01 179/122 H 06/20/23 07:00 37.7 C H 110 H 28 H 89 L 06/20/23 08:00 113 H 06/20/23 07:52 108 H 22 94 06/20/23 07:48 06/20/23 06:00 37.7 C H 31 H 133/99 91 06/20/23 05:00 37.7 C H 30 H 128/90 91 06/20/23 06:30 37.7 C H 105 H 31 H 91 06/20/23 06:00 36.0 C L 107 H 32 H 90 06/20/23 06:00 133/99 06/20/23 05:30 37.7 C H 106 H 30 H 91 06/20/23 05:30 128/90 06/20/23 02:50 06/20/23 05:01 152/95 H 06/20/23 05:01 37.3 C 109 H 29 H 91 06/20/23 05:00 37.2 C 115 H 35 H 93 06/20/23 04:30 37.7 C H 108 H 34 H 91 06/20/23 04:08 37.7 C H 109 H 33 H 94 06/20/23 04:00 37.3 C 29 H 130/90 93 06/20/23 03:20 06/20/23 03:44 107 H 06/20/23 03:20 37.3 C 29 H 137/106 H 93 06/20/23 02:40 108 H 32 H 95 06/20/23 02:30 109 H 31 H 94 06/20/23 02:20 111 H 32 H 91 06/20/23 02:10 110 H 28 H 94 06/20/23 02:00 116 H 33 H 94 06/20/23 01:50 109 H 32 H 95 06/20/23 01:40 114 H 27 H 06/20/23 01:39 112 H 33 H 96 06/20/23 01:39 130/89 06/20/23 01:33 113 H 34 H 94 06/20/23 01:20 115 H 31 H 06/20/23 01:10 116 H 33 H 93 06/20/23 01:01 117 H 33 H 93 06/20/23 01:01 136/108 H 06/20/23 01:00 115 H 32 H 92 06/20/23 00:50 113 H 32 H 93 06/20/23 00:42 119 H 34 H 91 06/20/23 00:42 138/102 H 06/20/23 00:40 121 H 24 06/20/23 00:20 115 H 35 H 93 06/20/23 00:10 113 H 35 H 97 06/20/23 00:00 96 06/19/23 23:50 90 06/19/23 23:45 93 06/20/23 02:45 06/19/23 23:30 112 H 38 H 91 06/19/23 23:30 127/97 06/19/23 23:20 113 H 30 H 91 06/19/23 23:10 112 H 35 H 92 06/19/23 23:00 116 H 37 H 92 06/19/23 23:00 125/93 06/19/23 22:50 112 H 35 H 92 06/19/23 22:40 114 H 36 H 92 06/19/23 22:30 110 H 36 H 94 06/19/23 22:30 124/95 06/19/23 22:20 112 H 33 H 93 06/19/23 22:16 143/98 H 06/19/23 22:16 113 H 41 H 91 O2 Del Method O2 Flow Rate 06/20/23 09:00 06/20/23 09:00 06/20/23 08:30 06/20/23 08:30 06/20/23 08:00 06/20/23 08:00 06/20/23 07:01 06/20/23 07:00 06/20/23 08:00 06/20/23 07:52 Nasal Cannula 6 06/20/23 07:48 Oxymask 5 06/20/23 06:00 High Flow Nasal Cannula 6 06/20/23 05:00 High Flow Nasal Cannula 6 06/20/23 06:30 06/20/23 06:00 06/20/23 06:00 06/20/23 05:30 06/20/23 05:30 06/20/23 02:50 Nasal Cannula 6 06/20/23 05:01 06/20/23 05:01 06/20/23 05:00 06/20/23 04:30 06/20/23 04:08 06/20/23 04:00 High Flow Nasal Cannula 6 06/20/23 03:20 High Flow Nasal Cannula 6 06/20/23 03:44 06/20/23 03:20 High Flow Nasal Cannula 6 06/20/23 02:40 06/20/23 02:30 06/20/23 02:20 06/20/23 02:10 06/20/23 02:00 06/20/23 01:50 06/20/23 01:40 06/20/23 01:39 06/20/23 01:39 06/20/23 01:33 06/20/23 01:20 06/20/23 01:10 06/20/23 01:01 06/20/23 01:01 06/20/23 01:00 06/20/23 00:50 06/20/23 00:42 06/20/23 00:42 06/20/23 00:40 06/20/23 00:20 06/20/23 00:10 06/20/23 00:00 Nasal Cannula 6 06/19/23 23:50 06/19/23 23:45 06/20/23 02:45 Nasal Cannula 06/19/23 23:30 06/19/23 23:30 06/19/23 23:20 06/19/23 23:10 06/19/23 23:00 06/19/23 23:00 06/19/23 22:50 06/19/23 22:40 06/19/23 22:30 06/19/23 22:30 06/19/23 22:20 06/19/23 22:16 06/19/23 22:16 Laboratory Results CBC notes hemoglobin 12.3, hematocrit 37.0, white count 16.4, and platelet count of [id number]. Electrolytes note a sodium of 132, potassium 4.7, chloride 99, bicarb 20, BUN 32, creatinine 2.29, glucose of 147. High sensitivity troponin is normal at 18.7. BNP is normal at 79. Diagnostic Findings Echocardiogram interpreted at the bedside notes normal left ventricular systolic function with ejection fraction of 60-65%. There were no wall motion abnormalities. There is mild left ventricular hypertrophy and evidence of posterior mitral leaflet prolapse and [id number] mitral regurgitation. EKG notes sinus tachycardia and left ventricular hypertrophy by voltage criteria. PG Care Time/CCT Total # of Minutes Spent Total Time Spent with Patient: Total time spent is greater than 50% in coordination of care (as documented) at patient's floor/unit and/or counseling patient: Coding Level of Care Code 09524 INT INP/OBS CARE MIN Diagnoses Coronary artery calcification I25.10; I25.84 Mitral valve prolapse I34.1 Preop cardiovascular exam Z01.810
[2023-06-20 10:21] LABS: Appearance Urine Turbid (Clear); Bilirubin Urine Negative (Negative); Blood Urine 3+ (Negative); Color Urine Red; Glucose Urine UA Trace (Negative); Ketones Urine Negative (Negative); Leukocyte Esterase Urine Negative (Negative); Nitrite Urine Negative (Negative); Protein Urine 3+ (Negative); Specific Gravity Urine 1.025 (1.000-1.030); Urobilinogen Urine Negative (Negative)
[2023-06-20 10:31] LABS: Bacteria Urine 1+ (Negative); RBC Urine >30 /hpf (0-4); WBC Urine >30 /hpf (0-5)
[2023-06-20] MEDS: PIPERACILLIN/TAZOBACTAM 4.5 GM in DEXTROSE 5% MINI-B 100 ML IV SCH ×2 (11:14→17:13)
[2023-06-20] MEDS: PANTOprazole 40 MG in SYRINGE 0 ML IV SCH (11:14)
--- NOTE | 2023-06-20 11:27 | XCELERA ---
[id number] \\[id number]
[2023-06-20] MEDS ORDERED: BUPIVACAINE/EPINEPHRINE 0.5% MPF 1:200,000 10 ML VIAL ONE (11:44)
[2023-06-20] MEDS ORDERED: fentaNYL citrate PF 100 MCG/2 ML VIAL ONE (11:48)
--- NOTE | 2023-06-20 11:52 | Anesthesiology Consultation ---
Date of Service June 20, 2023 Assessment & Plan Chart Review Chart Review: Acceptable Risk for Surgery Consults Requested none ASA [id number] Proposed Anesthesia Risk / Benefits Reviewed With: PT / POA / Parent / Guardian, Accepts Plan and Informed Consent Obtained History Surgery Operation Date: 06/20/23 12:00 Proposed Procedures p Laparoscopic Bowel Resection - Vignesh Zhao DO Height/Weight Height: 5 ft 9 in Weight: 91.4 kg Allergies Allergy/AdvReac Type Severity Reaction Status Date / Time No Known Allergies Allergy Verified 06/20/23 09:31 Medications Home Medications Medication Instructions Recorded Confirmed Last Taken multivitamin,tx-minerals 1 cap PO QDL 03/14/19 06/20/23 06/19/23 (Multi-Vitamin HP/Minerals capsule) vitamins A,C,N-pwlr-smibng 2,148 1 tab PO QDL 03/14/19 06/20/23 06/19/23 mcg-113 mg-45 mg-17.4 mg tablet (PreserVision AREDS) inhalational spacing device #1 ea 06/17/21 06/18/23 Unknown (Aerochamber Plus Z Stat spacer) Symbicort 80 mcg-4.5 mcg/actuation 2 puff inhalation BID #10.2 grams 06/24/22 06/20/23 1 Month Ago HFA aerosol inhaler ~05/21/23 (budesonide-formoterol) magnesium oxide 400 mg PO DAILY 12/09/22 06/20/23 06/19/23 venlafaxine 150 mg 150 mg PO DAILY #90 caps 03/26/23 06/20/23 06/19/23 capsule,extended release 24 hr atorvastatin 40 mg tablet 40 mg PO HS 06/20/23 06/20/23 06/19/23 ferrous sulfate 325 mg (65 mg 325 mg PO QAM 06/20/23 06/20/23 06/19/23 iron) tablet,delayed release Active Medications Generic Name Dose Route Start Last Admin Trade Name Freq PRN Reason Stop Dose Admin Albuterol 3 ml 06/20/23 03:44 06/20/23 07:25 Albut/Ipratrop 3mg/0.5mg Neb 3 Ml Vial NEB 07/20/23 03:43 3 ml Q4R THU Administration Protocol Atorvastatin Calcium 40 mg 06/20/23 09:00 06/20/23 08:53 Atorvastatin 40 Mg Tab PO 07/20/23 08:59 Not Given DAILY THU Piperacillin Sod/Tazobactam 100 mls @ 25 mls/hr 06/20/23 10:00 06/20/23 11:14 Sod 4.5 gm/ Dextrose IV 06/30/23 09:59 25 mls/hr Q8H THU Administration Protocol Lactated Ringer's 1,000 mls @ 100 mls/hr 06/20/23 03:44 06/20/23 10:24 Lr IV 06/20/23 14:41 100 mls/hr .Q10H THU Infusion Pantoprazole Sodium 40 mg/ 10 mls @ 5 mls/min 06/20/23 11:00 06/20/23 11:14 Syringe IV 07/20/23 10:59 5 mls/min DAILY@1100 THU Administration Miscellaneous 1 each 06/20/23 07:30 06/20/23 11:25 Icu Protocol For Hyperglycemia N/A 06/22/23 07:29 Not Given ACHS THU Morphine Sulfate 2 mg 06/20/23 03:44 06/20/23 09:32 Morphine Sulfate 2 Mg/Ml Carp IV 07/04/23 03:43 2 mg Q3H PRN Administration Pain (1,2,3,4,5) & Pre PT Tamsulosin HCl 0.4 mg 06/20/23 09:00 06/20/23 08:53 Tamsulosin Hcl 0.4 Mg Cap PO 07/20/23 08:59 Not Given DAILY THU Venlafaxine HCl 150 mg 06/20/23 09:00 06/20/23 08:53 Venlafaxine Hcl Xr 150 Mg Capxr PO 07/20/23 08:59 Not Given DAILY THU NPO Date Last Intake of Fluids: 06/20/23 Time Last Intake of Fluids: 00:00 Date Last Intake of Solids: 06/20/23 Time Last Intake of Solids: 00:00 Past Medical History Medical History Anemia recently in hospital and Dr. Omer aware Anxiety Asthma Borderline hypertension Chronic obstructive pulmonary disease Chronic sinusitis Closed head injury hx of rock hit head and need stitches Diverticulosis Elevated troponin I level Fall hx of a long time ago Hyperlipidemia Iron deficiency Macular degeneration of both eyes Mitral valve prolapse folllow with dr oh Osteoarthritis Pneumoconiosis Sleep apnea Troponin level elevated Exercise / Class Metabolic Activity III < 4 Walking/Shop/Light housework Past Family History Family History Brother Cancer Mother Colostomy in place Stroke Father , AGE 90 MRSA infection Sister No problems noted. Brother No problems noted. Son No problems noted. Daughter No problems noted. Denies family history of Ovarian cancer Breast cancer Colorectal cancer Past Surgical History Surgical History History of abdominal hernia History of cataract surgery RIGHT/left History of colonoscopy History of ERCP History of esophagogastroduodenoscopy (EGD) History of prostate biopsy (04/22/23) History of tonsillectomy and adenoidectomy Hx of vasectomy S/P pericardial window creation 8 YEARS AGO Total knee replacement status (2015) right knee Past Anesthesia History No Hx of Anesthesia Complications and No Family Hx of Anesthesia Complications History of PONV No Hx of PONV and No Hx of Motion Sickness Social History Smoking Status: Former smoker tobacco type: e-cigarettes Do You Dip or Chew Tobacco: Yes Hx Alcohol Use: Yes Alcohol type: beer alcohol intake frequency: 0-2 drinks per day Hx Substance Use: No substance use type: does not use Physical Exam Vital Signs Last Vital Signs Temp 99.5 F 06/20/23 09:00 Pulse 106 H 06/20/23 09:00 Resp 29 H 06/20/23 09:00 BP 127/89 06/20/23 09:00 Pulse Ox 91 06/20/23 09:00 O2 Del Method Nasal Cannula 06/20/23 07:52 O2 Flow Rate 6 06/20/23 07:52 ENMT Mouth: no dentition abnormality Thyromental Distance: > or= 3.5 Finger Breadths Mallampati Class: III Neck normal visual inspection Respiratory + audible wheezes Auscultation: lungs clear to auscultation bilaterally and + wheezes Cardiovascular Rate/Rhythm: regular rhythm and + tachycardic Testing Laboratory Results 06/20/23 08:26 06/20/23 08:26 PT 11.6 Seconds (9.0-12.0) 06/19/23 21:30 INR 1.1 (0.9-1.1) 06/19/23 21:30 APTT 63.9 Seconds (21.0-31.0) H* 06/20/23 08:26 Urine Color Red 06/20/23 09:25 Urine Appearance Turbid (Clear) A 06/20/23 09:25 Urine pH 7.0 (4.5-7.5) 06/20/23 09:25 Ur Specific [place] 1.025 (1.000-1.030) 06/20/23 09:25 Urine Protein 3+ (Negative) H 06/20/23 09:25 Urine Glucose (UA) Trace (Negative) H 06/20/23 09:25 Urine Ketones Negative (Negative) 06/20/23 09:25 Urine Nitrite Negative (Negative) 06/20/23 09:25 Ur Leukocyte Esterase Negative (Negative) 06/20/23 09:25 Urine RBC >30 /hpf (0-4) H 06/20/23 09:25 Urine WBC >30 /hpf (0-5) H 06/20/23 09:25 Ur Epithelial Cells 5-10 /lpf (0-5) H 06/20/23 09:25 06/20/23 06/20/23 11:16 06:14 POC Glucose 167 H 150 H Electrocardiogram Date: 06/19/23 Sinus tachycardia, rate 119 bpm Possible Left atrial enlargement Minimal voltage criteria for LVH, may be normal variant ( R in aVL ) Borderline ECG When compared with ECG of 04-NOV-2022 15:41, Vent. rate has increased BY 43 BPM Chest X-Ray Date: 06/19/23 IMPRESSION: Cardiomegaly with no acute cardiopulmonary abnormality identified. Echocardiogram Date: 06/20/23 LV systolic function is normal No regional wall motion abnormalities noted Mod concentric LVH EF 60-65% Prolapse of the posterior mitral leaflet Mild MR No pericardial effusion Compared with study of 08/01/2022, no significant change
[2023-06-20] MEDS ORDERED: SODIUM CHLORIDE 0.9% PF INJ 10 ML VIAL ONE (11:54)
[2023-06-20] MEDS ORDERED: ALBUMIN HUMAN 5% 12.5 GM/250 ML VIAL IV ONE (11:58)
--- NOTE | 2023-06-20 11:58 | History & Physical Bridge Note ---
Date of Service June 20, 2023 History & Physical Bridge Note Cardiology evaluation has been completed. Assessment noted. The patient remains septic and will be taken to the operating room for exploratory laparoscopy, abdominal washout, drain insertion, possible appendectomy, possible laparotomy. The details of the procedure including the risks and benefits have been explained to the patient and his family. Understanding of this explanation has been expressed and consent was obtained.
[2023-06-20] MEDS ORDERED: VANCOMYCIN HCL 1,000 MG in SODIUM CHLORIDE 0.9% 250 ML IV SCH (12:00)
--- NOTE | 2023-06-20 12:16 | Electrocardiogram Report ---
Test Reason : Blood Pressure : / mmHG Vent. Rate : 119 BPM Atrial Rate : 119 BPM P-R Int : 162 ms QRS Dur : 088 ms QT Int : 340 ms P-R-T Axes : 038 -02 026 degrees QTc Int : 478 ms Sinus tachycardia Possible Left atrial enlargement Minimal voltage criteria for LVH, may be normal variant ( R in aVL ) Borderline ECG When compared with ECG of 04-NOV-2022 15:41, Vent. rate has increased BY 43 BPM Confirmed by Leo Bashir ([id number]) on 06/20/2023 12:16:11 PM Referred By: REFERRED SELF Confirmed By:Leo Bashir
[2023-06-20] MEDS ORDERED: KETAMINE 50 MG/5 ML SYRINGE ONE (12:43)
[2023-06-20] MEDS ORDERED: PROPOFOL IV EMULSION 10 MG/ML 20 ML VIAL IV ONE (12:59)
[2023-06-20] MEDS ORDERED: ETOMIDATE 2 MG/ML 20 ML VIAL IV ONE (12:59)
[2023-06-20] MEDS ORDERED: SUCCINYLCHOLINE CHLORIDE 20 MG/ML 10 ML VIAL IV ONE (12:59)
[2023-06-20] MEDS ORDERED: PHENYLEPHRINE HCL 10 MG/ML VIAL ONE (12:59)
[2023-06-20] MEDS ORDERED: ROCURONIUM BROMIDE 10 MG/ML 5 ML VIAL IV ONE ×5 (12:59)
[2023-06-20] MEDS ORDERED: HYDROmorphone INJ 2 MG/ML SYR/VIAL ONE (13:02)
[2023-06-20] MEDS ORDERED: SUGAMMADEX SODIUM 200 MG/2 ML VIAL IV ONE (13:52)
--- NOTE | 2023-06-20 14:34 | Operative Report ---
PG Post Operative Report Pre & Post Diagnosis Operation Date: 06/20/23 12:00 Pre-Op Diagnosis: Perforated appendix Post-Op Diagnosis: Perforated appendix I identified the patient and participated in the time-out.: Yes Procedure Operation Date: 06/20/23 12:00 Actual Procedures p Laparoscopic Appendectomy, Exploratory Laproscopy, Intra-abdominal washout(Not Applicable) - Vignesh Zhao DO Surgeon Vignesh Zhao DO Pole Shaver No topographical field assistant Estimated Blood Loss 10 Findings See Below Free perforation of the appendix Specimens Appendix Drains 10 [place] OUSMANE drain Anesthesia Type General Complications None Indications Acute appendicitis, perforation with sepsis Description of Procedure The patient is brought back to the operating room and placed on the operating room in supine position SCDs were applied to bilateral lower extremities the patient was connected to cardiac and oxygen monitoring. The patient was administered O2 and general anesthesia. The patient was intubated. The abdomen was prepped and draped in typical sterile fashion and timeout was conducted. Local anesthetic was injected into the skin at the supraumbilical area and a small stab incision was made with a 15 blade. The fascia was elevated and intra-abdominal access was gained using a Veress needle. Pneumoperitoneum was established using CO2 to a pressure of 15 mmHg. Once this was established a 5 mm trocar was inserted using direct visualization and a 5 mm Visiport. Immediately upon entering the abdomen with the laparoscope there was evidence for naveed perforation with purulent fluid and fibrinous exudate layering over the bowel, omentum and throughout the lower portion of the abdomen. Mildly dilated loops of bowel were encountered and the patient appeared to have an ileus. Fluid was suctioned and sent to microbiology for Gram stain and culture. A 5 mm laparoscope was inserted in the lower abdomen, several centimeters below the umbilicus under direct visualization. A 12 mm trocar was inserted in the left lower quadrant also under direct visualization. After suctioning the vast majority of the purulent fluid from the abdomen, the omentum was mobilized exposing another pocket of purulent fluid which was suctioned away. Through careful and gentle mobilization of the small bowel and omentum the appendix was eventually identified in the right lower quadrant as well as an additional abscess pocket that was penetrated in port of purulent fluid. This was suctioned away as well. The base of the appendix surprisingly was very healthy without swelling or inflammation. The appendix was carefully dissected away from the peritoneum at the right paracolic gutter using blunt dissection. There was a small amount of generalized sanguinous oozing secondary to the tissues being severely inflamed. The appendiceal artery and mesoappendix were ligated and transected using a jade loaded 45 mm Endo JIL. The base of the appendix was isolated using a [place] for blunt dissection and this was ligated and transected away from the cecum using a blue load and the Endo JIL. The appendix was placed in an Endo Catch bag and removed from the abdomen. This is sent in a labeled container to pathology for further analysis. The staple lines were inspected and there was no active bleeding. The abdomen was copiously irrigated with over 2 L of normal saline throughout the abdomen. This was suctioned away as much as possible. A OUSMANE drain was inserted at the right lower quadrant extending down into the pelvis. This was secured in place using nylon suture. Pneumoperitoneum was evacuated and CO2 insufflation was discontinued. All instruments and trocars were removed. The fascia at the left lower quadrant 12 mm trocar site was closed using 0 Vicryl suture. The skin was closed with 4-0 Vicryl suture and sealed with Dermabond. The patient tolerated the procedure well. He was awakened from general anesthes ia, extubated and transferred to recovery in stable condition. I attest to the content of the Intraoperative Record and any orders documented therein. Any exceptions are noted below.
[2023-06-20] MEDS ORDERED: ESMOLOL HCL INJ 10 MG/ML 10ML VIAL IV ONE (14:51)
--- NOTE | 2023-06-20 15:32 | Anesthesiology Progress Note ---
Date of Service June 20, 2023 Anesthesia Post Procedure Vital Signs Vital Signs: Temp Pulse Pulse Resp BP BP BP 06/20/23 15:29 108 H 06/20/23 15:10 97.9 F 114 H 19 149/96 H 06/20/23 15:00 117 H 19 152/98 H 06/20/23 14:50 116 H 22 138/97 06/20/23 14:41 98.1 F 109 H 21 137/117 H 06/20/23 15:07 115 H 20 06/20/23 15:04 110 H 20 06/20/23 12:00 108 H 27 H 06/20/23 12:00 125/97 06/20/23 11:31 109 H 30 H 06/20/23 11:31 130/80 06/20/23 11:00 112 H 29 H 06/20/23 11:00 140/87 06/20/23 10:30 153/86 H 06/20/23 10:30 109 H 30 H 06/20/23 10:00 99.1 F 106 H 28 H 06/20/23 10:00 133/85 06/20/23 09:30 99.9 F H 109 H 30 H 06/20/23 09:30 116/84 06/20/23 09:21 136/79 06/20/23 09:21 99.9 F H 106 H 35 H 06/20/23 11:59 108 H 20 06/20/23 09:00 99.5 F 106 H 29 H 06/20/23 09:00 127/89 06/20/23 08:30 132/81 06/20/23 08:30 99.9 F H 106 H 30 H 06/20/23 08:00 99.9 F H 106 H 30 H 06/20/23 08:00 122/96 06/20/23 07:01 179/122 H 06/20/23 07:00 99.9 F H 110 H 28 H 06/20/23 08:00 113 H 06/20/23 07:52 108 H 22 06/20/23 07:48 06/20/23 06:00 99.9 F H 31 H 133/99 06/20/23 05:00 99.9 F H 30 H 128/90 06/20/23 06:30 99.9 F H 105 H 31 H 06/20/23 06:00 96.8 F L 107 H 32 H 06/20/23 06:00 133/99 06/20/23 05:30 99.9 F H 106 H 30 H 06/20/23 05:30 128/90 06/20/23 02:50 06/20/23 05:01 152/95 H 06/20/23 05:01 99.1 F 109 H 29 H 06/20/23 05:00 99.0 F 115 H 35 H 06/20/23 04:30 99.9 F H 108 H 34 H 06/20/23 04:08 99.9 F H 109 H 33 H 06/20/23 04:00 99.1 F 29 H 130/90 06/20/23 03:20 06/20/23 03:44 107 H 06/20/23 03:20 99.1 F 29 H 137/106 H 06/20/23 02:40 108 H 32 H 06/20/23 02:30 109 H 31 H 06/20/23 02:20 111 H 32 H 06/20/23 02:10 110 H 28 H 06/20/23 02:00 116 H 33 H 06/20/23 01:50 109 H 32 H 06/20/23 01:40 114 H 27 H 06/20/23 01:39 112 H 33 H 06/20/23 01:39 130/89 06/20/23 01:33 113 H 34 H 06/20/23 01:20 115 H 31 H 06/20/23 01:10 116 H 33 H 06/20/23 01:01 117 H 33 H 06/20/23 01:01 136/108 H 06/20/23 01:00 115 H 32 H 06/20/23 00:50 113 H 32 H 06/20/23 00:42 119 H 34 H 06/20/23 00:42 138/102 H 06/20/23 00:40 121 H 24 06/20/23 00:20 115 H 35 H 06/20/23 00:10 113 H 35 H 06/20/23 00:00 06/19/23 23:50 06/19/23 23:45 06/20/23 02:45 06/19/23 23:30 112 H 38 H 06/19/23 23:30 127/97 06/19/23 23:20 113 H 30 H 06/19/23 23:10 112 H 35 H 06/19/23 23:00 116 H 37 H 06/19/23 23:00 125/93 06/19/23 22:50 112 H 35 H 06/19/23 22:40 114 H 36 H 06/19/23 22:30 110 H 36 H 06/19/23 22:30 124/95 06/19/23 22:20 112 H 33 H 06/19/23 22:16 143/98 H 06/19/23 22:16 113 H 41 H 06/19/23 22:10 111 H 37 H 06/19/23 22:00 113 H 33 H 06/19/23 21:50 115 H 29 H 06/19/23 21:40 116 H 24 06/19/23 21:30 118 H 42 H 06/19/23 21:30 125/95 06/19/23 21:25 117 H 38 H 06/19/23 21:44 06/19/23 21:34 06/19/23 21:24 119 H 06/19/23 21:15 97.7 F 125 H 32 H 131/84 Pulse Ox O2 Del Method O2 Flow Rate FiO2 06/20/23 15:29 06/20/23 15:10 93 BiPAP 60 06/20/23 15:00 90 BiPAP 70 06/20/23 14:50 90 Oxymask 15 06/20/23 14:41 90 Oxymask 15 06/20/23 15:07 93 BiPAP 70 06/20/23 15:04 93 70 06/20/23 12:00 90 06/20/23 12:00 06/20/23 11:31 91 06/20/23 11:31 06/20/23 11:00 92 06/20/23 11:00 06/20/23 10:30 06/20/23 10:30 90 06/20/23 10:00 90 06/20/23 10:00 06/20/23 09:30 90 06/20/23 09:30 06/20/23 09:21 06/20/23 09:21 88 L 06/20/23 11:59 90 Oxymask 4 06/20/23 09:00 91 06/20/23 09:00 06/20/23 08:30 06/20/23 08:30 88 L 06/20/23 08:00 91 06/20/23 08:00 06/20/23 07:01 06/20/23 07:00 89 L 06/20/23 08:00 06/20/23 07:52 94 Nasal Cannula 6 06/20/23 07:48 Oxymask 5 06/20/23 06:00 91 High Flow Nasal Cannula 6 06/20/23 05:00 91 High Flow Nasal Cannula 6 06/20/23 06:30 91 06/20/23 06:00 90 06/20/23 06:00 06/20/23 05:30 91 06/20/23 05:30 06/20/23 02:50 Nasal Cannula 6 06/20/23 05:01 06/20/23 05:01 91 06/20/23 05:00 93 06/20/23 04:30 91 06/20/23 04:08 94 06/20/23 04:00 93 High Flow Nasal Cannula 6 06/20/23 03:20 High Flow Nasal Cannula 6 06/20/23 03:44 06/20/23 03:20 93 High Flow Nasal Cannula 6 06/20/23 02:40 95 06/20/23 02:30 94 06/20/23 02:20 91 06/20/23 02:10 94 06/20/23 02:00 94 06/20/23 01:50 95 06/20/23 01:40 06/20/23 01:39 96 06/20/23 01:39 06/20/23 01:33 94 06/20/23 01:20 06/20/23 01:10 93 06/20/23 01:01 93 06/20/23 01:01 06/20/23 01:00 92 06/20/23 00:50 93 06/20/23 00:42 91 06/20/23 00:42 06/20/23 00:40 06/20/23 00:20 93 06/20/23 00:10 97 06/20/23 00:00 96 Nasal Cannula 6 06/19/23 23:50 90 06/19/23 23:45 93 06/20/23 02:45 Nasal Cannula 06/19/23 23:30 91 06/19/23 23:30 06/19/23 23:20 91 10/06/23 23:10 92 06/19/23 23:00 92 06/19/23 23:00 06/19/23 22:50 92 06/19/23 22:40 92 06/19/23 22:30 94 06/19/23 22:30 06/19/23 22:20 93 06/19/23 22:16 06/19/23 22:16 91 06/19/23 22:10 92 06/19/23 22:00 92 06/19/23 21:50 92 06/19/23 21:40 92 06/19/23 21:30 92 06/19/23 21:30 06/19/23 21:25 92 Nasal Cannula 2 06/19/23 21:44 92 Nasal Cannula 2 06/19/23 21:34 90 Nasal Cannula 0 06/19/23 21:24 06/19/23 21:15 93 Room Air Transfer of Care Handoff Completed per policy Notes Mental Status: alert / awake / arousable and participated in evaluation Patient Amnestic to Procedure: Yes Nausea / Vomiting: adequately controlled Pain: adequately controlled Airway Patency, RR, SpO2: stable & adequate BP & HR: stable & adequate Hydration State: stable & adequate Anesthetic Complications: no major complications apparent and Pt Satisfied with anesthetic care
[2023-06-20] MEDS ORDERED: DEXTROSE 50% 50 ML SYRINGE IV PRN (16:51)
[2023-06-20] MEDS ORDERED: GLUCAGON FOR INJ 1 MG VIAL SQ PRN (16:51)
[2023-06-20] MEDS ORDERED: GLUCOSE 10 TAB/TUBE PO PRN (16:51)
[2023-06-20] MEDS ORDERED: CARBOHYDRATES FOR HYPOGLYCEMIA PO PRN (16:51)
[2023-06-20] MEDS ORDERED: GLUCOSE 40% GEL 15 GM TUBE PO PRN (16:51)
[2023-06-20] MEDS: INSULIN ASPART PER UNIT CHARGE SC SCH ×2 (17:14→23:22)
--- NOTE | 2023-06-20 17:41 | History & Physical Bridge Note ---
Date of Service June 20, 2023 History & Physical Bridge Note I have examined the patient, reviewed the History & Physical and in the interval since the performance of the History & Physical I have noted the following changes of clinical significance: Patient seen after return from surgery and was sleeping heavily and I did not wake him up. He had numerous attempts by urology and finally was successful to have a Stearns catheter placed after having some hematuria. His heparin drip was stopped after second opinion of radiology reviewed the CT showed no PE. He went to the OR with surgery for laparoscopic appendectomy and washout with OUSMANE drain left in place. He continues on Zosyn but the vancomycin was stopped. Renal function is improving, would continue IV fluids, follow labs Postop management as per surgery Continuing on steroids and bronchodilators for COPD exacerbation
[2023-06-20] MEDS ORDERED: SODIUM CHLORIDE 0.9% 1,000 ML IV SCH (18:15)
[2023-06-20] MEDS: FORMOTEROL 20 MCG/2 ML VIAL INH SCH (20:16)
[2023-06-20] MEDS: BUDESONIDE 0.25 MG/2 ML VIAL (PULMICORT) NEB SCH (20:16)
[2023-06-20] MEDS: methylPREDNISolone 40 MG in SYRINGE 0 ML IV SCH (23:03)
[2023-06-21] MEDS: PIPERACILLIN/TAZOBACTAM 4.5 GM in DEXTROSE 5% MINI-B 100 ML IV SCH ×3 (02:01→17:49)
[2023-06-21] MEDS: ALBUT/IPRATROP 3MG/0.5MG NEB 3 ML VIAL NEB SCH ×6 (02:31→22:47)
[2023-06-21 04:20] LABS: Hematocrit (blood only) 30.4 % (42.0-52.0); Hemoglobin 9.8 g/dl (14.0-18.0); Mean Corpuscular Hemoglobin 30.1 pg (25.0-34.0); Mean Corpuscular Hgb Conc 32.2 g/dL (32.0-36.0); Mean Corpuscular Volume 93.3 fL (80.0-100.0); Mean Platelet Volume 10.9 fL (9.4-12.4); Platelet Count 182 K/uL (130-400); RDW Coefficient of Variation 15.1 % (11.5-14.5); RDW Standard Deviation 51.9 fL (36.4-46.3); Red Blood Count 3.26 M/uL (4.70-6.10); White Blood Count 14.58 K/ul (4.8-10.8)
[2023-06-21 04:42] LABS: Albumin Level 3.7 gm/dl (3.4-5.0); BUN Creatinine Ratio 28.7 (10-20); Bilirubin Direct 0.1 mg/dl (0-0.2); Bilirubin,Total 0.7 mg/dl (0.2-1.0); Calcium 8.4 mg/dl (8.6-10.3); Creatinine Clr Calc Pharmacy 45.4 ml/min; Est GFR (African American) 49.2 ml/min; Est GFR (Non-African American) 42.5 ml/min; Potassium 4.3 mmol/L (3.5-5.1); Total Protein 6.4 gm/dl (6.0-8.3)
--- NOTE | 2023-06-21 05:52 | Surgery Progress Note ---
I have seen and examined this patient this am. He may be downgraded from the unit if no issues/ok with the software configuration specialist. Continue NPO,IVF today. Patient has an ileus, not yet passing flatus. May be up out of bed to chair. Date of Service June 21, 2023 Assessment & Plan (1) Perforated appendix: Plan: Patient is status post laparoscopic abdominal washout with appendectomy on 06/20/2023 (postoperative day #1) Provide analgesics as needed Provide antiemetics as needed Operative cultures have been sent with Gram stain and cultures both pending. Continue broad-spectrum antibiotics in the form of Zosyn Continue n.p.o. status and NG tube until patient has return of bowel function Patient had difficult Stearns placement requiring intervention by urology. Maintain Stearns catheter without removal unless specified by the urology service Continue IV fluids until oral intake can be advanced Check a.m. labs when available Mobilize as able (2) SBO (small bowel obstruction): (3) Bilateral pulmonary embolism: Admission and Anticipated Discharge Date Admission Date: June 20, 2023 Subjective Patient is resting comfortably in bed. He is pleasantly confused at the present time which limits his subjective capabilities but he is able to state that his abdomen "feels better.". I discussed with animal anatomy teacher nurse attending to the patient. He does note the patient has intermittent confusion but can be reoriented. No bowel movements have been noted since surgery. There have been no recorded fevers over the past shift. The patient's Stearns catheter remains in place and is patent draining appropriately. He notes that the patient is making approximately 100 cc of urine every 2 hours. No other issues or concerns identified by nursing staff at this time. Physical Exam Constitutional: no acute distress Neck: trachea midline Respiratory: normal respiratory effort; no respiratory distress and no labored breathing Gastrointestinal (Abdomen): Abdomen is mildly distended and is somewhat tympanic to percussion. Surgical incisions are clean, dry, intact. NG tube is in place and per nursing staff has not had minimal output. OUSMANE drain is in place draining serosanguineous fluid and is drained approximately 100 cc since placement at time of surgery yesterday. Neurologic: Patient is able to move all 4 extremities noted focal deficits. He is alert to person and place (he knows he is in the hospital) Genitourinary: Stearns catheter is in place draining minor-colored urine and appears to be patent draining appropriately. Results & Data Vital Signs (Past 12 Hours) Vital Signs Temp Pulse Pulse Resp BP Pulse Ox O2 Del Method 06/21/23 05:00 84 16 94 BiPAP 06/21/23 05:00 132/75 06/21/23 04:30 81 16 94 06/21/23 04:00 81 17 93 06/21/23 04:00 130/75 06/21/23 03:30 89 18 94 06/21/23 03:00 91 H 17 94 BiPAP 06/21/23 03:00 125/68 06/21/23 02:30 83 17 93 06/21/23 02:00 85 17 93 BiPAP 06/21/23 02:00 129/77 06/21/23 01:30 87 16 93 06/21/23 04:00 36.7 C 06/21/23 02:00 36.6 C 06/21/23 03:18 77 15 94 06/21/23 03:18 77 14 94 BiPAP 06/21/23 01:00 92 H 17 93 06/21/23 01:00 123/79 06/21/23 00:30 102 H 20 93 06/21/23 00:00 104 H 18 91 06/21/23 00:00 127/78 06/21/23 00:00 36.4 C L 06/21/23 01:06 BiPAP 06/20/23 23:56 103 H 18 92 06/20/23 23:56 103 H 18 92 BiPAP 06/20/23 23:30 104 H 22 93 06/20/23 23:00 104 H 21 92 Nasal Cannula 06/20/23 23:00 118/84 06/20/23 22:30 106 H 18 92 06/20/23 22:00 104 H 22 96 Nasal Cannula 06/20/23 22:00 129/80 06/20/23 21:30 116 H 24 94 06/20/23 21:00 100 H 18 94 06/20/23 21:00 127/70 06/20/23 21:00 106 H 29 H 96 06/20/23 21:00 106 H 29 H 94 BiPAP 06/20/23 20:30 95 H 18 93 BiPAP 06/20/23 20:01 108 H 22 93 06/20/23 20:01 126/80 06/20/23 20:00 109 H 20 93 Oxymask 06/20/23 19:30 105 H 20 92 Oxymask 06/20/23 19:00 89 18 93 BiPAP 06/20/23 19:00 137/84 06/20/23 18:30 94 H 19 92 06/20/23 18:00 99 H 19 93 06/20/23 18:00 133/83 O2 Flow Rate FiO2 06/21/23 05:00 50 06/21/23 05:00 06/21/23 04:30 06/21/23 04:00 06/21/23 04:00 06/21/23 03:30 06/21/23 03:00 50 06/21/23 03:00 06/21/23 02:30 06/21/23 02:00 50 06/21/23 02:00 06/21/23 01:30 06/21/23 04:00 06/21/23 02:00 06/21/23 03:18 6 06/21/23 03:18 6 06/21/23 01:00 06/21/23 01:00 06/21/23 00:30 06/21/23 00:00 06/21/23 00:00 06/21/23 00:00 06/21/23 01:06 50 06/20/23 23:56 6 06/20/23 23:56 5 06/20/23 23:30 06/20/23 23:00 3 06/20/23 23:00 06/20/23 22:30 06/20/23 22:00 3 06/20/23 22:00 06/20/23 21:30 06/20/23 21:00 06/20/23 21:00 06/20/23 21:00 50 06/20/23 21:00 50 06/20/23 20:30 50 06/20/23 20:01 06/20/23 20:01 06/20/23 20:00 10 06/20/23 19:30 10 06/20/23 19:00 50 06/20/23 19:00 06/20/23 18:30 06/20/23 18:00 06/20/23 18:00 PG Care Time/CCT Total # of Minutes Spent Total Time Spent with Patient: Total time spent is greater than 50% in coordination of care (as documented) at patient's floor/unit and/or counseling patient: Coding Level of Care Code 25963 Post Operative Follow-Up Diagnoses Perforated appendix K35.32 SBO (small bowel obstruction) K56.609 Bilateral pulmonary embolism I26.99
[2023-06-21] MEDS: INSULIN ASPART PER UNIT CHARGE SC SCH ×3 (06:46→18:45)
[2023-06-21] MEDS: BUDESONIDE 0.25 MG/2 ML VIAL (PULMICORT) NEB SCH ×2 (07:08→20:15)
[2023-06-21] MEDS: FORMOTEROL 20 MCG/2 ML VIAL INH SCH ×2 (07:08→20:15)
[2023-06-21] MEDS: TAMSULOSIN HCL 0.4 MG CAP PO SCH (07:39)
[2023-06-21] MEDS: VENLAFAXINE HCL XR 150 MG CAPXR PO SCH (07:39)
[2023-06-21] MEDS: ICU Protocol for HYPERglycemia SCH ×2 (07:39→13:58)
[2023-06-21] MEDS: ATORVASTATIN 40 MG TAB PO SCH (07:39)
--- NOTE | 2023-06-21 08:16 | Critical Care Progress Note ---
Date of Service June 21, 2023 Assessment & Plan (1) Sepsis: (2) Hematuria: (3) Perforated appendix: (4) Chronic obstructive pulmonary disease: (5) Acute hypoxic respiratory failure: (6) Pulmonary embolism: (7) Prostate cancer: (8) Hyperlipidemia: Plan Impression: 73-year-old male with recent diagnosis of prostate cancer now presents to the ICU with perforated appendix, sepsis, small bowel obstruction, and bilateral subsegmental pulmonary embolisms with associated hypoxia. Neuro - Encephalopathy (mild)resolved Likely from underlying sepsis Cardiac - 2D echo 07/29/2022: EF 60-65%, moderate MR, severe LA enlargement, grade 1 diastolic dysfunction HLDcontinue statin Respiratory - Acute hypoxic respiratory failurepatient with history of asthma (is apparently noncompliant with home nebs) -Hypoxia likely multifactoral with atelectasis of the lower lobes from significant abdominal distention given small bowel obstruction -Continue with supplemental oxygen support -Continue with LABA/ICS GI - Small bowel obstruction with Perforated appendix S/p OR 06/20/2023 RENAL/LYTES - -- XAVIER --> improving no prior history of renal disease with creatinine 2.29 with prior baseline of 1.14 -Likely from sepsis and decreased volume -Avoid nephrotoxic medication -Monitor BUNs/creatinine - -- Hematuria Likely from traumatic in the perception of the [facility] on board Continue with catheter for at least 7 days ENDO - No history of diabetes or thyroid disease, ICU hyperglycemic protocol HEME - Monitor H&H ID - Sepsislikely intra-abdominal source given perforated appendix. Abdominal c ulture growing gram-negative -Bio fire negative, procalcitonin 48 -Blood cultures pending -Continue with Zosyn, DC vancomycin --Prophylaxis VTE: IPC GI: None Lines: Peripheral Diet: N.p.o. Plan: In/out: +1.2 L, urine output 1310 Continue with Brovana and budesonide We will get a KUB given the patient is still distended. Ileus might be playing a role O2 supplementation to keep O2 saturation between 90-92% Repeat H&H later today as there is a drop in hemoglobin compared to yesterday. Continue with IPC's Abdominal cultures growing gram-negative bacilli, continue with Zosyn Disposition as per surgery Please note the above document was generated using voice recognition software. It may contain grammatical, syntax or spelling errors.Any formal questions or concerns about the content, text or information contained within the body of this dictation should be directly addressed to the provider for clarification. Admission and Anticipated Discharge Date Admission Date: June 20, 2023 Subjective Patient seen and examined at bedside. Patient was complaining of abdominal pain. Does complain of cough and difficulty bringing up the phlegm Denies any nausea. He did use BiPAP all night. He was saturating 92-93% on 3 L nasal cannula Review of Systems Review of Systems: All systems reviewed & are unremarkable except as noted in Subjective Physical Exam Physical Exam: Constitutional: No acute distress HEENT: EOMI, PERRLA Respiratory system: Dereased air entry bilaterally, no wheeze, no rhonchi, positive crackles bilateral lower lobes CVS: S1-S2 positive, no murmurs or gallops Abdomen: Soft, distended, tympanic sounds, positive tenderness at the surgical site, no rebound, decreased bowel sounds, right-sided OUSMANE drain in place Extremities: +2 pulses bilaterally radialis/ dorsalis pedis, no cyanosis, no edema Neuro: Awake alert oriented x3 Psych: Normal mood and affect G/U: Positive Stearns Skin: no rashes, warm and dry Lymphatic: no cervical or axillary lymphadenopathy Results & Data Results & Data Vital Signs (Past 12 Hours) Vital Signs Temp Pulse Pulse Resp BP Pulse Ox O2 Del Method 06/21/23 07:11 92 H 20 94 06/21/23 07:11 92 H 19 94 BiPAP 06/21/23 05:00 84 16 94 BiPAP 06/21/23 05:00 132/75 06/21/23 04:30 81 16 94 06/21/23 04:00 81 17 93 06/21/23 04:00 130/75 06/21/23 03:30 89 18 94 06/21/23 03:00 91 H 17 94 BiPAP 06/21/23 03:00 125/68 06/21/23 02:30 83 17 93 06/21/23 02:00 85 17 93 BiPAP 06/21/23 02:00 129/77 06/21/23 01:30 87 16 93 06/21/23 04:00 36.7 C 06/21/23 02:00 36.6 C 06/21/23 03:18 77 15 94 06/21/23 03:18 77 14 94 BiPAP 06/21/23 01:00 92 H 17 93 06/21/23 01:00 123/79 06/21/23 00:30 102 H 20 93 06/21/23 00:00 104 H 18 91 06/21/23 00:00 127/78 06/21/23 00:00 36.4 C L 06/21/23 01:06 BiPAP 06/20/23 23:56 103 H 18 92 06/20/23 23:56 103 H 18 92 BiPAP 06/20/23 23:30 104 H 22 93 06/20/23 23:00 104 H 21 92 Nasal Cannula 06/20/23 23:00 118/84 06/20/23 22:30 106 H 18 92 06/20/23 22:00 104 H 22 96 Nasal Cannula 06/20/23 22:00 129/80 06/20/23 21:30 116 H 24 94 06/20/23 21:00 100 H 18 94 06/20/23 21:00 127/70 06/20/23 21:00 106 H 29 H 96 06/20/23 21:00 106 H 29 H 94 BiPAP 06/20/23 20:30 95 H 18 93 BiPAP O2 Flow Rate FiO2 06/21/23 07:11 7 06/21/23 07:11 7 06/21/23 05:00 50 06/21/23 05:00 06/21/23 04:30 06/21/23 04:00 06/21/23 04:00 06/21/23 03:30 06/21/23 03:00 50 06/21/23 03:00 06/21/23 02:30 06/21/23 02:00 50 06/21/23 02:00 06/21/23 01:30 06/21/23 04:00 06/21/23 02:00 06/21/23 03:18 6 06/21/23 03:18 6 06/21/23 01:00 06/21/23 01:00 06/21/23 00:30 06/21/23 00:00 06/21/23 00:00 06/21/23 00:00 06/21/23 01:06 50 06/20/23 23:56 6 06/20/23 23:56 5 06/20/23 23:30 06/20/23 23:00 3 06/20/23 23:00 06/20/23 22:30 06/20/23 22:00 3 06/20/23 22:00 06/20/23 21:30 06/20/23 21:00 06/20/23 21:00 06/20/23 21:00 50 06/20/23 21:00 50 06/20/23 20:30 50 Laboratory Results 06/21/23 03:14 06/21/23 03:14 Coding Level of Care Code 63206 SUB INP/OBS CARE 3/50MIN Diagnoses Sepsis A41.9 Hematuria R31.9 Perforated appendix K35.32 Chronic obstructive pulmonary disease J44.9 Acute hypoxic respiratory failure J96.01 Pulmonary embolism I26.99 Prostate cancer C61 Hyperlipidemia E78.5
--- NOTE | 2023-06-21 08:35 | Urology Progress Note ---
Date of Service June 21, 2023 Assessment & Plan (1) Gross hematuria: Plan 73-year-old male with a history of prostate cancer who is currently admitted to the ICU due to sepsis and a perforated appendix. Stearns catheter was placed on admission and patient developed gross hematuria. He underwent urethral dilation with Stearns catheter placement at the bedside on 06/20/2023. A 14 Croatian coud tip catheter is in place currently. Stearns catheter draining minor urine Maintain Stearns catheter for minimum of 7 days. Do not remove. Depending on patient's clinical course can attempt void trial in the hospital versus as an outpatient urology clinic Urology to follow peripherally Admission and Anticipated Discharge Date Admission Date: June 20, 2023 Subjective Patient went to the OR yesterday for laparoscopic appendectomy with washout and drain placement. Prior to that I had dilated him and placed a catheter at the bedside. Catheter draining without issue making appropriate amounts of urine. Creatinine 1.57 today down from 1.88 yesterday. Afebrile with stable vitals this morning. Review of Systems Review of Systems: 14 point review of systems negative outside of what is listed above in HPI Physical Exam Physical Exam: General: Alert and oriented, no acute distress HEENT: Normocephalic, mucous membranes moist Pulmonary: Nonlabored respirations Abdomen: Nondistended : 14 Croatian coud catheter draining. Extremities: Moves all 4 spontaneously Neuro: No gross deficits Skin: Warm, dry, no rashes noted Results & Data Vital Signs (Past 12 Hours) Vital Signs Temp Pulse Pulse Resp BP Pulse Ox O2 Del Method 06/21/23 07:11 92 H 20 94 06/21/23 07:11 92 H 19 94 BiPAP 06/21/23 05:00 84 16 94 BiPAP 06/21/23 05:00 132/75 06/21/23 04:30 81 16 94 06/21/23 04:00 81 17 93 06/21/23 04:00 130/75 06/21/23 03:30 89 18 94 06/21/23 03:00 91 H 17 94 BiPAP 06/21/23 03:00 125/68 06/21/23 02:30 83 17 93 06/21/23 02:00 85 17 93 BiPAP 06/21/23 02:00 129/77 06/21/23 01:30 87 16 93 06/21/23 04:00 36.7 C 06/21/23 02:00 36.6 C 06/21/23 03:18 77 15 94 06/21/23 03:18 77 14 94 BiPAP 06/21/23 01:00 92 H 17 93 06/21/23 01:00 123/79 06/21/23 00:30 102 H 20 93 06/21/23 00:00 104 H 18 91 06/21/23 00:00 127/78 06/21/23 00:00 36.4 C L 06/21/23 01:06 BiPAP 06/20/23 23:56 103 H 18 92 06/20/23 23:56 103 H 18 92 BiPAP 06/20/23 23:30 104 H 22 93 06/20/23 23:00 104 H 21 92 Nasal Cannula 06/20/23 23:00 118/84 06/20/23 22:30 106 H 18 92 06/20/23 22:00 104 H 22 96 Nasal Cannula 06/20/23 22:00 129/80 06/20/23 21:30 116 H 24 94 06/20/23 21:00 100 H 18 94 06/20/23 21:00 127/70 06/20/23 21:00 106 H 29 H 96 06/20/23 21:00 106 H 29 H 94 BiPAP O2 Flow Rate FiO2 06/21/23 07:11 7 06/21/23 07:11 7 06/21/23 05:00 50 06/21/23 05:00 06/21/23 04:30 06/21/23 04:00 06/21/23 04:00 06/21/23 03:30 06/21/23 03:00 50 06/21/23 03:00 06/21/23 02:30 06/21/23 02:00 50 06/21/23 02:00 06/21/23 01:30 06/21/23 04:00 06/21/23 02:00 06/21/23 03:18 6 06/21/23 03:18 6 06/21/23 01:00 06/21/23 01:00 06/21/23 00:30 06/21/23 00:00 06/21/23 00:00 06/21/23 00:00 06/21/23 01:06 50 06/20/23 23:56 6 06/20/23 23:56 5 06/20/23 23:30 06/20/23 23:00 3 06/20/23 23:00 06/20/23 22:30 06/20/23 22:00 3 06/20/23 22:00 06/20/23 21:30 06/20/23 21:00 06/20/23 21:00 06/20/23 21:00 50 06/20/23 21:00 50 PG Care Time/CCT Total # of Minutes Spent Total Time Spent with Patient: Total time spent is greater than 50% in coordination of care (as documented) at patient's floor/unit and/or counseling patient: Coding Level of Care Code 30159 SUB INP/OBS CARE 2/35MIN Diagnoses Gross hematuria R31.0
[2023-06-21] MEDS ORDERED: methylPREDNISolone 40 MG in SYRINGE 0 ML IV SCH (09:00)
[2023-06-21] MEDS: PANTOprazole 40 MG in SYRINGE 0 ML IV SCH (10:06)
[2023-06-21] MEDS: methylPREDNISolone 40 MG in SYRINGE 0 ML IV SCH ×2 (10:06→21:43)
[2023-06-21] MEDS: MoRPHine SULFATE 2 MG/ML CARP IV PRN ×3 (10:17→19:54)
[2023-06-21 12:26] LABS: Hematocrit (blood only) 30.1 % (42.0-52.0); Hemoglobin 9.8 g/dl (14.0-18.0)
--- NOTE | 2023-06-21 13:14 | XRay Report ---
SINGLE VIEW CHEST CLINICAL HISTORY: Enteric tube placement. Appendicitis. Sepsis. FINDINGS: An AP, portable, upright chest radiograph is compared to study dated 06/19/2023 and correlat ed with chest CT dated 06/20/2023. An enteric tube is in place. The tip projects below the diaphragm o tigre the stomach. The heart is enlarged. The pulmonary vasculature is noncongested. Calcific granuloma s are unchanged. There are low lung volumes with bibasilar atelectasis. Question trace right pleural effusion. There is no airspace consolidation typical for pneumonia. No pneumothorax is seen. The skel etal structures are osteopenic. The bony thorax is grossly intact. IMPRESSION: 1. Cardiomegaly without radiographic evidence of congestive failure. 2. An enteric tube has been placed as above. 3. Low lung volumes. 4. Suspect trace right pleural effusion. ACT 112: Negative or not required by law. Electronically signed by: Ivan Gillespie M.D. 06/21/2023 1:13 PM
--- NOTE | 2023-06-21 13:21 | XRay Report ---
KUB CLINICAL HISTORY: Postoperative examination. FINDINGS: 2 AP, portable, supine abdominal radiographs are compared to study dated 06/20/2023 and favian elated with abdominal CT dated 06/19/2023. An enteric tube is unchanged in position. There is persiste nt gaseous distention of the small bowel loops. No evidence of intraperitoneal free air seen on these supine images. A Stearns catheter projects over the bladder. A surgical drain is now seen in the right lower quadrant. Surgical clips project over the right abdomen. The skeletal structures are osteopeni c and appear intact. There is lumbosacral spondylosis. There are chronic/healed right-sided rib fract ures. IMPRESSION: 1. There is persistent gaseous distention of the small bowel which could represent obstruction versus ileus. Correlate clinically. 2. A surgical drain is now seen projecting over the right lower quadrant. Electronically signed by: Ivan Gillespie M.D. 06/21/2023 1:19 PM
--- NOTE | 2023-06-21 17:25 | Hospitalist Progress Note ---
Date of Service June 21, 2023 Assessment & Plan (1) Sepsis: Plan: 73yo male presenting with acute respiratory distress, sepsis with tachycardia, tachypnea, leukocytosis with WBC=18.32, elevated procalcitonin at 48, normotensive, with elevated lactate and abdominal pain. CT abd/pel with acute perforated appendix. Initially thought to have bilat PEs as well which was then overread by Radiology to be motion artifact. With XAVIER respiratory failure as well. Initially admitted to ICU for multiorgan system failure and severe sepsis BCxs NGTD Ur cx pending but UA not c/w infection s/p lap appy on 06/20, with intra-abdominal infection from perforation--> abd fluid cx growing GNR, ID pending With persistent ileus pre and post-op Improving overall since surgery--> afebrile, tachycardia improved, leukocytosis improving, XAVIER improving -Keep NPO and maintain NGT to LIWS -restart IVFs with LR at 70 mL/hr -Continue Zosyn 4.5gm IV q 8 hours -General Surgery management appreciated -OUSMANE drain in place -follow CBC, CMP, magnesium ,phos and replace lytes as needed -follow all cultures -downgrade out of ICU to PCU (2) Perforated appendix: Plan: as above (3) XAVIER (acute kidney injury): 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 Initially requiring CPAP and now weaned to 3LNC Continues with wheezing Chest CTA on admission with linear atelectasis, initially suspected small PEs but then ruled out -Improving with IV steroids-continue for now and then wean down -continue nebulized steroids and bronchodilators -wean off supplemental O2 as able (5) Anemia: Plan: hgb 9.8 down from 14 on admission-likely some acute blood loss anemia from surgery and hematuria and also some hemodilutional component from fluids baseline hgb 11-12, normocytic -follow CBC -check Fe studies, fecal occult, B12, folate, TSH in AM (6) Gross hematuria: Plan: secondary to multiple traumatic Stearns placement attempts Now improving Urology following -maintain Stearns for at least 1 week and then f/u with Urology for voiding trial -with newly diagnosed prostate CA (7) Chronic obstructive pulmonary disease: Plan: BioFire panel is NEGATIVE. Continue treatment as above for respiratory failure (8) SBO (small bowel obstruction): Plan: Patient noted to have high grade SBO on admission CT. KUB today with NGT in place and s/p appendectomy consistent with ilsus vs ongoing SBO -continue NGT, NPO, IVFs -follow KUB and monitor for return of bowel function -early ambulation when able to -continue IV PPI for prophylaxis (9) Bilateral pulmonary embolism: Plan: ruled out after admission Dopplers neg for DVT (10) Prostate cancer: Plan: Patient with known prostate cancer. He is following with Radiation Oncology and is to begin treatment soon -Continue home Flomax once taking po (11) Hyperlipidemia: Plan: Chronic. Stable -Continue home Atorvastatin once taking po (12) Anxiety: Plan: restart home velafaxine once taking po (13) Prediabetes: Plan: with hyperglycemia from steroids in setting of previous preDM continue Novolog SSI, accuchecks check A1C in AM Plan DVT proph-SCDs, will discuss with Surgery about adding heparin SQ or Lovenox tomorrow Dispo-continued stay, downgrade from ICU to PCU Admission and Anticipated Discharge Date Admission Date: June 20, 2023 Subjective Pt feeling much better today. Is awake and alert. Has some mild abd pain and bloating. Not passing any flatus or stool yet. Has NGT in to suction. Denies SOB. O2 weaned down to 3LNC. Feels very thirsty. Tele with NSR, ectopy frequently, normal rates Physical Exam Constitutional: WD/WN, vitals as above ENMT: Nose: + external nose abnormality (NGT in place) Neck: trachea midline, no thyromegaly Respiratory: normal respiratory effort; no cough Auscultation: + wheezes (exp wheezes scattered bilat); no crackles and no rhonchi Cardiovascular: RRR, no murmur, no edema (w/ frequent ectopy) Chest (Breasts): Chest: normal inspection of chest Gastrointestinal (Abdomen): Inspection/Auscultation: + abdomen distended (mild) and + hypoactive bowel sounds; + abdomen abnormal to inspection (incision sites c/d/i, drain in RLQ) Percussion/Palpation: + abdomen tender (mild over incision sites) and abdomen soft; no guarding Musculoskeletal: Extremities: extremities normal to inspection; no cyanosis and no clubbing Skin: no rashes, warm and dry Neurologic: moves all extremities and awake; no focal motor deficits Psychiatric: A+Ox3, euthymic affect Lymphatic: no lymphedema Results & Data Results & Data Vital Signs (Past 12 Hours) Vital Signs Temp Pulse Pulse Resp BP Pulse Ox O2 Del Method 06/21/23 16:00 103 H 22 144/85 H 06/21/23 15:00 92 H 18 96 06/21/23 08:00 Nasal Cannula 06/21/23 16:36 36.9 C 06/21/23 14:52 96 H 18 95 Nasal Cannula 06/21/23 12:00 36.8 C 06/21/23 14:00 93 H 21 92 06/21/23 14:00 139/92 06/21/23 13:00 86 21 92 06/21/23 13:00 127/79 06/21/23 12:00 100 H 22 92 06/21/23 11:00 96 H 22 93 06/21/23 11:00 128/84 06/21/23 10:00 104 H 22 93 06/21/23 10:00 151/86 H 06/21/23 09:00 98 H 17 93 06/21/23 09:00 135/86 06/21/23 08:00 88 19 93 Nasal Cannula 06/21/23 08:00 120/73 06/21/23 07:00 70 17 94 BiPAP 06/21/23 07:00 124/75 06/21/23 08:00 36.8 C 06/21/23 11:39 109 H 18 91 Nasal Cannula 06/21/23 07:11 92 H 20 94 06/21/23 07:11 92 H 19 94 BiPAP O2 Flow Rate FiO2 06/21/23 16:00 06/21/23 15:00 06/21/23 08:00 3 06/21/23 16:36 06/21/23 14:52 3 06/21/23 12:00 06/21/23 14:00 06/21/23 14:00 06/21/23 13:00 06/21/23 13:00 06/21/23 12:00 06/21/23 11:00 06/21/23 11:00 06/21/23 10:00 06/21/23 10:00 06/21/23 09:00 06/21/23 09:00 06/21/23 08:00 3 06/21/23 08:00 06/21/23 07:00 06/21/23 07:00 06/21/23 08:00 06/21/23 11:39 3 06/21/23 07:11 7 06/21/23 07:11 7 Laboratory Results CBC, CMP, BCxs, Ur cx, Abd fluid cx all reviewed Diagnostic Findings KUB reviewed PG Care Time/CCT Total # of Minutes Spent Total Time Spent with Patient: Total time spent is greater than 50% in coordination of care (as documented) at patient's floor/unit and/or counseling patient: Coding Level of Care Code 20164 SUB INP/OBS CARE 3/50MIN Diagnoses Sepsis A41.9 Perforated appendix K35.32 XAVIER (acute kidney injury) N17.9 Acute hypoxic respiratory failure J96.01 Anemia D64.9 Gross hematuria R31.0 Chronic obstructive pulmonary disease J44.9 SBO (small bowel obstruction) K56.609 Bilateral pulmonary embolism I26.99 Prostate cancer C61 Hyperlipidemia E78.5 Anxiety F41.9 Prediabetes R73.03
[2023-06-21] MEDS: LACTATED RINGER'S 1,000 ML IV SCH (17:49)
[2023-06-21 20:56] LABS: A calco-baum cmplx NotReported Not Detected (NotDetected); Bact fragilis Not Reported Not Detected (NotDetected); C auris Not Reported Not Detected (NotDetected); Calbicans Not Reported Not Detected (NotDetected); Candida glabrata Not Reported Not Detected (NotDetected); Candida krusei Not Reported Not Detected (NotDetected); Cneoformans/gatti Not Reported Not Detected (NotDetected); Cparapsilosis Not Reported Not Detected (NotDetected); E cloacae compx Not Reported Not Detected (NotDetected); Efaecalis Not Reported Not Detected (NotDetected); Efaecium Not Reported Not Detected (NotDetected); Enterobacterales Not Reported Not Detected (NotDetected); Escherichia coli Not Reported Not Detected (NotDetected); H influenzae Not Reported Not Detected (NotDetected); K aerogenes Not Reported Not Detected (NotDetected); Koxytoca Not Reported Not Detected (NotDetected); Kpneumoniae grp Not Reported Not Detected (NotDetected); Lmonocyt Not Reported Not Detected (NotDetected); N meningitidis Not Reported Not Detected (NotDetected); P aeruginosa Not Reported Not Detected (NotDetected); Proteus spp Not Reported Not Detected (NotDetected); Salmonella spp Not Reported Not Detected (NotDetected); Smarcescens Not Reported Not Detected (NotDetected); Staph lugdunensis Not Reported Not Detected (NotDetected); Staph spp. Not Reported Not Detected (NotDetected); Staphaureus Not Reported Not Detected (NotDetected); Staphepi Not Reported Not Detected (NotDetected); Stenmaltophilia Not Reported Not Detected (NotDetected); Strep agal(GrpB) Not Reported Not Detected (NotDetected); Strep pneum Not Reported Not Detected (NotDetected); Strep pyog (GrpA) Not Reported Not Detected (NotDetected); Strep spp Not Reported Not Detected (NotDetected)
[2023-06-21] MEDS ORDERED: LIDOCAINE 2% JELLY 5 ML TUBE EXT ONE (22:18)
[2023-06-21] MEDS ORDERED: HYDROmorphone INJ 0.5 MG/0.5 ML SYR IV PRN ×2 (22:24)
--- NOTE | 2023-06-21 23:42 | Communication Note ---
Date of Service: June 21, 2023 This provider was notified by nursing staff that patient's Stearns catheter was malfunctioning. This patient is well-known to this provider as he was seen at time of admission secondary to a perforated appendix. Patient did have a difficult Stearns catheter placement by nursing staff at time of admission with resultant hematuria. The patient subsequently developed Stearns catheter malfunction with his existing catheter and Dr. Macias performed a bedside evaluation where he attempted bedside dilation and ultimately was able to place a 14 Paraguayan coud catheter. The Stearns catheter was initially working but I was notified at approximately 10:55 PM on 06/21/2023 that the Stearns catheter was malfunctioning. I presented to the patient's bedside within 5 minutes and nursing staff noted that they were unable to flush or irrigate the catheter. I attempted to manually flush the catheter and was unable to instill any sterile fluid into the Stearns catheter. I was also unable to aspirate any fluid or blood clot from the Stearns catheter. A bladder scan was performed at this time and the patient was noted to have approximately 200 cc of urine in his bladder. Nursing staff noted that prior to Stearns catheter becoming clogged it was draining minor-colored urine. While at the bedside the patient was complaining of considerable discomfort greatest in the suprapubic area with the urge to urinate. Nursing staff also noted there appeared to be some urine leaking from around the Stearns catheter. Due to the difficulty placing the Stearns catheter that was in place I discussed with my attending physician, Dr. Macias. He suggested removing the catheter and attempting to replace it with a 16 Paraguayan coud catheter. The existing 14 Paraguayan coud catheter was removed and the patient was immediately able to void. He voided approximately 200 cc of minor-colored urine. Once the patient stopped urinating he reported a marked improvement of his suprapubic discomfort. Repeat bladder scan was performed and his bladder was noted to be essentially empty on repeat bladder scan. I did inspect the 14 Paraguayan catheter that was in place and the patient's blad claude. The balloon did appear intact. There did appear to be some fibrinous tissue around the balloon. I attempted to flush this catheter to see if it was patent and I was still unable to flush the catheter suggesting that there is some type of blockage within the lumen of the catheter. After these events I recontacted Dr. Macias and he notes that as the patient was able to void and his bladder is essentially empty on bladder scan we should merely leave the Stearns catheter out for the present time. He does note if the patient retains urine attempts can be made to replace his catheter and if difficulty is encountered with this we will need to consider other alternatives which may include taking patient for a cystoscopy.
[2023-06-22] MEDS: INSULIN ASPART PER UNIT CHARGE SC SCH ×4 (00:06→17:46)
[2023-06-22] MEDS: ALBUT/IPRATROP 3MG/0.5MG NEB 3 ML VIAL NEB SCH ×6 (02:14→22:47)
[2023-06-22] MEDS: PIPERACILLIN/TAZOBACTAM 4.5 GM in DEXTROSE 5% MINI-B 100 ML IV SCH ×3 (03:00→17:45)
[2023-06-22 03:51] LABS: Hematocrit (blood only) 32.5 % (42.0-52.0); Hemoglobin 10.2 g/dl (14.0-18.0); Mean Corpuscular Hemoglobin 29.7 pg (25.0-34.0); Mean Corpuscular Hgb Conc 31.4 g/dL (32.0-36.0); Mean Corpuscular Volume 94.5 fL (80.0-100.0); Mean Platelet Volume 10.9 fL (9.4-12.4); Platelet Count 235 K/uL (130-400); RDW Coefficient of Variation 15.1 % (11.5-14.5); Red Blood Count 3.44 M/uL (4.70-6.10); White Blood Count 15.64 K/ul (4.8-10.8)
[2023-06-22 04:15] LABS: Basophils # (auto) 0.02 K/uL (0.00-0.20); Basophils % (auto) 0.1 %; Immature Granulocytes # (auto) 0.17 K/uL (0.01-0.20); Immature Granulocytes % (auto) 1.1 %; Lymphocytes # (auto) 0.66 K/uL (1.20-3.40); Lymphocytes % (auto) 4.2 %; Monocytes # (auto) 0.68 K/uL (0.11-0.59); Monocytes % (auto) 4.3 %; Neutrophils # (auto) 14.11 K/uL (1.40-6.50); Neutrophils % (auto) 90.3 %
[2023-06-22 06:35] LABS: Folate (Folic Acid),Ser orPlas 20.88 ng/ml (>5.38)
[2023-06-22] MEDS: BUDESONIDE 0.25 MG/2 ML VIAL (PULMICORT) NEB SCH ×2 (07:14→19:55)
[2023-06-22] MEDS: FORMOTEROL 20 MCG/2 ML VIAL INH SCH ×2 (07:15→19:55)
[2023-06-22 07:49] LABS: Estimated Average Glucose 123 mg/dl; Hemoglobin A1C 5.9 % (4.5-5.6)
[2023-06-22] MEDS: methylPREDNISolone 40 MG in SYRINGE 0 ML IV SCH ×2 (07:52→21:30)
[2023-06-22] MEDS: LACTATED RINGER'S 1,000 ML IV SCH ×2 (09:07→22:42)
--- NOTE | 2023-06-22 09:32 | Urology Progress Note ---
Date of Service June 22, 2023 Assessment & Plan (1) Gross hematuria: Plan 73-year-old male with a history of prostate cancer who is currently admitted to the ICU due to sepsis and a perforated appendix. Stearns catheter was placed on admission and patient developed gross hematuria. He underwent urethral dilation with Stearns catheter placement at the bedside on 06/20/2023. A 14 Faroese coud tip catheter is in place currently. Stearns catheter obstructed on 06/21/2023 and it was removed. Patient voided spontaneously so opted not to replace the catheter due to significant difficulty at initial placement by urology Patient is voiding spontaneously. No indication to replace catheter. Call urology if patient goes into retention Urology to follow peripherally Admission and Anticipated Discharge Date Admission Date: June 20, 2023 Subjective Patient's catheter obstructed last night. Upon removal he voided spontaneously. We opted not to replace the catheter due to the difficulty. He continues to void spontaneously and feels as if he is emptying. His urine is minor-colored Review of Systems Review of Systems: 14 point review of systems negative outside of what is listed above in HPI Physical Exam Physical Exam: General: Alert and oriented, no acute distress HEENT: Normocephalic, mucous membranes moist Pulmonary: Nonlabored respirations Abdomen: Nondistended Extremities: Moves all 4 spontaneously Neuro: No gross deficits Skin: Warm, dry, no rashes noted Results & Data Vital Signs (Past 12 Hours) Vital Signs Temp Pulse Pulse Resp BP Pulse Ox O2 Del Method 06/22/23 07:52 36.4 C L 85 21 150/90 H 91 Nasal Cannula 06/22/23 07:15 80 18 94 Nasal Cannula 06/22/23 00:00 37.1 C 83 18 151/79 H 96 Nasal Cannula 06/22/23 02:16 88 20 93 Nasal Cannula 06/22/23 00:00 86 06/21/23 22:48 82 24 93 Nasal Cannula O2 Flow Rate 06/22/23 07:52 5 06/22/23 07:15 3 06/22/23 00:00 3 06/22/23 02:16 3 06/22/23 00:00 06/21/23 22:48 3 PG Care Time/CCT Total # of Minutes Spent Total Time Spent with Patient: Total time spent is greater than 50% in coordination of care (as documented) at patient's floor/unit and/or counseling patient: Coding Level of Care Code 81435 SUB INP/OBS CARE 235MIN Diagnoses Gross hematuria R31.0
[2023-06-22] MEDS: PANTOprazole 40 MG in SYRINGE 0 ML IV SCH (09:46)
--- NOTE | 2023-06-22 10:45 | Surgery Progress Note ---
I have seen and examined this patient with the surgical PA and I agree with the assessment and plan Date of Service June 22, 2023 Assessment & Plan (1) Perforated appendix: Plan: POD#2 laparoscopic appendectomy for perforated appendix WBC 15 (14), Hbg 10.2. He is on 3L supplemental O2. HRs and BPs stable Hensley catheter removed and patient is voiding spontaneously He is passing small amounts of flatus, but would keep NGT in for today while awaiting more meaningful return of bowel function. asked RN to re-tape May have some ice chips in the interim Incisions c/d/i. OUSMANE serous Continue on IV abx CXR ordered for some SOB. Continue to work on pulmonary toilet Encourage to get OOB and ambulate as able, may clamp NGT prn ambulating the hallways Admission and Anticipated Discharge Date Admission Date: June 20, 2023 Subjective Patient is feeling pretty well from an abdominal standpoint. No n/v. Passing small amounts of flatus this AM. Is thirsty. Reports some issues with hensley overnight and it was removed and he is now voiding. Reports some mild SOB and wheezing. Physical Exam Physical Exam: awake/alert, no distress Gastrointestinal (Abdomen): Inspection/Auscultation: + abdominal surgical incision (c/d/i) and + abdominal surgical drain present (serous); abdomen not distended Percussion/Palpation: abdomen soft; abdomen nontender Results & Data Vital Signs (Past 12 Hours) Vital Signs Temp Pulse Pulse Resp BP Pulse Ox O2 Del Method 06/22/23 08:15 Nasal Cannula 06/22/23 07:52 36.4 C L 85 21 150/90 H 91 Nasal Cannula 06/22/23 07:15 80 18 94 Nasal Cannula 06/22/23 00:00 37.1 C 83 18 151/79 H 96 Nasal Cannula 06/22/23 02:16 88 20 93 Nasal Cannula 06/22/23 00:00 86 06/21/23 22:48 82 24 93 Nasal Cannula O2 Flow Rate 06/22/23 08:15 3 06/22/23 07:52 5 06/22/23 07:15 3 06/22/23 00:00 3 06/22/23 02:16 3 06/22/23 00:00 06/21/23 22:48 3 PG Care Time/CCT Total # of Minutes Spent Total Time Spent with Patient: Total time spent is greater than 50% in coordination of care (as documented) at patient's floor/unit and/or counseling patient: Coding Level of Care Code 91133 Post Operative Follow-Up Diagnoses Perforated appendix K35.32
[2023-06-22 10:56] LABS: Albumin Level 3.7 gm/dl (3.4-5.0); Bilirubin,Total 0.5 mg/dl (0.2-1.0); Calcium 8.4 mg/dl (8.6-10.3); Magnesium 3.1 mg/dl (1.7-2.4); Potassium 4.6 mmol/L (3.5-5.1)
--- NOTE | 2023-06-22 11:01 | XRay Report ---
XR chest 1V portable HISTORY: NG tube placement. eval some shortness of breath, ?pneumonia COMPARISON: Chest 06/21/2023. FINDINGS: There are low lung volumes. No pneumothorax. Trace bilateral pleural effusions and patchy b ibasilar densities persist. The heart remains enlarged. There is mild central pulmonary vascular christiana estion without overt edema. This is similar to the prior study. A nasogastric tube terminates in the mid stomach. This remains unchanged. IMPRESSION: 1. Nasogastric tube terminates in the stomach. 2. Cardiomegaly, mild congestive change, and trace bilateral pleural effusions persist. 3. Patchy bibasilar densities are again noted. This may represent atelectasis given the low lung volu mes. ACT 112: Negative or not required by law. Electronically signed by: Robin Florence M.D. 06/22/2023 11:00 AM
[2023-06-22 11:02] LABS: Albumin Globulin Ratio 1.5 (0.9-2); BUN Creatinine Ratio 36.8 (10-20); Creatinine Clr Calc Pharmacy 60.3 ml/min; Est GFR (African American) 70.3 ml/min; Est GFR (Non-African American) 60.6 ml/min; Globulin 2.4 gm/dl (2.5-4.0); Phosphorus 2.6 mg/dl (2.5-4.9); Total Protein 6.1 gm/dl (6.0-8.3)
[2023-06-22 11:16] LABS: Thyroid Stimulating Hormone 0.34 uIu/ml (0.300-4.500)
--- NOTE | 2023-06-22 15:33 | Hospitalist Progress Note ---
Date of Service June 22, 2023 Assessment & Plan (1) Sepsis: Plan: 73yo male presenting with acute respiratory distress, sepsis with tachycardia, tachypnea, leukocytosis with WBC=18.32, elevated procalcitonin at 48, normotensive, with elevated lactate and abdominal pain. CT abd/pel with acute perforated appendix. Initially thought to have bilat PEs as well which was then overread by Radiology to be motion artifact. With XAVIER and respiratory failure as well. Initially admitted to ICU for multiorgan system failure and severe sepsis BCxs now with 1/4 Gram positive bacilli--> possible contaminant? Will repeat blood cultures Ur cx no growth and UA not c/w infection s/p lap appy on 06/20, with intra-abdominal infection from perforation--> abd fluid cx growing E. coli, R to Cipro and I resistance to Levaquin With persistent ileus pre and post-op now slightly improved, passing flatus, NGT remains in place Improving overall since surgery--> afebrile, tachycardia resolved, leukocytosis persists but improved, XAVIER improving, Procal down to 25 -Keep NPO but now can have ice chips nad sips with meds -maintain NGT to LIWS -continue IVFs with LR at 70 mL/hr -Continue Zosyn 4.5gm IV q 8 hours -repeat BCxs -General Surgery management appreciated -OUSMANE drain in place -follow CBC, CMP, magnesium ,phos and replace lytes as needed -ICS (2) Perforated appendix: Plan: as above (3) XAVIER (acute kidney injury): 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 Initially requiring CPAP and now weaned to 3LNC Continues with wheezing but improved Chest CTA on admission with linear atelectasis, initially suspected small PEs but then ruled out -Improving with IV steroids-continue for now and then wean down to prednisone when can take po meds -continue nebulized steroids and bronchodilators -wean off supplemental O2 as able (5) Anemia: Plan: hgb 10.2 down from 14 on admission-likely some acute blood loss anemia from surgery and hematuria and also some hemodilutional component from fluids baseline hgb 11-12, normocytic Fe studies with transferrin sat low 12%, ferritin not low but with acute infection B12 folate and TSH normal Likely some baseline Fe deficiency -follow CBC (6) Gross hematuria: Plan: secondary to multiple traumatic Stearns placement attempts Now improving, only small clot on 06/22 after Stearns removed Urology following -f/u with Urology prn in hospital if needs Stearns replaced for retention -with newly diagnosed prostate CA (7) Chronic obstructive pulmonary disease: Plan: BioFire panel is NEGATIVE. Continue treatment as above for respiratory failure (8) SBO (small bowel obstruction): Plan: Patient noted to have high grade SBO on admission CT. KUB with NGT in place and s/p appendectomy consistent with ileus vs ongoing SBO Passing flatus now, no BM, no abd pain, better Surgery recommends continuing NGT for now but can have ice chips -continue IVFs, NGT -follow KUB and monitor for return of bowel function -early ambulation when able to -continue IV PPI for prophylaxis (9) Bilateral pulmonary embolism: Plan: ruled out after admission Dopplers neg for DVT (10) Prostate cancer: Plan: Patient with known prostate cancer. He is following with Radiation Oncology and is to begin treatment soon -Continue home Flomax once taking po (11) Hyperlipidemia: Plan: Chronic. Stable -Continue home Atorvastatin once taking po (12) Anxiety: Plan: restart home velafaxine now due to withdrawal symptoms and developing significant irritability can clamp tube (13) Prediabetes: Plan: with hyperglycemia from steroids in setting of previous preDM continue Novolog SSI, accuchecks A1C 5.9% Plan DVT proph-SCDs, will discuss with Surgery about adding heparin SQ or Lovenox today Dispo-continued stay in PCU, consult PT/OT Admission and Anticipated Discharge Date Admission Date: June 20, 2023 Subjective Stearns was clogged overnight and was removed and he had relief of urinary retention. He is very irritable today which is not like him and points out that he has not received his Effexor since admission. Otherwise he denies abd pain. He is passing some flatus but no stool yet. Tele with NSR, rates 80s Physical Exam Constitutional: WD/WN, vitals as above ENMT: Nose: + external nose abnormality (NGT in place) Neck: trachea midline, no thyromegaly Respiratory: normal respiratory effort; no cough Auscultation: + wheezes (exp wheezes scattered bilat); no crackles and no rhonchi Cardiovascular: RRR, no murmur, no edema (w/ frequent ectopy) Chest (Breasts): Chest: normal inspection of chest Gastrointestinal (Abdomen): Inspection/Auscultation: normal bowel sounds; abd omen not distended Percussion/Palpation: abdomen soft; abdomen nontender and no guarding Musculoskeletal: Extremities: extremities normal to inspection; no cyanosis and no clubbing Skin: no rashes, warm and dry Neurologic: moves all extremities and awake; no focal motor deficits Psychiatric: Orientation: alert and oriented x 3 Affect: + irritable affect Lymphatic: no lymphedema Results & Data Results & Data Vital Signs (Past 12 Hours) Vital Signs Temp Pulse Resp BP Pulse Ox O2 Del Method O2 Flow Rate 06/22/23 14:41 96 Nasal Cannula 3 06/22/23 11:20 36.4 C L 70 18 160/82 H 90 Nasal Cannula 5 06/22/23 11:33 82 18 88 L Room Air 06/22/23 08:15 Nasal Cannula 3 06/22/23 07:52 36.4 C L 85 21 150/90 H 91 Nasal Cannula 5 06/22/23 07:15 80 18 94 Nasal Cannula 3 Laboratory Results CBC, CMP, procal, B12, folate reviewed BCxs 09/17 with GPR Abd fluid cx with E. coli R to Cipro, I to Levaquin PG Care Time/CCT Total # of Minutes Spent Total Time Spent with Patient: Total time spent is greater than 50% in coordination of care (as documented) at patient's floor/unit and/or counseling patient: Coding Level of Care Code 37824 SUB INP/OBS CARE 3/50MIN Diagnoses Sepsis A41.9 Perforated appendix K35.32 XAVIER (acute kidney injury) N17.9 Acute hypoxic respiratory failure J96.01 Anemia D64.9 Gross hematuria R31.0 Chronic obstructive pulmonary disease J44.9 SBO (small bowel obstruction) K56.609 Bilateral pulmonary embolism I26.99 Prostate cancer C61 Hyperlipidemia E78.5 Anxiety F41.9 Prediabetes R73.03
[2023-06-22] MEDS: VENLAFAXINE HCL XR 150 MG CAPXR PO SCH (16:35)
[2023-06-22] MEDS: ENOXAPARIN INJ 40 MG/0.4 ML SYR SQ SCH (16:36)
--- NOTE | 2023-06-22 22:38 | Communication Note ---
Date of Service: June 22, 2023 Received notice patient has difficult IV access, current LR incompatible with zosyn. Switched LR to NSS.
[2023-06-22] MEDS ORDERED: SODIUM CHLORIDE 0.9% 1,000 ML IV SCH (22:45)
[2023-06-23] MEDS: INSULIN ASPART PER UNIT CHARGE SC SCH ×4 (00:08→18:18)
[2023-06-23] MEDS: PIPERACILLIN/TAZOBACTAM 4.5 GM in DEXTROSE 5% MINI-B 100 ML IV SCH ×3 (02:12→17:00)
[2023-06-23] MEDS: ALBUT/IPRATROP 3MG/0.5MG NEB 3 ML VIAL NEB SCH ×6 (02:43→23:09)
[2023-06-23 06:38] LABS: Basophils # (auto) 0.05 K/uL (0.00-0.20); Basophils % (auto) 0.3 %; Hematocrit (blood only) 31.7 % (42.0-52.0); Hemoglobin 10.3 g/dl (14.0-18.0); Immature Granulocytes # (auto) 0.77 K/uL (0.01-0.20); Immature Granulocytes % (auto) 4.8 %; Lymphocytes # (auto) 0.74 K/uL (1.20-3.40); Lymphocytes % (auto) 4.6 %; Mean Corpuscular Hemoglobin 29.6 pg (25.0-34.0); Mean Corpuscular Hgb Conc 32.5 g/dL (32.0-36.0); Mean Corpuscular Volume 91.1 fL (80.0-100.0); Mean Platelet Volume 10.6 fL (9.4-12.4); Monocytes # (auto) 1.32 K/uL (0.11-0.59); Monocytes % (auto) 8.2 %; Neutrophils # (auto) 13.18 K/uL (1.40-6.50); Neutrophils % (auto) 82.1 %; Platelet Count 250 K/uL (130-400); RDW Coefficient of Variation 15.2 % (11.5-14.5); RDW Standard Deviation 50.5 fL (36.4-46.3); Red Blood Count 3.48 M/uL (4.70-6.10); White Blood Count 16.06 K/ul (4.8-10.8)
[2023-06-23 07:07] LABS: BUN Creatinine Ratio 35.3 (10-20); Calcium 8.4 mg/dl (8.6-10.3); Creatinine Clr Calc Pharmacy 69.5 ml/min; Est GFR (African American) 82.9 ml/min; Est GFR (Non-African American) 71.6 ml/min; Magnesium 2.6 mg/dl (1.7-2.4); Phosphorus 2.6 mg/dl (2.5-4.9); Potassium 3.9 mmol/L (3.5-5.1)
[2023-06-23] MEDS: FORMOTEROL 20 MCG/2 ML VIAL INH SCH ×2 (08:09→19:40)
[2023-06-23] MEDS: BUDESONIDE 0.25 MG/2 ML VIAL (PULMICORT) NEB SCH ×2 (08:09→19:40)
[2023-06-23] MEDS ORDERED: D5W AND 1/2NSS 1,000 ML IV SCH (08:45)
[2023-06-23] MEDS: methylPREDNISolone 40 MG in SYRINGE 0 ML IV SCH (09:14)
[2023-06-23] MEDS: VENLAFAXINE HCL XR 150 MG CAPXR PO SCH (09:14)
[2023-06-23] MEDS ORDERED: LORazepam 2 MG/1 ML VIAL IV STA (09:41)
[2023-06-23] MEDS ORDERED: Ativan IV Alcohol Withdrawal--Active Protocol IV PRN (09:42)
[2023-06-23] MEDS ORDERED: LORazepam 2 MG/1 ML VIAL IV PRN ×2 (09:42)
[2023-06-23] MEDS ORDERED: THIAMINE HCL 100 MG in SYRINGE 9 ML IV SCH (09:45)
[2023-06-23] MEDS: FOLIC ACID 1 MG in SYRINGE 9.8 ML IV SCH (10:30)
[2023-06-23] MEDS: THIAMINE HCL 500 MG in SODIUM CHLORIDE 0.9% 50 ML IV SCH ×2 (11:40→18:27)
[2023-06-23] MEDS: PANTOprazole 40 MG in SYRINGE 0 ML IV SCH (11:41)
--- NOTE | 2023-06-23 12:00 | Hospitalist Progress Note ---
Date of Service June 23, 2023 Assessment & Plan (1) Sepsis: Plan: 73yo male presenting with acute respiratory distress, sepsis with tachycardia, tachypnea, leukocytosis with WBC=18.32, elevated procalcitonin at 48, normotensive, with elevated lactate and abdominal pain. CT abd/pel with acute perforated appendix. Initially thought to have bilat PEs as well which was then overread by Radiology to be motion artifact. With XAVIER and respiratory failure as well. Initially admitted to ICU for multiorgan system failure and severe sepsis BCxs with 1/4 Gram positive bacilli--> possible contaminant? Will repeat blood cultures 06/22-NGTD Ur cx no growth and UA not c/w infection s/p lap appy on 06/20, with intra-abdominal infection from perforation--> abd fluid cx growing E. coli, R to Cipro and I resistance to Levaquin With persistent ileus pre and post-op now improved, passing flatus and stool, NGT removed by patient 06/23 Leukocytosis slightly worse today at 16 but could be from significant agitation/stess overnight Remains afebrile, but with some tachycardia and HTN possible 2/2 EtOH withdrawal; XAVIER improving, Procal down to 25 -Continue Zosyn 4.5gm IV q 8 hours -repeat BCxs 06/22-NGTD-will follow -General Surgery management appreciated -OUSMANE drain in place -follow CBC, CMP, magnesium ,phos and replace lytes as needed -ICS (2) Acute encephalopathy: Plan: Developed irritability AM of 06/22 which progressively worsened into night of 06/22-06/23--> combative, agitated, pulled out NGT, yelling at staff Suspect EtOH withdrawal as he does drink daily at home ( reports previous heavy EtOH use but now admits to 2 beers daily, could be more but she doesn't think so). It has been 3 days since being in hospital and not drinking so timeline matches. He is not on benzos at home chronically. He could also have some confusion related to Effexor withdrawal, nicotine withdrawal ( reports significant irritability with this in the past), IV steroid use. Leukocytosis slightly up but could be from stress. No fevers. Abd soft. 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 Initially requiring CPAP and then weaned to 3LNC Continues with wheezing and some resp distress now with suspected EtOH withdrawal Chest CTA on admission with linear atelectasis, initially suspected small PEs but then ruled out -Improving with IV steroids-decrease to SoluMedrol 40mg IV once daily today and wean down to prednisone when can take po meds -continue nebulized steroids and bronchodilators -wean off supplemental O2 as able -continuous POx while with encephalopathy (6) Anemia: Plan: hgb 10.2 down from 14 on admission-likely some acute blood loss anemia from amanda loan and hematuria and also some hemodilutional component from fluids baseline hgb 11-12, normocytic Hg remains stable today, no evidence of bleeding anywhere Fe studies with transferrin sat low 12%, ferritin not low but with acute infection B12 folate and TSH normal Likely some baseline Fe deficiency -follow CBC (7) Gross hematuria: Plan: secondary to multiple traumatic Stearns placement attempts Now resolved, Stearns removed 06/22 Urology following -f/u with Urology prn in hospital if needs Stearns replaced for retention -with newly diagnosed prostate CA -repeat UA (8) Chronic obstructive pulmonary disease: Plan: BioFire panel is NEGATIVE. Continue treatment as above for respiratory failure (9) SBO (small bowel obstruction): Plan: Patient noted to have high grade SBO on admission CT. KUB with NGT in place and s/p appendectomy consistent with ileus vs ongoing SBO Passing flatus now, and multiple BMs, no abd pain, better NGT pulled out during agitation 06/23 and ok to remain out Abd soft, bowel sounds normal -follow KUB-check now -keep NPO except chips and sips until encephalopathy resolves -early ambulation when able to -continue IV PPI for prophylaxis (10) Bilateral pulmonary embolism: Plan: ruled out after admission Dopplers neg for DVT (11) Prostate cancer: Plan: Patient with known prostate cancer. He is following with Radiation Oncology and is to begin treatment soon -Continue home Flomax once taking po -with difficult Stearns placement on admission, Stearns now out and PVRs minimal Check UA again now for encephalopathy (12) Hyperlipidemia: Plan: Chronic. Stable -Continue home Atorvastatin once taking po (13) Anxiety: Plan: restarted home venlafaxine 06/22 to avoid withdrawal issues (14) Prediabetes: Plan: with hyperglycemia from steroids in setting of previous preDM continue Novolog SSI, accuchecks A1C 5.9% Plan DVT proph-SCDs, Lovenox Dispo-continued stay in PCU, consult PT/OT Discussed care with on phone at length on 06/23 Admission and Anticipated Discharge Date Admission Date: June 20, 2023 Subjective Pt very agitated and confused overnight, pulled out his NGT, was combative. Did have 3 BMs overnight, is voiding and empting bladder (PVR 80mL this AM). 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 She is unsure if he drinks more than 2 beers a day but doesn't think so. He was given IV ativan 1 mg today and continued to have agitation, was placed on AWSS and had severe score, was given 3mg IV. He is now calm, more cooperative, intermittently sleeping. Denies abd pain. Tele with 15 bts VT, otherwise NSR, ST up to 130s Physical Exam Constitutional: WD/WN, vitals as above Eyes: + anicteric sclerae Neck: trachea midline, no thyromegaly Respiratory: + cough and + tachypneic Auscultation: + wheezes (exp wheezes scattered bilat); no crackles and no rhonchi Cardiovascular: RRR, no murmur, no edema (w/ frequent ectopy) Chest (Breasts): Chest: normal inspection of chest Gastrointestinal (Abdomen): Inspection/Auscultation: normal bowel sounds; + abdomen abnormal to inspection (incision sites c/d/i, drain in RLQ) and abdomen not distended Percussion/Palpation: abdomen soft; abdomen nontender and no g uarding Musculoskeletal: Extremities: extremities normal to inspection; no cyanosis and no clubbing Skin: no rashes, warm and dry Neurologic: moves all extremities and + confused; no focal motor deficits no facial droop Psychiatric: Orientation: + not alert (drowsy after ativan but answers some questions) Lymphatic: no lymphedema Results & Data Results & Data Vital Signs (Past 12 Hours) Vital Signs Temp Pulse Pulse Resp BP Pulse Ox O2 Del Method 06/23/23 11:08 36.6 C 88 24 170/92 H 92 Nasal Cannula 06/23/23 09:34 78 18 94 Nasal Cannula 06/23/23 07:13 36.4 C L 68 19 154/83 H 90 Nasal Cannula 06/23/23 08:10 82 18 96 Nasal Cannula 06/23/23 00:00 71 06/23/23 03:09 36.8 C 61 16 165/80 H 93 Nasal Cannula 06/23/23 02:43 77 18 94 Nasal Cannula O2 Flow Rate 06/23/23 11:08 3 06/23/23 09:34 2 06/23/23 07:13 3 06/23/23 08:10 3 06/23/23 00:00 06/23/23 03:09 3 06/23/23 02:43 3 Laboratory Results CBC, BMP, magnesium , BCxs reviewed PG Care Time/CCT Total # of Minutes Spent Total Time Spent with Patient: Total time spent is greater than 50% in coordination of care (as documented) at patient's floor/unit and/or counseling patient: Coding Level of Care Code 95959 SUB INP/OBS CARE 3/50MIN Diagnoses Sepsis A41.9 Acute encephalopathy G93.40 Perforated appendix K35.32 XAVIER (acute kidney injury) N17.9 Acute hypoxic respiratory failure J96.01 Anemia D64.9 Gross hematuria R31.0 Chronic obstructive pulmonary disease J44.9 SBO (small bowel obstruction) K56.609 Bilateral pulmonary embolism I26.99 Prostate cancer C61 Hyperlipidemia E78.5 Anxiety F41.9 Prediabetes R73.03
[2023-06-23] MEDS: D5W AND 1/2NSS 1,000 ML IV SCH (12:57)
[2023-06-23] MEDS: NICOTINE 14 MG/24 HR PATCH TD SCH (12:58)
--- NOTE | 2023-06-23 14:04 | XRay Report ---
KUB CLINICAL HISTORY: f/u ileus COMPARISON STUDY: CT of the abdomen and pelvis June 19, 2023. KUB June 21, 2023. FINDINGS: Endoscopic clips within the right colon are incidentally noted. A right lower quadrant surg ical drain is in place. Small bowel dilatation has significantly improved since prior KUB of June 21, 2023. Mild residual small bowel dilatation is noted. IMPRESSION: Significant interval improvement in small bowel dilatation. Mild residual small bowel di latation. The findings favor an improving ileus. ACT 112: Negative or not required by law. Electronically signed by: Luis Ledesma M.D. 06/23/2023 2:03 PM
[2023-06-23] MEDS: ENOXAPARIN INJ 40 MG/0.4 ML SYR SQ SCH (17:00)
[2023-06-23 17:58] LABS: Appearance Urine Cloudy (Clear); Bacteria Urine Automated Negative (Negative); Bilirubin Urine Negative (Negative); Blood Urine 3+ (Negative); Color Urine Yellow; Epithelial Cell Urine Auto 0-5 /lpf (0-5); Glucose Urine UA Negative (Negative); Ketones Urine Negative (Negative); Leukocyte Esterase Urine Negative (Negative); Nitrite Urine Negative (Negative); Protein Urine Negative (Negative); RBC Urine Automated >30 /hpf (0-4); Specific Gravity Urine 1.021 (1.000-1.030); Urobilinogen Urine Negative (Negative)
[2023-06-23] MEDS: LORazepam 2 MG/1 ML VIAL IV PRN ×2 (19:30→21:45)
[2023-06-24] MEDS: INSULIN ASPART PER UNIT CHARGE SC SCH ×4 (00:48→18:38)
[2023-06-24] MEDS: LORazepam 2 MG/1 ML VIAL IV PRN (00:57)
[2023-06-24] MEDS: PIPERACILLIN/TAZOBACTAM 4.5 GM in DEXTROSE 5% MINI-B 100 ML IV SCH ×3 (02:30→18:31)
[2023-06-24] MEDS: D5W AND 1/2NSS 1,000 ML IV SCH ×2 (02:53→18:23)
[2023-06-24] MEDS: THIAMINE HCL 500 MG in SODIUM CHLORIDE 0.9% 50 ML IV SCH ×3 (03:16→20:15)
[2023-06-24] MEDS: FORMOTEROL 20 MCG/2 ML VIAL INH SCH ×2 (06:47→18:56)
[2023-06-24] MEDS: ALBUT/IPRATROP 3MG/0.5MG NEB 3 ML VIAL NEB SCH ×6 (06:47→22:15)
[2023-06-24] MEDS: BUDESONIDE 0.25 MG/2 ML VIAL (PULMICORT) NEB SCH ×2 (06:57→18:56)
[2023-06-24 08:09] LABS: Base Excess ABG 1.8 mEq/L (-9-1.8); HCO3 ABG 26 mmol/L (19-24); Oxygen Saturation ABG 99.5 % (90-95); PCO2 ABG 37 mmHg (35-46); PO2 ABG 120 mmHg (80-95); pH ABG 7.45 (7.35-7.45)
--- NOTE | 2023-06-24 08:13 | Surgery Progress Note ---
Date of Service June 24, 2023 Assessment & Plan (1) Perforated appendix: Plan: POD#4 laparoscopic appendectomy for perforated appendix Patient has become increasing confused and agitated starting yesterday. He self d/c'd his NGT at that time Concern for Etoh withdrawal and he has received multiple doses of ativan Currently requiring BiPap for respiratory status. Labs this AM are pending, will follow up on them CXR ordered OUSMANE drain with 10cc documented yesterday We will follow along closely, but no obivous indication this is stemming from abdominal source at this time (2) Acute encephalopathy: Plan: I have seen the patient this am. I agree with the above assessment. Leukocytosis remains. Neutrophil shift is decreasing. OUSMANE drainage is serous and output is decreasing.. He had been passing flatus and having BMs, tolerating clear liquids prior to last night's events. I agree with this plan. Admission and Anticipated Discharge Date Admission Date: June 20, 2023 Subjective Patient unable to provide subjective history given current mental status. Physical Exam Physical Exam: somnolent Respiratory: on BiPap Gastrointestinal (Abdomen): OUSMANE drain documented 10 cc Results & Data Vital Signs (Past 12 Hours) Vital Signs Temp Pulse Pulse Resp BP Pulse Ox Pulse Ox 06/24/23 07:17 88 23 94 06/24/23 07:17 88 22 94 06/24/23 03:34 36.5 C 65 20 159/89 H 95 06/24/23 02:51 80 20 96 06/24/23 00:22 36.9 C 62 22 174/93 H 95 06/24/23 00:00 100 06/24/23 00:00 88 06/23/23 23:09 86 20 98 06/23/23 21:36 36.9 C 95 H 22 172/100 H 96 O2 Del Method O2 Del Method O2 Flow Rate O2 Flow Rate 06/24/23 07:17 2 06/24/23 07:17 BiPAP 2 06/24/23 03:34 Nasal Cannula 3 06/24/23 02:51 Nasal Cannula 3 06/24/23 00:22 Nasal Cannula 3 06/24/23 00:00 Nasal Cannula 3 06/24/23 00:00 06/23/23 23:09 Nasal Cannula 3 06/23/23 21:36 Nasal Cannula 3 PG Care Time/CCT Total # of Minutes Spent Total Time Spent with Patient: Total time spent is greater than 50% in coordination of care (as documented) at patient's floor/unit and/or counseling patient: Coding Level of Care Code 65964 Post Operative Follow-Up Diagnoses Perforated appendix K35.32 Acute encephalopathy G93.40
[2023-06-24 08:14] LABS: Hematocrit (blood only) 36.2 % (42.0-52.0); Hemoglobin 11.8 g/dl (14.0-18.0); Mean Corpuscular Hemoglobin 29.7 pg (25.0-34.0); Mean Corpuscular Hgb Conc 32.6 g/dL (32.0-36.0); Mean Corpuscular Volume 91.2 fL (80.0-100.0); Mean Platelet Volume 10.3 fL (9.4-12.4); Nucleated RBC # (auto) 0.02 K/uL (0.00-0.12); Nucleated RBC % (auto) 0.1 %; Platelet Count 273 K/uL (130-400); RDW Coefficient of Variation 14.9 % (11.5-14.5); RDW Standard Deviation 50.2 fL (36.4-46.3); Red Blood Count 3.97 M/uL (4.70-6.10)
[2023-06-24] MEDS: FOLIC ACID 1 MG in SYRINGE 9.8 ML IV SCH (08:17)
[2023-06-24] MEDS: PANTOprazole 40 MG in SYRINGE 0 ML IV SCH (08:17)
[2023-06-24 08:25] LABS: Allen Test Pos (Pos)
[2023-06-24 08:34] LABS: Albumin Level 3.4 gm/dl (3.4-5.0); BUN Creatinine Ratio 28.1 (10-20); Basophils % (auto) 0.6 %; Bilirubin Direct 0.1 mg/dl (0-0.2); Bilirubin,Total 0.5 mg/dl (0.2-1.0); Calcium 8.1 mg/dl (8.6-10.3); Creatinine Clr Calc Pharmacy 79.5 ml/min; Eosinophils # (auto) 0.13 K/uL (0.00-0.50); Eosinophils % (auto) 0.8 %; Est GFR (African American) 96.9 ml/min; Est GFR (Non-African American) 83.6 ml/min; Immature Granulocytes # (auto) 0.97 K/uL (0.01-0.20); Lymphocytes # (auto) 1.26 K/uL (1.20-3.40); Lymphocytes % (auto) 7.8 %; Magnesium 2.1 mg/dl (1.7-2.4); Monocytes # (auto) 1.49 K/uL (0.11-0.59); Monocytes % (auto) 9.2 %; Neutrophils # (auto) 12.25 K/uL (1.40-6.50); Neutrophils % (auto) 75.6 %; Phosphorus 2.5 mg/dl (2.5-4.9); Polychromasia 1+; Potassium 3.5 mmol/L (3.5-5.1); Total Protein 5.9 gm/dl (6.0-8.3)
--- NOTE | 2023-06-24 08:36 | Pulmonology Progress Note ---
Date of Service June 24, 2023 Assessment & Plan (1) Chronic obstructive pulmonary disease: (2) Acute hypoxic respiratory failure: (3) Pulmonary embolism: (4) Prostate cancer: Plan Impression: 73-year-old male with recent diagnosis of prostate cancer now presents to the ICU with perforated appendix, sepsis, small bowel obstruction, and bilateral subsegmental pulmonary embolisms with associated hypoxia. ABG 06/24/2023: 7.45/37/[address] chest 06/20/2023 personally reviewed: Linear atelectasis appreciated in the right middle lobe Depend atelectasis bilateral lower lobes Edac appreciated in the trachea as well as bilateral bronchi Fluid-filled esophagus Hiatal hernia Increased cardiac silhouette --Acute hypoxic respiratory failurepatient with history of asthma (is apparently noncompliant with home nebs) Hypoxia likely multifactorial with atelectasis of the lower lobes from significant abdominal distention given small bowel obstruction Continue with supplemental oxygen support Continue with LABA/ICS nebulized --Expiratory dynamic airway collapse It is appreciated on the CTA done 06/20/2023 There was also some fluid in the esophagus at that time Patient will benefit from CPAP/BiPAP --Metabolic encephalopathy Multifactorial Delirium from being in the hospital might be playing a role Plan as per primary team Plan: Chest x-ray from today does not show any significant change compared to before. It has poor inspiratory effort likely from inability to take a deep breath in from abdominal pain. I do not think patient is hypercapnic. The respiratory distress this could be from delirium. He is hypoxic though. Would recommend to check how oxygen saturation is while on nasal cannula if he is desaturating significantly then would recommend a CTA Continue with Brovana and budesonide. I will give a dose of Solu-Medrol Incentive spirometry will be beneficial if patient is able to do with Case was discussed with APRIL Zurita Please note the above document was generated using voice recognition software. It may contain grammatical, syntax or spelling errors.Any formal questions or concerns about the content, text or information contained within the body of this dictation should be directly addressed to the provider for clarification. Admission and Anticipated Discharge Date Admission Date: June 20, 2023 Subjective Patient seen and examined at bedside. He was on BiPAP at the time of examination He was sleeping. The only time he woke up was was when I was examining his abdominal and it was tender. As per the nurse patient has been encephalopathic since last couple of days and has been getting Ativan Was contacted by our charge nurse as patient was requiring CPAP. Review of Systems Review of Systems: All systems reviewed & are unremarkable except as noted in Subjective Physical Exam Physical Exam: Constitutional: No acute distress HEENT: EOMI, PERRLA Respiratory system: Dereased air entry bilaterally, minimal expiratory wheeze on the right side, no rhonchi, positive crackles bilateral lower lobes CVS: S1-S2 positive, no murmurs or gallops Abdomen: Soft, distended, tympanic sounds, positive tenderness at the surgical site, no rebound, decreased bowel sounds, right-sided OUSMANE drain in place Extremities: +2 pulses bilaterally radialis/ dorsalis pedis, no cyanosis, no edema Neuro: Somnolent Psych: Unable to assess G/U: [place] Stearns Skin: no rashes, warm and dry Lymphatic: no cervical or axillary lymphadenopathy Results & Data Results & Data Vital Signs (Past 12 Hours) Vital Signs Temp Pulse Pulse Resp BP Pulse Ox Pulse Ox 06/24/23 07:17 88 23 94 06/24/23 07:17 88 22 94 06/24/23 03:34 36.5 C 65 20 159/89 H 95 06/24/23 02:51 80 20 96 06/24/23 00:22 36.9 C 62 22 174/93 H 95 06/24/23 00:00 100 06/24/23 00:00 88 06/23/23 23:09 86 20 98 06/23/23 21:36 36.9 C 95 H 22 172/100 H 96 O2 Del Method O2 Del Method O2 Flow Rate O2 Flow Rate 06/24/23 07:17 2 06/24/23 07:17 BiPAP 2 06/24/23 03:34 Nasal Cannula 3 06/24/23 02:51 Nasal Cannula 3 06/24/23 00:22 Nasal Cannula 3 06/24/23 00:00 Nasal Cannula 3 06/24/23 00:00 06/23/23 23:09 Nasal Cannula 3 06/23/23 21:36 Nasal Cannula 3 Laboratory Results 06/24/23 07:46 06/24/23 07:46 PG Care Time/CCT Total # of Minutes Spent Total Time Spent with Patient: Total time spent is greater than 50% in coordination of care (as documented) at patient's floor/unit and/or counseling patient: Coding Level of Care Code 51024 SUB INP/OBS CARE MIN Diagnoses Chronic obstructive pulmonary disease J44.9 Acute hypoxic respiratory failure J96.01 Pulmonary embolism I26.99 Prostate cancer C61
--- NOTE | 2023-06-24 08:56 | XRay Report ---
XR chest 1V portable CLINICAL HISTORY: Worsening respiratory failure. COMPARISON STUDY: Chest CT June 20, 2023. Chest radiograph June 22, 2023. FINDINGS: Low lung volumes are unchanged. There is no pneumothorax or pleural effusion. Bibasilar opa cities favor atelectasis. There is no consolidation to suggest pneumonia. No evidence for overt pulmo nary edema. Pulmonary vascular congestion is unchanged. There has been no change in appearance of the chest with the exception of removal of the nasogastric tube. IMPRESSION: 1. No change in appearance of the chest. Low lung volumes with bibasilar opacities that favor atelect asis. 2. Cardiomegaly with pulmonary vascular congestion. No overt pulmonary edema. ACT 112: Negative or not required by law. Electronically signed by: Luis Ledesma M.D. 06/24/2023 8:55 AM
[2023-06-24] MEDS ORDERED: methylPREDNISolone 40 MG in SYRINGE 0 ML IV SCH (09:00)
--- NOTE | 2023-06-24 09:08 | Hospitalist Progress Note ---
Date of Service June 24, 2023 Assessment & Plan (1) Sepsis: Plan: 73yo male presenting with acute respiratory distress, sepsis with tachycardia, tachypnea, leukocytosis with WBC=18.32, elevated procalcitonin at 48, normotensive, with elevated lactate and abdominal pain. CT abd/pel with acute perforated appendix. Initially thought to have bilat PEs as well which was then over-read by Radiology to be motion artifact. With XAVIER and respiratory failure as well. Initially admitted to ICU for multiorgan system failure and severe sepsis- STATUS RESOLVING BCxs with 1/4 Gram positive bacilli--> repeat blood cultures 06/22-NGTD Ur cx no growth and UA not c/w infection Leukocytosis stable at ~16 without fevers overnight, organ dysfunction, or SIRS criteria Procal downtrending to 3.36 on day 4 of Zosyn -Continue Zosyn 4.5gm IV q 8 hours -follow CBC, CMP, magnesium ,phos and replace lytes as needed -ICS (2) Acute encephalopathy: Plan: Developed irritability AM of 06/22 which progressively worsened into night of 06/22-06/23--> combative, agitated, pulled out NGT, yelling at staff, rolling around in bed DDX: Alcohol withdraw vs. hyperactive delirium vs. steroid use vs. Effexor withdraw or combination of the above- Status ongoing acute Suspected EtOH withdrawal as he does drink daily at home ( reports previous heavy EtOH use but now admits to 2 beers daily, could be more but she doesn't think so), was treated with Ativan with - with AWWS scores 5-15. He has received ~12 mg of Ativan over the past 24 hours. Currently somnolent and not tremulous. - Continue with high dose thiamine 500mg IV q8 following 72 hours can likely decrease dose - AWSS following- provider to bedside if >8 to evaluate prior to further sedating meds Possibly hyperactive delirium as well as again he is 4 days in the hospital including ICU stay- evaluate at bedside for worsening behavior- consider Haldol vs. Zyprexa - he has not been tachycardic or severely hypertensive in regards to possible withdraw- he improved somewhat with Ativan- with a decrease in agitated behavior however continues with confusion - Attempt frequent re-orientation, and attempt normal sleep wake cycles He could also have some confusion related to Effexor withdrawal, nicotine withdrawal ( reports significant irritability with this in the past), IV steroid use. - He is with nicotine patch on - steroid dosing decreasing- will stop after this am dose As far as sepsis, this is resolving and at this time is less likely to be causing the above- as he is without focal deficits and talking when awakened will hold off on advanced imaging at this time, as likely will not add to clinical picture. (3) Perforated appendix: Plan: s/p lap appy on 06/20, with intra-abdominal infection from perforation--> abd fluid cx growing E. coli, R to Cipro and I resistance to Levaquin With persistent ileus pre and post-op now improved, passing flatus and stool, NGT removed by patient 06/23 as above -General Surgery management appreciated -OUSMANE drain in place (4) XAVIER (acute kidney injury): Plan: XAVIER with baseline 0.9-1.1- secondary to septic shock and possibly obstructive from enlarged prostate- STATUS RESOLVING log roller 2.2 on arrival- improved following volume and source control - Condom cath on overnight for incontinence- bladder scan q6 hours to evaluate for incomplete drainage/occlusion - Urology consultation appreciated - Follow urine output - Daily BMP and electrolytes (5) Acute hypoxic respiratory failure: Plan: 2/2 sepsis and COPD exacerbation. Initially requiring CPAP and then weaned to 3LNC- he required initiation of BiPAP this morning secondary to accessory muscle use as well as tachypnea- STATUS ONGOING ACUTE - Patient likely with decreased respiratory drive and function following sedation- he is with abdominal pain and weak cough - Avoid oversedation as able- He has received Hydromorphone and Ativan through the evening - He is not hypoxic or tachycardic- is currently on 2LNC bled into BiPAP 06/19 with PaO2- 120 - so PE is unlikely- making atelectasis or mucous plugging more likely - If acutely decompensates would provide Narcan as well - Decrease steroids as he is not with hypercarbia on ABG - Scheduled KENDRA/LABA nebs, remain with ICS - Will need assistance with pulmonary toileting- he has flutter valve at bedside, however use may be difficult with mentation- consider metaneb - BiPAP prn - wean off as able - use for nebs and overnight - Consider diuresis today or tomorrow (6) Anemia: Plan: Acute blood loss anemia most likely- STATUS STABLE hgb 10.2 down from 14 on admission-likely some acute blood loss anemia from surgery and hematuria and also some hemodilutional component from fluids baseline hgb 11-12, normocytic normochromic Fe studies with transferrin sat low 12%, ferritin not low but with acute infection- hold on replacement while acutely ill B12 folate and TSH normal Likely some baseline Fe deficiency -follow CBC (7) Gross hematuria: Plan: secondary to multiple traumatic Stearns placement attempts- STATUS RESOLVED Stearns removed 06/22- Urology following -f/u with Urology prn in hospital if needs Stearns replaced for retention -with newly diagnosed prostate CA -repeat UA (8) Chronic obstructive pulmonary disease: Plan: COPD acute on chroninc- STATUS STABLE ONGOING Bio[employer] panel is NEGATIVE. Continue treatment as above for respiratory failure - See above - Appreciate Pulnonary assistance (9) SBO (small bowel obstruction): Plan: Patient noted to have high grade SBO on admission CT. KUB with NGT in place and s/p appendectomy consistent with ileus vs ongoing SBO- STATUS STABLE ongoing Passing flatus now, and multiple BMs, NGT pulled out during agitation 06/23- remains without vomitting and tolerated small diet on 06/23 Abd soft, bowel sounds normal (10) Bilateral pulmonary embolism: Plan: ruled out after admission- STATUS RESOLVED non acute Dopplers neg for DVT (11) Prostate cancer: Plan: History of- STATUS Ongoing- nonacute Patient with known prostate cancer- 06/06 without mets per PET scan. He is following with Radiation Oncology and is to begin treatment soon - Flomax once taking po- currently on hold (12) Hyperlipidemia: Plan: Chronic. Stable -Continue home Atorvastatin once taking po- currently on hold (13) Anxiety: Plan: Acute on Chroninc- STAUTS- OnGOING in conjunction with encephalopathy restarted home venlafaxine 06/22 to avoid withdrawal issues - not taking PO currently- re-initiate when able mood/behaivor as above (14) Prediabetes: Plan: with hyperglycemia from steroids in setting of previous preDM continue Novolog SSI, accuchecks- Goal <180mg/dl A1C 5.9% Plan DVT proph-SCDs, Lovenox Dispo-continued stay in PCU, consult PT/OT- Continue with respiratory support and toileting- provide breaks from BiPAP as able avoid oversedation Admission and Anticipated Discharge Date Admission Date: June 20, 2023 Supervising Physician Co-Signing Physician Notes BHAVESH Supervision Note: I did not personally see or examine the patient today, but I verified all redd points of BHAVESH Llamas's assessment and plan with the following exceptions/additions: None Subjective 73 YOM HD#4 and postoperative day 4 following admission for sepsis secondary to ruptured appendix. Patient is now on the progressive care unit where he has been having bouts of hallucinations and agitation with disorientation. He was placed on AAWS scales on the 23 of June for concerns of alcohol withdraw and his scores have been from 5-15. He received ~12 mg of Ativan over the past 24 hours. This morning nursing noted increase in respiratory distress and respiratory placed patient on BiPAP- 06/19, he is somnolent currently requiring noxious stimuli to awaken, however he is without any focal deficits and speech is clear. He is able to say "owe that hurts and stop pinching me or i am going to punch you in the face" and is also without any focal deficit in extremities. Vitals reviewed, he is without tachycardia, hypertension, or febrile. He is with tachypnea and bilateral expiratory wheezing, as well as reported a ccessory muscle use this morning- this has improved following BiPAP CXR reviewed- improved ABG reviewed- not hypercarbic or hypoxic Given his clinical course making this difficulty to ascertain between ETOH withdraw or Hyperactive Delirium or withdraw from Effexor being held. Will hold on further Ativan today and evaluate patient at bedside prior to further administrations. He may need Zyprexa or Haldol vs. Ativan. For his respiratory distress this morning, seems most likely caused from atelectasis vs. mucous plugging secondary to decreased VT from oversedating effects. Review of Systems Review of Systems: REVIEW OF SYSTEMS: DEVAUGHN secondary to encephalopathy Physical Exam Physical Exam: PHYSICAL EXAM: General: somnulent, not anxious or agitation Head: Normocephalic, atraumatic ENT: PERRLA, EOMI- when he is awake able to track, no pharyngeal exudate, mucous membranes dry Neuro: AAO x 1, speech clear but inappropriate, strength intact bilaterally 5/5, sensation intact and equal all extremities, no pronator drift, normal bilateral Babinski, localizes and withdraws appropriately Chest: equal rise and fall of the chest, currently without accessory muscle use, expiratory wheezing with scattered rhonchi in bases Cardiac: Regular rate and rhythm, telemetry reviewed, skin warm dry, cap refill <3 seconds, peripheral pusles +2 no JVD, no murmur, no edema GI: Hypoactive bowel sounds, tender to palpation throughout, not peritonitic : Stearns to gravity draining dark minor urine Skin: no rash or erythema Results & Data Results & Data Vital Signs (Past 12 Hours) Vital Signs Temp Pulse Pulse Resp BP Pulse Ox Pulse Ox 06/24/23 07:17 88 23 94 06/24/23 07:17 88 22 94 06/24/23 03:34 36.5 C 65 20 159/89 H 95 06/24/23 02:51 80 20 96 06/24/23 00:22 36.9 C 62 22 174/93 H 95 06/24/23 00:00 100 06/24/23 00:00 88 06/23/23 23:09 86 20 98 06/23/23 21:36 36.9 C 95 H 22 172/100 H 96 O2 Del Method O2 Del Method O2 Flow Rate O2 Flow Rate 06/24/23 07:17 2 06/24/23 07:17 BiPAP 2 06/24/23 03:34 Nasal Cannula 3 06/24/23 02:51 Nasal Cannula 3 06/24/23 00:22 Nasal Cannula 3 06/24/23 00:00 Nasal Cannula 3 06/24/23 00:00 06/23/23 23:09 Nasal Cannula 3 06/23/23 21:36 Nasal Cannula 3 Laboratory Results Abnormal lab results 06/23/23 06/23/23 06/23/23 Range/Units 12:57 17:48 Unknown WBC (4.8-10.8) K/ul RBC (4.70-6.10) M/uL Hgb (14.0-18.0) g/dl Hct (42.0-52.0) % RDW Std Deviation (36.4-46.3) fL RDW Coeff of Molly (11.5-14.5) % Neut # (Auto) (1.40-6.50) K/uL Fajardo # (Auto) (0.11-0.59) K/uL Immature Gran # (Auto) (0.01-0.20) K/uL ABG pO2 (80-95) mmHg ABG HCO3 (19-24) mmol/L ABG O2 Saturation (90-95) % BUN (6-23) mg/dl BUN/Creatinine Ratio (10-20) Glucose (70-99(Fasting)) mg/dl POC Glucose 118 H 123 H (70-99) mg/dl Calcium (8.6-10.3) mg/dl Total Protein (6.0-8.3) gm/dl Urine Appearance Cloudy A (Clear) Urine Blood 3+ H (Negative) Urine RBC (Auto) >30 H (0-4) /hpf 06/24/23 06/24/23 06/24/23 Range/Units 00:18 07:46 07:46 WBC 16.20 H (4.8-10.8) K/ul RBC 3.97 L (4.70-6.10) M/uL Hgb 11.8 L (14.0-18.0) g/dl Hct 36.2 L (42.0-52.0) % RDW Std Deviation 50.2 H (36.4-46.3) fL RDW Coeff of Molly 14.9 H (11.5-14.5) % Neut # (Auto) 12.25 H (1.40-6.50) K/uL [place]ardo # (Auto) 1.49 H (0.11-0.59) K/uL Immature Gran # (Auto) 0.97 H (0.01-0.20) K/uL ABG pO2 (80-95) mmHg ABG HCO3 (19-24) mmol/L ABG O2 Saturation (90-95) % BUN 25 H (6-23) mg/dl BUN/Creatinine Ratio 28.1 H (10-20) Glucose 106 H (70-99(Fasting)) mg/dl POC Glucose 101 H (70-99) mg/dl Calcium 8.1 L (8.6-10.3) mg/dl Total Protein 5.9 L (6.0-8.3) gm/dl Urine Appearance (Clear) Urine Blood (Negative) Urine RBC (Auto) (0-4) /hpf 06/24/23 Range/Units 08:03 WBC (4.8-10.8) K/ul RBC (4.70-6.10) M/uL Hgb (14.0-18.0) g/dl Hct (42.0-52.0) % RDW Std Deviation (36.4-46.3) fL RDW Coeff of Molly (11.5-14.5) % Neut # (Auto) (1.40-6.50) K/uL [place]ardo # (Auto) (0.11-0.59) K/uL Immature Gran # (Auto) (0.01-0.20) K/uL ABG pO2 120 H (80-95) mmHg ABG HCO3 26 H (19-24) mmol/L ABG O2 Saturation 99.5 H (90-95) % BUN (6-23) mg/dl BUN/Creatinine Ratio (10-20) Glucose (70-99(Fasting)) mg/dl POC Glucose (70-99) mg/dl Calcium (8.6-10.3) mg/dl Total Protein (6.0-8.3) gm/dl Urine Appearance (Clear) Urine Blood (Negative) Urine RBC (Auto) (0-4) /hpf Diagnostic Findings KUB X-Ray 06/23/23 12:09 KUB CLINICAL HISTORY: f/u ileus COMPARISON STUDY: CT of the abdomen and pelvis June 19, 2023. KUB June 21, 2023. FINDINGS: Endoscopic clips within the right colon are incidentally noted. A right lower quadrant surgical drain is in place. Small bowel dilatation has significantly improved since prior KUB of June 21, 2023. Mild residual small bowel dilatation is noted. IMPRESSION: Significant interval improvement in small bowel dilatation. Mild residual small bowel dilatation. The findings favor an improving ileus. ACT 112: Negative or not required by law. Electronically signed by: Luis Ledesma M.D. 06/23/2023 2:03 PM Chest X-Ray 06/24/23 07:36 XR chest 1V portable CLINICAL HISTORY: Worsening respiratory failure. COMPARISON STUDY: Chest CT June 20, 2023. Chest radiograph June 22, 2023. FINDINGS: Low lung volumes are unchanged. There is no pneumothorax or pleural effusion. Bibasilar opacities favor atelectasis. There is no consolidation to suggest pneumonia. No evidence for overt pulmonary edema. Pulmonary vascular congestion is unchanged. There has been no change in appearance of the chest with the exception of removal of the nasogastric tube. IMPRESSION: 1. No change in appearance of the chest. Low lung volumes with bibasilar opacities that favor atelectasis. 2. Cardiomegaly with pulmonary vascular congestion. No overt pulmonary edema. ACT 112: Negative or not required by law. Electronically signed by: Luis Ledesma M.D. 06/24/2023 8:55 AM PG Care Time/CCT Total # of Minutes Spent Total Time Spent with Patient: Total time spent is greater than 50% in coordination of care (as documented) at patient's floor/unit and/or counseling patient: Coding Level of Care Code 97396 SUB INP/OBS CARE 3/50MIN Diagnoses Sepsis A41.9 Acute encephalopathy G93.40 Perforated appendix K35.32 XAVIER (acute kidney injury) N17.9 Acute hypoxic respiratory failure J96.01 Anemia D64.9 Gross hematuria R31.0 Chronic obstructive pulmonary disease J44.9 SBO (small bowel obstruction) K56.609 Bilateral pulmonary embolism I26.99 Prostate cancer C61 Hyperlipidemia E78.5 Anxiety F41.9 Prediabetes R73.03
[2023-06-24] MEDS: VENLAFAXINE HCL XR 150 MG CAPXR PO SCH (14:00)
[2023-06-24] MEDS: NICOTINE 14 MG/24 HR PATCH TD SCH (14:00)
--- NOTE | 2023-06-24 17:18 | Communication Note ---
Date of Service: June 24, 2023 1700- Patient seen in the evening with daughter and at bedside. Was also accompanied by Dr. Green. Alec has improved well through out the day and is now opening eyes spontaneously as well as to voice and following commands, to include take deep breath and cough. He says he just feels very tired and that his abdomen is not hurting when coughing. Family was updated on current plans as well as informing of DDXs. Aware that if delirium that this may go on for days to months to fully resolve. Discussed reassurance of all his labs improvin g as well as ABG from this morning, discussed normalcy of the rest of his neurological examination that this is favorable. Patient was talking appropriately upon leaving and answering questions appropriatley, still remains confused on time and place. We will try to take his BiPAP off at this time, help him with ICS and Flutter valve as well as coughing and deep breathing. Allow for oral intake as tolerated. All questions answered to the best of my ability as well as with Dr. Green. Family voiced understanding and felt more relieved following discussion and felt their questions were answered fully. Aly OSPINA (ACNP-)
[2023-06-24] MEDS: ENOXAPARIN INJ 40 MG/0.4 ML SYR SQ SCH (18:29)
[2023-06-24] MEDS: methylPREDNISolone 40 MG in SYRINGE 0 ML IV SCH (18:29)
[2023-06-25] MEDS: INSULIN ASPART PER UNIT CHARGE SC SCH ×4 (00:45→17:47)
[2023-06-25] MEDS: ALBUT/IPRATROP 3MG/0.5MG NEB 3 ML VIAL NEB SCH ×4 (02:04→19:22)
[2023-06-25] MEDS: PIPERACILLIN/TAZOBACTAM 4.5 GM in DEXTROSE 5% MINI-B 100 ML IV SCH (02:54)
[2023-06-25] MEDS: THIAMINE HCL 500 MG in SODIUM CHLORIDE 0.9% 50 ML IV SCH ×2 (02:54→11:00)
[2023-06-25 06:26] LABS: Base Excess ABG 1.7 mEq/L (-9-1.8); HCO3 ABG 26 mmol/L (19-24); Oxygen Saturation ABG 96.4 % (90-95); PCO2 ABG 38 mmHg (35-46); PO2 ABG 69 mmHg (80-95); pH ABG 7.44 (7.35-7.45)
[2023-06-25 06:28] LABS: Allen Test Pos (Pos)
[2023-06-25 06:30] LABS: Hematocrit (blood only) 33.1 % (42.0-52.0); Hemoglobin 10.9 g/dl (14.0-18.0); Mean Corpuscular Hemoglobin 29.8 pg (25.0-34.0); Mean Corpuscular Hgb Conc 32.9 g/dL (32.0-36.0); Mean Corpuscular Volume 90.4 fL (80.0-100.0); Mean Platelet Volume 10.3 fL (9.4-12.4); Platelet Count 289 K/uL (130-400); RDW Coefficient of Variation 14.6 % (11.5-14.5); RDW Standard Deviation 48.6 fL (36.4-46.3); Red Blood Count 3.66 M/uL (4.70-6.10); White Blood Count 17.58 K/ul (4.8-10.8)
[2023-06-25 07:00] LABS: Albumin Globulin Ratio 1.3 (0.9-2); Albumin Level 3.1 gm/dl (3.4-5.0); BUN Creatinine Ratio 24.5 (10-20); Bilirubin,Total 0.5 mg/dl (0.2-1.0); Calcium 8.1 mg/dl (8.6-10.3); Creatinine Clr Calc Pharmacy 69.3 ml/min; Est GFR (African American) 82.9 ml/min; Est GFR (Non-African American) 71.6 ml/min; Globulin 2.3 gm/dl (2.5-4.0); Magnesium 2.2 mg/dl (1.7-2.4); Phosphorus 3.2 mg/dl (2.5-4.9); Potassium 3.6 mmol/L (3.5-5.1); Total Protein 5.4 gm/dl (6.0-8.3)
[2023-06-25] MEDS: FORMOTEROL 20 MCG/2 ML VIAL INH SCH ×2 (07:11→20:15)
[2023-06-25] MEDS: BUDESONIDE 0.25 MG/2 ML VIAL (PULMICORT) NEB SCH ×2 (07:11→20:15)
[2023-06-25] MEDS ORDERED: POTASSIUM CHLORIDE CRTAB 20 MEQ TABCR PO STA (07:32)
[2023-06-25 07:58] LABS: Basophils # (auto) 0.07 K/uL (0.00-0.20); Basophils % (auto) 0.4 %; Eosinophils # (auto) 0.05 K/uL (0.00-0.50); Eosinophils % (auto) 0.3 %; Immature Granulocytes % (auto) 5.7 %; Lymphocytes # (auto) 1.22 K/uL (1.20-3.40); Lymphocytes % (auto) 6.9 %; Monocytes # (auto) 1.07 K/uL (0.11-0.59); Monocytes % (auto) 6.1 %; Neutrophils # (auto) 14.17 K/uL (1.40-6.50); Neutrophils % (auto) 80.6 %; Polychromasia 1+; Toxic Vacuolation 2+
[2023-06-25] MEDS: methylPREDNISolone 40 MG in SYRINGE 0 ML IV SCH (08:36)
[2023-06-25] MEDS: FOLIC ACID 1 MG in SYRINGE 9.8 ML IV SCH (08:37)
[2023-06-25] MEDS: VENLAFAXINE HCL XR 150 MG CAPXR PO SCH (08:37)
[2023-06-25] MEDS: NICOTINE 14 MG/24 HR PATCH TD SCH (08:38)
--- NOTE | 2023-06-25 08:52 | Pulmonology Progress Note ---
Date of Service June 25, 2023 Assessment & Plan (1) Chronic obstructive pulmonary disease: (2) Acute hypoxic respiratory failure: (3) Pulmonary embolism: (4) Prostate cancer: Plan Impression: 73-year-old male with recent diagnosis of prostate cancer now presents to the ICU with perforated appendix, sepsis, small bowel obstruction, and bilateral subsegmental pulmonary embolisms with associated hypoxia. ABG 06/24/2023: 7.45/37/[address] chest 06/20/2023 personally reviewed: Linear atelectasis appreciated in the right middle lobe Depend atelectasis bilateral lower lobes Edac appreciated in the trachea as well as bilateral bronchi Fluid-filled esophagus Hiatal hernia Increased cardiac silhouette --Acute hypoxic respiratory failurepatient with history of asthma (is apparently noncompliant with home nebs) Hypoxia likely multifactorial with atelectasis of the lower lobes from significant abdominal distention given small bowel obstruction Continue with supplemental oxygen support Continue with LABA/ICS nebulized --Expiratory dynamic airway collapse It is appreciated on the CTA done 06/20/2023 There was also some fluid in the esophagus at that time Patient will benefit from CPAP/BiPAP --Metabolic encephalopathy Multifactorial Delirium from being in the hospital might be playing a role Plan as per primary team Plan: Recommend Symbicort and Spiriva on discharge He will likely benefit from positive airway pressure like CPAP/BiPAP even at home. Would recommend outpatient polysomnography Tapering dose of prednisone over 5-6 days Incentive spirometry will be beneficial if patient is able to do with Case was discussed with Parminder, as well as Dr. Green No further recommendation from pulmonary perspective. We will sign off Please call directly with any questions Please note the above document was generated using voice recognition software. It may contain grammatical, syntax or spelling errors.Any formal questions or concerns about the content, text or information contained within the body of this dictation should be directly addressed to the provider for clarification. Admission and Anticipated Discharge Date Admission Date: June 20, 2023 Subjective Patient seen and examined at bedside. No acute distress, no adverse events overnight He was sitting on the chair at the time of examination saturating 97% on room air He was awake alert oriented. Answering all the questions appropriately Denied any headache, no nausea, no vomiting Having bowel movements Review of Systems Review of Systems: All systems reviewed & are unremarkable except as noted in Subjective Physical Exam Physical Exam: Constitutional: No acute distress HEENT: EOMI, PERRLA Respiratory system: Dereased air entry bilaterally, minimal expiratory wheeze on the right side, no rhonchi, positive crackles bilateral lower lobes CVS: S1-S2 positive, no murmurs or gallops Abdomen: Soft, nontender, nondistended, right-sided OUSMANE drain in place Extremities: +2 pulses bilaterally radialis/ dorsalis pedis, no cyanosis, no edema Neuro: Alert oriented x3 Psych: Normal mood and affect G/U: [place] Ste[employer]s Skin: no rashes, warm and dry Lymphatic: no cervical or axillary lymphadenopathy Results & Data Results & Data Vital Signs (Past 12 Hours) Vital Signs Temp Pulse Pulse Resp BP Pulse Ox O2 Del Method 06/25/23 08:10 36.3 C L 63 19 127/82 94 Nasal Cannula 06/25/23 07:15 Nasal Cannula 06/25/23 07:03 73 15 94 Nasal Cannula 06/25/23 03:59 36.3 C L 66 16 144/82 H 96 CPAP 06/25/23 00:00 CPAP 06/25/23 00:00 77 06/25/23 02:04 62 18 94 06/25/23 02:04 62 18 94 BiPAP 06/25/23 00:20 36.4 C L 72 16 144/83 H 96 CPAP 06/24/23 22:34 81 19 93 06/24/23 22:18 73 20 95 Nasal Cannula O2 Flow Rate 06/25/23 08:10 2 06/25/23 07:15 2 06/25/23 07:03 2 06/25/23 03:59 2 06/25/23 00:00 2 06/25/23 00:00 06/25/23 02:04 3 06/25/23 02:04 3 06/25/23 00:20 06/24/23 22:34 06/24/23 22:18 3 Laboratory Results 06/25/23 06:15 06/25/23 06:15 PG Care Time/CCT Total # of Minutes Spent Total Time Spent with Patient: Total time spent is greater than 50% in coordination of care (as documented) at patient's floor/unit and/or counseling patient: Coding Level of Care Code 07666 SUB INP/OBS CARE 2/35MIN Diagnoses Chronic obstructive pulmonary disease J44.9 Acute hypoxic respiratory failure J96.01 Pulmonary embolism I26.99 Prostate cancer C61
--- NOTE | 2023-06-25 09:05 | Surgery Progress Note ---
Date of Service June 25, 2023 Assessment & Plan (1) Perforated appendix: Plan: POD#5 laparoscopic appendectomy for perforated appendix Patient is much more awake/alert this AM than yesterday WBC is uptrending 17 (16). is afebrile with otherwise stable vitals and is off supplemental O2. He continues on zosyn. he has received some steroids He has no obvious abdominal complaints. some crampiness that has passed but no n/v. pain controlled. He is passing gas and Bms Can trial advancing diet and seeing how he fairs OUSMANE drain with 50cc documented and serosang in nature Will continue to follow along closely Admission and Anticipated Discharge Date Admission Date: June 20, 2023 Supervising Physician Co-Signing Physician Notes 73-year-old male postop day 5 laparoscopic appendectomy for perforated appendicitis He is much more awake and alert today He is tolerating full liquids, will advance to low fiber diet Leave his OUSMANE drain in place He is passing gas and having bowel movements He does have a persistent leukocytosis however is gotten some Solu-Medrol As long as he continues to do well he could likely be discharged from a surgical standpoint tomorrow with oral antibiotics for 7-10 days We will continue to follow Subjective Patient is feeling well. Much better than yesterday. He is on clears, tolerating well. mild expected abdominal pain which is controlled. Denies any nausea/vomiting. Is passing gas and having BMs. Physical Exam Physical Exam: awake, no distress. much more alert than yesterday Respiratory: normal respiratory effort on room air Gastrointestinal (Abdomen): Inspection/Auscultation: + abdominal surgical drai n present (50cc serosang. documented) Percussion/Palpation: + abdomen tender (expected molina incisional discomfort and some on rlq region) and abdomen soft Results & Data Vital Signs (Past 12 Hours) Vital Signs Temp Pulse Pulse Resp BP Pulse Ox O2 Del Method 06/25/23 08:10 36.3 C L 63 19 127/82 94 Nasal Cannula 06/25/23 07:15 Nasal Cannula 06/25/23 07:03 73 15 94 Nasal Cannula 06/25/23 03:59 36.3 C L 66 16 144/82 H 96 CPAP 06/25/23 00:00 CPAP 06/25/23 00:00 77 06/25/23 02:04 62 18 94 06/25/23 02:04 62 18 94 BiPAP 06/25/23 00:20 36.4 C L 72 16 144/83 H 96 CPAP 06/24/23 22:34 81 19 93 06/24/23 22:18 73 20 95 Nasal Cannula O2 Flow Rate 06/25/23 08:10 2 06/25/23 07:15 2 06/25/23 07:03 2 06/25/23 03:59 2 06/25/23 00:00 2 06/25/23 00:00 06/25/23 02:04 3 06/25/23 02:04 3 06/25/23 00:20 06/24/23 22:34 06/24/23 22:18 3 PG Care Time/CCT Total # of Minutes Spent Total Time Spent with Patient: Total time spent is greater than 50% in coordination of care (as documented) at patient's floor/unit and/or counseling patient: Coding Level of Care Code 16967 Post Operative Follow-Up Diagnoses Perforated appendix K35.32
[2023-06-25] MEDS: cefTRIAXone SODIUM 2,000 MG in DEXTROSE 5 % MINI-B 50 ML IV SCH (11:24)
[2023-06-25] MEDS: PANTOprazole 40 MG in SYRINGE 0 ML IV SCH (11:24)
[2023-06-25] MEDS: metroNIDAZOLE 500 MG/100 ML BAG IV SCH ×2 (11:24→17:31)
--- NOTE | 2023-06-25 12:02 | Infectious Disease Consult ---
Date of Consultation June 25, 2023 Assessment & Plan (1) Perforated appendix: (2) SBO (small bowel obstruction): (3) Leukocytosis: Plan 73 yo male with pmh copd, hld , prostate cancer diagnosed 04/2023 presents to ed with a few days of abdominal pain and distention with sob. In the ed he is hypoxic, tachypneic, tachycardic. He I afebrile. He was noted to have a tender distended abdomen. CTAB showed signs of perforated appendicitis and high grade SBO, CTA lung showed bilateral lower lobe subsegmental PEs. He was started on heparin drip and started on Zosyn. PE was later ruled out and heparin discontinued. He was admitted to ICU and eventually underwent exlap appendecto my with washout on 06/20. OP report mentions evidence of naveed perforation and purulent fluid and fibrinous exudate layering over the bowel and abdomen. Cx sent and OUSMANE drain placed. Intraoperative cx + for ecoli ( R cipro, I lev), Eggerthella Lenta and a low count of mixed anaerobic microbiota. BC grew bottles of GPC in anaerobic bottle ( non viable for sensitivities). His hospital course c/b confusion/encephalopathy which has resolved. Labs on admission wbc 18.32?17.58, procal 48? 25.55,? 3.36 lactate 2.9? 1.8 . UA with pyuria, negative respiratory biofire. He Is now on medical floors and feels well . ileus improved on repeat imaging He has less ab pain. He denies fever, chils, shortness of breath, nausea/vomiting, diarrhea. He has had difficulty urinating for a few month since diagnosed with prostate Ca. ID consulted for peritonitis/ bacteremia Micro Bc 06/19 09/17 bottles + GPR ( anaerobic) UC 06/20 < 1000cfu WC 06/20 Ecoli ( R cipro, I lev), Eggerthella Lenta and a low count of mixed anaerobic microbiota BC 06/22 NGTD ABX zosyn 06/19-ongoing Vanc 06/19 Azithr 06/19 #Sepsis #Perforated appendicitis/Peritonitis #GPR bacteremia #Hypoxic respiratory failure #SBO He presented with sepsis 2/2 peritonitis sp perforated appendicitis. He underwent appendectomy and washout with drain placement on 06/20. Lactic acidosis resolved. Procalcitonin nicely down trended His WBC remains elevated, but he has been started on prednisone. His mental status has returned to baseline. intraab cx with GI philippe: Ecoli and Eggerthella Lenta(an anaerobic GPR associated with intrab infxn). Eggerthella is usually > 95% sensitive to Metronidazole, it may be less sensitive to Pip- Tera. The GPR in 1/4 bottles grew in anaerobic bottle but was not viable for ID and sensitivity. Repeat BC sterile to date. The GPR may represent the Eggerherlla in ab cx or another GI anaerobe. Treatment duration for complicated abdominal infection with achievement of source control is usually 4-5 days post source control. His WBC remains elevated, I would ensure it down trends prior to discontinuation of abx. OR date was 06/20, but drain still in place. Would consider source control once drain removed. Recommendations; Switch abx from zosyn to Ceftriaxone 2g I v daily and Flagyl 500 mg PO tid.( can dc on oral flagyl and cefpodoxime 400 mg po q12. Follow up Repeat BC sterile so far Trend WBc and ensure it trends down prior to dc He is on abx day# 7 post OR with Drain in place. I would treat for 5 days POST drain removal. D/w hospitalist abx regimen Thank you for this consultation. ID will sign off. Please call with questions Regino De Leon MD, MPH Infectious Disease [facility] Call [phone] with questions . Consultation Information Consultation was provided via telemedicine using two-way real-time interactive telecommunication between the patient and the telemedicine provider. For the duration of the visit, the provider was performing the assessment from a different facility than the patient. This includesuse of bluetooth stethoscope forauscultationperformed by the telepresenter that the telemedicine provider can hear if described in the physical exam. [employer] contact information: Please call [facility] Call Center . (Phone Number For Physician Use Only) After establishing a telemedicine visit, patient was: Patient was verified with two unique identifiers and Patient/authorized rep acknowledged consent and understanding Time Spent with Patient: Initial => 75 min History of Present Illness Reason for Consultation: peritonitis/ bacteremia Requesting Physician: Ysabel Green MD Attending Physician: Ysabel Green MD History of Present Illness 73 yo male with pmh copd, hld , prostate cancer diagnosed 04/2023 presents to ed with a few days of abdominal pain and distention with sob. In the ed he is hypoxic, tachypneic, tachycardic. He I afebrile. He was noted to have a tender distended abdomen. CTAB showed signs of perforated appendicitis and high grade SBO, CTA lung showed bilateral lower lobe subsegmental PEs. He was started on heparin drip and started on Zosyn. PE was later ruled out and heparin discontinued. He was admitted to ICU and eventually underwent exlap appendectomy with washout on 06/20. OP report mentions evidence of naveed perforation and purulent fluid and fibrinous exudate layering over the bowel and abdomen. Cx sent and OUSMANE drain placed. Intraoperative cx + for ecoli ( R cipro, I lev), Eggerthella Lenta and a low count of mixed anaerobic microbiota. BC grew bottles of GPC in anaerobic bottle ( non viable for sensitivities). His hospital course c/b confusion/encephalopathy which has resolved. Labs on admission wbc 18.32?17.58, procal 48? 25.55,? 3.36 lactate 2.9? 1.8 . UA with pyuria, negative respiratory biofire. He Is now on medical floors and feels well . ileus improved on repeat imaging He has less ab pain. He denies fever, chils, shortness of breath, naus ea/vomiting, diarrhea. He has had difficulty urinating for a few month since diagnosed with prostate Ca. ID consulted for peritonitis/ bacteremia Allergies Allergy/AdvReac Type Severity Reaction Status Date / Time No Known Allergies Allergy Verified 06/20/23 09:31 Home Medications Medication Instructions Recorded Confirmed Type multivitamin,tx-minerals 1 cap PO QDL 03/14/19 06/20/23 History (Multi-Vitamin HP/Minerals capsule) vitamins A,C,Y-dpsd-sqknka 2,148 1 tab PO QDL 03/14/19 06/20/23 History mcg-113 mg-45 mg-17.4 mg tablet (PreserVision AREDS) inhalational spacing device #1 ea 06/17/21 06/18/23 Rx (Aerochamber Plus Z Stat spacer) Symbicort 80 mcg-4.5 mcg/actuation 2 puff inhalation BID #10.2 grams 06/24/22 06/20/23 Rx HFA aerosol inhaler (budesonide-formoterol) magnesium oxide 400 mg PO DAILY 12/09/22 06/20/23 History venlafaxine 150 mg 150 mg PO DAILY #90 caps 03/26/23 06/20/23 Rx capsule,extended release 24 hr atorvastatin 40 mg tablet 40 mg PO HS 06/20/23 06/20/23 History ferrous sulfate 325 mg (65 mg 325 mg PO QAM 06/20/23 06/20/23 History iron) tablet,delayed release tiotropium bromide 18 mcg capsule 1 cap inhalation DAILY #60 06/25/23 Rx with inhalation device (Spiriva inhalations with HandiHaler) Patient History Medical History (Updated 06/23/23 @ 12:14 by Ysabel Green MD) Anemia recently in hospital and Dr. Omer aware Anxiety Asthma Borderline hypertension Chronic obstructive pulmonary disease Chronic sinusitis Closed head injury hx of rock hit head and need stitches Diverticulosis Elevated troponin I level Fall hx of a long time ago Hyperlipidemia Iron deficiency Macular degeneration of both eyes Mitral valve prolapse folllow with dr oh Osteoarthritis Pneumoconiosis Prediabetes Sleep apnea Troponin level elevated Surgical History (Updated 06/22/23 @ 11:28 by Shruthi Gil RN) History of abdominal hernia History of cataract surgery RIGHT/left History of colonoscopy History of ERCP History of esophagogastroduodenoscopy (EGD) History of laparoscopic appendectomy (06/20/23) Laparoscopic Appendectomy, Exploratory Laproscopy, Intra-abdominal washout(Not Applicable) - Vignesh Zhao DO History of prostate biopsy (04/22/23) History of tonsillectomy and adenoidectomy Hx of vasectomy S/P pericardial window creation 8 YEARS AGO 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 Brother No problems noted. Son No problems noted. Daughter No problems noted. Denies family history of Ovarian cancer Breast cancer Colorectal cancer Social History Smoking Status: Former smoker Tobacco Type: Smokeless Tobacco (Dip or Chew) Age Started Using Tobacco: 16; Age Quit Using Tobacco: 26; Second Hand Exposure: No; Do You Dip or Chew Tobacco: Yes; Hx Alcohol Use: Yes Alcohol type: beer Hx Substance Use: No Preferred Language: Khmer Communication Ability: Effective Communication Ability Comment: HARD OF HEARING Visual Impairment: No Limitations Hearing Ability: Use of Hearing Aid Plant Operator/Shift Supervisor Required: No Beliefs That Will Affect Care: None marital status: Current Living Situation: Family current occupational status: retired 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 Pertinent positives as per HPI Physical Exam Physical Exam: Gen- sitting up in chair, NAD, on 2l NC Neck- supple Lungs- No incr WOB Abd- distended, soft, Rside drain in place draining sanguinous clear fluid, TTp at RLq Ext- NO edema Neuro- AAO *3 Results & Data Vital Signs (Past 12 Hours) Vital Signs Temp Pulse Pulse Resp BP Pulse Ox O2 Del Method 06/25/23 11:46 77 16 94 Nasal Cannula 06/25/23 08:10 36.3 C L 63 19 127/82 94 Nasal Cannula 06/25/23 07:15 Nasal Cannula 06/25/23 07:03 73 15 94 Nasal Cannula 06/25/23 03:59 36.3 C L 66 16 144/82 H 96 CPAP 06/25/23 00:00 CPAP 06/25/23 00:00 77 06/25/23 02:04 62 18 94 06/25/23 02:04 62 18 94 BiPAP 06/25/23 00:20 36.4 C L 72 16 144/83 H 96 CPAP O2 Flow Rate 06/25/23 11:46 2 06/25/23 08:10 2 06/25/23 07:15 2 06/25/23 07:03 2 06/25/23 03:59 2 06/25/23 00:00 2 06/25/23 00:00 06/25/23 02:04 3 06/25/23 02:04 3 06/25/23 00:20 Laboratory Results Short CBC 06/25/23 Range/Units 06:15 WBC 17.58 H (4.8-10.8) K/ul Hgb 10.9 L (14.0-18.0) g/dl Hct 33.1 L (42.0-52.0) % Plt Count 289 (130-400) K/uL BMP 06/25/23 06:15 Sodium 137 Potassium 3.6 Chloride 106 Carbon Dioxide 26 BUN 25 H Creatinine 1.02 Glucose 145 H Calcium 8.1 L Liver Function 06/25/23 Range/Units 06:15 Total Bilirubin 0.5 (0.2-1.0) mg/dl AST 38 (13-39) U/L ALT 64 H (7-52) U/L Alkaline Phosphatase 56 (34-104) U/L Albumin 3.1 L (3.4-5.0) gm/dl Diagnostic Findings Microbiology 06/20/23 13:02 Abdomen Gram Stain - Final 06/20/23 13:02 Abdomen Aerobic and Anaerobic Culture - Final Escherichia coli Eggerthella lenta 06/19/23 22:00 Blood Aerobic Blood Culture - Final No growth in Aerobic bottle after 5 days. 06/19/23 22:00 Blood Anaerobic Blood Culture - Final No growth in Anaerobic bottle after 5 days. 06/19/23 21:30 Blood Aerobic Blood Culture - Final No growth in Aerobic bottle after 5 days. 06/19/23 21:30 Blood Anaerobic Blood Culture - Preliminary Gram positive bacilli 06/22/23 16:26 Blood Aerobic Blood Culture - Preliminary No growth in Aerobic bottle after 48 hours. 06/22/23 16:26 Blood Anaerobic Blood Culture - Final 06/22/23 16:32 Blood Aerobic Blood Culture - Preliminary No growth in Aerobic bottle after 48 hours. 06/22/23 16:32 Blood Anaerobic Blood Culture - Preliminary No growth in Anaerobic bottle after 48 hours. 06/20/23 09:25 Urine,Clean Catch Urine Culture - Final No growth - less than 1,000 colonies/mL. Ctab 06/19/23 IMPRESSION: 1. Perforated appendicitis without periappendiceal abscess. There is a lot of reactive inflammatory fluid within the pelvis and adjacent to the appendix. 2. Diverticulosis without evidence of diverticulitis 3. High-grade small bowel obstruction. CT lung IMPRESSION: 1. Limited exam 2. Bilateral lower lobe subsegmental pulmonary emboli 3. Extraluminal gas seen within the upper abdomen better evaluated on dedicated CT of the abdomen and pelvis KUB X-Ray 06/23/23 12:09 KUB CLINICAL HISTORY: f/u ileus COMPARISON STUDY: CT of the abdomen and pelvis June 19, 2023. KUB June 21, 2023. FINDINGS: Endoscopic clips within the right colon are incidentally noted. A right lower quadrant surgical drain is in place. Small bowel dilatation has significantly improved since prior KUB of June 21, 2023. Mild residual small bowel dilatation is noted. IMPRESSION: Significant interval improvement in small bowel dilatation. Mild residual small bowel dilatation. The findings favor an improving ileus. ACT 112: Negative or not required by law. Electronically signed by: Luis Ledesma M.D. 06/23/2023 2:03 PM Chest X-Ray 06/24/23 07:36 XR chest 1V portable CLINICAL HISTORY: Worsening respiratory failure. COMPARISON STUDY: Chest CT June 20, 2023. Chest radiograph June 22, 2023. FINDINGS: Low lung volumes are unchanged. There is no pneumothorax or pleural effusion. Bibasilar opacities favor atelectasis. There is no consolidation to suggest pneumonia. No evidence for overt pulmonary edema. Pulmonary vascular congestion is unchanged. There has been no change in appearance of the chest with the exception of removal of the nasogastric tube. IMPRESSION: 1. No change in appearance of the chest. Low lung volumes with bibasilar opacities that favor atelectasis. 2. Cardiomegaly with pulmonary vascular congestion. No overt pulmonary edema. ACT 112: Negative or not required by law. Electronically signed by: Luis Ledesma M.D. 06/24/2023 8:55 AM
--- NOTE | 2023-06-25 15:01 | Hospitalist Progress Note ---
Date of Service June 25, 2023 Assessment & Plan (1) Sepsis: Plan: 73yo male presenting with acute respiratory distress, sepsis with tachycardia, tachypnea, leukocytosis with WBC=18.32, elevated procalcitonin at 48, normotensive, with elevated lactate and abdominal pain. CT abd/pel with acute perforated appendix. Initially thought to have bilat PEs as well which was then over-read by Radiology to be motion artifact. With XAVIER and respiratory failure as well. Initially admitted to ICU for multiorgan system failure and severe sepsis- RESOLVED BCxs with 1/4 Gram positive bacilli not able to be identified (but may be Eggerthella lenta)--> repeat blood cultures 06/22-NGTD Ur cx no growth and UA not c/w infection Abd fluid cultures with E. coli and Eggerthella lenta (Gram positive anaerobe) Leukocytosis stable at ~16 without fevers, likely from steroids at this point as all other evidence of infection is resolving Procal downtrending to 3.36 -was on Zosyn since admission but case reports of Eggerthella lenta blood stream infections with higher mortality when ZOsyn used as monotherapy---> discussed with ID and chaged to Ceftriaxone and Flagyl -await final ID recommendations for po vs IV abx on discharge -follow CBC, CMP, magnesium ,phos and replace lytes as needed (2) Acute encephalopathy: Plan: Developed irritability AM of 06/22 which progressively worsened into night of 06/22-06/23--> combative, agitated, pulled out NGT, yelling at staff, rolling around in bed, worsening respiratory distress with normal ABG DDX: Alcohol withdraw vs. hyperactive delirium vs. steroid use vs. Effexor withdraw and nicotine withdrawal or combination of the above. Was not receiving opioids much so doubtful cause Suspected EtOH withdrawal as he does drink daily at home ( reports previous heavy EtOH use but now admits to 2 beers daily, could be more but she doesn't think so), was treated with Ativan with - with AWWS scores 5-15. He received ~16 mg of Ativan in 24 hours and then slept all day and night 06/24-06/25 He was treated with high dose thiamine 500mg IV q8 x 2 days in case of Werneke's No evidence of new infection and bowel function normalized, repeat UA and BCxs all normal Renal failure resolved Restarted Effexor and placed Nicotine patch On 06/25, completely back to normal mental status -continue to promote normal sleep wake cycles-he requests ativan at bedtime -continue to treat infection as above -continue Effexor, nicotine patch -change thiamine back to 100mg po daily -dc opioids and use tylenol only prn pain as he is only having midl pain (3) Perforated appendix: Plan: s/p lap appy on 06/20, with intra-abdominal infection from perforation--> abd fluid cx growing E. coli, R to Cipro and I resistance to Levaquin, Eggerthella lenta as above With ileus resolved, passing flatus and stool, NGT removed by patient 06/23 -General Surgery management appreciated -OUSMANE drain in place -post op care as per Surgery -continue abx for peritonitis (4) XAVIER (acute kidney injury): Plan: XAVIER with baseline 0.9-1.1- secondary to septic shock and possibly obstructive from enlarged prostate- STATUS RESOLVED video clerk 2.2 on arrival- improved following volume and source control - Condom cath on overnight for incontinence- bladder scan q6 hours to evaluate for incomplete drainage/occlusion - Urology consultation appreciated - Follow urine output - Daily BMP and electrolytes (5) Acute hypoxic respiratory failure: Plan: 2/2 sepsis and COPD exacerbation. Initially requiring CPAP and then weaned to 3LNC- he required initiation of BiPAP secondary to accessory muscle use as well as tachypnea while acutely encephalopathic No weaned to room air and much improved, still some faint wheezing - continue Scheduled KENDRA/LABA nebs, make Duonbes prn -convert IV steroids to prednisone 20mg po daily and taper off -overnight POx test for tonight in case needs nocturnal O2 -ordered 2 step walk test for tomorrow to see if needs ambulatory O2 (6) Anemia: Plan: Acute blood loss anemia most likely, hgb stable today from previous hgb 10.2 down from 14 on admission-likely some acute blood loss anemia from surgery and hematuria and also some hemodilutional component from fluids baseline hgb 11-12, normocytic normochromic Fe studies with transferrin sat low 12%, ferritin not low but with acute infection- hold on replacement while acutely ill B12 folate and TSH normal Likely some baseline Fe deficiency -follow CBC (7) Gross hematuria: Plan: secondary to multiple traumatic Stearns placement attempts- STATUS RESOLVED Stearns removed 06/22 and voiding well Urology following -f/u with Urology prn in hospital if needs Stearns replaced for retention -with newly diagnosed prostate CA -repeat UA negative (8) Chronic obstructive pulmonary disease: Plan: COPD acute on chroninc- STATUS STABLE ONGOING but improving BioFire panel is NEGATIVE. Continue treatment as above for respiratory failure - See above - Appreciate Pulmonary assistance (9) Bilateral pulmonary embolism: Plan: ruled out after admission- STATUS RESOLVED non acute Dopplers neg for DVT (10) Prostate cancer: Plan: recently diagnosed Patient with known prostate cancer- 06/06 without mets per PET scan. He is fol lowing with Radiation Oncology and is to begin treatment soon -will start Flomax now that he is taking po as he has had some PVRs 350mL (11) Hyperlipidemia: Plan: Chronic. Stable -restart home Atorvastatin now that he is taking po (12) Anxiety: Plan: continue home venlafaxine (13) Prediabetes: Plan: with hyperglycemia from steroids in setting of previous preDM continue Novolog SSI, accuchecks- Goal <180mg/dl A1C 5.9% Plan DVT proph-SCDs, Lovenox Dispo-continued stay in PCU, consult PT/OT appreciated-recommend return home when medically stable MUCH IMPROVED last 24 hours, likely dc to home on Thursday May need home O2, may need home IV antibiotics-TBD Admission and Anticipated Discharge Date Admission Date: June 20, 2023 Subjective Pt is 100% better and back to normal mentation and feeling very well, ambulating halls, weaned off O2, moving bowels 4 times today, ate low fiber diet. He only has minimal lower abdominal pain. Tele with NSR 80-90s, PVCs Physical Exam Constitutional: WD/WN, vitals as above Eyes: + anicteric sclerae Neck: trachea midline, no thyromegaly Respiratory: normal respiratory effort Auscultation: + wheezes (exp wheezes scattered bilat); no crackles and no rhonchi Cardiovascular: RRR, no murmur, no edema (w/ frequent ectopy) Chest (Breasts): Chest: normal inspection of chest Gastrointestinal (Abdomen): Inspection/Auscultation: normal bowel sounds; + abdomen abnormal to inspection (incision sites c/d/i, drain in RLQ) and abdomen not distended Percussion/Palpation: abdomen soft; abdomen nontender and no guarding Musculoskeletal: Extremities: extremities normal to inspection; no cyanosis and no clubbing Skin: no rashes, warm and dry Neurologic: moves all extremities and awake; no focal motor deficits Psychiatric: A+Ox3, euthymic affect Lymphatic: no lymphedema Results & Data Results & Data Vital Signs (Past 12 Hours) Vital Signs Temp Pulse Resp BP Pulse Ox O2 Del Method O2 Flow Rate 06/25/23 12:17 36.5 C 70 18 153/90 H 96 Room Air 06/25/23 11:46 77 16 94 Nasal Cannula 2 06/25/23 08:10 36.3 C L 63 19 127/82 94 Nasal Cannula 2 06/25/23 07:15 Nasal Cannula 2 06/25/23 07:03 73 15 94 Nasal Cannula 2 06/25/23 03:59 36.3 C L 66 16 144/82 H 96 CPAP 2 Laboratory Results CBC, CMP, magnesium, BCxs, Wound cxs reviewed PG Care Time/CCT Total # of Minutes Spent Total Time Spent with Patient: Total time spent is greater than 50% in coordination of care (as documented) at patient's floor/unit and/or counseling patient: Coding Level of Care Code 85265 SUB INP/OBS CARE 3/50MIN Diagnoses Sepsis A41.9 Acute encephalopathy G93.40 Perforated appendix K35.32 XAVIER (acute kidney injury) N17.9 Acute hypoxic respiratory failure J96.01 Anemia D64.9 Gross hematuria R31.0 Chronic obstructive pulmonary disease J44.9 Bilateral pulmonary embolism I26.99 Prostate cancer C61 Hyperlipidemia E78.5 Anxiety F41.9 Prediabetes R73.03
[2023-06-25] MEDS ORDERED: ALBUT/IPRATROP 3MG/0.5MG NEB 3 ML VIAL NEB PRN (15:08)
[2023-06-25] MEDS ORDERED: LORazepam 1 MG TAB PO PRN (15:08)
[2023-06-25] MEDS: ENOXAPARIN INJ 40 MG/0.4 ML SYR SQ SCH (17:31)
[2023-06-25] MEDS: D5W AND 1/2NSS 1,000 ML IV SCH (19:21)
[2023-06-25] MEDS: TAMSULOSIN HCL 0.4 MG CAP PO SCH (20:11)
[2023-06-25] MEDS: ATORVASTATIN 40 MG TAB PO SCH (20:11)
[2023-06-26] MEDS: metroNIDAZOLE 500 MG/100 ML BAG IV SCH ×3 (01:53→17:35)
[2023-06-26 06:33] LABS: Hematocrit (blood only) 35.9 % (42.0-52.0); Hemoglobin 11.6 g/dl (14.0-18.0); Mean Corpuscular Hemoglobin 29.5 pg (25.0-34.0); Mean Corpuscular Hgb Conc 32.3 g/dL (32.0-36.0); Mean Corpuscular Volume 91.3 fL (80.0-100.0); Mean Platelet Volume 10.3 fL (9.4-12.4); Platelet Count 306 K/uL (130-400); RDW Coefficient of Variation 14.8 % (11.5-14.5); RDW Standard Deviation 50.1 fL (36.4-46.3); Red Blood Count 3.93 M/uL (4.70-6.10); White Blood Count 17.14 K/ul (4.8-10.8)
[2023-06-26 06:51] LABS: Albumin Globulin Ratio 1.3 (0.9-2); Albumin Level 3.1 gm/dl (3.4-5.0); BUN Creatinine Ratio 25.7 (10-20); Bilirubin,Total 0.5 mg/dl (0.2-1.0); Calcium 8.3 mg/dl (8.6-10.3); Creatinine Clr Calc Pharmacy 65.8 ml/min; Est GFR (African American) 76.5 ml/min; Globulin 2.3 gm/dl (2.5-4.0); Magnesium 1.9 mg/dl (1.7-2.4); Potassium 3.6 mmol/L (3.5-5.1); Total Protein 5.4 gm/dl (6.0-8.3)
[2023-06-26 06:52] LABS: Basophils # (auto) 0.08 K/uL (0.00-0.20); Basophils % (auto) 0.5 %; Eosinophils # (auto) 0.22 K/uL (0.00-0.50); Eosinophils % (auto) 1.3 %; Immature Granulocytes # (auto) 0.93 K/uL (0.01-0.20); Immature Granulocytes % (auto) 5.4 %; Lymphocytes # (auto) 1.43 K/uL (1.20-3.40); Lymphocytes % (auto) 8.3 %; Monocytes # (auto) 1.03 K/uL (0.11-0.59); Neutrophils # (auto) 13.45 K/uL (1.40-6.50); Neutrophils % (auto) 78.5 %
[2023-06-26] MEDS: FORMOTEROL 20 MCG/2 ML VIAL INH SCH ×2 (07:49→19:57)
[2023-06-26] MEDS: BUDESONIDE 0.25 MG/2 ML VIAL (PULMICORT) NEB SCH ×2 (07:49→19:56)
[2023-06-26] MEDS ORDERED: predniSONE 20 MG TAB PO SCH (09:00)
[2023-06-26] MEDS: INSULIN ASPART PER UNIT CHARGE SC SCH ×4 (09:26→21:52)
[2023-06-26] MEDS: cefTRIAXone SODIUM 2,000 MG in DEXTROSE 5 % MINI-B 50 ML IV SCH (10:30)
--- NOTE | 2023-06-26 10:54 | Surgery Progress Note ---
Date of Service June 26, 2023 Assessment & Plan (1) Perforated appendix: Plan: He had a consistent leukocytosis with some low-grade tachycardia Order a CT abdomen pelvis with IV contrast to rule out intra-abdominal abscess Continue his IV antibiotics and low fiber diet Admission and Anticipated Discharge Date Admission Date: June 20, 2023 Subjective Patient seen and examined. Still having some abdominal pain. No nausea or vomiting. Tolerating low fiber diet. Drain with serosanguineous output. Physical Exam Constitutional: WD/WN, vitals as above Gastrointestinal (Abdomen): Inspection/Auscultation: abdomen normal to inspection; abdomen not distended Percussion/Palpation: + abdomen tender (Right-sided), + guarding and abdomen soft Results & Data Vital Signs (Past 12 Hours) Vital Signs Temp Pulse Pulse Pulse Pulse Resp Resp 06/26/23 09:40 118 H 102 H 18 06/26/23 07:55 36.4 C L 93 H 19 06/26/23 07:50 85 18 06/26/23 05:00 83 06/26/23 02:00 65 06/26/23 03:37 60 06/26/23 02:50 36.3 C L 70 18 06/25/23 23:49 63 06/25/23 23:22 77 06/25/23 22:54 36.7 C 76 20 Resp BP Pulse Ox Pulse Ox Pulse Ox O2 Del Method O2 Del Method 06/26/23 09:40 16 91 93 06/26/23 07:55 117/84 94 Room Air 06/26/23 07:50 94 Room Air 06/26/23 05:00 93 Room Air 06/26/23 02:00 93 Room Air 06/26/23 03:37 92 Room Air 06/26/23 02:50 158/89 H 91 Room Air 06/25/23 23:49 91 Room Air 06/25/23 23:22 06/25/23 22:54 154/87 H 95 Room Air PG Care Time/CCT Total # of Minutes Spent Total Time Spent with Patient: Total time spent is greater than 50% in coordination of care (as documented) at patient's floor/unit and/or counseling patient: Coding Level of Care Code None Diagnoses Perforated appendix K35.32
[2023-06-26] MEDS: PANTOprazole 40 MG in SYRINGE 0 ML IV SCH (11:30)
[2023-06-26] MEDS ORDERED: OPTIRAY 320 100ml IV ONE (11:40)
[2023-06-26] MEDS: ATORVASTATIN 40 MG TAB PO SCH (12:35)
[2023-06-26] MEDS: FOLIC ACID 1 MG TAB PO SCH (12:35)
[2023-06-26] MEDS: TAMSULOSIN HCL 0.4 MG CAP PO SCH (12:35)
[2023-06-26] MEDS: MAGNESIUM OXIDE 400 MG TAB PO SCH (12:35)
[2023-06-26] MEDS: VENLAFAXINE HCL XR 150 MG CAPXR PO SCH (12:36)
[2023-06-26] MEDS: THIAMINE HCL 100 MG TAB PO SCH (12:36)
[2023-06-26] MEDS: NICOTINE 14 MG/24 HR PATCH TD SCH (12:36)
--- NOTE | 2023-06-26 13:25 | CT Scan Report ---
ABDOMEN AND PELVIS CT WITH IV CONTRAST CT DOSE: 1292.58 mGy.cm HISTORY: Fever. Postop. R/O intra abdominal abscess TECHNIQUE: Multiaxial CT images of the abdomen and pelvis were performed following the use of intrave nous contrast. A dose lowering technique was utilized adhering to the principles of ALARA. COMPARISON STUDY: Abdomen and pelvis CT 06/19/2023. FINDINGS: Small bilateral pleural effusions with consolidation within the lower lobes posteriorly. Th is favors compressive atelectasis from the pleural effusions. A pneumonia could also have a similar a ppearance. The heart remains enlarged. No pneumoperitoneum. No pneumatosis. Bilateral L5 spondylolysi s with associated grade 1 anterolisthesis. A stable 1 cm sclerotic focus within the T10 vertebral bod y. This is indeterminate but favors a bone island. Small fat-containing hiatal hernia is noted. Small fat-containing right inguinal hernia. No hepatic or splenic masses. The main portal vein is patent. The gallbladder, pancreas, spleen, and adrenal glands are unremarkable. No hydronephrosis. There are few bilateral renal hypodense lesions. These favor cysts. Calcified plaque within the normal caliber abdominal aorta. No retroperitoneal or pelvic lymphadenopathy. Bladder wall thickening with adjacent fat stranding and a few punctate foci of intraluminal gas. This could be due to the recent catheteriz ation. A cystitis could also have a similar appearance. The prostate gland is mildly enlarged. There is a 12 mm hypodense focus within the right side of the prostate gland. This could be associated with a BPH nodule. No dilated loops of bowel to suggest an obstruction. The patient is status post append ectomy with a right lower quadrant surgical drain. Small amount of nonloculated mesenteric fluid with in the right lower quadrant on image 223 which has improved. Extensive inflammatory changes within th e mid to right lower quadrant of the abdomen suggesting residual postoperative change. Thickening of the small bowel loops within the right lower quadrant which may also be reactive to the prior appendi citis or postoperative change. No loculated fluid collections along the course of the right lower bobbi drant surgical drainage catheter to suggest an abscess. There is a tiny loculated fluid collection wi thin the mid mesentery in image 227 measuring 9 mm. In addition, there is a loculated fluid collectio n within the deep pelvis on image 280 measuring 5.3 x 3.1 cm. This does not contain gas but favors a developing abscess. This abuts the distal sigmoid colon. There are multiple colonic diverticula. No d efinite evidence for acute diverticulosis. Inflammatory change surrounding the distal sigmoid colon i s likely due to a combination of the postoperative change and prior inflammatory change from the acut e appendicitis. No bowel perforation identified. IMPRESSION: 1. Status post appendectomy with placement of a right lower quadrant surgical drain. No loculated flu id collections along the path of the surgical drain to suggest an abscess. 2. Small amount of ill-defined fluid within the right lower quadrant mesentery has improved in the in terval. 3. There is a 5.3 x 3.1 cm loculated fluid collection within the deep pelvis likely representing an a bscess. 4. There is 9 mm loculated fluid collection within the mid mesentery which could also represent a sma ll abscess or postoperative fluid collection. 5. Fat stranding throughout the mid to right lower quadrant of the abdomen likely representing a comb ination of residual inflammatory change from the acute appendicitis and postoperative change. 6. Bladder wall thickening with adjacent fat stranding. This may represent a cystitis. Recommend favian elation with urinalysis. 7. Multiple thickened loops of small bowel in the right lower quadrant consistent with a nonocclusive enteritis. This may be reactive to the recent postoperative change . 8. Small bilateral pleural effusions. Bibasilar densities favor atelectasis from the pleural effusion s. A pneumonia could also a similar appearance. 9. Additional findings as described above. ACT 112: Negative or not required by law. Electronically signed by: Robin Florence M.D. 06/26/2023 1:23 PM
--- NOTE | 2023-06-26 15:16 | Hospitalist Progress Note ---
Date of Service June 26, 2023 Assessment & Plan (1) Sepsis: Plan: Present on admission. Now resolved. Cultures obtained at the time of surgery are growing E. coli and an anaerobe. He is currently on Rocephin and Flagyl. (2) Acute encephalopathy: Plan: Acute metabolic encephalopathy present on admission. Alcohol withdrawal may also have contributed. Now resolved (3) Perforated appendix: Plan: s/p lap appy on 06/20, with intra-abdominal infection from perforation--> abd fluid cx growing E. coli and Eggerthella lenta( anaerobe). General surgery consultation and recommendations appreciated. OUSMANE drain remains in place. (4) Pelvic abscess in male: Plan: Fluid collection seen in the pelvis on abdominal pelvic CT scan done today, June 26. This is probably an abscess. General surgery is aware. Interventional radiology will be consulted on Thursday for possible placement of the drain. In the meantime, he will remain on intravenous antibiotics. (5) XAVIER (acute kidney injury): Plan: Present on admission. Now resolved. Urology consultation appreciated. Will monitor urine output and serial labs (6) Acute hypoxic respiratory failure: Plan: Present on admission. Now resolved. He did not require intubation. Steroids have been weaned off. Two-step oxygen desaturation study completed today, June 26, does not indicate the need for home oxygen. (7) Anemia: Plan: Acute blood loss anemia most likely. Serial labs. Transfuse if necessary. (8) Gross hematuria: Plan: secondary to multiple traumatic Stearns placement attempts. Now resolved. Stearns removed 06/22 and voiding well. Urology consultation and recommendations appreciated. He has newly diagnosed prostate Ca. Repeat UA negative (9) Chronic obstructive pulmonary disease: Plan: Acute exacerbation present on admission. Now back to baseline. Appreciate pulmonary medicine consultation and recommendations. (10) Bilateral pulmonary embolism: Plan: ruled out after admission. Leg vein dopplers neg for DVT (11) Prostate cancer: Plan: recently diagnosed. No mets per PET scan. He is following with Radiation Oncology and is to begin treatment soon. Continue Flomax Plan Anticipate eventual discharge back to home on p.o. antibiotic Admission and Anticipated Discharge Date Admission Date: June 20, 2023 Subjective Alert and oriented. Anxious to go home. is at the bedside. Unf ortunately, the CT scan of the abdomen and pelvis ordered today per surgery reveals a fluid collection in the pelvis that is probably an abscess. Surgery plans on consulting with interventional radiology on Thursday to see if a drain can be placed. In the meantime, he will remain on intravenous Rocephin and Flagyl. Two-step oxygen evaluation has been completed. He will not need home oxygen Review of Systems Review of Systems: Constitutional-no fever or chills ENT-no blurred vision, no double vision, no epistaxis, no sore throat Respiratory-no cough, no wheezing, no shortness of breath Cardiac-no palpitations, no chest pain, no syncope GI-no nausea, vomiting, diarrhea, melena, hematochezia -no urinary retention, no urinary incontinence, no dysuria, no hematuria Musculoskeletal-no joint pain, no muscle tenderness Skin-no bruising, no rashes, no pruritus Neuro-no isolated weakness, no paresthesia, no weakness Psych-no depression, no anxiety Physical Exam Physical Exam: General-alert and oriented x3, no fevers, no chills HEENT-head atraumatic and normocephalic, pupils equal and reactive to light, extraocular muscles intact Neck-no lymphadenopathy or thyromegaly, trachea midline Chest-clear to auscultation percussion. No rales wheezing or rhonchi Cardiac-regular rate and rhythm, normal S1 and S2 Abdomen-normal bowel sounds, no hepatosplenomegaly. Mild tenderness at surgical sites as expected Extremities-no cyanosis, clubbing, or edema Neuro-cranial nerves II through XII intact, motor and sensory function within normal limits, strength symmetrical , no focal deficits Psych-normal affect, normal mood Results & Data Results & Data Vital Signs (Past 12 Hours) Vital Signs Temp Pulse Pulse Pulse Pulse Resp Resp 06/26/23 11:15 37.0 C 75 19 06/26/23 08:00 83 06/26/23 09:40 118 H 102 H 18 06/26/23 07:55 36.4 C L 93 H 19 06/26/23 07:50 85 18 06/26/23 05:00 83 06/26/23 03:37 60 Resp BP Pulse Ox Pulse Ox Pulse Ox O2 Del Method O2 Del Method 06/26/23 11:15 118/74 93 Room Air 06/26/23 08:00 06/26/23 09:40 16 91 93 06/26/23 07:55 117/84 94 Room Air 06/26/23 07:50 94 Room Air 06/26/23 05:00 93 Room Air 06/26/23 03:37 92 Room Air Laboratory Results 06/26/23 06:10 06/26/23 06:10 PG Care Time/CCT Total # of Minutes Spent Total Time Spent with Patient: Total time spent is greater than 50% in coordination of care (as documented) at patient's floor/unit and/or counseling patient: Coding Level of Care Code 53197 SUB INP/OBS CARE 3/50MIN Diagnoses Sepsis A41.9 Acute encephalopathy G93.40 Perforated appendix K35.32 Pelvic abscess in male K65.1 XAVIER (acute kidney injury) N17.9 Acute hypoxic respiratory failure J96.01 Anemia D64.9 Gross hematuria R31.0 Chronic obstructive pulmonary disease J44.9 Bilateral pulmonary embolism I26.99 Prostate cancer C61
--- NOTE | 2023-06-26 15:16 | Communication Note ---
Date of Service: June 26, [address] scan from 06/26/23 results with Jayme Yung. Will contact IR Thursday for possible drain.
[2023-06-26] MEDS: SIMETHICONE 80 MG CHEW PO PRN (15:46)
[2023-06-26] MEDS: ACETAMINOPHEN 325 MG TAB PO PRN (15:46)
[2023-06-26] MEDS: ENOXAPARIN INJ 40 MG/0.4 ML SYR SQ SCH (17:27)
[2023-06-26] MEDS: MELATONIN 3 MG TAB PO SCH (21:52)
[2023-06-27] MEDS: metroNIDAZOLE 500 MG/100 ML BAG IV SCH ×3 (01:17→17:31)
[2023-06-27] MEDS: BUDESONIDE 0.25 MG/2 ML VIAL (PULMICORT) NEB SCH ×2 (07:31→20:02)
[2023-06-27] MEDS: FORMOTEROL 20 MCG/2 ML VIAL INH SCH ×2 (07:31→20:01)
[2023-06-27] MEDS: MAGNESIUM OXIDE 400 MG TAB PO SCH (09:06)
[2023-06-27] MEDS: FOLIC ACID 1 MG TAB PO SCH (09:06)
[2023-06-27] MEDS: THIAMINE HCL 100 MG TAB PO SCH (09:06)
[2023-06-27] MEDS: VENLAFAXINE HCL XR 150 MG CAPXR PO SCH (09:07)
[2023-06-27] MEDS: NICOTINE 14 MG/24 HR PATCH TD SCH (09:07)
[2023-06-27] MEDS: cefTRIAXone SODIUM 2,000 MG in DEXTROSE 5 % MINI-B 50 ML IV SCH (09:08)
[2023-06-27] MEDS: INSULIN ASPART PER UNIT CHARGE SC SCH ×4 (09:16→20:53)
--- NOTE | 2023-06-27 09:49 | Surgery Progress Note ---
Date of Service June 27, 2023 Assessment & Plan (1) Pelvic abscess in male: Plan: continue IV abx 5 cm abscess, may resolve on abx possibleIR drainage WBC stable at 17 Present on Admission?: Yes Admission and Anticipated Discharge Date Admission Date: June 20, 2023 Subjective some pain eating OK no fevers or chills Review of Systems Constitutional: + weakness; no fever and no chills Respiratory: no cough and no dyspnea Cardiovascular: no chest pain Gastrointestinal: + abdominal pain; no nausea and no vomiting OUSMANE drain serous Genitourinary: no dysuria Integumentary: no rash Neurologic: + generalized weakness; no localized weakness Psychiatric: no behavioral changes Endocrine: + fatigue Hematologic / Lymphatic: no easy bleeding and no easy bruising Physical Exam Constitutional: WD/WN, vitals as above Neck: trachea midline Respiratory: normal respiratory effort, lungs clear to auscultation Cardiovascular: RRR, no murmur, no edema Gastrointestinal (Abdomen): Inspection/Auscultation: abdomen normal to inspection, + abdomen distended and normal bowel sounds Percussion/Palpation: + abdomen tender and abdomen soft; no guarding and abdomen not rigid Musculoskeletal: Head/Neck/Chest: normocephalic and head atraumatic Skin: no rashes, warm and dry Results & Data Vital Signs (Past 12 Hours) Vital Signs Temp Pulse Pulse Resp BP BP Pulse Ox 06/27/23 08:42 36.8 C 68 18 144/85 H 92 06/27/23 07:50 64 06/27/23 07:32 65 18 96 06/27/23 03:09 36.8 C 64 16 156/97 H 94 06/26/23 22:50 37.0 C 63 18 125/71 96 06/26/23 22:22 O2 Del Method 06/27/23 08:42 Room Air 06/27/23 07:50 06/27/23 07:32 Room Air 06/27/23 03:09 Room Air 06/26/23 22:50 Room Air 06/26/23 22:22 Room Air Diagnostic Findings ABDOMEN AND PELVIS CT WITH IV CONTRAST CT DOSE: 1292.58 mGy.cm HISTORY: Fever. Postop. R/O intra abdominal abscess TECHNIQUE: Multiaxial CT images of the abdomen and pelvis were performed following the use of intravenous contrast. A dose lowering technique was utilized adhering to the principles of ALARA. COMPARISON STUDY: Abdomen and pelvis CT 06/19/2023. FINDINGS: Small bilateral pleural effusions with consolidation within the lower lobes posteriorly. This favors compressive atelectasis from the pleural effusions. A pneumonia could also have a similar appearance. The heart remains enlarged. No pneumoperitoneum. No pneumatosis. Bilateral L5 spondylolysis with associated grade 1 anterolisthesis. A stable 1 cm sclerotic focus within the T10 vertebral body. This is indeterminate but favors a bone island. Small fat- containing hiatal hernia is noted. Small fat-containing right inguinal hernia. No hepatic or splenic masses. The main portal vein is patent. The gallbladder, pancreas, spleen, and adrenal glands are unremarkable. No hydronephrosis. There are few bilateral renal hypodense lesions. These favor cysts. Calcified plaque within the normal caliber abdominal aorta. No retroperitoneal or pelvic lymphadenopathy. Bladder wall thickening with adjacent fat stranding and a few punctate foci of intraluminal gas. This could be due to the recent catheterization. A cystitis could also have a similar appearance. The prostate gland is mildly enlarged. There is a 12 mm hypodense focus within the right side of the prostate gland. This could be associated with a BPH nodule. No dilated loops of bowel to suggest an obstruction. The patient is status post appendectomy with a right lower quadrant surgical drain. Small amount of nonloculated mesenteric fluid within the right lower quadrant on image 223 which has improved. Extensive inflammatory changes within the mid to right lower quadrant of the abdomen suggesting residual postoperative change. Thickening of the small bowel loops within the right lower quadrant which may also be reactive to the prior appendicitis or postoperative change. No loculated fluid collections along the course of the right lower quadrant surgical drainage catheter to suggest an abscess. There is a tiny loculated fluid collection within the mid mesentery in image 227 measuring 9 mm. In addition, there is a loculated fluid collection within the deep pelvis on image 280 measuring 5.3 x 3.1 cm. This does not contain gas but favors a developing abscess. This abuts the distal sigmoid colon. There are multiple colonic diverticula. No definite evidence for acute diverticulosis. Inflammatory change surrounding the distal sigmoid colon is likely due to a combination of the postoperative change and prior inflammatory change from the acute appendicitis. No bowel perforation identified. IMPRESSION: 1. Status post appendectomy with placement of a right lower quadrant surgical drain. No loculated fluid collections along the path of the surgical drain to suggest an abscess. 2. Small amount of ill-defined fluid within the right lower quadrant mesentery has improved in the interval. 3. There is a 5.3 x 3.1 cm loculated fluid collection within the deep pelvis likely representing an abscess. 4. There is 9 mm loculated fluid collection within the mid mesentery which could also represent a small abscess or postoperative fluid collection. 5. Fat stranding throughout the mid to right lower quadrant of the abdomen likely representing a combination of residual inflammatory change from the acute appendicitis and postoperative change. 6. Bladder wall thickening with adjacent fat stranding. This may represent a cystitis. Recommend correlation with urinalysis. 7. Multiple thickened loops of small bowel in the right lower quadrant consistent with a nonocclusive enteritis. This may be reactive to the recent postoperative change . 8. Small bilateral pleural effusions. Bibasilar densities favor atelectasis from the pleural effusions. A pneumonia could also a similar appearance. 9. Additional findings as described above.
[2023-06-27] MEDS: PANTOprazole 40 MG in SYRINGE 0 ML IV SCH (11:01)
[2023-06-27] MEDS: SIMETHICONE 80 MG CHEW PO PRN ×2 (13:19→20:52)
--- NOTE | 2023-06-27 13:42 | Hospitalist Progress Note ---
Date of Service June 27, 2023 Assessment & Plan (1) Sepsis: Plan: Present on admission. Now resolved. Cultures obtained at the time of surgery are growing E. coli and an anaerobe. He is currently on Rocephin and Flagyl. (2) Acute encephalopathy: Plan: Acute metabolic encephalopathy present on admission. Alcohol withdrawal may also have contributed. Now resolved (3) Perforated appendix: Plan: s/p lap appy on 06/20, with intra-abdominal infection from perforation--> abd fluid cx growing E. coli and Eggerthella lenta( anaerobe). General surgery consultation and recommendations appreciated. OUSMANE drain remains in place. (4) Pelvic abscess in male: Plan: Fluid collection seen in the pelvis on abdominal pelvic CT scan done on June 26. This is probably an abscess. General surgery is aware. Interventional radiology will be consulted on Thursday for possible placement of a drain. In the meantime, he will remain on intravenous antibiotics. (5) XAVIER (acute kidney injury): Plan: Present on admission. Now resolved. Urology consultation appreciated. Will monitor urine output and serial labs (6) Acute hypoxic respiratory failure: Plan: Present on admission. Now resolved. He did not require intubation. Steroids have been weaned off. Two-step oxygen desaturation study completed on June 26 does not indicate the need for home oxygen. (7) Anemia: Plan: Acute blood loss anemia most likely. Serial labs. Transfuse if necessary. (8) Gross hematuria: Plan: secondary to multiple traumatic Stearns placement attempts. Now resolved. Stearns removed 06/22 and voiding well. Urology consultation and recommendations appreciated. He has newly diagnosed prostate Ca. Repeat UA negative (9) Chronic obstructive pulmonary disease: Plan: Acute exacerbation present on admission. Now back to baseline. Appreciate pulmonary medicine consultation and recommendations. (10) Bilateral pulmonary embolism: Plan: ruled out after admission. Leg vein dopplers neg for DVT (11) Prostate cancer: Plan: recently diagnosed. No mets per PET scan. He is following with Radiation Oncology and is to begin treatment soon. Continue Flomax Plan Anticipate eventual discharge back to home on p.o. antibiotic sometime next week Admission and Anticipated Discharge Date Admission Date: June 20, 2023 Subjective Alert and oriented. No new problems. Postoperative day #7 after original appendectomy with drain placement and washout. He now has evidence of a pelvic abscess. Surgery will discuss with IR on Thursday whether this should be drained. He remains on Rocephin and Flagyl. Intraoperative cultures are growing E. coli and an anaerobe. Review of Systems Review of Systems: Constitutional-no fever or chills ENT-no blurred vision, no double vision, no epistaxis, no sore throat Respiratory-no cough, no wheezing, no shortness of breath Cardiac-no palpitations, no chest pain, no syncope GI-no nausea, vomiting, diarrhea, melena, hematochezia -no urinary retention, no urinary incontinence, no dysuria, no hematuria Musculoskeletal-no joint pain, no muscle tenderness Skin-no bruising, no rashes, no pruritus Neuro-no isolated weakness, no paresthesia, no weakness Psych-no depression, no anxiety Physical Exam Physical Exam: General-alert and oriented x3, no fevers, no chills HEENT-head atraumatic and normocephalic, pupils equal and reactive to light, extraocular muscles intact Neck-no lymphadenopathy or thyromegaly, trachea midline Chest-clear to auscultation percussion. No rales wheezing or rhonchi Cardiac-regular rate and rhythm, normal S1 and S2 Abdomen-normal bowel sounds, no hepatosplenomegaly. Mild tenderness at surgical sites as expected Extremities-no cyanosis, clubbing, or edema Neuro-cranial nerves II through XII intact, motor and sensory function within normal limits, strength symmetrical , no focal deficits Psych-normal affect, normal mood Results & Data Results & Data Vital Signs (Past 12 Hours) Vital Signs Temp Pulse Pulse Resp BP Pulse Ox O2 Del Method 06/27/23 11:48 36.9 C 72 19 135/72 92 Room Air 06/27/23 11:08 Room Air 06/27/23 08:42 36.8 C 68 18 144/85 H 92 Room Air 06/27/23 07:50 64 06/27/23 07:32 65 18 96 Room Air 06/27/23 03:09 36.8 C 64 16 156/97 H 94 Room Air Laboratory Results 06/26/23 06:10 06/26/23 06:10 PG Care Time/CCT Total # of Minutes Spent Total Time Spent with Patient: Total time spent is greater than 50% in coordination of care (as documented) at patient's floor/unit and/or counseling patient: Coding Level of Care Code 47568 SUB INP/OBS CARE MIN Diagnoses Sepsis A41.9 Acute encephalopathy G93.40 Perforated appendix K35.32 Pelvic abscess in male K65.1 XAVIER (acute kidney injury) N17.9 Acute hypoxic respiratory failure J96.01 Anemia D64.9 Gross hematuria R31.0 Chronic obstructive pulmonary disease J44.9 Bilateral pulmonary embolism I26.99 Prostate cancer C61
[2023-06-27] MEDS: ENOXAPARIN INJ 40 MG/0.4 ML SYR SQ SCH (17:31)
[2023-06-27] MEDS: ACETAMINOPHEN 325 MG TAB PO PRN (17:39)
[2023-06-27] MEDS: ATORVASTATIN 40 MG TAB PO SCH (20:52)
[2023-06-27] MEDS: MELATONIN 3 MG TAB PO SCH (20:52)
[2023-06-27] MEDS: oxyCODONE HCL IR 5 MG TAB (IMMEDIATE RELEASE) PO PRN (20:53)
[2023-06-27] MEDS: TAMSULOSIN HCL 0.4 MG CAP PO SCH (20:53)
[2023-06-28] MEDS: metroNIDAZOLE 500 MG/100 ML BAG IV SCH ×3 (01:34→17:49)
[2023-06-28] MEDS: oxyCODONE HCL IR 5 MG TAB (IMMEDIATE RELEASE) PO PRN ×3 (06:06→19:20)
[2023-06-28 06:41] LABS: Basophils # (auto) 0.06 K/uL (0.00-0.20); Basophils % (auto) 0.4 %; Eosinophils # (auto) 0.19 K/uL (0.00-0.50); Eosinophils % (auto) 1.3 %; Hematocrit (blood only) 33.8 % (42.0-52.0); Immature Granulocytes # (auto) 0.67 K/uL (0.01-0.20); Immature Granulocytes % (auto) 4.6 %; Lymphocytes # (auto) 1.33 K/uL (1.20-3.40); Lymphocytes % (auto) 9.1 %; Mean Corpuscular Hemoglobin 29.6 pg (25.0-34.0); Mean Corpuscular Hgb Conc 32.5 g/dL (32.0-36.0); Mean Corpuscular Volume 91.1 fL (80.0-100.0); Mean Platelet Volume 10.6 fL (9.4-12.4); Monocytes % (auto) 6.2 %; Neutrophils # (auto) 11.48 K/uL (1.40-6.50); Neutrophils % (auto) 78.4 %; Platelet Count 303 K/uL (130-400); RDW Coefficient of Variation 15.1 % (11.5-14.5); RDW Standard Deviation 50.2 fL (36.4-46.3); Red Blood Count 3.71 M/uL (4.70-6.10); White Blood Count 14.63 K/ul (4.8-10.8)
[2023-06-28 07:09] LABS: BUN Creatinine Ratio 25.2 (10-20); Calcium 8.1 mg/dl (8.6-10.3); Creatinine Clr Calc Pharmacy 68.7 ml/min; Est GFR (Non-African American) 70.7 ml/min; Potassium 3.9 mmol/L (3.5-5.1)
[2023-06-28] MEDS: FORMOTEROL 20 MCG/2 ML VIAL INH SCH ×2 (07:24→19:32)
[2023-06-28] MEDS: BUDESONIDE 0.25 MG/2 ML VIAL (PULMICORT) NEB SCH ×2 (07:24→19:32)
--- NOTE | 2023-06-28 07:59 | Surgery Progress Note ---
Date of Service June 28, 2023 Assessment & Plan (1) Pelvic abscess in male: Plan: continue abx possible scan/IR on Thursday po taking OK ambulating Admission and Anticipated Discharge Date Admission Date: June 20, 2023 Subjective no complaints pain/pressure better fever x1 yesterday WBC down to 14 Review of Systems Constitutional: + fever; no chills and no anorexia Respiratory: no cough and no dyspnea Cardiovascular: no chest pain Gastrointestinal: + abdominal pain; no nausea and no vomiting Genitourinary: no dysuria Neurologic: no localized weakness and no generalized weakness Physical Exam Constitutional: WD/WN, vitals as above Respiratory: normal respiratory effort, lungs clear to auscultation Cardiovascular: RRR, no murmur, no edema Gastrointestinal (Abdomen): Inspection/Auscultation: abdomen normal to inspection and normal bowel sounds; abdomen not distended Percussion/Palpation: + abdomen tender and abdomen soft; no guarding and abdomen not rigid Skin: no rashes, warm and dry Results & Data Vital Signs (Past 12 Hours) Vital Signs Temp Pulse Pulse Resp BP Pulse Ox O2 Del Method 06/28/23 07:36 76 06/28/23 07:25 82 18 93 Room Air 06/28/23 03:06 36.8 C 84 16 112/66 90 Room Air 06/27/23 23:01 36.8 C 72 16 104/65 92 Room Air 06/27/23 22:02 Room Air 06/27/23 20:36 77 18 96 Room Air
[2023-06-28] MEDS: cefTRIAXone SODIUM 2,000 MG in DEXTROSE 5 % MINI-B 50 ML IV SCH (08:42)
[2023-06-28] MEDS: NICOTINE 14 MG/24 HR PATCH TD SCH (08:43)
[2023-06-28] MEDS: VENLAFAXINE HCL XR 150 MG CAPXR PO SCH (08:43)
[2023-06-28] MEDS: THIAMINE HCL 100 MG TAB PO SCH (08:43)
[2023-06-28] MEDS: FOLIC ACID 1 MG TAB PO SCH (08:43)
[2023-06-28] MEDS: MAGNESIUM OXIDE 400 MG TAB PO SCH (08:43)
[2023-06-28] MEDS: INSULIN ASPART PER UNIT CHARGE SC SCH ×4 (10:06→21:21)
[2023-06-28] MEDS: PANTOprazole 40 MG in SYRINGE 0 ML IV SCH (10:42)
--- NOTE | 2023-06-28 12:28 | Hospitalist Progress Note ---
Date of Service June 28, 2023 Assessment & Plan (1) Sepsis: Plan: Present on admission. Now resolved. Cultures obtained at the time of surgery are growing E. coli and an anaerobe. He is currently on Rocephin and Flagyl. (2) Acute encephalopathy: Plan: Acute metabolic encephalopathy present on admission. Alcohol withdrawal may also have contributed. Now resolved (3) Perforated appendix: Plan: s/p lap appy on 06/20, with intra-abdominal infection from perforation--> abd fluid cx growing E. coli and Eggerthella lenta( anaerobe). General surgery consultation and recommendations appreciated. OUSMANE drain remains in place. (4) Pelvic abscess in male: Plan: Fluid collection seen in the pelvis on abdominal pelvic CT scan done on June 26. This is probably an abscess. General surgery is aware. Interventional radiology will be consulted on Thursday for possible placement of a drain. In the meantime, he will remain on intravenous antibiotics. If no drain indicated, he will be discharged home on oral antibiotics (5) XAVIER (acute kidney injury): Plan: Present on admission. Now resolved. Urology consultation appreciated. Will monitor urine output and serial labs (6) Acute hypoxic respiratory failure: Plan: Present on admission. Now resolved. He did not require intubation. Steroids have been weaned off. Two-step oxygen desaturation study completed on June 26 does not indicate the need for home oxygen. (7) Anemia: Plan: Acute blood loss anemia most likely. Serial labs. Transfuse if necessary. (8) Gross hematuria: Plan: secondary to multiple traumatic Stearns placement attempts. Now resolved. Stearns removed 06/22 and voiding well. Urology consultation and recommendations appreciated. He has newly diagnosed prostate Ca. Repeat UA negative (9) Chronic obstructive pulmonary disease: Plan: Acute exacerbation present on admission. Now back to baseline. Appreciate pulmonary medicine consultation and recommendations. (10) Bilateral pulmonary embolism: Plan: ruled out after admission. Leg vein dopplers neg for DVT (11) Prostate cancer: Plan: recently diagnosed. No mets per PET scan. He is following with Radiation Oncology and is to begin treatment soon. Continue Flomax Plan Anticipate eventual discharge back to home on p.o. antibiotic sometime next week Admission and Anticipated Discharge Date Admission Date: June 20, 2023 Subjective Alert and oriented. Mild suprapubic abdominal discomfort. No fever. White cell count remains elevated at 14,000. He remains on intravenous Rocephin and Flagyl. We will consult interventional radiology on Thursday to determine if a pelvic drain is required. If not, he will go home on oral antibiotics and follow-up with surgery as an outpatient Review of Systems Review of Systems: Constitutional-no fever or chills ENT-no blurred vision, no double vision, no epistaxis, no sore throat Respiratory-no cough, no wheezing, no shortness of breath Cardiac-no palpitations, no chest pain, no syncope GI-no nausea, vomiting, diarrhea, melena, hematochezia -no urinary retention, no urinary incontinence, no dysuria, no hematuria Musculoskeletal-no joint pain, no muscle tenderness Skin-no bruising, no rashes, no pruritus Neuro-no isolated weakness, no paresthesia, no weakness Psych-no depression, no anxiety Physical Exam Physical Exam: General-alert and oriented x3, no fevers, no chills HEENT-head atraumatic and normocephalic, pupils equal and reactive to light, extraocular muscles intact Neck-no lymphadenopathy or thyromegaly, trachea midline Chest-clear to auscultation percussion. No rales wheezing or rhonchi Cardiac-regular rate and rhythm, normal S1 and S2 Abdomen-normal bowel sounds, no hepatosplenomegaly. Mild tenderness in suprapubic area Extremities-no cyanosis, clubbing, or edema Neuro-cranial nerves II through XII intact, motor and sensory function within normal limits, strength symmetrical , no focal deficits Psych-normal affect, normal mood Results & Data Results & Data Vital Signs (Past 12 Hours) Vital Signs Temp Pulse Pulse Resp BP BP Pulse Ox 06/28/23 11:14 06/28/23 07:34 37.2 C 72 18 121/77 93 06/28/23 07:36 76 06/28/23 07:25 82 18 93 06/28/23 03:06 36.8 C 84 16 112/66 90 O2 Del Method 06/28/23 11:14 Room Air 06/28/23 07:34 Room Air 06/28/23 07:36 06/28/23 07:25 Room Air 06/28/23 03:06 Room Air Laboratory Results 06/28/23 05:59 06/28/23 05:59 PG Care Time/CCT Total # of Minutes Spent Total Time Spent with Patient: Total time spent is greater than 50% in coordination of care (as documented) at patient's floor/unit and/or counseling patient: Coding Level of Care Code 72692 SUB INP/OBS CARE 235MIN Diagnoses Sepsis A41.9 Acute encephalopathy G93.40 Perforated appendix K35.32 Pelvic abscess in male K65.1 XAVIER (acute kidney injury) N17.9 Acute hypoxic respiratory failure J96.01 Anemia D64.9 Gross hematuria R31.0 Chronic obstructive pulmonary disease J44.9 Bilateral pulmonary embolism I26.99 Prostate cancer C61
[2023-06-28] MEDS: ENOXAPARIN INJ 40 MG/0.4 ML SYR SQ SCH (15:30)
[2023-06-28] MEDS: SIMETHICONE 80 MG CHEW PO PRN ×2 (15:31→21:38)
[2023-06-28] MEDS: ACETAMINOPHEN 325 MG TAB PO PRN (15:31)
[2023-06-28] MEDS: MELATONIN 3 MG TAB PO SCH (21:38)
[2023-06-28] MEDS: TAMSULOSIN HCL 0.4 MG CAP PO SCH (21:38)
[2023-06-28] MEDS: ATORVASTATIN 40 MG TAB PO SCH (21:38)
[2023-06-29] MEDS: metroNIDAZOLE 500 MG/100 ML BAG IV SCH ×3 (02:07→17:29)
[2023-06-29 06:31] LABS: Basophils # (auto) 0.03 K/uL (0.00-0.20); Basophils % (auto) 0.2 %; Eosinophils # (auto) 0.19 K/uL (0.00-0.50); Eosinophils % (auto) 1.3 %; Hematocrit (blood only) 33.6 % (42.0-52.0); Hemoglobin 10.9 g/dl (14.0-18.0); Immature Granulocytes % (auto) 2.8 %; Lymphocytes # (auto) 0.93 K/uL (1.20-3.40); Lymphocytes % (auto) 6.5 %; Mean Corpuscular Hgb Conc 32.4 g/dL (32.0-36.0); Mean Corpuscular Volume 92.6 fL (80.0-100.0); Mean Platelet Volume 10.3 fL (9.4-12.4); Monocytes # (auto) 0.81 K/uL (0.11-0.59); Monocytes % (auto) 5.7 %; Neutrophils # (auto) 11.96 K/uL (1.40-6.50); Neutrophils % (auto) 83.5 %; Platelet Count 298 K/uL (130-400); RDW Coefficient of Variation 14.8 % (11.5-14.5); RDW Standard Deviation 50.4 fL (36.4-46.3); Red Blood Count 3.63 M/uL (4.70-6.10); White Blood Count 14.32 K/ul (4.8-10.8)
[2023-06-29 06:48] LABS: BUN Creatinine Ratio 18.9 (10-20); Calcium 7.9 mg/dl (8.6-10.3); Creatinine Clr Calc Pharmacy 65.8 ml/min; Est GFR (African American) 79.2 ml/min; Est GFR (Non-African American) 68.3 ml/min; Potassium 4.1 mmol/L (3.5-5.1)
[2023-06-29] MEDS: BUDESONIDE 0.25 MG/2 ML VIAL (PULMICORT) NEB SCH ×2 (07:25→19:42)
[2023-06-29] MEDS: FORMOTEROL 20 MCG/2 ML VIAL INH SCH ×2 (07:25→19:41)
[2023-06-29] MEDS: FOLIC ACID 1 MG TAB PO SCH (08:55)
[2023-06-29] MEDS: NICOTINE 14 MG/24 HR PATCH TD SCH (08:56)
[2023-06-29] MEDS: THIAMINE HCL 100 MG TAB PO SCH (08:56)
[2023-06-29] MEDS: INSULIN ASPART PER UNIT CHARGE SC SCH ×4 (08:56→21:09)
[2023-06-29] MEDS: MAGNESIUM OXIDE 400 MG TAB PO SCH (08:56)
[2023-06-29] MEDS: cefTRIAXone SODIUM 2,000 MG in DEXTROSE 5 % MINI-B 50 ML IV SCH (08:56)
[2023-06-29] MEDS: VENLAFAXINE HCL XR 150 MG CAPXR PO SCH (08:56)
[2023-06-29 09:25] LABS: INR 1.1 (0.9-1.1); Partial Thromboplastin Time 27.1 Seconds (21.0-31.0); Prothrombin Time 11.9 Seconds (9.0-12.0)
--- NOTE | 2023-06-29 09:49 | Surgery Progress Note ---
I have seen and examined this patient with the surgical PA. I agree with the plan. Date of Service June 29, 2023 Assessment & Plan (1) Perforated appendix: Plan: Has had consistent leukocytosis repeat CT 06/26/23 shows abd. abscess Possible IR drain today Keep NPO Hold anticoagulants contine antbx Admission and Anticipated Discharge Date Admission Date: June 20, 2023 Subjective patient resting in bed Reports some RLQ pain with palpation Passing Flatus and having BMs was tolerating low fiber diet Denies SOb, Cp, n/v fever chills Review of Systems Constitutional: no fever, no chills and no sweats Respiratory: no dyspnea Cardiovascular: no chest pain Gastrointestinal: + abdominal pain; no nausea and no vomiting Physical Exam Physical Exam: alert oriented Constitutional: cooperative and comfortable; no acute distress Respiratory: normal respiratory effort and able to speak in complete sentences; no respiratory distress Gastrointestinal (Abdomen): Inspection/Auscultation: + abdominal surgical incision and + abdominal surgical drain present (serious fluid ) Percussion/Palpation: + abdomen tender and abdomen soft; no guarding Results & Data Vital Signs (Past 12 Hours) Vital Signs Temp Pulse Pulse Pulse Resp BP BP 06/29/23 08:10 98.2 F 74 16 123/71 06/29/23 07:46 06/29/23 07:42 75 06/29/23 07:27 75 14 06/29/23 03:04 97.5 F L 74 18 122/69 06/29/23 00:00 75 06/28/23 22:44 97.9 F 77 18 116/69 Pulse Ox O2 Del Method FiO2 06/29/23 08:10 90 Room Air 06/29/23 07:46 Room Air 06/29/23 07:42 06/29/23 07:27 91 Room Air 21 06/29/23 03:04 92 Room Air 06/29/23 00:00 06/28/23 22:44 95 Room Air PG Care Time/CCT Total # of Minutes Spent Total Time Spent with Patient: Total time spent is greater than 50% in coordination of care (as documented) at patient's floor/unit and/or counseling patient: Coding Level of Care Code 20107 Post Operative Follow-Up Diagnoses Perforated appendix K35.32
[2023-06-29] MEDS: PANTOprazole 40 MG in SYRINGE 0 ML IV SCH (10:59)
--- NOTE | 2023-06-29 11:51 | Infectious Disease Progress Nt ---
Date of Service June 29, 2023 Assessment & Plan (1) Perforated appendix: (2) SBO (small bowel obstruction): (3) Leukocytosis: Plan 73 yo male with pmh copd, hld , prostate cancer diagnosed 04/2023 presents to ed with a few days of abdominal pain and distention with sob. In the ed he is hypoxic, tachypneic, tachycardic. He I afebrile. He was noted to have a tender distended abdomen. CTAB showed signs of perforated appendicitis and high grade SBO, CTA lung showed bilateral lower lobe subsegmental PEs. He was started on heparin drip and started on Zosyn. PE was later ruled out and heparin discontinued. He was admitted to ICU and eventually underwent exlap appendectomy with washout on 06/20. OP report mentions evidence of naveed perforation and purulent fluid and fibrinous exudate layering over the bowel and abdomen. Cx sent and OUSMANE drain placed. Intraoperative cx + for ecoli ( R cipro, I lev), Eggerthella Lenta and a low count of mixed anaerobic microbiota. BC grew bottles of GPC in anaerobic bottle ( non viable for sensitivities). His hospital course c/b confusion/encephalopathy which has resolved. Labs on admission wbc 18.32?17.58, procal 48? 25.55,? 3.36 lactate 2.9? 1.8 . UA with pyuria, negative respiratory biofire. He Is now on medical floors and feels well . ileus improved on repeat imaging He has less ab pain. He denies fever, chils, shortness of breath, nausea/vomiting, diarrhea. He has had difficulty urinating for a few month since diagnosed with prostate Ca. ID consulted for peritonitis/ bacteremia Micro Bc 06/19 09/17 bottles + GPR ( anaerobic) UC 06/20 < 1000cfu WC 06/20 Ecoli ( R cipro, I lev), Eggerthella Lenta and a low count of mixed anaerobic microbiota BC 06/22 NGTD ABX zosyn 06/19-ongoing Vanc 06/19 Azithr 06/19 #Sepsis #Perforated appendicitis/Peritonitis #GPR bacteremia #Hypoxic respiratory failure #SBO He presented with sepsis 2/2 peritonitis sp perforated appendicitis. He underwent appendectomy and washout with drain placement on 06/20. Lactic acidosis resolved. Procalcitonin nicely down trended His WBC remains elevated, but he has been started on prednisone. His mental status has returned to baseline. intraab cx with GI philippe: Ecoli and Eggerthella Lenta(an anaerobic GPR associated with intrab infxn). Eggerthella is usually > 95% sensitive to Metronidazole, it may be less sensitive to Pip- Tera. The GPR in 1/4 bottles grew in anaerobic bottle but was not viable for ID and sensitivity. Repeat BC sterile to date. The GPR may represent the Eggerherlla in ab cx or another GI anaerobe. CT shows new abscess Recommendations; CW Ceftriaxone 2g I v daily and Flagyl 500 mg PO tid.( can dc on oral flagyl and cefpodoxime 400 mg po q12. IR guided drainage planned for today Please send cultures- bacterial aerobic and anaerobic cultures Antonia Chou MD Infectious Diseases . Admission and Anticipated Discharge Date Admission Date: June 20, 2023 Subjective This patient recommendation is based on a telemedicine consult request which was completed asynchronously through chart review and information provided by the primary physician. The patient was not seen or examined today. The evaluation is consultative in nature and all patient care and treatment decisions can either be accepted or rejected by the patient's primary hospital-based treating physician using their own independent medical judgment for their patient. Time Spent Reviewing Chart: 31+ minutes Results & Data Vital Signs (Past 12 Hours) Vital Signs Temp Pulse Pulse Pulse Resp BP BP 06/29/23 08:10 36.8 C 74 16 123/71 06/29/23 07:46 06/29/23 07:42 75 06/29/23 07:27 75 14 06/29/23 03:04 36.4 C L 74 18 122/69 06/29/23 00:00 75 Pulse Ox O2 Del Method FiO2 06/29/23 08:10 90 Room Air 06/29/23 07:46 Room Air 06/29/23 07:42 06/29/23 07:27 91 Room Air 21 06/29/23 03:04 92 Room Air 06/29/23 00:00 Laboratory Results Laboratory Results - last 48 hr 06/27/23 06/27/23 06/28/23 16:55 20:32 05:59 WBC 14.63 H RBC 3.71 L Hgb 11.0 L Hct 33.8 L MCV 91.1 MCH 29.6 MCHC 32.5 RDW Std Deviation 50.2 H RDW Coeff of Molly 15.1 H Plt Count 303 MPV 10.6 Immature Gran % (Auto) 4.6 Neut % (Auto) 78.4 Lymph % (Auto) 9.1 [place] % (Auto) 6.2 Eos % (Auto) 1.3 Baso % (Auto) 0.4 Neut # (Auto) 11.48 H Lymph # (Auto) 1.33 [place] # (Auto) 0.90 H Eos # (Auto) 0.19 Baso # (Auto) 0.06 Immature Gran # (Auto) 0.67 H PT INR APTT PTT Ratio Sodium Potassium Chloride Carbon Dioxide Anion Gap BUN Creatinine Est Cr Clr Drug Dosing Est GFR ( Amer) Est GFR (Non-Af Amer) BUN/Creatinine Ratio Glucose POC Glucose 92 110 H Calcium 06/28/23 06/28/23 06/28/23 05:59 08:00 11:59 WBC RBC Hgb Hct MCV MCH MCHC RDW Std Deviation RDW Coeff of Molly Plt Count MPV Immature Gran % (Auto) Neut % (Auto) Lymph % (Auto) [place] % (Auto) Eos % (Auto) Baso % (Auto) Neut # (Auto) Lymph # (Auto) [place] # (Auto) Eos # (Auto) Baso # (Auto) Immature Gran # (Auto) PT INR APTT PTT Ratio Sodium 140 Potassium 3.9 Chloride 109 H Carbon Dioxide 26 Anion Gap 5 BUN 26 H Creatinine 1.03 Est Cr Clr Drug Dosing 68.7 Est GFR ( Amer) 82.0 Est GFR (Non-Af Amer) 70.7 BUN/Creatinine Ratio 25.2 H Glucose 95 POC Glucose 90 96 Calcium 8.1 L 06/28/23 06/28/23 06/29/23 16:25 20:45 06:06 WBC 14.32 H RBC 3.63 L Hgb 10.9 L Hct 33.6 L MCV 92.6 MCH 30.0 MCHC 32.4 RDW Std Deviation 50.4 H RDW Coeff of Molly 14.8 H Plt Count 298 MPV 10.3 Immature Gran % (Auto) 2.8 Neut % (Auto) 83.5 Lymph % (Auto) 6.5 [place] % (Auto) 5.7 Eos % (Auto) 1.3 Baso % (Auto) 0.2 Neut # (Auto) 11.96 H Lymph # (Auto) 0.93 L [place] # (Auto) 0.81 H Eos # (Auto) 0.19 Baso # (Auto) 0.03 Immature Gran # (Auto) 0.40 H PT INR APTT PTT Ratio Sodium Potassium Chloride Carbon Dioxide Anion Gap BUN Creatinine Est Cr Clr Drug Dosing Est GFR ( Amer) Est GFR (Non-Af Amer) BUN/Creatinine Ratio Glucose POC Glucose 83 143 H Calcium 06/29/23 06/29/23 06/29/23 06:06 07:22 08:35 WBC RBC Hgb Hct MCV MCH MCHC RDW Std Deviation RDW Coeff of Molly Plt Count MPV Immature Gran % (Auto) Neut % (Auto) Lymph % (Auto) [place] % (Auto) Eos % (Auto) Baso % (Auto) Neut # (Auto) Lymph # (Auto) [place] # (Auto) Eos # (Auto) Baso # (Auto) Immature Gran # (Auto) PT Cancelled INR Cancelled APTT PTT Ratio Sodium 139 Potassium 4.1 Chloride 108 H Carbon Dioxide 27 Anion Gap 4 BUN 20 Creatinine 1.06 Est Cr Clr Drug Dosing 65.8 Est GFR ( Amer) 79.2 Est GFR (Non-Af Amer) 68.3 BUN/Creatinine Ratio 18.9 Glucose 96 POC Glucose 104 H Calcium 7.9 L 06/29/23 08:35 WBC RBC Hgb Hct MCV MCH MCHC RDW Std Deviation RDW Coeff of Molly Plt Count MPV Immature Gran % (Auto) Neut % (Auto) Lymph % (Auto) [place] % (Auto) Eos % (Auto) Baso % (Auto) Neut # (Auto) Lymph # (Auto) [place] # (Auto) Eos # (Auto) Baso # (Auto) Immature Gran # (Auto) PT 11.9 INR 1.1 APTT 27.1 PTT Ratio 1.0 Sodium Potassium Chloride Carbon Dioxide Anion Gap BUN Creatinine Est Cr Clr Drug Dosing Est GFR ( Amer) Est GFR (Non-Af Amer) BUN/Creatinine Ratio Glucose POC Glucose Calcium Microbiology 06/22/23 16:32 Blood Aerobic Blood Culture - Final No growth in Aerobic bottle after 5 days. 06/22/23 16:32 Blood Anaerobic Blood Culture - Final No growth in Anaerobic bottle after 5 days. 06/22/23 16:26 Blood Aerobic Blood Culture - Final No growth in Aerobic bottle after 5 days. 06/22/23 16:26 Blood Anaerobic Blood Culture - Final 06/20/23 13:02 Abdomen Gram Stain - Final 06/20/23 13:02 Abdomen Aerobic and Anaerobic Culture - Final Escherichia coli Roula wallaceta 06/19/23 22:00 Blood Aerobic Blood Culture - Final No growth in Aerobic bottle after 5 days. 06/19/23 22:00 Blood Anaerobic Blood Culture - Final No growth in Anaerobic bottle after 5 days. 06/19/23 21:30 Blood Aerobic Blood Culture - Final No growth in Aerobic bottle after 5 days. 06/19/23 21:30 Blood Anaerobic Blood Culture - Preliminary Gram positive bacilli 06/20/23 09:25 Urine,Clean Catch Urine Culture - Final No growth - less than 1,000 colonies/mL. Diagnostic Findings Abdomen/Pelvis CT 06/26/23 10:[address] WITH IV CONTRAST CT DOSE: 1292.58 mGy.cm HISTORY: Fever. Postop. R/O intra abdominal abscess TECHNIQUE: Multiaxial CT images of the abdomen and pelvis were performed following the use of intravenous contrast. A dose lowering technique was utilized adhering to the principles of ALARA. COMPARISON STUDY: Abdomen and pelvis CT 06/19/2023. FINDINGS: Small bilateral pleural effusions with consolidation within the lower lobes posteriorly. This favors compressive atelectasis from the pleural effusions. A pneumonia could also have a similar appearance. The heart remains enlarged. No pneumoperitoneum. No pneumatosis. Bilateral L5 spondylolysis with associated grade 1 anterolisthesis. A stable 1 cm sclerotic focus within the T10 vertebral body. This is indeterminate but favors a bone island. Small fat- containing hiatal hernia is noted. Small fat-containing right inguinal hernia. No hepatic or splenic masses. The main portal vein is patent. The gallbladder, pancreas, spleen, and adrenal glands are unremarkable. No hydronephrosis. There are few bilateral renal hypodense lesions. These favor cysts. Calcified plaque within the normal caliber abdominal aorta. No retroperitoneal or pelvic lymphadenopathy. Bladder wall thickening with adjacent fat stranding and a few punctate foci of intraluminal gas. This could be due to the recent catheterization. A cystitis could also have a similar appearance. The prostate gland is mildly enlarged. There is a 12 mm hypodense focus within the right side of the prostate gland. This could be associated with a BPH nodule. No dilated loops of bowel to suggest an obstruction. The patient is status post appendectomy with a right lower quadrant surgical drain. Small amount of nonloculated mesenteric fluid within the right lower quadrant on image 223 which has improved. Extensive inflammatory changes within the mid to right lower quadrant of the abdomen suggesting residual postoperative change. Thickening of the small bowel loops within the right lower quadrant which may also be reactive to the prior appendicitis or postoperative change. No loculated fluid collections along the course of the right lower quadrant surgical drainage catheter to suggest an abscess. There is a tiny loculated fluid collection within the mid mesentery in image 227 measuring 9 mm. In addition, there is a loculated fluid collection within the deep pelvis on image 280 measuring 5.3 x 3.1 cm. This does not contain gas but favors a developing abscess. This abuts the distal sigmoid colon. There are multiple colonic diverticula. No definite evidence for acute diverticulosis. Inflammatory change surrounding the distal sigmoid colon is likely due to a combination of the postoperative change and prior inflammatory change from the acute appendicitis. No bowel perforation identified. IMPRESSION: 1. Status post appendectomy with placement of a right lower quadrant surgical drain. No loculated fluid collections along the path of the surgical drain to suggest an abscess. 2. Small amount of ill-defined fluid within the right lower quadrant mesentery has improved in the interval. 3. There is a 5.3 x 3.1 cm loculated fluid collection within the deep pelvis likely representing an abscess. 4. There is 9 mm loculated fluid collection within the mid mesentery which could also represent a small abscess or postoperative fluid collection. 5. Fat stranding throughout the mid to right lower quadrant of the abdomen likely representing a combination of residual inflammatory change from the acute appendicitis and postoperative change. 6. Bladder wall thickening with adjacent fat stranding. This may represent a cystitis. Recommend correlation with urinalysis. 7. Multiple thickened loops of small bowel in the right lower quadrant consistent with a nonocclusive enteritis. This may be reactive to the recent postoperative change . 8. Small bilateral pleural effusions. Bibasilar densities favor atelectasis from the pleural effusions. A pneumonia could also a similar appearance. 9. Additional findings as described above. ACT 112: Negative or not required by law. Electronically signed by: Robin Florence M.D. 06/26/2023 1:23 PM Medications Administered Current Inpatient Medications Acetaminophen (Acetaminophen 325 Mg Tab) 650 mg PO Q4H PRN PRN Reason: Pain Stop: 07/25/23 15:25 Last Admin: 06/28/23 15:31 Dose: 650 mg Albuterol (Albuterol 0.083% Nebu Soln 3 Ml Vial) 2.5 mg NEB Q2H PRN; Protocol PRN Reason: SOB/Wheeze Stop: 07/20/23 03:43 Albuterol (Albut/Ipratrop 3mg/0.5mg Neb 3 Ml Vial) 3 ml NEB Q4R PRN; Protocol PRN Reason: wheezing Stop: 07/20/23 03:43 Atorvastatin Calcium (Atorvastatin 40 Mg Tab) 40 mg PO HS [facility] Stop: 07/25/23 20:59 Last Admin: 06/28/23 21:38 Dose: 40 mg Budesonide (Budesonide 0.25 Mg/2 Ml Vial (Pulmicort)) 0.25 mg NEB BIDR THU Stop: 07/20/23 18:59 Last Admin: 06/29/23 07:25 Dose: 0.25 mg Dextrose (Dextrose 50% 50 Ml Syringe) 25 - 50 ml IV UD PRN; Protocol PRN Reason: Hypoglycemia Protocol Stop: 07/20/23 16:50 Enoxaparin Sodium (Enoxaparin Inj 40 Mg/0.4 Ml Syr) 40 mg SQ Q24H THU Stop: 07/22/23 15:59 Last Admin: 06/28/23 15:30 Dose: 40 mg Folic Acid (Folic Acid 1 Mg Tab) 1 mg PO QAM THU Stop: 07/26/23 08:59 Last Admin: 06/29/23 08:55 Dose: 1 mg Formoterol Fumarate (Formoterol 20 Mcg/2 Ml Vial) 20 mcg INH BIDR THU Stop: 07/20/23 18:59 Last Admin: 06/29/23 07:25 Dose: 20 mcg Glucagon (Glucagon For Inj 1 Mg Vial) 1 mg SQ UD PRN; Protocol PRN Reason: Hypoglycemia Protocol Stop: 07/20/23 16:50 Glucose (Glucose 40% Gel 15 Gm Tube) 15 - 30 gm PO UD PRN; Protocol PRN Reason: Hypoglycemia Protocol Stop: 07/20/23 16:50 Glucose (Glucose 10 Tab/Tube) 4 - 8 tab PO UD PRN; Protocol PRN Reason: Hypoglycemia Treatment Stop: 07/20/23 16:50 Pantoprazole Sodium 40 mg/ (Syringe) 10 mls @ 5 mls/min IV DAILY@1100 [facility] Stop: 07/20/23 10:59 Last Admin: 06/29/23 10:59 Dose: 5 mls/min Ceftriaxone Sodium 2,000 mg/ (Dextrose) 50 mls @ 100 mls/hr IV Q24H [facility]; Protocol Stop: 07/05/23 09:29 Last Infusion: 06/29/23 09:26 Dose: Infused Metronidazole (Flagyl) 500 mg in 100 mls @ 100 mls/hr IV Q8H [facility]; Protocol Stop: 07/05/23 09:29 Last Infusion: 06/29/23 11:02 Dose: Infused Insulin Aspart (Insulin Aspart Per Unit Charge) 0 units SC ACHS [facility] Stop: 07/26/23 07:29 Last Admin: 06/29/23 08:56 Dose: Not Given Magnesium Oxide (Magnesium Oxide 400 Mg Tab) 400 mg PO DAILY [facility] Stop: 07/26/23 08:59 Last Admin: 06/29/23 08:56 Dose: 400 mg Melatonin (Melatonin 3 Mg Tab) 3 mg PO HS [facility] Stop: 07/26/23 20:59 Last Admin: 06/28/23 21:38 Dose: 3 mg Miscellaneous (Carbohydrates For Hypoglycemia ) 15 - 30 gm PO UD PRN PRN Reason: Hypoglycemia Protocol Stop: 07/20/23 16:50 Miscellaneous (Remove Nicoderm Patch) 1 each N/A DAILY@0859 [facility] Stop: 07/24/23 08:58 Last Admin: 06/29/23 08:55 Dose: 1 each Nicotine (Nicotine 14 Mg/24 Hr Patch) 14 mg TD QAM [facility] Stop: 07/23/23 11:59 Last Admin: 06/29/23 08:56 Dose: 14 mg Ondansetron HCl (Ondansetron Inj 2 Mg/Ml 2 Ml Vial) 4 mg IV Q6H PRN PRN Reason: Nausea And Vomiting Stop: 07/20/23 03:43 Last Admin: 06/28/23 21:21 Dose: 4 mg Oxycodone HCl (Oxycodone Hcl Ir 5 Mg Tab (Immediate Release)) 5 mg PO Q4H PRN PRN Reason: Pain Stop: 07/11/23 18:46 Last Admin: 06/28/23 19:20 Dose: 5 mg Simethicone (Simethicone 80 Mg Chew) 80 mg PO Q6H PRN PRN Reason: Cramping Stop: 07/26/23 11:12 Last Admin: 06/28/23 21:38 Dose: 80 mg Tamsulosin HCl (Tamsulosin Hcl 0.4 Mg Cap) 0.4 mg PO HS [facility] Stop: 07/25/23 20:59 Last Admin: 06/28/23 21:38 Dose: 0.4 mg Thiamine HCl (Thiamine Hcl 100 Mg Tab) 100 mg PO QAM [facility] Stop: 07/26/23 08:59 Last Admin: 06/29/23 08:56 Dose: 100 mg Venlafaxine HCl (Venlafaxine Hcl Xr 150 Mg Capxr) 150 mg PO QAM [facility] Stop: 07/22/23 15:29 Last Admin: 06/29/23 08:56 Dose: 150 mg
[2023-06-29] MEDS ORDERED: fentaNYL citrate PF 100 MCG/2 ML VIAL ONE (12:30)
--- NOTE | 2023-06-29 15:25 | Hospitalist Progress Note ---
Date of Service June 29, 2023 Assessment & Plan (1) Sepsis: Plan: Present on admission. Now resolved. Cultures obtained at the time of surgery are growing E. coli and an anaerobe. He is currently on Rocephin and Flagyl. Infectious disease recommends eventual discharge on oral Flagyl and cefpodoxime (2) Acute encephalopathy: Plan: Acute metabolic encephalopathy present on admission. Alcohol withdrawal may also have contributed. Now resolved (3) Perforated appendix: Plan: s/p lap appy on 06/20, with intra-abdominal infection from perforation--> abd fluid cx growing E. coli and Eggerthella lenta( anaerobe). General surgery consultation and recommendations appreciated. OUSMANE drain remains in place. (4) Pelvic abscess in male: Plan: Fluid collection seen in the pelvis on abdominal pelvic CT scan done on June 26. This is probably an abscess. General surgery is aware. Interventional radiology will place pelvic drain today, June 29. He is currently on Rocephin and Flagyl. Infectious disease has recommended oral Flagyl and cefpodoxime at the time of discharge to home (5) XAVIER (acute kidney injury): Plan: Present on admission. Now resolved. Urology consultation appreciated. Will monitor urine output and serial labs (6) Acute hypoxic respiratory failure: Plan: Present on admission. Now resolved. He did not require intubation. Steroids have been weaned off. Two-step oxygen desaturation study completed on June 26 does not indicate the need for home oxygen. (7) Anemia: Plan: Acute blood loss anemia most likely. Serial labs. Transfuse if necessary. (8) Gross hematuria: Plan: secondary to multiple traumatic Stearns placement attempts. Now resolved. Stearns removed 06/22 and voiding well. Urology consultation and recommendations appreciated. He has newly diagnosed prostate Ca. Repeat UA negative (9) Chronic obstructive pulmonary disease: Plan: Acute exacerbation present on admission. Now back to baseline. Appreciate pulmonary medicine consultation and recommendations. (10) Bilateral pulmonary embolism: Plan: ruled out after admission. Leg vein dopplers neg for DVT (11) Prostate cancer: Plan: recently diagnosed. No mets per PET scan. He is following with Radiation Oncology and is to begin treatment soon. Continue Flomax Plan Anticipate eventual discharge back to home on p.o. antibiotics sometime next week Admission and Anticipated Discharge Date Admission Date: June 20, 2023 Subjective Alert and oriented. He continues to have some lower abdominal discomfort. Infectious disease entry noted. Recommendations are for oral Flagyl and cefpodoxime at the time of discharge. He will will undergo pelvic drain pl acement today. Will ask surgery if this needs to remain in place at the time of discharge or not and how long he needs to have it. He is anxious to go home Review of Systems Review of Systems: Constitutional-no fever or chills ENT-no blurred vision, no double vision, no epistaxis, no sore throat Respiratory-no cough, no wheezing, no shortness of breath Cardiac-no palpitations, no chest pain, no syncope GI-no nausea, vomiting, diarrhea, melena, hematochezia -no urinary retention, no urinary incontinence, no dysuria, no hematuria Musculoskeletal-no joint pain, no muscle tenderness Skin-no bruising, no rashes, no pruritus Neuro-no isolated weakness, no paresthesia, no weakness Psych-no depression, no anxiety Physical Exam Physical Exam: General-alert and oriented x3, no fevers, no chills HEENT-head atraumatic and normocephalic, pupils equal and reactive to light, extraocular muscles intact Neck-no lymphadenopathy or thyromegaly, trachea midline Chest-clear to auscultation percussion. No rales wheezing or rhonchi Cardiac-regular rate and rhythm, normal S1 and S2 Abdomen-normal bowel sounds, no hepatosplenomegaly. Mild tenderness in suprapubic area Extremities-no cyanosis, clubbing, or edema Neuro-cranial nerves II through XII intact, motor and sensory function within normal limits, strength symmetrical , no focal deficits Psych-normal affect, normal mood Results & Data Results & Data Vital Signs (Past 12 Hours) Vital Signs Temp Pulse Pulse Pulse Resp BP BP 06/29/23 15:07 36.8 C 67 18 132/69 06/29/23 14:22 87 123/71 06/29/23 14:18 36.6 C 62 20 135/78 06/29/23 08:10 36.8 C 74 16 123/71 06/29/23 07:46 06/29/23 07:42 75 06/29/23 07:27 75 14 Pulse Ox O2 Del Method FiO2 06/29/23 15:07 95 Room Air 06/29/23 14:22 06/29/23 14:18 93 Room Air 06/29/23 08:10 90 Room Air 06/29/23 07:46 Room Air 06/29/23 07:42 06/29/23 07:27 91 Room Air 21 Laboratory Results 06/29/23 06:06 06/29/23 06:06 PG Care Time/CCT Total # of Minutes Spent Total Time Spent with Patient: Total time spent is greater than 50% in coordination of care (as documented) at patient's floor/unit and/or counseling patient: Coding Level of Care Code 20796 SUB INP/OBS CARE 3/50MIN Diagnoses Sepsis A41.9 Acute encephalopathy G93.40 Perforated appendix K35.32 Pelvic abscess in male K65.1 XAVIER (acute kidney injury) N17.9 Acute hypoxic respiratory failure J96.01 Anemia D64.9 Gross hematuria R31.0 Chronic obstructive pulmonary disease J44.9 Bilateral pulmonary embolism I26.99 Prostate cancer C61
--- NOTE | 2023-06-29 16:43 | CT Scan Report ---
CT-guided pelvic fluid collection drain placement INDICATION: 5.3 cm possible pelvis abscess collection PROCEDURE: Procedure and risks were explained. Informed consent was obtained. Final timeout was compl eted. The patient was placed prone on the CT exam table. The right gluteal region was prepped and jarad ped in sterile fashion. 1% buffered lidocaine was utilized for skin anesthesia. Utilizing CT guidance, an 18-gauge Chiba needle was advanced into the pelvic fluid collection. A 0.03 5 Amplatz wire was introduced through the Chiba needle and exchanged for an 8 [place] locking pigtail catheter. Approximately 3 mL of cloudy fluid was aspirated and sent to lab for analysis. The catheter was sutured to the skin with 2-0 silk and placed to gravity bag drainage. The patient tolerated the procedure well. Post CT imaging demonstrated adequate catheter position without immediate complicatio n. IMPRESSION: Pelvic abscess drain placement as detailed above. Performed, dictated, and signed by Larry Hdez PA-C; to be co-signed by Dr. Tyson Hoffman. Electronically signed by: Tyson Hoffman M.D. 06/29/2023 8:52 PM
[2023-06-29] MEDS: SIMETHICONE 80 MG CHEW PO PRN (21:04)
[2023-06-29] MEDS: ATORVASTATIN 40 MG TAB PO SCH (21:05)
[2023-06-29] MEDS: MELATONIN 3 MG TAB PO SCH (21:05)
[2023-06-29] MEDS: TAMSULOSIN HCL 0.4 MG CAP PO SCH (21:06)
[2023-06-30] MEDS: metroNIDAZOLE 500 MG/100 ML BAG IV SCH ×3 (01:23→17:51)
[2023-06-30 06:43] LABS: Basophils # (auto) 0.03 K/uL (0.00-0.20); Basophils % (auto) 0.3 %; Eosinophils # (auto) 0.14 K/uL (0.00-0.50); Eosinophils % (auto) 1.2 %; Hematocrit (blood only) 30.9 % (42.0-52.0); Hemoglobin 9.9 g/dl (14.0-18.0); Immature Granulocytes # (auto) 0.24 K/uL (0.01-0.20); Lymphocytes # (auto) 0.83 K/uL (1.20-3.40); Lymphocytes % (auto) 7.1 %; Mean Corpuscular Hemoglobin 29.8 pg (25.0-34.0); Mean Corpuscular Volume 93.1 fL (80.0-100.0); Mean Platelet Volume 10.4 fL (9.4-12.4); Monocytes # (auto) 0.85 K/uL (0.11-0.59); Monocytes % (auto) 7.3 %; Neutrophils # (auto) 9.63 K/uL (1.40-6.50); Neutrophils % (auto) 82.1 %; Platelet Count 292 K/uL (130-400); Red Blood Count 3.32 M/uL (4.70-6.10); White Blood Count 11.72 K/ul (4.8-10.8)
[2023-06-30] MEDS: FORMOTEROL 20 MCG/2 ML VIAL INH SCH ×2 (07:20→20:32)
[2023-06-30] MEDS: BUDESONIDE 0.25 MG/2 ML VIAL (PULMICORT) NEB SCH ×2 (07:20→20:32)
[2023-06-30 07:22] LABS: BUN Creatinine Ratio 19.6 (10-20); Creatinine Clr Calc Pharmacy 71.8 ml/min; Est GFR (African American) 88.1 ml/min; Est GFR (Non-African American) 76.1 ml/min; Potassium 3.9 mmol/L (3.5-5.1)
[2023-06-30] MEDS: SIMETHICONE 80 MG CHEW PO PRN (08:54)
[2023-06-30] MEDS: cefTRIAXone SODIUM 2,000 MG in DEXTROSE 5 % MINI-B 50 ML IV SCH (08:55)
[2023-06-30] MEDS: VENLAFAXINE HCL XR 150 MG CAPXR PO SCH (08:55)
[2023-06-30] MEDS: FOLIC ACID 1 MG TAB PO SCH (08:55)
[2023-06-30] MEDS: MAGNESIUM OXIDE 400 MG TAB PO SCH (08:55)
[2023-06-30] MEDS: THIAMINE HCL 100 MG TAB PO SCH (08:55)
[2023-06-30] MEDS: NICOTINE 14 MG/24 HR PATCH TD SCH (08:58)
[2023-06-30] MEDS: INSULIN ASPART PER UNIT CHARGE SC SCH ×4 (09:12→20:47)
--- NOTE | 2023-06-30 11:40 | Surgery Progress Note ---
I have seen and discussed this patient with the surgical PA. I agree with the plan Date of Service June 30, 2023 Assessment & Plan (1) Pelvic abscess in male: Plan: POD 10 Lap appy, abd wash out Patient sitting up in chair IR drain placement yesterday Denies fever, chills, n/v, Cp, sob WBC 11 (14) Had BM this AM, passing flatus OUSMANE 10/10ml in 12/24hour IR drain bag empty Tenderness still in RLQ some improvement Eager to get home Admission and Anticipated Discharge Date Admission Date: June 20, 2023 Subjective Patient sitting up in chair IR drain placement yesterday Denies fever, chills, n/v, Cp, sob Review of Systems Constitutional: no fever, no chills and no sweats Respiratory: no dyspnea Cardiovascular: no chest pain Gastrointestinal: + abdominal pain; no nausea and no vomiting Physical Exam Constitutional: cooperative and comfortable; no acute distress Respiratory: normal respiratory effort and able to speak in complete sentences; no respiratory distress Cardiovascular: Rate/Rhythm: regular rate Gastrointestinal (Abdomen): Inspection/Auscultation: + abdominal surgical incision and + abdominal surgical drain present (OUSMANE ) Percussion/Palpation: + abdomen tender (RLQ) and abdomen soft; no guarding Results & Data Vital Signs (Past 12 Hours) Vital Signs Temp Pulse Pulse Resp BP Pulse Ox O2 Del Method 06/30/23 09:53 Room Air 06/30/23 07:34 98.2 F 72 18 157/66 H 94 Room Air 06/30/23 07:20 85 17 93 Room Air 06/30/23 04:08 97.9 F 73 18 129/56 L 90 Room Air 06/29/23 23:59 71 PG Care Time/CCT Total # of Minutes Spent Total Time Spent with Patient: Total time spent is greater than 50% in coordination of care (as documented) at patient's floor/unit and/or counseling patient: Coding Level of Care Code 60075 Post Operative Follow-Up Diagnoses Pelvic abscess in male K65.1
[2023-06-30] MEDS: PANTOprazole 40 MG in SYRINGE 0 ML IV SCH (12:43)
--- NOTE | 2023-06-30 12:57 | Infectious Disease Progress Nt ---
Date of Service June 30, 2023 24 hours: S/P IR drainage, Approximately 3 mL of cloudy fluid was aspirated WBC 11 now from 14 Assessment & Plan (1) Perforated appendix: (2) SBO (small bowel obstruction): (3) Leukocytosis: Plan 73 yo male with pmh copd, hld , prostate cancer diagnosed 04/2023 presents to ed with a few days of abdominal pain and distention with sob. In the ed he is hypoxic, tachypneic, tachycardic. He I afebrile. He was noted to have a tender distended abdomen. CTAB showed signs of perforated appendicitis and high grade SBO, CTA lung showed bilateral lower lobe subsegmental PEs. He was started on heparin drip and started on Zosyn. PE was later ruled out and heparin discontinued. He was admitted to ICU and eventually underwent exlap appendectomy with washout on 06/20. OP report mentions evidence of naveed perforation and purulent fluid and fibrinous exudate layering over the bowel and abdomen. Cx sent and OUSMANE drain placed. Intraoperative cx + for ecoli ( R cipro, I lev), Eggerthella Lenta and a low count of mixed anaerobic microbiota. BC grew bottles of GPC in anaerobic bottle ( non viable for sensitivities). His hospital course c/b confusion/encephalopathy which has resolved. Labs on admission wbc 18.32?17.58, procal 48? 25.55,? 3.36 lactate 2.9? 1.8 . UA with pyuria, negative respiratory biofire. He Is now on medical floors and feels well . ileus improved on repeat imaging He has less ab pain. He denies fever, chils, shortness of breath, nausea/vomiting, diarrhea. He has had difficulty urinating for a few month since diagnosed with prostate Ca. ID consulted for peritonitis/ bacteremia Micro Bc 06/19 09/17 bottles + GPR ( anaerobic) UC 06/20 < 1000cfu WC 06/20 Ecoli ( R cipro, I lev), Eggerthella Lenta and a low count of mixed anaerobic microbiota BC 06/22 NGTD ABX zosyn 06/19-ongoing Vanc 06/19 Azithr 06/19 #Sepsis #Perforated appendicitis/Peritonitis #GPR bacteremia #Hypoxic respiratory failure #SBO He presented with sepsis 2/2 peritonitis sp perforated appendicitis. He underwe nt appendectomy and washout with drain placement on 06/20. Lactic acidosis resolved. Procalcitonin nicely down trended His WBC remains elevated, but he has been started on prednisone. His mental status has returned to baseline. intraab cx with GI philippe: Ecoli and Eggerthella Lenta(an anaerobic GPR associated with intrab infxn). Eggerthella is usually > 95% sensitive to Metronidazole, it may be less sensitive to Pip- Tera. The GPR in 1/4 bottles grew in anaerobic bottle but was not viable for ID and sensitivity. Repeat BC sterile to date. The GPR may represent the Eggerherlla in ab cx or another GI anaerobe. CT shows new abscess, 06/29 IR Guided drainage with removal of 3mL and drainage placement Recommendations; CW Ceftriaxone 2g I v daily and Flagyl 500 mg PO tid Follow Cultures--> if negative tomorrow can likely dc on orals Antonia Chou MD Infectious Diseases . Admission and Anticipated Discharge Date Admission Date: June 20, 2023 Subjective This patient recommendation is based on a telemedicine consult request which was completed asynchronously through chart review and information provided by the primary physician. The patient was not seen or examined today. The evaluation is consultative in nature and all patient care and treatment decisions can either be accepted or rejected by the patient's primary hospital-based treating physician using their own independent medical judgment for their patient. Time Spent Reviewing Chart: 21 - 30 minutes Results & Data Vital Signs (Past 12 Hours) Vital Signs Temp Pulse Resp BP Pulse Ox O2 Del Method 06/30/23 11:32 36.5 C 70 18 143/74 H 94 Room Air 06/30/23 09:53 Room Air 06/30/23 07:34 36.8 C 72 18 157/66 H 94 Room Air 06/30/23 07:20 85 17 93 Room Air 06/30/23 04:08 36.6 C 73 18 129/56 L 90 Room Air Laboratory Results Laboratory Results - last 48 hr 06/28/23 06/28/23 06/29/23 16:25 20:45 06:06 WBC 14.32 H RBC 3.63 L Hgb 10.9 L Hct 33.6 L MCV 92.6 MCH 30.0 MCHC 32.4 RDW Std Deviation 50.4 H RDW Coeff of Molly 14.8 H Plt Count 298 MPV 10.3 Immature Gran % (Auto) 2.8 Neut % (Auto) 83.5 Lymph % (Auto) 6.5 Greene % (Auto) 5.7 Eos % (Auto) 1.3 Baso % (Auto) 0.2 Neut # (Auto) 11.96 H Lymph # (Auto) 0.93 L Greene # (Auto) 0.81 H Eos # (Auto) 0.19 Baso # (Auto) 0.03 Immature Gran # (Auto) 0.40 H PT INR APTT PTT Ratio Sodium Potassium Chloride Carbon Dioxide Anion Gap BUN Creatinine Est Cr Clr Drug Dosing Est GFR ( Amer) Est GFR (Non-Af Amer) BUN/Creatinine Ratio Glucose POC Glucose 83 143 H Calcium 06/29/23 06/29/23 06/29/23 06:06 07:22 08:35 WBC RBC Hgb Hct MCV MCH MCHC RDW Std Deviation RDW Coeff of Molly Plt Count MPV Immature Gran % (Auto) Neut % (Auto) Lymph % (Auto) Greene % (Auto) Eos % (Auto) Baso % (Auto) Neut # (Auto) Lymph # (Auto) Greene # (Auto) Eos # (Auto) Baso # (Auto) Immature Gran # (Auto) PT Cancelled INR Cancelled APTT PTT Ratio Sodium 139 Potassium 4.1 Chloride 108 H Carbon Dioxide 27 Anion Gap 4 BUN 20 Creatinine 1.06 Est Cr Clr Drug Dosing 65.8 Est GFR ( Amer) 79.2 Est GFR (Non-Af Amer) 68.3 BUN/Creatinine Ratio 18.9 Glucose 96 POC Glucose 104 H Calcium 7.9 L 06/29/23 06/29/23 06/29/23 08:35 12:00 16:28 WBC RBC Hgb Hct MCV MCH MCHC RDW Std Deviation RDW Coeff of Molly Plt Count MPV Immature Gran % (Auto) Neut % (Auto) Lymph % (Auto) Greene % (Auto) Eos % (Auto) Baso % (Auto) Neut # (Auto) Lymph # (Auto) Greene # (Auto) Eos # (Auto) Baso # (Auto) Immature Gran # (Auto) PT 11.9 INR 1.1 APTT 27.1 PTT Ratio 1.0 Sodium Potassium Chloride Carbon Dioxide Anion Gap BUN Creatinine Est Cr Clr Drug Dosing Est GFR ( Amer) Est GFR (Non-Af Amer) BUN/Creatinine Ratio Glucose POC Glucose 83 101 H Calcium 06/29/23 06/30/23 06/30/23 20:26 05:52 05:52 WBC 11.72 H RBC 3.32 L Hgb 9.9 L Hct 30.9 L MCV 93.1 MCH 29.8 MCHC 32.0 RDW Std Deviation 52.0 H RDW Coeff of Molly 15.0 H Plt Count 292 MPV 10.4 Immature Gran % (Auto) 2.0 Neut % (Auto) 82.1 Lymph % (Auto) 7.1 Greene % (Auto) 7.3 Eos % (Auto) 1.2 Baso % (Auto) 0.3 Neut # (Auto) 9.63 H Lymph # (Auto) 0.83 L Greene # (Auto) 0.85 H Eos # (Auto) 0.14 Baso # (Auto) 0.03 Immature Gran # (Auto) 0.24 H PT INR APTT PTT Ratio Sodium 141 Potassium 3.9 Chloride 109 H Carbon Dioxide 27 Anion Gap 5 BUN 19 Creatinine 0.97 Est Cr Clr Drug Dosing 71.8 Est GFR ( Amer) 88.1 Est GFR (Non-Af Amer) 76.1 BUN/Creatinine Ratio 19.6 Glucose 101 H POC Glucose 170 H Calcium 8.0 L 06/30/23 06/30/23 07:57 11:34 WBC RBC Hgb Hct MCV MCH MCHC RDW Std Deviation RDW Coeff of Molly Plt Count MPV Immature Gran % (Auto) Neut % (Auto) Lymph % (Auto) Greene % (Auto) Eos % (Auto) Baso % (Auto) Neut # (Auto) Lymph # (Auto) Greene # (Auto) Eos # (Auto) Baso # (Auto) Immature Gran # (Auto) PT INR APTT PTT Ratio Sodium Potassium Chloride Carbon Dioxide Anion Gap BUN Creatinine Est Cr Clr Drug Dosing Est GFR ( Amer) Est GFR (Non-Af Amer) BUN/Creatinine Ratio Glucose POC Glucose 119 H 103 H Calcium Diagnostic Findings Drainage Catheter Insertion 06/29/23 12:00 CT-guided pelvic fluid collection drain placement INDICATION: 5.3 cm possible pelvis abscess collection PROCEDURE: Procedure and risks were explained. Informed consent was obtained. Final timeout was completed. The patient was placed prone on the CT exam table. The right gluteal region was prepped and draped in sterile fashion. 1% buffered lidocaine was utilized for skin anesthesia. Utilizing CT guidance, an 18-gauge Chiba needle was advanced into the pelvic fluid collection. A 0.035 Amplatz wire was introduced through the Chiba needle and exchanged for an 8 Japanese locking pigtail catheter. Approximately 3 mL of cloudy fluid was aspirated and sent to lab for analysis. The catheter was sutured to the skin with 2-0 silk and placed to gravity bag drainage. The patient tolerated the procedure well. Post CT imaging demonstrated adequate catheter position without immediate complication. IMPRESSION: Pelvic abscess drain placement as detailed above. Performed, dictated, and signed by Larry Hdez PA-C; to be co-signed by Dr. Tyson Hoffman. Electronically signed by: Tyson Hoffman M.D. 06/29/2023 8:52 PM Medications Administered Home Medications Medication Instructions Recorded Confirmed Last Taken multivitamin,tx-minerals 1 cap PO QDL 03/14/19 06/20/23 06/19/23 (Multi-Vitamin HP/Minerals capsule) vitamins A,C,X-fygn-csmkgm 2,148 1 tab PO QDL 03/14/19 06/20/23 06/19/23 mcg-113 mg-45 mg-17.4 mg tablet (PreserVision AREDS) inhalational spacing device #1 ea 06/17/21 06/18/23 Unknown (Aerochamber Plus Z Stat spacer) Symbicort 80 mcg-4.5 mcg/actuation 2 puff inhalation BID #10.2 grams 06/24/22 06/20/23 1 Month Ago HFA aerosol inhaler ~05/21/23 (budesonide-formoterol) magnesium oxide 400 mg PO DAILY 12/09/22 06/20/23 06/19/23 venlafaxine 150 mg 150 mg PO DAILY #90 caps 03/26/23 06/20/23 06/19/23 capsule,extended release 24 hr atorvastatin 40 mg tablet 40 mg PO HS 06/20/23 06/20/23 06/19/23 ferrous sulfate 325 mg (65 mg 325 mg PO QAM 06/20/23 06/20/23 06/19/23 iron) tablet,delayed release tiotropium bromide 18 mcg capsule 1 cap inhalation DAILY #60 06/25/23 Unknown with inhalation device (Spiriva inhalations with HandiHaler) Active Medications Generic Name Dose Route Start Last Admin Trade Name Freq PRN Reason Stop Dose Admin Acetaminophen 650 mg 06/25/23 15:26 06/28/23 15:31 Acetaminophen 325 Mg Tab PO 07/25/23 15:25 650 mg Q4H PRN Administration Pain Atorvastatin Calcium 40 mg 06/25/23 21:00 06/29/23 21:05 Atorvastatin 40 Mg Tab PO 07/25/23 20:59 40 mg HS THU Administration Budesonide 0.25 mg 06/20/23 19:00 06/30/23 07:20 Budesonide 0.25 Mg/2 Ml Vial (Pulmicort) NEB 07/20/23 18:59 0.25 mg BIDR THU Administration Enoxaparin Sodium 40 mg 06/22/23 16:00 06/28/23 15:30 Enoxaparin Inj 40 Mg/0.4 Ml Syr SQ 07/22/23 15:59 40 mg Q24H THU Administration Folic Acid 1 mg 06/26/23 09:00 06/30/23 08:55 Folic Acid 1 Mg Tab PO 07/26/23 08:59 1 mg QAM THU Administration Formoterol Fumarate 20 mcg 06/20/23 19:00 06/30/23 07:20 Formoterol 20 Mcg/2 Ml Vial INH 07/20/23 18:59 20 mcg BIDR THU Administration Pantoprazole Sodium 40 mg/ 10 mls @ 5 mls/min 06/20/23 11:00 06/30/23 12:43 Syringe IV 07/20/23 10:59 5 mls/min DAILY@1100 THU Administration Ceftriaxone Sodium 2,000 mg/ 50 mls @ 100 mls/hr 06/25/23 09:30 06/30/23 10:07 Dextrose IV 07/05/23 09:29 Infused Q24H [facility] Infusion Protocol Metronidazole 500 mg in 100 mls @ 100 mls/hr 06/25/23 09:30 06/30/23 11:18 Flagyl IV 07/05/23 09:29 Infused Q8H [facility] Infusion Protocol Insulin Aspart 0 units 06/26/23 07:30 06/30/23 12:44 Insulin Aspart Per Unit Charge SC 07/26/23 07:29 Not Given ACHS THU Magnesium Oxide 400 mg 06/26/23 09:00 06/30/23 08:55 Magnesium Oxide 400 Mg Tab PO 07/26/23 08:59 400 mg DAILY THU Administration Melatonin 3 mg 06/26/23 21:00 06/29/23 21:05 Melatonin 3 Mg Tab PO 07/26/23 20:59 3 mg HS THU Administration Miscellaneous 1 each 06/24/23 08:59 06/30/23 08:56 Remove Nicoderm Patch N/A 07/24/23 08:58 1 each DAILY@0859 THU Administration Nicotine 14 mg 06/23/23 12:00 06/30/23 08:58 Nicotine 14 Mg/24 Hr Patch TD 07/23/23 11:59 Not Given QAM THU Ondansetron HCl 4 mg 06/20/23 03:44 06/28/23 21:21 Ondansetron Inj 2 Mg/Ml 2 Ml Vial IV 07/20/23 03:43 4 mg Q6H PRN Administration Nausea And Vomiting Oxycodone HCl 5 mg 06/27/23 18:47 06/28/23 19:20 Oxycodone Hcl Ir 5 Mg Tab (Immediate Release) PO 07/11/23 18:46 5 mg Q4H PRN Administration Pain Simethicone 80 mg 06/26/23 11:13 06/30/23 08:54 Simethicone 80 Mg Chew PO 07/26/23 11:12 80 mg Q6H PRN Administration Cramping Tamsulosin HCl 0.4 mg 06/25/23 21:00 06/29/23 21:06 Tamsulosin Hcl 0.4 Mg Cap PO 07/25/23 20:59 0.4 mg HS THU Administration Thiamine HCl 100 mg 06/26/23 09:00 06/30/23 08:55 Thiamine Hcl 100 Mg Tab PO 07/26/23 08:59 100 mg QAM THU Administration Venlafaxine HCl 150 mg 06/22/23 15:30 06/30/23 08:55 Venlafaxine Hcl Xr 150 Mg Capxr PO 07/22/23 15:29 150 mg QAM THU Administration
--- NOTE | 2023-06-30 17:12 | Hospitalist Progress Note ---
Date of Service June 30, 2023 Assessment & Plan (1) Sepsis: Plan: Present on admission. Now resolved. Cultures obtained at the time of surgery are growing E. coli and an anaerobe. He is currently on Rocephin and Flagyl. Infectious disease recommends eventual discharge on oral Flagyl and cefpodoxime. (2) Acute encephalopathy: Plan: Acute metabolic encephalopathy present on admission. Alcohol withdrawal may also have contributed. Now resolved (3) Perforated appendix: Plan: s/p lap appy on 06/20, with intra-abdominal infection from perforation--> abd fluid cx growing E. coli and Eggerthella lenta( anaerobe). General surgery consultation and recommendations appreciated. OUSMANE drain remains in place. (4) Pelvic abscess in male: Plan: Fluid collection seen in the pelvis on abdominal pelvic CT scan done on June 26. This is probably a small abscess. General surgery is aware. Interventional radiology placed a drain yesterday June 29 and aspirated a small amount of fluid. No current drainage. Hopefully this can be removed tomorrow.. He is currently on Rocephin and Flagyl. Infectious disease has recommended oral Flagyl and cefpodoxime at the time of discharge to home (5) XAVIER (acute kidney injury): Plan: Present on admission. Now resolved. Urology consultation appreciated. Will monitor urine output and serial labs (6) Acute hypoxic respiratory failure: Plan: Present on admission. Now resolved. He did not require intubation. Steroids have been weaned off. Two-step oxygen desaturation study completed on June 26 does not indicate the need for home oxygen. (7) Anemia: Plan: Acute blood loss anemia most likely. Serial labs. Transfuse if necessary. (8) Gross hematuria: Plan: secondary to multiple traumatic Stearns placement attempts. Now resolved. Stearns removed 06/22 and voiding well. Urology consultation and recommendations appreciated. He has newly diagnosed prostate Ca. Repeat UA negative (9) Chronic obstructive pulmonary disease: Plan: Acute exacerbation present on admission. Now back to baseline. Appreciate pulmonary medicine consultation and recommendations. (10) Bilateral pulmonary embolism: Plan: ruled out after admission. Leg vein dopplers neg for DVT (11) Prostate cancer: Plan: recently diagnosed. No mets per PET scan. He is following with Radiation Oncology and is to begin treatment soon. Continue Flomax Plan Hopeful discharge to home tomorrow, July 01, on oral antibiotics Admission and Anticipated Discharge Date Admission Date: June 20, 2023 Subjective Alert and oriented. It was all I could do to talk him into staying another day. Pelvic drainage is 0. Hopefully this drain can be removed tomorrow. Infectious disease and surgical entries noted. Hopeful discharge tomorrow, July 01 on oral antibiotics. Review of Systems Review of Systems: Constitutional-no fever or chills ENT-no blurred vision, no double vision, no epistaxis, no sore throat Respiratory-no cough, no wheezing, no shortness of breath Cardiac-no palpitations, no chest pain, no syncope GI-no nausea, vomiting, diarrhea, melena, hematochezia -no urinary retention, no urinary incontinence, no dysuria, no hematuria Musculoskeletal-no joint pain, no muscle tenderness Skin-no bruising, no rashes, no pruritus Neuro-no isolated weakness, no paresthesia, no weakness Psych-no depression, no anxiety Physical Exam Physical Exam: General-alert and oriented x3, no fevers, no chills HEENT-head atraumatic and normocephalic, pupils equal and reactive to light, extraocular muscles intact Neck-no lymphadenopathy or thyromegaly, trachea midline Chest-clear to auscultation percussion. No rales wheezing or rhonchi Cardiac-regular rate and rhythm, normal S1 and S2 Abdomen-normal bowel sounds, no hepatosplenomegaly. Mild tenderness in suprapubic area Extremities-no cyanosis, clubbing, or edema Neuro-cranial nerves II through XII intact, motor and sensory function within normal limits, strength symmetrical , no focal deficits Psych-normal affect, normal mood Results & Data Results & Data Vital Signs (Past 12 Hours) Vital Signs Temp Pulse Pulse Resp BP Pulse Ox O2 Del Method 06/30/23 16:36 36.6 C 70 19 133/77 95 Room Air 06/30/23 06:00 76 06/30/23 11:32 36.5 C 70 18 143/74 H 94 Room Air 06/30/23 09:53 Room Air 06/30/23 07:34 36.8 C 72 18 157/66 H 94 Room Air 06/30/23 07:20 85 17 93 Room Air Laboratory Results 06/30/23 05:52 06/30/23 05:52 PG Care Time/CCT Total # of Minutes Spent Total Time Spent with Patient: Total time spent is greater than 50% in coordination of care (as documented) at patient's floor/unit and/or counseling patient: Coding Level of Care Code 37479 SUB INP/OBS CARE 350MIN Diagnoses Sepsis A41.9 Acute encephalopathy G93.40 Perforated appendix K35.32 Pelvic abscess in male K65.1 XAVIER (acute kidney injury) N17.9 Acute hypoxic respiratory failure J96.01 Anemia D64.9 Gross hematuria R31.0 Chronic obstructive pulmonary disease J44.9 Bilateral pulmonary embolism I26.99 Prostate cancer C61
[2023-06-30] MEDS: ENOXAPARIN INJ 40 MG/0.4 ML SYR SQ SCH (17:51)
[2023-06-30] MEDS: ATORVASTATIN 40 MG TAB PO SCH (20:56)
[2023-06-30] MEDS: MELATONIN 3 MG TAB PO SCH (20:56)
[2023-06-30] MEDS: TAMSULOSIN HCL 0.4 MG CAP PO SCH (20:56)
[2023-07-01] MEDS: metroNIDAZOLE 500 MG/100 ML BAG IV SCH ×2 (01:01→10:09)
[2023-07-01] MEDS: FORMOTEROL 20 MCG/2 ML VIAL INH SCH (07:18)
[2023-07-01] MEDS: BUDESONIDE 0.25 MG/2 ML VIAL (PULMICORT) NEB SCH (07:18)
[2023-07-01] MEDS: FOLIC ACID 1 MG TAB PO SCH (08:33)
[2023-07-01] MEDS: NICOTINE 14 MG/24 HR PATCH TD SCH (08:35)
[2023-07-01] MEDS: THIAMINE HCL 100 MG TAB PO SCH (08:35)
[2023-07-01] MEDS: VENLAFAXINE HCL XR 150 MG CAPXR PO SCH (08:36)
[2023-07-01] MEDS: MAGNESIUM OXIDE 400 MG TAB PO SCH (08:36)
[2023-07-01] MEDS ORDERED: FERROUS SULFATE 325 MG TAB PO SCH (09:00)
[2023-07-01] MEDS: INSULIN ASPART PER UNIT CHARGE SC SCH ×2 (09:07→12:29)
[2023-07-01 09:08] LABS: Basophils # (auto) 0.03 K/uL (0.00-0.20); Basophils % (auto) 0.3 %; Eosinophils # (auto) 0.14 K/uL (0.00-0.50); Eosinophils % (auto) 1.2 %; Hematocrit (blood only) 34.9 % (42.0-52.0); Hemoglobin 11.4 g/dl (14.0-18.0); Immature Granulocytes # (auto) 0.13 K/uL (0.01-0.20); Immature Granulocytes % (auto) 1.1 %; Lymphocytes # (auto) 0.71 K/uL (1.20-3.40); Lymphocytes % (auto) 5.9 %; Mean Corpuscular Hemoglobin 29.9 pg (25.0-34.0); Mean Corpuscular Hgb Conc 32.7 g/dL (32.0-36.0); Mean Corpuscular Volume 91.6 fL (80.0-100.0); Mean Platelet Volume 10.8 fL (9.4-12.4); Monocytes # (auto) 0.86 K/uL (0.11-0.59); Monocytes % (auto) 7.2 %; Neutrophils # (auto) 10.12 K/uL (1.40-6.50); Neutrophils % (auto) 84.3 %; Platelet Count 357 K/uL (130-400); RDW Coefficient of Variation 14.8 % (11.5-14.5); RDW Standard Deviation 49.7 fL (36.4-46.3); Red Blood Count 3.81 M/uL (4.70-6.10); White Blood Count 11.99 K/ul (4.8-10.8)
[2023-07-01 09:26] LABS: BUN Creatinine Ratio 16.2 (10-20); Calcium 8.8 mg/dl (8.6-10.3); Creatinine Clr Calc Pharmacy 70.3 ml/min; Est GFR (Non-African American) 74.2 ml/min; Potassium 3.9 mmol/L (3.5-5.1)
[2023-07-01] MEDS: cefTRIAXone SODIUM 2,000 MG in DEXTROSE 5 % MINI-B 50 ML IV SCH (10:09)
--- NOTE | 2023-07-01 11:08 | Surgery Progress Note ---
This patient was discussed with the surgical PA. I agree with the plan for Date of Service July 01, 2023 Assessment & Plan (1) Pelvic abscess in male: Plan: POD 11 Lap appy, abd wash out Patient sitting up in chair IR drain placement two days ago Denies fever, chills, n/v, Cp, sob WBC 11 (11) no growth on IR drainage to date passing flatus and having BMs OUSMANE 5/5ml serous fluid in 12/24hour IR drain bag empty Tenderness still in RLQ some improvement Admission and Anticipated Discharge Date Admission Date: June 20, 2023 Subjective sitting in chair has been ambulating in halls without difficulty no complaints Review of Systems Constitutional: no fever, no chills and no sweats Ear, Nose, Mouth, Throat: no hearing loss Respiratory: no dyspnea Cardiovascular: no chest pain Gastrointestinal: + abdominal pain; no nausea and no vomiting Physical Exam Physical Exam: alert oriented Constitutional: cooperative and comfortable; no acute distress Respiratory: normal respiratory effort and able to speak in complete sentences; no respiratory distress Cardiovascular: Rate/Rhythm: regular rate Gastrointestinal (Abdomen): Inspection/Auscultation: + abdominal surgical incision and + abdominal surgical drain present (OUSMANE ) Percussion/Palpation: + abdomen tender (RLQ) and abdomen soft; no guarding Results & Data Vital Signs (Past 12 Hours) Vital Signs Temp Pulse Resp BP Pulse Ox Pulse Ox O2 Del Method 07/01/23 08:00 98.4 F 74 18 138/76 93 07/01/23 00:00 94 Room Air PG Care Time/CCT Total # of Minutes Spent Total Time Spent with Patient: Total time spent is greater than 50% in coordination of care (as documented) at patient's floor/unit and/or counseling patient: Coding Level of Care Code 39674 SUB INP/OBS CARE 1/25MIN Diagnoses Pelvic abscess in male K65.1
[2023-07-01] MEDS ORDERED: CEROVITE ADV FORMULA TAB PO SCH (11:30)
[2023-07-01] MEDS ORDERED: MULTIVITAMIN TAB PO SCH (11:30)
[2023-07-01] MEDS: PANTOprazole 40 MG in SYRINGE 0 ML IV SCH (12:19)
[2023-07-01] MEDS ORDERED: AMOXICILLIN/CLAVULANATE 875 MG TAB PO SCH (12:30)
--- NOTE | 2023-07-01 12:54 | Discharge Summary ---
Date of Service July 01, 2023 Admission HPI Per Admitting Provider Alec Salmeron is a 73yo male with history of prostate cancer, HLP, COPD (FEV1=74% per PFTs 06/2012) presenting with abdominal pain, SOB. reports that patient has been listless and lethargic for the last three da ys. He has also had progressively worsening respiratory status with cough, wheeze and shortness of breath. He has also had episodic RLQ abdominal pain for the last 3 days. Patient has occasional chest tightness but denies chest pain, palpitations, fever, chills, nausea, vomiting or diarrhea. He does have some constipation currently and has not been eating or drinking much for the last several days. No urinary complaints. No rash. No additional complaints at this time. In the ER patient in respiratory distress. CT imaging as below confirmed presence of acute perforated appendicitis, high grade SBO as well as bilateral lower lobe subsegmental PEs. NGT was placed with copious amount of bilious fluid promptly returned Patient was evaluated by General Surgery ER Course: Azithromycin Vancomycin Solumedrol 125mg IV NSS x 2L Cefepime 2gm Principal Diagnosis Perforated appendix with peritonitis and pelvic abscess Discharge Exam General-alert and oriented x3, no fevers, no chills HEENT-head atraumatic and normocephalic, pupils equal and reactive to light, extraocular muscles intact Neck-no lymphadenopathy or thyromegaly, trachea midline Chest-clear to auscultation percussion. No rales wheezing or rhonchi Cardiac-regular rate and rhythm, normal S1 and S2 Abdomen-normal bowel sounds, no hepatosplenomegaly. Mild tenderness in suprapubic area Extremities-no cyanosis, clubbing, or edema Neuro-cranial nerves II through XII intact, motor and sensory function within normal limits, strength symmetrical , no focal deficits Psych-normal affect, normal mood Discharge Data Allergies Allergy/AdvReac Type Severity Reaction Status Date / Time No Known Allergies Allergy Verified 06/20/23 09:31 Consultations 06/20/23 00:26 ED Decision to Admit Stat 06/20/23 01:02 Consult General Surgery Stat 06/20/23 03:44 Consult General Surgery Routine Consult Occupational Therapist Rehab Manager Routine 06/20/23 08:42 Consult Cardiology Routine 06/20/23 08:47 Consult Urology Stat 06/25/23 07:32 Consult Infectious Diseases Routine Procedures Performed Operation Date: 06/20/23 12:00 Actual Procedures p Laparoscopic Appendectomy,(Not Applicable) - Vignesh Zhao DO s Exploratory Laproscopy, Intra-abdominal washout(Not Applicable) - Vignesh Zhao DO Ordered Studies 06/19/23 22:58 CT Abd and Pelvis [CT abd pelvis wo con] Stat 06/19/23 23:45 CT for pulmonary embolism PE [CT angio chest PE protocol] Stat 06/20/23 03:40 US venous doppler LE BI Routine 06/26/23 10:36 CT abd pelvis IV con only Urgent 06/29/23 12:00 IR AD peritoneal/retro w/gdnce Stat Hospital Course (1) Sepsis: Present on admission. Now resolved. Cultures obtained at the time of surgery are growing E. coli and an anaerobe. He was treated while hospitalized with intravenous Rocephin and Flagyl. Infectious disease consultation and recommendations appreciated. After discussion with surgery, it was decided to send the patient home on oral Augmentin. (2) Acute encephalopathy: Acute metabolic encephalopathy present on admission. Alcohol withdrawal may also have contributed. Now resolved (3) Perforated appendix: s/p lap appy on 06/20, with intra-abdominal infection from perforation--> abd fluid cx growing E. coli and Eggerthella lenta( anaerobe). General surgery consultation and recommendations appreciated. OUSMANE drain will remain in place at discharge (4) Pelvic abscess in male: Fluid collection seen in the pelvis on abdominal pelvic CT scan done on June 26. This is probably a small abscess. General surgery is aware. Interventional radiology placed a drain yesterday June 29 and aspirated a small amount of fluid. No current drainage. This drain will be removed today, July 01, before discharge. He is currently on Rocephin and Flagyl. Infectious disease consultation and recommendations appreciated. After this discussion with surgery, it was decided to send him home on oral Augmentin. (5) XAVIER (acute kidney injury): Present on admission. Now resolved. Urology consultation appreciated. Will monitor urine output and serial labs (6) Acute hypoxic respiratory failure: Present on admission. Now resolved. He did not require intubation. Steroids have been weaned off. Two-step oxygen desaturation study completed on June 26 does not indicate the need for home oxygen. (7) Anemia: Acute blood loss anemia most likely. Serial labs. He did not require blood transfusion (8) Gross hematuria: secondary to multiple traumatic Stearns placement attempts. Now resolved. Stearns removed 06/22 and voiding well. Urology consultation and recommendations appreciated. He has newly diagnosed prostate Ca. Repeat UA negative (9) Chronic obstructive pulmonary disease: Acute exacerbation present on admission. Now back to baseline. Appreciate pulmonary medicine consultation and recommendations. (10) Bilateral pulmonary embolism: ruled out after admission. Leg vein dopplers neg for DVT (11) Prostate cancer: recently diagnosed. No mets per PET scan. He is following with Radiation Oncology and is to begin treatment soon. Continue Flomax Plan Home today, July 01, on Augmentin. General surgery has set up repeat lab work for tomorrow. They will see him in the office shortly for drain removal Total Time Total Time Spent Total Time Spent (In Minutes): 45 Discharge Plan Discharge Items Patient Disposition: Home - Self-Care Reason For Visit: FEVER, ABDOMINAL PAIN, SOB Discharge Diagnosis: perforated appendicitis Activity: Per Instructions section Lifting: No more than 10 pounds Bathing Comment: may shower; no soaking in tubs/pools x 2 weeks Exercise/Sports: Wait until after follow-up appointment Driving/Machine Use: no driving while taking narcotics for pain Non-emergency contact: Primary Care Provider and Surgeon Call non-emergency contact if: your symptoms worsen, your pain is worsening, you have a fever, your temperature is above 101.5, your wound has increased redness, your wound has increased drainage and your wound pain has increased Follow-up/Referrals: Michael Poon MD [Primary Care Provider] - Vignesh Zhao DO [Physician] - (Please call to schedule follow up in clinic within 1-2 weeks) Diet: Low Fiber Ambulatory Orders: Complete Blood Count with Diff (Timed) Timeframe: [id number] Location: Determined by Patient Ordered By: Jacob Jacobs Attending Provider Instructions: You will be discharged with a surgical drain in place. Care for drain as you have been instructed prior to discharge. Keep drain to bulb suction.Empty drain 2-3x/daily and record output You may purchase Tylenol and/or Ibuprofen over the counter if needed for additional pain control over the next few days. Take per manufacturers instructions You will need to have your labs drawn on 07/02/23 and 07/03/23 Pending Studies at Discharge: Yes Studies:: surgical pathology Stand-Alone Forms: My [facility], Smoking Cessation Medications and DC Order Prescriptions: New tiotropium bromide [Spiriva with HandiHaler] 18 mcg capsule, w/inhalation device 1 cap inhalation DAILY Qty: 60 0RF Rx Instructions: puncture 1 cap using device; one dose = 2 inhalations amoxicillin-pot clavulanate 875-125 mg Tablet 1 tab PO BIDM Qty: 30 0RF Continued budesonide-formoterol [Symbicort] 80-4.5 mcg/actuation HFA aerosol inhaler 2 puff inhalation BID Qty: 10.2 3RF Rx Instructions: thru aerochamber/ [employer] venlafaxine 150 mg capsule,extended release 24hr 150 mg PO DAILY Qty: 90 1RF (DME) Aerochamber Plus Z Stat Spacer See Rx Instructions .ROUTE .MEDSUPPLY Qty: 1 0RF Rx Instructions: As directed magnesium oxide 400 mg magnesium capsule 400 mg PO DAILY Multi-Vitamin HP/Minerals Capsule 1 cap PO QDL PreserVision AREDS [id number] Tablet 1 tab PO QDL atorvastatin 40 mg tablet 40 mg PO HS ferrous sulfate 325 mg (65 mg iron) tablet,delayed release (DR/EC) 325 mg PO QAM Discharge Orders: Discharge Order (Routine); Ordered 07/01/23 Ordered By: Fabien Rodriguez Admission Data Admit Date/Time: 06/20/23 01:55 Attending Provider: Fabien Rodriguez Admit Provider: Marisela Baer Primary Care Provider: Michael Poon Other Providers: Vignesh Zhao ; Marisela Baer ; Winston Valdes ; Leo Bashir ; Momo Macias ; Nisha Vo ; Bubba Robertson ; Alvina Mace ; Agnieszka Nettles ; Jennifer Stark ; Antonia Chou ; Laura Devries ; Regino De Leon ; Rand Currie ; Vale Gonzalez Coding Level of Care Code 95923 INP/OBS DISCH >30 MIN Diagnoses Sepsis A41.9 Acute encephalopathy G93.40 Perforated appendix K35.32 Pelvic abscess in male K65.1 XAVIER (acute kidney injury) N17.9 Acute hypoxic respiratory failure J96.01 Anemia D64.9 Gross hematuria R31.0 Chronic obstructive pulmonary disease J44.9 Bilateral pulmonary embolism I26.99 Prostate cancer C61
== END 2023-07-01 14:31 | disposition home or self-care (01) | DRG 853 ==
LOC: ED 21:11 → SUATTDRO 06-20 01:55 → 1E 06-20 01:55 → 4W 06-22 06:47 → 3W 06-30 22:25